=== PATIENT | male | born 1945 | race Caucasian/White ===

== ENCOUNTER → 2017-10-23 15:02 | Outpatient (CLI) | payer MEDICARE, BC, SELFPAY ==
--- NOTE | 2017-10-23 15:30 | MRI_ITS ---
STUDY: MRI BRAIN WITH AND WITHOUT CONTRAST REASON FOR EXAM: Male, 72 years old. Imbalance, falls, unsteady gait, prostate cancer TECHNIQUE: Standardized multiplanar fat and water weighted pulse sequences were obtained. 10 ml of Gadavist contrast material was administered intravenously for the contrast portion of the examination. COMPARISON: 02/22/2016 report only FINDINGS: Mild cortical atrophy. Normal white matter tracts of the supratentorial brain. Normal bilateral basal ganglia. Normal thalami. There is no extra-axial fluid accumulation. Normal flow voids within the major intracranial circulation suggesting patency by spin echo criteria. Normal venous enhancement. There is no enhancing intra-axial or extra-axial abnormality. Normal sella turcica, pituitary gland, infundibular stalk, optic chiasm and hypothalamus. Normal tectal plate and pineal gland. Normal midbrain, shantal and medulla. Normal cerebellum. Sacha cisterna magna is incidentally noted. Normal basal cisterns. Normal bilateral temporal bones. Normal bilateral internal auditory canals. Right lens replacement. Bilateral maxillary sinusitis. Normal calvarium and skull base. Normal visualized soft tissue structures. Normal visualized upper cervical spine. MRI/Brain W/WO Contrast IMPRESSION: No evidence of infarct or hemorrhage. Cortical atrophy. No evidence of metastatic disease. Bilateral maxillary sinusitis. Electronically Signed: Edil Simms MD at 2:11 EST Tel , Service support ,
[2017-10-23 16:01] LABS: CREATININE FINGERSTICK 0.8 mg/dL (0.70-1.30); EGFR FINGERSTICK > 60.0000 mL/min (>60)
== END ==
PROVIDERS: Family Provider Internal Medicine; PCP Internal Medicine; Visit Provider Internal Medicine
DX: R27.0 Ataxia, unspecified (principal)
CPT/HCPCS: 70553; A9585

== ENCOUNTER → 2017-10-26 08:15 | Outpatient (CLI) | payer MEDICARE, BC, SELFPAY ==
--- NOTE | 2017-10-26 08:29 | RAD_ITS ---
STUDY: X-RAY - ESOPHAGUS (BARIUM SWALLOW) WITH FLUOROSCOPY REASON FOR EXAM: Male, 72 years old. Dysphagia for solids. History of melanoma and prostate cancer. TECHNIQUE: 17 view(s) of the esophagus were obtained following swallowing of barium. FLUOROSCOPY TIME (if supplied): (0:33) minutes/seconds COMPARISON: None. FINDINGS: There is no demonstrated esophageal foreign body. There is circumferential narrowing of the distal esophagus at the gastroesophageal junction. The 12 mm tablet of barium is trapped at the gastroesophageal junction. Endoscopic correlation is recommended. There is atherosclerotic tortuosity of the aortic arch and descending thoracic aorta. Normal visualized pulmonary parenchyma. Normal visualized osseous structures of the thorax. RAD/Esophagus Only IMPRESSION: Circumferential narrowing at the gastroesophageal junction as described. The 12 mm tablet of barium is trapped at that site. Endoscopic correlation is recommended. Electronically Signed: Valdo Dwyer MD at 9:18 EST Tel [phone], Service support ,
== END ==
PROVIDERS: Family Provider Internal Medicine; PCP Internal Medicine; Visit Provider Internal Medicine
DX: R13.10 Dysphagia, unspecified (principal)
CPT/HCPCS: 74220

== ENCOUNTER → 2017-12-18 07:26 | Outpatient (CLI) | payer MEDICARE, BC, SELFPAY ==
--- NOTE | 2017-12-18 14:25 | PFTCOMP ---
COMPLETE PULMONARY FUNCTION TEST INTERPRETATION Brief HPI: Patient is a 72 year old male, currently under the care of myself, who presents to [facility] for complete pulmonary function tests secondary to diagnosis of COPD. Respiratory therapist reports good effort and reproducible results. Interpretation: Forced expiration spirometry shows no large airways obstructive ventilatory defect with an FEV1 of 83 % predicted. There is no significant bronchodilator response by ATS criteria. Spirograms are of good quality and plateau slowly, indicating slowly emptying areas of the lungs. The respiratory flow volume loop shows decreased expiratory flow rates at high lung volumes consistent with small airways obstruction. Lung volumes by body plethysmography show a normal total lung capacity at 6.33 L, 98% predicted. All other lung volumes are within normal limits. Diffusion capacity by carbon monoxide is at the lower limit of normal at 67 % predicted. The airway resistance is elevated. Compared to previous pulmonary function tests from 07/25/2016, there has been no significant change. Impression: These pulmonary function tests are grossly within normal limits. Views capacity is at the lower limit of normal and may indicate early pulmonary vascular disease.
--- NOTE | 2017-12-18 14:28 | PFTCOMP_ITS ---
COMPLETE PULMONARY FUNCTION TEST INTERPRETATION Brief HPI: Patient is a 72 year old male, currently under the care of myself, who presents to [facility] for complete pulmonary function tests secondary to diagnosis of COPD. Respiratory therapist reports good effort and reproducible results. Interpretation: Forced expiration spirometry shows no large airways obstructive ventilatory defect with an FEV1 of 83 % predicted. There is no significant bronchodilator response by ATS criteria. Spirograms are of good quality and plateau slowly, indicating slowly emptying areas of the lungs. The respiratory flow volume loop shows decreased expiratory flow rates at high lung volumes consistent with small airways obstruction. Lung volumes by body plethysmography show a normal total lung capacity at 6.33 L , 98% predicted. All other lung volumes are within normal limits. Diffusion capacity by carbon monoxide is at the lower limit of normal at 67 % predicted. The airway resistance is elevated. Compared to previous pulmonary function tests from 07/25/2016, there has been no significant change. Impression: These pulmonary function tests are grossly within normal limits. Views capacity is at the lower limit of normal and may indicate early pulmonary vascular disease.
== END ==
PROVIDERS: Family Provider Internal Medicine; PCP Internal Medicine; Visit Provider Nurse Practitioner Acute Care
DX: J44.9 Chronic obstructive pulmonary disease, unspecified (principal)
CPT/HCPCS: 94060; 94726; 94729

== ENCOUNTER 2018-05-27 08:59 | Day surgery (SDC) | payer MEDICARE, BC, SELFPAY ==
[2018-05-27 09:12] VITALS: BP 140/93; PULSE 66; RESP 18; TEMP 36.4; O2SAT 97
== END 2018-05-27 09:57 | disposition home or self-care (01) ==
LOC: EN 09:01
PROVIDERS: Family Provider Internal Medicine; PCP Internal Medicine; Visit Provider Surgery
PROC: F00ZJWZ Instrumental Swallowing and Oral Function Assessment using Swallowing Equipment (ICD-10-PCS; CPT 43235; principal; 2018-05-27 08:55)
DX: R13.10 Dysphagia, unspecified (principal)
CPT/HCPCS: 91010

== ENCOUNTER → 2018-05-29 10:00 | Outpatient (CLI) | payer MEDICARE, BC, SELFPAY ==
--- NOTE | 2018-05-29 10:00 | LES_PTH ---
PATIENT: NAZARIO MARIE LOC: [facility] U#:[id number] AGE/SX: 80/M ROOM: RE05/29/[address]: Dr. Robert Martinez MD : 1945 BED: DIS: SPEC #: [id number] RECD: 05/29/18 11:27 STATUS: ADRIANA TULIO #: [id number] JOSELUIS: 05/29/18 10:[address]: Robert Martinez DEPT: SURGICAL PATHOLOGY RECD BY: Noble Santizo ENTERED: 05/31/18 10:46 SP TYPE: Lesion OTHR DR: Dr. Kellen Garcia, DO Tissues: Skin of external ear, NOS Procedures: Surgery Specimen Level III HEADER OPERATION: Excision of subcutaneous lesion of left posterior ear PRE-OP DIAGNOSIS: Lesion of subcutaneous tissue TISSUE SUBMITTED: Left posterior ear MICROSCOPIC DIAGNOSIS Subcutaneous lesion of left posterior ear, excision: Mature adipose tissue consistent with lipoma. AM:tiana 06/01/18 MICROSCOPIC DESCRIPTION Slides are reviewed. GROSS DESCRIPTION Received in fixative is one container labeled with the patient's name and designated left posterior ear. The specimen consists of a piece of yellow adipose tissue measuring 4 x 3 x 1 cm. Sections reveal yellow adipose cut surfaces without area of hemorrhage, necrosis or cystic degeneration. Nutrition Technician sections are submitted in one cassette. / SJ:rg 05/31/18 TC:1 CPT: 32711
== END ==
PROVIDERS: Family Provider Internal Medicine; PCP Internal Medicine; Visit Provider Surgery
DX: L98.8 Other specified disorders of the skin and subcutaneous tissue (principal)
CPT/HCPCS: 88304; 88305

== ENCOUNTER → 2018-08-10 20:00 | Outpatient (CLI) | payer MEDICARE, BC, SELFPAY ==
--- OUTSIDE RECORDS SUMMARY | 2018-10-06 10:24 | XMS RPT_ITS | Continuity of Care Document ---
:1945 Author Organization [facility] Address [facility] [address] [place] [address] Phone Care Team Providers Name Role Phone Kellen Garcia DO Unavailable Brijesh LUTZ, Miguel Ángel Askew Unavailable Dr. Taras Yost Unavailable Edil Hernández Unavailable Anton LUTZ, Pravin Zamarripa Unavailable Daniel Bowles MD Unavailable Juan WU MD , Robert Reece Unavailable Dr. Pravin Marques Unavailable Alexandro LUTZ, Trent Brizuela Unavailable Aurelia Russell Unavailable Unavailable Daniela Edwards Unavailable Unavailable Unavailable Unavailable Problems Name Dates Details Abnormal blood sugar (R73.09, 790.29) Status: Active Abnormal TSH (R79.89, 790.6) Status: Active Abnormality of esophagus (K22.9, 530.9) Status: Active Acute bacterial bronchitis (J20.8, 466.0) Status: Active Acute bronchitis due to infection (J20.8, 466.0) Status: Active Acute Sinusitis (J01.90, 461.9) Status: Active Acute sinusitis (J01.90, 461.9) Status: Active Allergic reaction, subsequent encounter (T78.40XD, V58.89) Comments: continue on prednisone benadryl - he is improving Status: Active arthritis,unspecified (716.90) Status: Active Asthma (J45.909, 493.90) Status: Active Ataxia (R27.0, 781.3) Comments: and falling Status: Active BMI 29.0-29.9,adult (Z68.29, V85.25) Status: Active BMI 32.0-32.9,adult (Z68.32, V85.32) Status: Active BMI 32.0-32.9,adult (Z68.32, V85.32) Status: Active Central sleep apnea (G47.31, 780.57) Comments: on bipap and was referred to hernández Status: Active Chronic maxillary sinusitis (J32.0, 473.0) Status: Active Chronic Sinusitis Status: Active Confusion (R41.0, 298.9) Status: Active COPD (chronic obstructive pulmonary disease) (J44.9, 496) Status: Active Coronary Artery Disease (414.00) Comments: doing well sx nair Status: Active Current non-smoker (Z78.9, V49.89) Status: Active Dysphagia (R13.10, 787.20) Comments: doing better Status: Active Dysthymic (F34.1, 300.4) Status: Active Elevated hemoglobin A1c (R73.09, 790.29) Comments: he is on the verge of diabetes we disussed diet and ex in detail and encourage to discuss with psych the remeron(weight gain) Status: Active Elevated hemoglobin A1c (R73.09, 790.29) Comments: better Status: Active Elevated high sensitivity C-reactive protein (R79.82, 790.95) Comments: get lab Status: Active Encounter for hepatitis C virus screening test for high risk patient (Z11.59, V73.89) Status: Active Esophageal spasm (K22.4, 530.5) Status: Active Fall, accidental (W19.XXXA, E888.9) Comments: check mri of brain otherwise may be his sugar he gets hypoglycemia when he is eating too many carbs gave him sugar monitor Status: Active Fatigue (R53.83, 780.79) Status: Active 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, 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) Comments: seeing neuropsychiatrist Status: Active Gastroesophageal reflux disease without esophagitis (K21.9, 530.81) Comments: chronic stable-continue present regimen Status: Active Hearing loss (H91.90, 389.9) Status: Active Heart murmur (R01.1, 785.2) Status: Active Hypothyroid (E03.9, 244.9) Status: Active Lipoma (D17.9, 214.9) Status: Active [facility] WELLNESS EXAM Status: Active [facility] Wellness Physical Status: Active Melanoma (C43.9, 172.9) Comments: skin check up to date Status: Active Memory loss (R41.3, 780.93) Status: Active Mixed hyperlipidemia (E78.2, 272.2) Comments: work on diet and e Status: Active Myocardial infarction (lateral wall) (I21.29, 410.50) Status: Active Need for prophylactic vaccination and inoculation against influenza (Renamed from Need for immunization against influenza) (Z23, V04.81) Status: Active Need for prophylactic vaccination and inoculation against influenza (Renamed from Need for immunization against influenza) (Z23, V04.81) Status: Active Need for prophylactic vaccination and inoculation against influenza (Renamed from Need for immunization against influenza) (Z23, V04.81) Status: Active Other chest pain (R07.89, 786.59) Comments: chest tightness with cough Status: Active Potassium excess (E87.5, 276.7) Status: Active Prostate cancer (C61, 185) Status: Active Pulmonary Embolism (Renamed from PE (pulmonary embolism)) (I26.99, 415.19) Status: Active Secondary pulmonary hypertension (416.8) Comments: on norvascd Status: Active SOB (shortness of breath) on exertion (R06.02, 786.05) Status: Active Syncope (R55, 780.2) Comments: think vagal but will check other possibliitiies Status: Active Vascular dementia (F01.50, 290.40) Status: Active Vitamin D deficiency (E55.9, 268.9) Status: Active Medications Name Dates Details Acebutolol HCl 200 MG Oral Capsule 1 (one) Capsule daily for 90 days Quantity: 90 {Capsule} Refills: 3 Ordered:19-Sep-2016 Jose TARYLOR Kellen HOPElena TRAYLOR Kellen Whiteside Start : 19-Sep-2016 Active Advair HFA 230-21 MCG/ACT Inhalation Aerosol 2 (two) Aerosol Aerosol bid for 0 days Quantity: 1 {Inhaler} Refills: 0 Ordered:09-Dec-2016 Jose TRAYLOR Kellen HOPElena TRAYLOR Kellen A Start : 09-Dec-2016 Active AmLODIPine Besylate 2.5 MG Oral Tablet 1 tab Tablet daily for 90 days Quantity: 90 {Tablet} Refills: 3 Ordered:19-Sep-2016 Jose TRAYLORLoretomiesha HOPElena TRAYLOR Kellen Whiteside Start : 19-Sep-2016 Active Aricept 5 MG Oral Tablet 1 (one) Tablet qhs for 90 days Quantity: 90 {Tablet} Refills: 3 Ordered:20-Oct-2017 Jose TRAYLOR Kellen HOPElena TRAYLOR Kellen Whiteside Start : 20-Oct-2017 Active ASPIR-81, 81MG (Oral Tablet Delayed Release) 1 (one) Tablet DR daily for 30 days Quantity: 30 {Tablet} Refills: 0 Ordered:09-Apr-2015 Jose TRAYLORLoretomiesha HOPElena TRAYLOR Kellen Whiteside Start : 09-Apr-2015 Active BuPROPion HCl ER (XL) 300 MG Oral Tablet Extended Release 24 Hour 1 (one) Tablet qd for 0 days Quantity: 30 {Tablet} Refills: 3 Ordered:15-Jun-2017 Jose TRAYLORLoretomiesha HOPElena TRAYLOR Kellen A Start : 15-Jun-2017 Active BusPIRone HCl 15 MG Oral Tablet 1 tab Tablet tid for 90 days Quantity: 270 {Tablet} Refills: 3 Ordered:29-Jun-2017 Jose TRAYLORLoretomiesha HOPElena TRAYLOR Kellen Whiteside Start : 29-Jun-2017 Active Clopidogrel Bisulfate 75 MG Oral Tablet 1 (one) Tablet daily for 30 days Quantity: 30 {Tablet} Refills: 6 Ordered:18-Jan-2018 Jose TRAYLORKellen DO Kellen Whiteside Start : 18-Jan-2018 Active Levocetirizine Dihydrochloride 5 MG Oral Tablet 1 (one) Tablet daily for 90 days Quantity: 90 {Tablet} Refills: 3 Ordered:19-Sep-2016 Jose TRAYLOR Kellen HOPElena TRAYLOR Kellen A Start : 19-Sep-2016 Active Levothyroxine Sodium 75 MCG Oral Tablet 1 (one) Tablet Tablet qd for 0 days Quantity: 90 {Tablet} Refills: 3 Ordered:18-Feb-2018 Yessica Thomason MD Start : 18-Feb-2018 Active Lipitor 20 MG Oral Tablet 1 (one) Tablet Tablet qd for 0 days Quantity: 90 {QS} Refills: 2 Ordered:27-Nov-2017 DO, Kellen AFast DO, Kellen A Start : 27-Nov-2017 Active Lisinopril 2.5 MG Oral Tablet 1 tab Tablet daily for 90 days Quantity: 90 {Tablet} Refills: 3 Ordered:29-Jun-2017 DO, Kellen AFast DO, Kellen A Start : 29-Jun-2017 Active Nitrostat 0.4 MG Sublingual Tablet Sublingual 1 (one) Tab Sublingual q 5min x3 for chest pain for 0 days Quantity: 30 {Tablet} Refills: 2 Ordered:02-Jun-2018 DO, Kellen AFast DO, Kellen A Start : 02-Jun-2018 Active Pantoprazole Sodium 40 MG Oral Tablet Delayed Release 1 (one) Tablet DR two times daily for 90 days Quantity: 180 {Tablet} Refills: 3 Ordered:13-Jul-2017 Daniela Edwards Start : 13-Jul-2017 Active Pristiq 100 MG Oral Tablet Extended Release 24 Hour 1 (one) Tablet Tablet qd for 0 days Quantity: 30 {Tablet} Refills: 3 Ordered:02-Aug-2018 Aurelia Russell Start : 02-Jun-2018 Active Remeron 30 MG Oral Tablet 1 (one) Tablet q hs for 0 days Quantity: 90 {Tablet} Refills: 3 Ordered:20-May-2018 Yessica Thomason MD Start : 20-May-2018 Active Vitamin D3 5000 UNIT Oral Capsule 1 (one) Capsule 4 days a week for 30 days Quantity: 30 {Capsule} Refills: 0 Ordered:02-Aug-2018 DO, Kellen AFast DO, Kellen A Start : 02-Aug-2018 Active Augmentin 875-125 MG Oral Tablet 1 (one) Tablet bid for 14 days Quantity: 28 {Tablet} Refills: 0 Ordered:27-Apr-2018 DO, Kellen AFast DO, Kellen A Start : 27-Apr-2018 End : 11-May-2018 Inactive BREO ELLIPTA, 200-25MCG/INH (Inhalation Aerosol Powder Breath Activated) 1 puff daily (200-25 MCG/INH) Inactive DOXYCYCLINE HYCLATE, 100MG (Oral Tablet) 1 (one) Tablet bid for 7 days Quantity: 14 {Tablet} Refills: 0 Ordered:06-Aug-[address] CNP Start : 06-Aug-2015 End : 13-Aug-2015 Inactive Pravastatin Sodium 80 MG Oral Tablet 1 (one) Tablet at bedtime for 90 days Quantity: 90 {Tablet} Refills: 3 Ordered:26-Oct-2017 Aurelia Russell Start : 19-Sep-2016 End : 26-Oct-2017 Inactive BuPROPion HCl ER (XL) 300 MG Oral Tablet Extended Release 24 Hour 1/2 Tablet ER 24HR daily for 90 days Quantity: 45 {Tablet} Refills: 3 Ordered:29-Sep-2016 Kellen Garcia DO, DO, Debra A Start : 29-Sep-2016 End : 29-Sep-2016 Discontinued CITALOPRAM HYDROBROMIDE, 20MG (Oral Tablet) 1 1/2 Tablet daily for 30 days Quantity: 45 {Tablet} Refills: 0 Ordered:06-Jul-2015 Daniela Edwards Start : 09-Apr-2015 End : 06-Jul-2015 Discontinued Effexor XR 150 MG Oral Capsule Extended Release 24 Hour 2 caps Capsule daily for 0 days Quantity: 180 {Capsule} Refills: 3 Ordered:02-Jun-2018 Kellen Garcia DO, DO, Debra A Start : 02-Jun-2018 End : 02-Jun-2018 Discontinued Levaquin 500 MG Oral Tablet 1 (one) Tablet qd for 0 days Quantity: 10 {Tablet} Refills: 0 Ordered:13-Mar-2017 Daniela Edwards Start : 07-Jan-2017 End : 13-Mar-2017 Discontinued LevoFLOXacin 500 MG Oral Tablet 1 (one) Tablet Tablet qd for 0 days Quantity: 10 {Tablet} Refills: 0 Ordered:13-Mar-2017 Daniela Edwards Start : 03-Nov-2016 End : 13-Mar-2017 Discontinued Namenda 10 MG Oral Tablet 2 (two) Tablet qd for 0 days Quantity: 180 {Tablet} Refills: 3 Ordered:23-Nov-2017 Kellen Garcia DO, DO, Debra A Start : 23-Nov-2017 End : 23-Nov-2017 Discontinued Comments:called verbal order into [employer] - 10/12/17 PROAIR HFA, 108 (90 Base)MCG/ACT (Inhalation Aerosol Solution) 2 (two) Puff Puff tid prn for 0 days Quantity: 1 {Inhaler} Refills: 0 Ordered:17-Oct-2015 Daniela Edwards Start : 06-Aug-2015 End : 17-Oct-2015 Discontinued Allergies and Adverse Reactions Name Dates Details Cefdinir *CEPHALOSPORINS* Status: Active (Allergy) Codeine/Codeine Derivatives Status: Active (Allergy) Comments: not sure whether was cefdinir or codeine took at same time- near anaphylaxis No Known Drug Allergies (Allergy) Onset: 03-Nov-2016 Status: Inactive Past Medical History Name Dates Details Abnormal blood chemistry (R79.9, 790.6) Status: Inactive as of 27-Apr-2018 Allergic Rhinitis (477.9) Status: Inactive as of 29-Sep-2017 Ankle pain, left (M25.572, 719.47) Status: Inactive as of 29-Sep-2017 BMI 28.0-28.9,adult (Z68.28, V85.24) Status: Inactive as of 29-Sep-2017 BMI 29.0-29.9,adult (Z68.29, V85.25) Status: Inactive as of 29-Sep-2017 BMI 30.0-30.9,adult (Z68.30, V85.30) Status: Inactive as of 02-Aug-2018 Bronchiectasis (J47.9, 494.0) Comments: doing better Status: Inactive as of 18-Jan-2018 Cough (R05, 786.2) Status: Resolved as of 13-Aug-2015 Hypoxia (R09.02, 799.02) Comments: why so hypoxic- check ddimer- he not wheezing and lungs clear Status: Inactive as of 27-Apr-2018 Low back pain (M54.5, 724.2) Status: Inactive as of 29-Sep-2017 Neoplasm of uncertain behavior of skin (D48.5, 238.2) Status: Inactive as of 27-Apr-2018 Sinusitis (J32.9, 473.9) Status: Inactive as of 18-Jan-2018 Procedures Procedure Dates Details CATARACT RIGHT EYE 2017 Completed Endoscopy Completed 26-Nov-2017 Comments: upper endoscopy with balloon dilation - Dr. Marques nasal septoplasty 2016 Completed Penal Implant Completed Prostate Surgery Completed Comments: radical and radiation- 2001 Tonsillectomy Completed Total Knee Replacement - Both Completed Comments: 2011 Date Value Details 21-Jun-2018 Pulmonary Visit Report Result: Comments: See Note; NOTES: [facility] [address] [place] [address] OFFICE VISIT Date of Service: 06/21/18 MR#: [id number] Acct: [id number] Name: EDIL MARIE Rep #: [id number] : 1945 Provider: Lanny Jones Age/Sex: 73/M Location: [facility] Status: Signed Assessment AND Plan 1. STACI (obstructive sleep apnea) G47.33 Plan Deteriorated. T itration study needed. Patient is using PAP therapy,and is benefitting from it but there is room for better symptom management. Not feeling rested, and continues to nap during the day. Follow up in 3 mo nths after titration study. Orders Orders: 2. Pulmonary hypertension, secondary Plan Stable. Continue weight loss and exercise. Refrain from additional sodium intake as it will contribute to problem. Notify the office if exacerbation arises, or periods of increased dyspnea occur. 3. Moderate persistent asthma without complication J45.40 Plan Stable. Continue current maintenance medication. Annual flu vaccination current. Consider repeating PFTs on annual bases. Notify the office if exacerbation, or increased dyspnea arise. 4. Dementia F03.90 Plan Complicates exam, plan, care, and prognosis for this patient. Defer management to PCP. Plan Detail Other Medications New: Follow Up 3 Months ([facility]) HPI 6 M FU: Chief Complaint: none HPI Comments Details: 73-year-old male here today for follow-up v isit for STACI. No compliance report available at this time. He reports poor sleep hygiene: goes to bed late at night, sleeps at least six-hours, at least 2 events of having to urinate at night, difficult y falling asleep, and frequent napping during the day. He does not feel rested upon waking from sleep in the morning. He is feeling well today, denies cough, shortness of breath or dyspnea. He is using his Airduo inhaler, however, he does not feel as though it is working as well as his Advair did before he switched for insurance reasons. He rinses mouth after each use and denies medication side effec ts such as thrush. He states that he seems to be tasting more of the powder with the Airduo compared to the Advair. He does admit to frequent nasal drainage that is clear, he relates this to rhinoplasty he has had in the past. Admits to sinus infection about 5 weeks ago which he had completed treatment of antibiotics. He is feeling fair today. He has not had recent hospitalization, o r treatment with prednisone in recent weeks. Patient states that he has had weight loss over the past 2 months, and is feeling better since he has increased his activity and changed his eating habits a llowing him to eat less. Intake Vital Signs06/21/18 Height 6 ft 06/21/18 Weight: 214 lb Intake Visit Reasons: 6 M FU [facility] Vendor: [employer] Accompanied by: Self Allergies cefdinir Adverse Reac tion (Intermediate, Verified 06/21/18 09:46) SOB codeine Adverse Reaction (Intermediate, Verified 06/21/18 09:46) SOB Medications Acebutolol HCl [Sectral (Beta Andrew)] 200 mg PO DAILY 04/17/15 [His tory Confirmed 06/21/18] Aspirin [Aspirin, Baby] 81 mg PO DAILY@0800 04/17/15 [History Confirmed 06/21/18] Clopidogrel Bisulfate [Plavix] 75 mg PO DAILY 04/17/15 [History Confirmed 06/21/18] Co Q10 200 [Co Q-10] 100 mg PO DAILY 04/17/15 [History Confirmed 06/21/18] Cyanocobalamin [Vitamin B12] 500 mcg PO DAILY 04/17/15 [History Confirmed 06/21/18] Levocetirizine Dihydrochloride [Xyzal] 5 mg PO DAILY 0 04/17/15 [History Confirmed 06/21/18] Mirtazapine [Remeron] 30 mg PO DAILY 04/17/15 [History Confirmed 06/21/18] Oxygen, Home [Home Oxygen] 2 lpm NASAL QHS 04/17/15 [History Confirmed 06/21/18] Pantopraz ole Sodium [Protonix] 40 mg PO BID 04/17/15 [History Confirmed 06/21/18] Amlodipine [Norvasc] 2.5 mg PO DAILY 11/23/15 [History Confirmed 06/21/18] Ascorbic Acid [Vitamin C] 500 mg PO DAILY@0800 5 [History Confirmed 06/21/18] Lisinopril [Zestril] 2.5 mg PO DAILY 08/06/15 [History Confirmed 06/21/18] [place]-3 Fatty Acids [[place]-3] 1,000 mg PO DAILY 08/06/15 [History Confirmed 06/21/18] albuterol sulfate HFA 90 mcg/actuation aerosol inhaler 2 puff INHALATION Q4H g 11/11/17 [History Confirmed 06/21/18] buspirone 10 mg tablet 10 mg PO BID 11/11/17 [History Confirmed 06/21/18] cholecalciferol (kaitlynn min D3) 5,000 unit capsule 5,000 unit PO QDAY 11/11/17 [History Confirmed 06/21/18] donepezil 5 mg tablet 5 mg PO QDAY 11/11/17 [History Confirmed 06/21/18] atorvastatin 20 mg tablet 20 mg PO QDAY 12/24 [History Confirmed 06/21/18] bupropion HCl XL 300 mg 24 hr tablet, extended release 300 mg PO DAILY tab 12/24/17 [History Confirmed 06/21/18] levothyroxine 25 mcg capsule 25 mcg PO QDAY cap 12/24/17 [History Confirmed 06/21/18] venlafaxine ER 150 mg capsule,extended release 24 hr 150 mg PO .COMPLEX cap 12/24/17 [History Confirmed 06/21/18] fluticasone 113 mcg-salmeterol 14 mcg/actuation breath act ivated powdr 1 puff INHALATION BID 06/21/18 [History Confirmed 06/21/18] [facility] Medical History History of esophageal dilatation (Acute) Lung nodu les (Acute) GERD (gastroesophageal reflux disease) (Acute) Bronchiectasis (Acute) Depression (Acute) COPD (chronic obstructive pulmonary disease) (Acute) STACI (obstructive sleep apnea) (Acute) Atheroscle rotic heart disease of [place] coronary artery without angina pectoris (Chronic) Pulmonary hypertension, secondary (Acute) Nonrheumatic mitral (valve) prolapse (Acute) Fatigue (Chronic) Atherosclerotic h eart disease of [place] coronary artery without angina pectoris (Chronic) Murmur (Chronic) Angina pectoris (Chronic) Shortness of breath (Chronic) Chest pain (Acute) HLD (hyperlipidemia) (Chronic) HTN (h ypertension) (Chronic) Body mass index (BMI) of 33.0-33.9 in adult (Inactive) Bronchiectasis (Inactive) CAD (coronary artery disease) (Inactive) COPD (chronic obstructive pulmonary disease) (Inactive) D epression (Inactive) Mitral valve prolapse (Inactive) STACI (obstructive sleep apnea) (Inactive) Pulmonary HTN (Inactive) Surgical History Hx of ca taract surgery (Acute) History of bilateral knee replacement (Resolved) H/O radical prostatectomy (Resolved) History of tonsillectomy (Resolved) History of penile implant (Resolved) History of sinus bal loonplasty (Resolved) H/O radical prostatectomy (Inactive) History of bilateral knee replacement (Inactive) History of penile implant (Inactive) History of tonsillectomy (Inactive) history of sinus ball onplasty (Inactive) Family History Father CVA (cerebral vascular accident) Mother Diabetes CVA (cerebral vascular accident) Social History Smoki ng Status: Never smoker second hand exposure: No alcohol intake: never substance use type: does not use caffeine: No what type of physical activity do you participate in: none Review of Systems Cons t CONSTITUTIONAL: Negative anorexia, body ache, chills, daytime sleepiness, fever(s), night sweats, oral thrush, stops breathing during sleep, weight loss, sleeping in chair, fatigue, weight loss, weigh t gain, frequent colds, seasonal allergies, other, headache(s) or orthopnea EETM Ear Nose Throat Mouth: Positive hearing normal; negative hard of hearing, hoarseness, dry mouth in morning, change in vis ion, itchy eyes, eye pain, swallowing Difficulty, ear pain, nose bleed, headache(s), mouth pain, nasal congestion, nasal discharge, post nasal drip, sinus pain, sinus pressure, sore throat or other Card io Cardiovascular: Negative chest pain, chest pain at rest, chest pain with activity, irregular heart rhythm, edema, shortness of breath when lying down, palpitations, murmur or other Resp Respiratory: Positive as per HPI; negative shortness of breath, pain with cough, wheezing, chest congestion, cough, chest tightness, pain on inspiration, inhalers, increase use of rescue inhalers, snoring, apnea or other Gastro Gastrointestional: Negative bloody stools, change in appetite, difficulty swallowing, reflux, hematemesis, melena stool, loose stool, constipation or other Genitourinary: Negative blood in urine, nocturia, pain with urination or other Musc Musculoskeletal: Negative body pain, back pain, neck pain or other Skin/Breast Skin/Breast: Negative dry skin, itching, rash, unusual bruising, raisa st lump or other Neuro Neurological: Negative restless legs, confusion, weakness or other Psych Psychocological: Negative abnormal sleep pattern, anxiety, thoughts of hurting self/others, hopelessness o r other Lymph Lymphatic: Negative easy bleeding, easy bruising, swollen lymph nodes or other Exam Const Constitutional: Positive conversant, in no acute respiratory distress, healthy appearing and obe se; negative smells of smoke, frail appearing, wearing supplemental oxygen or appears older than stated age Head Head: Positive normocephalic and atraumatic; negative cyanosis of lips/distal nose, front al sinus tenderness or maxillary sinus tenderness Eyes Eye: Positive clear conjunctiva Ears Ear: Positive hearing normal, external ears normal and other (had fatty- tumor removed from the left side behin d ear); negative hard of hearing Nose Nose: Positive external nose normal; negative epistaxis Mouth Mouth: Positive oral mucosae normal and crowded posterior oropharynx; negative post nasal drip or oral thrush present Mallampati Score: III: Mallampati Score Neck Neck: Positive normal visual inspection and trachea midline Chest Wall Chest: Positive normal inspection of the chest and symmetric chest mov ement Resp lung sounds: Positive clear to auscultation, diminished, normal expiratory time and normal respiratory effort; negative wheezes, wheeze present on forced exhalation, rhonchi, increased work o f breathing or use of accessory muscles Cardio Cardiac: Positive regular rate and regular rhythm; negative murmur GI GI: Positive normal to inspection, normal bowel sounds and obese Genitourinary: Po sitive deferred [facility] [place] Musculoskeletal: Positive steady gait and ROM normal; negative using an assistive device for ambulation Skin Pulmonary Skin Exam: Positive intact; negative rash, erythema or lesion Pulses Pulse: Yes pulses normal x4 extremities Extremities Extremities: Yes capillary refill normal, No clubbing, No edema Neuro Neurologic: Yes conversant, Yes no focal neuro deficits, Yes cooperative, Yes normal cognition, Yes normal concentration Lymph Lymphatic: No lymphadenopathy, Yes tenderness, No cervical adenopathy Psych Appearance: Positive grossly normal Mental Status: Positive mental statu s grossly normal Mood: Positive congruent mood Affect: Positive normal affect Coding Level of Care Code Off vis,est,level 4 Diagnoses STACI (obstructive sleep apnea) G47.33 Pulmonary hypertension, seco ndary Moderate persistent asthma without complication J45.40 Asthma complication type: uncomplicated Asthma persistence: persistent Asthma severity: moderate Dementia F03.90 06/21/18 1625 <El ectronically signed by Lanny PALOMO> Date Lanny PALOMO Cosigner Signature: Date (if applicable) CC: Kellen Garcia DO 02-Jun-2018 Surgery Visit Report Result: Comments: See Note; NOTES: [facility] 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: No Is patient in pain?: No (tender to the touch) Allergies cefdinir Adverse Reaction (Intermediate, Verified 06/02/18 13:59) SOB codeine Adverse Reaction (Intermediate, Veri fied 06/02/18 13:59) SOB Medications Acebutolol HCl [Sectral (Beta Andrew)] 200 mg PO DAILY 04/17/15 [History Confirmed 06/02/18] Aspirin [Aspirin, Baby] 81 mg PO DAILY@0800 04/17/15 [History Confir med 06/02/18] Clopidogrel Bisulfate [Plavix] 75 mg PO DAILY 04/17/15 [History Confirmed 06/02/18] Co Q10 200 [Co Q-10] 100 mg PO DAILY 04/17/15 [History Confirmed 06/02/18] Cyanocobalamin [Vitamin B12] 500 mcg PO DAILY 04/17/15 [History Confirmed 06/02/18] Levocetirizine Dihydrochloride [Xyzal] 5 mg PO DAILY 04/17/15 [History Confirmed 06/02/18] Mirtazapine [Remeron] 30 mg PO DAILY 04/17/15 [History C onfirmed 06/02/18] Oxygen, Home [Home Oxygen] 2 lpm NASAL QHS 04/17/15 [History Confirmed 06/02/18] Pantoprazole Sodium [Protonix] 40 mg PO BID 04/17/15 [History Confirmed 06/02/18] Amlodipine [Norvasc] 2.5 mg PO DAILY 08/06/15 [History Confirmed 06/02/18] Ascorbic Acid [Vitamin C] 500 mg PO DAILY@0800 08/06/15 [History Confirmed 06/02/18] Lisinopril [Zestril] 2.5 mg PO DAILY 08/06/15 [History Confirm ed 06/02/18] [place]-3 Fatty Acids [[place]-3] 1,000 mg PO DAILY 08/06/15 [History Confirmed 06/02/18] albuterol sulfate HFA 90 mcg/actuation aerosol inhaler 2 puff INHALATION Q4H g 11/11/17 [History Confir med 06/02/18] buspirone 10 mg tablet 10 mg PO BID 11/11/17 [History Confirmed 06/02/18] cholecalciferol (vitamin D3) 5,000 unit capsule 5,000 unit PO QDAY 11/11/17 [History Confirmed 06/02/18] donepezil 5 mg tablet 5 mg PO QDAY 11/11/17 [History Confirmed 06/02/18] atorvastatin 20 mg tablet 20 mg PO QDAY 12/24/17 [History Confirmed 06/02/18] bupropion HCl XL 300 mg 24 hr tablet, extended release 300 m g PO DAILY tab 12/24/17 [History Confirmed 06/02/18] fluticasone 100 mcg-salmeterol 50 mcg/dose blistr powdr for inhalation 1 puff INHALATION Q12H 12/24/17 [History Confirmed 06/02/18] levothyroxine 25 mcg capsule 25 mcg PO QDAY cap 12/24/17 [History Confirmed 06/02/18] venlafaxine ER 150 mg capsule,extended release 24 hr 150 mg PO .COMPLEX cap 12/24/17 [History Confirmed 06/02/18] Subjective Detai ls: Patient is a 73 y/o male I am following for subcutaneous mass left post-auricular. Dr. Martinez performed an excision of the left post-auricular mass on 05/29/18. Patient tolerated the procedure well. Pathology demonstrated lipoma. Patient notes very minimal amount of pain/discomfort. He notes no drainage was noted out of the drain. Patient's noted the inferior portion of the skin was slightly red. Objective Details: Left post-auricular- drain removed with notable serous fluid draining out. Suture was removed. Slight darker erythema consistent with ecchymosis noted. Incision c/d/i. Steri-st rips intact. Dry gauze dressing was placed over top of the small opening to allow for drainage. Assessment AND Plan Problems 1. 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 [place], [place] [id number] OFFICE VISIT Date of Service: 05/29/18 MR#: [id number] Acct: [id number] Name: Jamilah MARIE Rep #: [id number] : 1945 Provider: Robert Martinez MD Age/Sex: 73/M Location: [facility] Status: Signed Intake Intake Visit Reasons: Excision of Lipoma L Ear Chief Complaint: dysphagia In terpreter Required: No Is patient in pain?: No Allergies cefdinir Adverse Reaction (Intermediate, Verified 05/29/18 11:57) SOB codeine Adverse Reaction (Intermediate, Verified 05/29/18 11:57) SOB Med ications Acebutolol HCl [Sectral (Beta Andrew)] 200 mg PO DAILY 04/17/15 [History Confirmed 05/29/18] Aspirin [Aspirin, Baby] 81 mg PO DAILY@0800 04/17/15 [History Confirmed 05/29/18] Clopidogrel Bisu lfate [Plavix] 75 mg PO DAILY 04/17/15 [History Confirmed 05/29/18] Co Q10 200 [Co Q-10] 100 mg PO DAILY 04/17/15 [History Confirmed 05/29/18] Cyanocobalamin [Vitamin B12] 500 mcg PO DAILY 04/17/15 [His tory Confirmed 05/29/18] Levocetirizine Dihydrochloride [Xyzal] 5 mg PO DAILY 04/17/15 [History Confirmed 05/29/18] Mirtazapine [Remeron] 30 mg PO DAILY 04/17/15 [History Confirmed 05/29/18] Oxygen, Kyle e [Home Oxygen] 2 lpm NASAL QHS 04/17/15 [History Confirmed 05/29/18] Pantoprazole Sodium [Protonix] 40 mg PO BID 04/17/15 [History Confirmed 05/29/18] Amlodipine [Norvasc] 2.5 mg PO DAILY 08/06/15 [His tory Confirmed 05/29/18] Ascorbic Acid [Vitamin C] 500 mg PO DAILY@0800 08/06/15 [History Confirmed 05/29/18] Lisinopril [Zestril] 2.5 mg PO DAILY 08/06/15 [History Confirmed 05/29/18] [place]-3 Fatty Aci ds [[place]-3] 1,000 mg PO DAILY 08/06/15 [History Confirmed 05/29/18] albuterol sulfate HFA 90 mcg/actuation aerosol inhaler 2 puff INHALATION Q4H g 11/11/17 [History Confirmed 05/29/18] buspirone 10 mg tablet 10 mg PO BID 11/11/17 [History Confirmed 05/29/18] cholecalciferol (vitamin D3) 5,000 unit capsule 5,000 unit PO QDAY 11/11/17 [History Confirmed 05/29/18] donepezil 5 mg tablet 5 mg PO QDAY 10/16 05/01 [History Confirmed 05/29/18] atorvastatin 20 mg tablet 20 mg PO QDAY 12/24/17 [History Confirmed 05/29/18] bupropion HCl XL 300 mg 24 hr tablet, extended release 300 mg PO DAILY tab 12/24/17 [Histo ry Confirmed 05/29/18] fluticasone 100 mcg-salmeterol 50 mcg/dose blistr powdr for inhalation 1 puff INHALATION Q12H 12/24/17 [History Confirmed 05/29/18] levothyroxine 25 mcg capsule 25 mcg PO QDAY cap 12/24/17 [History Confirmed 05/29/18] venlafaxine ER 150 mg capsule,extended release 24 hr 150 mg PO .COMPLEX cap 12/24/17 [History Confirmed 05/29/18] PFSH Medical History (Reviewed 05/29/18 @ 11:5 7 by Elisha Beltran) History of esophageal dilatation (Acute) Lung nodules (Acute) GERD (gastroesophageal reflux disease) (Acute) Bronchiectasis (Acute) Depression (Acute) COPD (chronic obstructive p ulmonary disease) (Acute) STACI (obstructive sleep apnea) (Acute) 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, secondary (Acute) Nonrhe umatic mitral (valve) prolapse (Acute) Fatigue (Chronic) Atherosclerotic heart disease of [place] coronary artery without angina pectoris (Chronic) Murmur (Chronic) Angina pectoris (Chronic) Shortness of breath (Chronic) Chest pain (Acute) HLD (hyperlipidemia) (Chronic) HTN (hypertension) (Chronic) Body mass index (BMI) of 33.0-33.9 in adult (Inactive) Bronchiectasis (Inactive) CAD (coronary artery dis ease) (Inactive) COPD (chronic obstructive pulmonary disease) (Inactive) Depression (Inactive) Mitral valve prolapse (Inactive) STACI (obstructive sleep apnea) (Inactive) Pulmonary HTN (Inactive) Surgic al History Hx of cataract surgery (Acute) History of bilateral knee replacement (Resolved) H/O radical prostatectomy (Resolved) History of tonsillectomy (Resolved) History of penile implant (Resolved) History of sinus balloonplasty (Resolved) H/O radical prostatectomy (Inactive) History of bilateral knee replacement (Inactive) History of penile implant (Inactive) History of tonsillectomy (Inactive) history of sinus ballonplasty (Inactive) Family History Father CVA (cerebral vascular accident) Mother Di abetes CVA (cerebral vascular accident) Social History Smoking Status: Never smoker second hand exposure: No alcohol intake: never substance use type: does not use caffeine: No what type of physi adolph activity do you participate in: none HPI HPI HPI: EDIL MARIE, is a 73 M who presents to the office today for Office Procedures Excision of Skin Provider Documentation Provider Documentatio n: Preoperative diagnosis: 4 cm subcutaneous lesion to left posterior neck Postoperative diagnosis: The same Procedure: Excision of 4 cm subcutaneous lesion of the left posterior neck Surgeon: Veronica coffey Procedure: Left posterior neck was sterilely prepped and draped in usual fashion. 1% lidocaine plain was injected along a skin line that was perfectly placed to remove the subcutaneous lesion. Incisi on was made dissection was carried down all the way to the posterior fascia the neck I removed this lesion which was fatty in nature in its entirety and sent to pathology for permanent sectioning. I use electrocautery for good hemostasis. I brought the wound together with deep dermal stitches of 3-0 Vicryl. I left a small sterile rubber on the medial aspect of the wound and sutured it in place with a 3-0 nylon. Sterile dressings were applied and the patient tolerated the procedure well. I will see the patient back on Thursday to remove the sterile rubber band. In the meantime he is to shower keep a dressing on this constant pressure and if needed use a Kotex pad for any fluid that drains out of it. In addition he can restart his anticoagulation this coming Thursday. Alert Agustina Alert Billing: Yes H/F/N/S/G 28805 3.1-4.0cm Procedure Time Out Time Out Informed consent given: Yes Consent signed: Yes Time out checklist: patient, procedure, site marked/identified, positioning of patient, supplies available, allergies confirmed, team agrees on procedure Time out staff in room: Yes Time out verified: Yes Time out date: 05/29/18 Time out time: 09:30 Assessment AND Plan Orders Orders: Coding Lev el of Care Code Attention Agustina Additional Codes H/F/N/S/G - Benign H/F/N/S/ 3.1-4.0cm (66258) 05/30/18 1150 <Electronically signed by Robert Martinez MD> Date ___ Robert Martinez MD Cosigner Signature: Date (if applicable) CC: 21-May-2018 Surgery Visit Report Result: Comments: See Note; NOTES: [facility] [address] [place] [address] OFFICE VISIT Date of Service: 05/21/18 MR#: [id number] Acct: [id number] Name: Jamilah MARIE Rep #: [id number] : 1945 Provider: Robert Martinez MD Age/Sex: 73/M Location: [facility] Status: Signed Intake Vital Signs05/21/18 Height 6 ft 05/21/18 Weight: 213 lb Intake Visit Reasons : Lipoma on back of Neck Chief Complaint: Review of test results Aircraft Design Engineer Required: No Is patient in pain?: No Allergies cefdinir Adverse Reaction (Intermediate, Verified 05/21/18 09:27) SOB codein e Adverse Reaction (Intermediate, Verified 05/21/18 09:27) SOB Medications Acebutolol HCl [Sectral (Beta Andrew)] 200 mg PO DAILY 04/17/15 [History Confirmed 05/21/18] Aspirin [Aspirin, Baby] 81 mg PO DAILY@0800 04/17/15 [History Confirmed 05/21/18] Clopidogrel Bisulfate [Plavix] 75 mg PO DAILY 04/17/15 [History Confirmed 05/21/18] Co Q10 200 [Co Q-10] 100 mg PO DAILY 04/17/15 [History Confirmed 0 05/21/18] Cyanocobalamin [Vitamin B12] 500 mcg PO DAILY 04/17/15 [History Confirmed 05/21/18] Levocetirizine Dihydrochloride [Xyzal] 5 mg PO DAILY 04/17/15 [History Confirmed 05/21/18] Mirtazapine [[place] on] 30 mg PO DAILY 04/17/15 [History Confirmed 05/21/18] Oxygen, Home [Home Oxygen] 2 lpm NASAL QHS 04/17/15 [History Confirmed 05/21/18] Pantoprazole Sodium [Protonix] 40 mg PO BID 04/17/15 [History Co nfirmed 05/21/18] Amlodipine [Norvasc] 2.5 mg PO DAILY 08/06/15 [History Confirmed 05/21/18] Ascorbic Acid [Vitamin C] 500 mg PO DAILY@0800 08/06/15 [History Confirmed 05/21/18] Lisinopril [Zestril] 2.5 mg PO DAILY 08/06/15 [History Confirmed 05/21/18] [place]-3 Fatty Acids [[place]- 3] 1,000 mg PO DAILY 08/06/15 [History Confirmed 05/21/18] albuterol sulfate HFA 90 mcg/actuation aerosol inhaler 2 puff INH ALATION Q4H g 11/11/17 [History Confirmed 05/21/18] buspirone 10 mg tablet 10 mg PO BID 11/11/17 [History Confirmed 05/21/18] cholecalciferol (vitamin D3) 5,000 unit capsule 5,000 unit PO QDAY 11/11/17 [History Confirmed 05/21/18] donepezil 5 mg tablet 5 mg PO QDAY 11/11/17 [History Confirmed 05/21/18] atorvastatin 20 mg tablet 20 mg PO QDAY 12/24/17 [History Confirmed 05/21/18] bupropion HCl XL 300 m g 24 hr tablet, extended release 300 mg PO DAILY tab 12/24/17 [History Confirmed 05/21/18] fluticasone 100 mcg-salmeterol 50 mcg/dose blistr powdr for inhalation 1 puff INHALATION Q12H 12/24/17 [History Confirmed 05/21/18] levothyroxine 25 mcg capsule 25 mcg PO QDAY cap 12/24/17 [History Confirmed 05/21/18] venlafaxine ER 150 mg capsule,extended release 24 hr 150 mg PO .COMPLEX cap 12/24/17 [History C onfirmed 05/21/18] [facility] Medical History History of esophageal dilatation (Acute) Lung nodules (Acute) GERD (gastroesophageal reflux disease) (Acute) Bronchiectasis (Acute) Depression (Acute) COPD (chronic obstructive pulmonary disease) (Acute) STACI (obstructive sleep apnea) (Acute) Atherosclerotic heart disease of [place] coronary artery without maliha na pectoris (Chronic) Pulmonary hypertension, secondary (Acute) Nonrheumatic mitral (valve) prolapse (Acute) Fatigue (Chronic) Atherosclerotic heart disease of [place] coronary artery without angina pect alka (Chronic) Murmur (Chronic) Angina pectoris (Chronic) Shortness of breath (Chronic) Chest pain (Acute) HLD (hyperlipidemia) (Chronic) HTN (hypertension) (Chronic) Body mass index (BMI) of 33.0-33.9 in adult (Inactive) Bronchiectasis (Inactive) CAD (coronary artery disease) (Inactive) COPD (chronic obstructive pulmonary disease) (Inactive) Depression (Inactive) Mitral valve prolapse (Inactive) STACI (obstructive sleep apnea) (Inactive) Pulmonary HTN (Inactive) Surgical History Hx of cataract surgery (Acute) History of bilateral knee replacement ( Resolved) H/O radical prostatectomy (Resolved) History of tonsillectomy (Resolved) History of penile implant (Resolved) History of sinus balloonplasty (Resolved) H/O radical prostatectomy (Inactive) His tory of bilateral knee replacement (Inactive) History of penile implant (Inactive) History of tonsillectomy (Inactive) history of sinus ballonplasty (Inactive) Family History (Reviewed 05/21/18 @ 09:3 9 by Robert Martinez MD) Father CVA (cerebral vascular accident) Mother Diabetes CVA (cerebral vascular accident) Social History Smoking Status: Never smoker second hand exposure: No alcohol intake: never substance use type: does not use caffeine: No what type of physical activity do you participate in: none HPI HPI HPI: EDIL MARIE, is a 73 M who presents to the office today for evaluati on of a painful lump behind his left ear. Patient had a lipoma removed from the posterior ear upper posterior neck area many years ago he has another lump developing superior to this and it comes straig ht across his strap for his CPAP/BiPAP machine. It is been slightly increasing in size over the last year discomfort has also been increasing in nature. Patient is on Plavix and aspirin secondary to salcedo ving an OK he has never had any stents placed ROS General General: Yes fatigue; no weight change, appetite, colon cancer, breast cancer or weakness HEENT HEENT: Yes difficulty swallowing; no eye inju ry, eye surgery, swollen glands or hoarseness Endo Endocrine: Yes thyroid disease; no diabetes mellitus, thyroid cancer, Hair loss, heat intolerance or cold intolerance Skin Skin: No rash or changing mo les Musc Musculoskeletal: Yes arthritis; no back problems, rheumatoid arthritis, gout or joint pain Cardio Cardiovascular: Yes heart disease and heart attack; no murmur, pacemaker, atrial fibrillation, high blood pressure, heart stent, palpitations, shortness of breat with exertion or chest pain Psych Psychiatric: Yes depression and anxiety; no hearing voices Resp Respiratory: Yes shortness of breath, Yes sleep apnea, Yes COPD, Yes asthma, No cough, No emphysema, No wheezing Gastro Gastrointestinal: Yes nausea or vomiting, Yes constipation, Yes acid reflux, No abdominal pain, No diarrhea, No blood i n stool, No hemorrhoids, No ulcers, No gallbladder problem, No black,tarry stools Jesse Hematologic: Yes blood thinners, No blood disorders, No bleeding, No anemia, No blood clots Neuro Neurologic: Yes t ingling, Yes numbness, No system reviewed and no additional complaints, except as docu, No as per HPI, No abnormal walking, No abnormal hearing, No abnormal movements, No abnormal speech, No behavioral changes, No burning sensations, No confusion, No seizure-like activity, No unsteadiness, No dizziness, No localized weakness, No frequent falls, No headache(s), No lack of coordination, No loss of visio n, No memory loss, No other visual disturbances, No radiating pain, No restless legs, No sensory deficit, No fainting, No tremor(s), No weakness, No other Exam Cardio Heart Sounds: no murmurs Skin Oth er: 3 cm soft subcutaneous fatty lesion behind the left ear on the upper neck lower occipital area. It does not appear to be infected there is no signs of cellulitis it is not hard. Assessment AND Kimberley n Problems 1. Lesion of subcutaneous tissue L98.9 Plan My plan is to remove this in the office with him being off his Plavix and aspirin for at least 7 days. I have instructed him that there is a chan e that by removing this we may his discomfort from his CPAP machine worse. I have also instructed him that there is a chance that he could develop some numbness behind the posterior aspect of his ear by removing this. All questions asked were answered and he agrees to proceed. Coding Level of Care Code Off vis,new,level 2 Diagnoses Lesion of subcutaneous tissue L98.9 05/21/18 0946 <Elect ronically signed by Robert Martinez MD> Date Robert Martinez MD Cosign Signature: Date (if applicable) CC: Kellen Garcia DO 24-Dec-2017 Cardiology Visit Report Result: Comments: See Note; NOTES: [facility] [place] [address] OFFICE VISIT Date of Service: 12/24/17 MR#: [id number] Acct: [id number] Name: EDIL MARIE Rep #: [id number] : 1945 Provider: Pravin Walton MD Age/Sex: 72/M [place] [facility] [place]: Signed HPI HPI Details: EDIL MARIE, is a 72 M who presents to the office today for outpatient card iovascular follow-up. Since his last visit of 12/29/2016 he states overall he has been doing well. He has not had any concerning symptoms suspicious for angina pectoris, CHF, or near syncope/syncope. He has not required any additional outpatient or inpatient diagnostic studies or therapeutic intervention. He did have his lipid labs performed in March 2017. They appear to be under reasonably good control . He states he is due to have them performed again by his primary care physician. His last transthoracic echocardiogram was performed on 04/17/2015. The results are as noted below. Interpretation Summar y The study was technically difficult. Contrast injection was performed. Left ventricular systolic function is normal. The estimated ejection fraction is 60 %. Moderate concentric left ventricular hype rtrophy. Equivocal mitral valve prolapse. Mild focal mitral valve thickening. Trivial mitral valve insufficiency. Trivial tricuspid valve insufficiency. Right ventricular systolic pressure estimated to be 40 mmHg. His last exercise tolerance test proves performed on 08/07/2015. The results are as noted below. 1. Normal pharmacologic myocardial perfusion stress test. 2. Previous inferior infarct latrell ot be completely excluded. 3. Preserved ejection fraction. His last diagnostic cardiac catheterization was performed 04/18/2015. The results are as noted below. 1. Relatively normal resting left ventric ular end-diastolic pressure 2. Secondary pulmonary hypertension 3. Oxygen saturations: No obvious evidence of intracardiac shunting phenomena 4. Left ventricle: A. Normal left ventricular size, wall motion, and systolic function B. Estimated LVEF of 65% 5. Left main coronary artery: A. Mild calcification B. Minimal luminal irregularities 6. Left anterior descending coronary artery: A. Proximal to mid moderate diffuse calcification B. Proximal to mid diffuse 10-25% eccentric appearing stenosis C. Mid to distal minimal luminal irregularities 7. Left circumflex coronary artery: A. 1st OM: Proxima l mild calcification B. 1st OM: Proximal diffuse 10-25% eccentric appearing stenosis 8. Right coronary artery: A. Very large dominant vessel B. Proximal to mid mild calcification C. Ostial/proximal 25- 50% eccentric appearing stenosis D. Mid to distal diffuse minimal luminal irregularities Intake Vital Signs12/24/17 Height 6 ft 12/24/17 Weight: 217 lb 12/24/17 Body Mass Index (BMI) 29.4 12/24/17 Bloo d Pressure 108/58 Intake Visit Reasons: 1 Y FU Allergies cefdinir Adverse Reaction (Intermediate, Verified 12/24/17 13:35) SOB codeine Adverse Reaction (Intermediate, Verified 12/24/17 13:35) SOB M edications Acebutolol HCl [Sectral (Beta Andrew)] 200 mg PO DAILY 04/17/15 [History Confirmed 12/24/17] Aspirin [Aspirin, Baby] 81 mg PO DAILY@0800 04/17/15 [History Confirmed 12/24/17] Clopidogrel Bi sulfate [Plavix] 75 mg PO DAILY 04/17/15 [History Confirmed 12/24/17] Co Q10 200 [Co Q-10] 100 mg PO DAILY 04/17/15 [History Confirmed 12/24/17] Cyanocobalamin [Vitamin B12] 500 mcg PO DAILY 04/17/15 [H istory Confirmed 12/24/17] Levocetirizine Dihydrochloride [Xyzal] 5 mg PO DAILY 04/17/15 [History Confirmed 12/24/17] Mirtazapine [Remeron] 30 mg PO DAILY 04/17/15 [History Confirmed 12/24/17] Oxygen, H ome [Home Oxygen] 2 lpm NASAL QHS 04/17/15 [History Confirmed 12/24/17] Pantoprazole Sodium [Protonix] 40 mg PO BID 04/17/15 [History Confirmed 12/24/17] Amlodipine [Norvasc] 2.5 mg PO DAILY 08/06/15 [H istory Confirmed 12/24/17] Ascorbic Acid [Vitamin C] 500 mg PO DAILY@0800 08/06/15 [History Confirmed 12/24/17] Lisinopril [Zestril] 2.5 mg PO DAILY 08/06/15 [History Confirmed 12/24/17] [place]-3 Fatty A cids [[place]-3] 1,000 mg PO DAILY 08/06/15 [History Confirmed 12/24/17] albuterol sulfate HFA 90 mcg/actuation aerosol inhaler 2 puff INHALATION Q4H g 11/11/17 [History Confirmed 12/24/17] buspirone 10 m g tablet 10 mg PO BID 11/11/17 [History Confirmed 12/24/17] cholecalciferol (vitamin D3) 5,000 unit capsule 5,000 unit PO QDAY 11/11/17 [History Confirmed 12/24/17] donepezil 5 mg tablet 5 mg PO QDAY [History Confirmed 12/24/17] atorvastatin 20 mg tablet 20 mg PO QDAY 12/24/17 [History Confirmed 12/24/17] bupropion HCl XL 300 mg 24 hr tablet, extended release 300 mg PO DAILY tab 12/24/17 [His tory Confirmed 12/24/17] fluticasone 100 mcg-salmeterol 50 mcg/dose blistr powdr for inhalation 1 puff INHALATION Q12H 12/24/17 [History Confirmed 12/24/17] levothyroxine 25 mcg capsule 25 mcg PO QDAY c ap 12/24/17 [History Confirmed 12/24/17] venlafaxine ER 150 mg capsule,extended release 24 hr 150 mg PO .COMPLEX cap 12/24/17 [History Confirmed 12/24/17] PFSH Medical History (Reviewed 12/24/17 @ 13 :42 by Lexis Humphrey) 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, secondary (Acute) Nonrheumatic mitral (valve) prolapse (Acute) Fatigue (Chronic) Atherosclerotic heart disease of [place] coronary artery without angina pectoris (Chronic) Murmur (Chronic) Angina pectoris (Chronic) Shortness of breath (Chronic) Chest pain (Acute) H LD (hyperlipidemia) (Chronic) HTN (hypertension) (Chronic) Bronchiectasis (Acute) COPD (chronic obstructive pulmonary disease) (Acute) Depression (Acute) GERD (gastroesophageal reflux disease) (Acute) L jose nodules (Acute) STACI (obstructive sleep apnea) (Acute) Body mass index (BMI) of 33.0-33.9 in adult (Inactive) Bronchiectasis (Inactive) CAD (coronary artery disease) (Inactive) COPD (chronic obstruct avery pulmonary disease) (Inactive) Depression (Inactive) Mitral valve prolapse (Inactive) STACI (obstructive sleep apnea) (Inactive) Pulmonary HTN (Inactive) Surgical History (Reviewed 12/24/17 @ 13:42 Patricia Humphrey) H/O radical prostatectomy (Resolved) History of bilateral knee replacement (Resolved) History of penile implant (Resolved) History of sinus balloonplasty (Resolved) History of tonsi llectomy (Resolved) H/O radical prostatectomy (Inactive) History of bilateral knee replacement (Inactive) History of penile implant (Inactive) History of tonsillectomy (Inactive) history of sinus ballon plasty (Inactive) Family History Father CVA (cerebral vascular accident) Mother Diabetes CVA (cerebral vascular accident) Social History Smoking Statu s: Never smoker second hand exposure: No alcohol intake: never substance use type: does not use caffeine: No what type of physical activity do you participate in: none ROS Const Const: Negativ e for fatigue, weakness, weight gain, weight loss, frequent falls or excessive sweating Eyes Eyes: Negative for change in vision, blurry vision or transient loss of vision ENT ENT: Positive for balance problems (with ambulation); negative for dizziness Cardio Chest Pain: No Edema: None Muscle aches with walking: None Resp Respiratory: Positive for SOB with activity (noted when going upstairs); negativ e for SOB at rest GI GI: Negative vomiting or vomiting blood/hematemesis : Negative for hematuria Musc Musc: Positive for balance problems (with ambulation); negative for muscle aches/ myalgia, mus carroll weakness or joint pain Skin Skin: Negative non-healing lesions or rash Neuro Neuro: Negative for weakness, blurry vision, dizziness, lightheadedness, frequent falls or orthostatic symptoms Jesse Jesse tologic/Lymphatic: Negative for easy bleeding Endo Endo: Negative for fatigue or excessive sweating Psych Psych: Negative for anxiety or depression Allergy Allergy/Immunology: Negative for hives, Negati ve for rash Cardiology Exam Const Appearance: cooperative, healthy appearing, comfortable, no acute distress, well developed and well groomed Nutritional Appearance: average body habitus Orientation: alert, awake and oriented x3 Head Head: normal to inspection, normocephalic and atraumatic Ears: hearing grossly normal bilaterally Nose: external nose normal Face and Sinus: face symmetric Mouth: oral mucosae normal Teeth and gingiva: dentition normal Eyes General: appearance normal, both eyes and all related structures Eyelids: eyelids normal Conjunctivae: conjunctivae normal Pupils: PERRL EOM: EOM intact bilaterally Neck Neck: normal visual inspection Carotids: normal carotid upstroke Chest Chest inspection: normal inspection of the chest and symmetric chest movement Auscultation: Bilateral: Kathy r to Auscultation Cardio Palpation: normal PMI Rate: regular rate Rhythm: regular rhythm Heart sounds: S1 normal and S2 normal Murmur: Grade 1/6, soft and mid systolic GI GI: normal to inspection, soft and no hepatosplenomegaly Neuro General: alert, awake and oriented x3 Skin Skin: no rashes or lesions noted Extremities Pulses: Normal: Right Radial Pulse, Left Radial Pulse Lower Extremity Edema: None: Bilateral Psych Psychological: normal affect Assessment AND Plan 1. Atherosclerosis of [place] coronary artery of [place] heart without angina pectoris I25.10 Plan At the present time he appears to be doing well. He will continue his current medical management and follow-up. It was not felt he required additional diagnostic studies or therapeutic intervention at this time. 2. Murmur, cardiac R01.1 P eulalia He does have a cardiac murmur. There appears to be no significant change based upon his examination. His previous echocardiogram is as noted above. This will be reassessed as deemed appropriate. 3. Hyperlipidemia, unspecified hyperlipidemia type E78.5 Plan His lipid labs were performed in March 2017. He states he is due to have them performed again by his primary care physician. A copy of his lipi d labs would be appreciated for continuity of care. 4. Essential hypertension I10 Plan His blood pressure appears to be under good control. He will continue his current medical management and follow-up . 5. Pulmonary hypertension, secondary Plan He will continue to follow with Dr. Conde pulmonology and critical care medicine for his underlying pulmonary disease process. Plan Detail Other Medication s Discontinued: fluticasone-salmeterol 113-14 mcg/actuation (AirDuo RespiCli1 puff Inhalation Q12H R06.02 ) Discontinued Reason: Pt no longer taking Additional Comments He will be scheduled for an ou tpatient visit approximately 1 year unless needed sooner. Thank you for allowing me to participate in the care of your patient. Please don't hesitate to call if any issues arise. This note was generat ed using a voice recognition system and there may be incorrect words, spelling or punctuation that were not noted when reviewing the office note prior to saving. Follow Up 1 Year (PFM) Coding Level of Care Code Off vis,est,level 3 Diagnoses Atherosclerosis of [place] coronary artery of [place] heart without angina pectoris I25.10 [place] vs. transplanted heart: [place] heart Murmur, cardiac R01.1 Hyper lipidemia, unspecified hyperlipidemia type E78.5 Hyperlipidemia type: unspecified Essential hypertension I10 Hypertension type: essential hypertension Pulmonary hypertension, secondary Coding Level of Care Code Off vis,est,level 3 Diagnoses Atherosclerosis of [place] coronary artery of [place] heart without angina pectoris I25.10 [place] vs. transplanted heart: [place] heart Murmur, cardiac R01.1 Hyper lipidemia, unspecified hyperlipidemia type E78.5 Hyperlipidemia type: unspecified Essential hypertension I10 Hypertension type: essential hypertension Pulmonary hypertension, secondary 12/24/17 1417 <Electronically signed by Pravin Walton MD> Date Pravin Walton MD Cosigner Signature: Date (if applicable) CC: Naeem Conde MD; Kellen Garcia DO 24-Dec-2017 Pulmonary Visit Report Result: Comments: See Note; NOTES: [facility] [address] [place] [address] OFFICE VISIT Date of Service: 12/24/17 MR#: [id number] Acct: [id number] Name: EDIL MARIE Rep #: [id number] : 1945 Provider: Naeem Conde MD Age/Sex: 72/M Location: [facility] [place].PMW Status: Signed Assessment AND Plan 1. Shortness of breath R06.02 Plan Patient's pulmonary function tests are grossly within normal limits, but DLCO is at the lower limit of normal. Patient has been treated as an asthmatic in the past, which I believe is appropriate. Patient is having difficulty with cost associated with Advair therapy. Will attempt to transition to AirDuo (generic Advair) and see if patient will tolerate. If able to tolerate, patient will be transitioned. Signs and symptoms of exac erbation were reviewed in detail. Patient voiced understanding. Continue combination inhaler therapy Medications New: 2. Pulmonary hypertension, secondary Plan Patient does have a history of diastoli c congestive heart failure with probable type II pulmonary hypertension. DLCO is relatively stable at this time, so repeat echocardiogram is likely not indicated. We will continue to monitor closely. Archie wan does not qualify for supplemental oxygen at this time. Did stress to the patient that BiPAP would be necessary to make sure patient is not desaturating overnight, which could lead to progression o f pulmonary hypertension. Patient voiced understanding. Continue BiPAP overnight. 3. STACI (obstructive sleep apnea) G47.33 Plan Patient's DME sent a compliance report from 2015. Patient reports that h teddy is compliant with therapy and doing well. Did discuss with patient about the fact of BiPAP should be used with all sleep. Also talked with patient about strategies to address sleep phase disruption. P yaquelin was also advised to avoid crossword puzzles just before bedtime. Patient voiced understanding. Await results of sleep training. Plan Detail Follow Up 6 Months ([facility]) HPI 3 M FU: Chief Complai nt: Review of test results Details: Patient is a 72-year-old male, currently in the care of Dr. Varela, who presents for evaluation secondary to recent test results. Since last visit, patient d enies any ER visits, hospitalizations or prednisone burst. Patient states he has been compliant with Advair therapy and has not had any complications. However, cost is an issue. Patient denies any thru sh, hoarseness or sore throat. Patient does believe that this helps him on a daily basis. Patient denies any significant need for rescue albuterol. Patient reports he has been wearing his BiPAP every n ight. Patient states he feels that is just as effective as it has been in the past. Patient does report that he tends to go to sleep at 2 to 3:00 in the morning and sleep approximately 6 hours. Patient will then need a nap in the middle of the afternoon. Patient states he typically sleeps for 1-2 hours, but does not use his BiPAP during this time. Testing personally reviewed with the patient Shahana bojorquez PFT (12/18/2017): Grossly normal pulmonary function test with diffusing capacity at the lower limit of normal. (FVC 87%, FEV1 83%, TLC 98%, DLCO 67%) Intake Vital Signs12/24/17 Height 6 ft 12/24/17 Nakul ght: 97.976 kg Intake Visit Reasons: 3 M FU DME Vendor: [facility] Accompanied by: Allergies cefdinir Adverse Reaction (Intermediate, Verified 11/11/17 11:02) SOB codeine Adverse Reaction (I ntermediate, Verified 11/11/17 11:02) SOB Medications Acebutolol HCl [Sectral (Beta Andrew)] 200 mg PO DAILY 04/17/15 [History Confirmed 11/11/17] Aspirin [Aspirin, Baby] 81 mg PO DAILY@0800 5 [History Confirmed 11/11/17] Clopidogrel Bisulfate [Plavix] 75 mg PO DAILY 04/17/15 [History Confirmed 11/11/17] Co Q10 200 [Co Q-10] 100 mg PO DAILY 04/17/15 [History Confirmed 11/11/17] Cyanocobalam in [Vitamin B12] 500 mcg PO DAILY 04/17/15 [History Confirmed 11/11/17] Levocetirizine Dihydrochloride [Xyzal] 5 mg PO DAILY 04/17/15 [History Confirmed 11/11/17] Mirtazapine [Remeron] 30 mg PO DAILY [History Confirmed 11/11/17] Multivitamins,Therapeutic [Multivitamin] 1 tab PO DAILY 04/17/15 [History Confirmed 11/11/17] Oxygen, Home [Home Oxygen] 2 lpm NASAL QHS 04/17/15 [History Confirmed 0 09/17/17] Pantoprazole Sodium [Protonix] 40 mg PO BID 04/17/15 [History Confirmed 11/11/17] Pravastatin [Pravachol] 40 mg PO QHS 04/17/15 [History Confirmed 11/11/17] buPROPion XL [Wellbutrin Xl] 150 mg PO DAILY 04/17/15 [History Confirmed 11/11/17] Amlodipine [Norvasc] 2.5 mg PO DAILY 08/06/15 [History Confirmed 11/11/17] Ascorbic Acid [Vitamin C] 500 mg PO DAILY@0800 08/06/15 [History Confirmed 11/11] Lisinopril [Zestril] 2.5 mg PO DAILY 08/06/15 [History Confirmed 11/11/17] [place]-3 Fatty Acids [[place]-3] 1,000 mg PO DAILY 08/06/15 [History Confirmed 11/11/17] albuterol sulfate HFA 90 mcg/actuati on aerosol inhaler 2 puff INHALATION Q4H g 11/11/17 [History Confirmed 11/11/17] buspirone 10 mg tablet 10 mg PO BID 11/11/17 [History Confirmed 11/11/17] cholecalciferol (vitamin D3) 5,000 unit capsule 5,000 unit PO QDAY 11/11/17 [History Confirmed 11/11/17] donepezil 5 mg tablet 5 mg PO QDAY 11/11/17 [History Confirmed 11/11/17] venlafaxine ER 150 mg capsule,extended release 24 hr 300 mg PO QDAY cap 11/11/17 [History Confirmed 11/11/17] fluticasone 113 mcg-salmeterol 14 mcg/actuation breath activated powdr 1 puff INHALATION Q12H #1 ea 12/24/17 [Rx Confirmed 12/24/17] PFSH Medical History Ather osclerotic heart disease of [place] coronary artery without angina pectoris (Chronic) Pulmonary hypertension, secondary (Acute) Nonrheumatic mitral (valve) prolapse (Acute) Fatigue (Chronic) Atherosclero tic heart disease of [place] coronary artery without angina pectoris (Chronic) Murmur (Chronic) Angina pectoris (Chronic) Shortness of breath (Chronic) Chest pain (Acute) HLD (hyperlipidemia) (Chronic) H TN (hypertension) (Chronic) Bronchiectasis (Acute) COPD (chronic obstructive pulmonary disease) (Acute) Depression (Acute) GERD (gastroesophageal reflux disease) (Acute) Lung nodules (Acute) STACI (obstru ctive sleep apnea) (Acute) Body mass index (BMI) of 33.0-33.9 in adult (Inactive) Bronchiectasis (Inactive) CAD (coronary artery disease) (Inactive) COPD (chronic obstructive pulmonary disease) (Inactiv e) Depression (Inactive) Mitral valve prolapse (Inactive) STACI (obstructive sleep apnea) (Inactive) Pulmonary HTN (Inactive) Surgical History H/O radical prostatectomy (Resolved) History of bilateral knee replacement (Resolved) History of penile implant (Resolved) History of sinus balloonplasty (Resolved) History of tonsillectomy (Resolved) H/O radical prostatectomy (Inactive) History of bilateral k nee replacement (Inactive) History of penile implant (Inactive) History of tonsillectomy (Inactive) history of sinus ballonplasty (Inactive) Family History Father CVA (cerebral vascular accident) Moth er Diabetes CVA (cerebral vascular accident) Social History Smoking Status: Never smoker second hand exposure: No alcohol intake: never substance use type: does not use caffeine: No what type of physical activity do you participate in: none Review of Systems Const CONSTITUTIONAL: Positive fatigue; negative anorexia, body ache, chills, daytime sleepiness, fever(s), night sweats, oral thrush , stops breathing during sleep, weight loss, sleeping in chair, weight loss, weight gain, frequent colds, seasonal allergies, other, headache(s) or orthopnea EETM Ear Nose Throat Mouth: Positive hard of hearing, nasal discharge and post nasal drip; negative hoarseness, dry mouth in morning, change in vision, itchy eyes, eye pain, swallowing Difficulty, ear pain, nose bleed, headache(s), mouth pain, na winter congestion, sinus pain, sinus pressure, sore throat or other Cardio Cardiovascular: Negative chest pain, chest pain at rest, chest pain with activity, irregular heart rhythm, edema, shortness of rhiannon ath when lying down, palpitations, murmur or other Resp Respiratory: Positive as per HPI and shortness of breath shortness of breath: Positive with activity; negative pain with cough, wheezing, chest co ngestion, cough, chest tightness, pain on inspiration, inhalers, increase use of rescue inhalers, snoring, apnea or other Gastro Gastrointestional: Negative bloody stools, change in appetite, difficulty swallowing, reflux, hematemesis, melena stool, loose stool, constipation or other Genitourinary: Negative blood in urine, nocturia, pain with urination or other Musc Musculoskeletal: Negative body p ain, back pain, neck pain or other Skin/Breast Skin/Breast: Negative dry skin, itching, rash, unusual bruising, breast lump or other Neuro Neurological: Negative restless legs, confusion, weakness or ot her Psych Psychocological: Negative abnormal sleep pattern, anxiety, thoughts of hurting self/others, hopelessness or other Lymph Lymphatic: Negative easy bleeding, easy bruising, swollen lymph nodes or other Exam Const Constitutional: Positive conversant, cooperative, in no acute respiratory distress, healthy appearing, well developed, well nourished and good hygiene; negative dyspenic, ill appeari ng or wearing supplemental oxygen Head Head: Positive normocephalic and atraumatic; negative cyanosis of lips/distal nose, frontal sinus tenderness or maxillary sinus tenderness Eyes Eye: Positive clear conjunctiva; negative scleral abnormality or nystagmus Ears Ear: Positive hard of hearing and external ears normal Nose Nose: Positive external nose normal, septum normal and no nasal discharge; negati ve epistaxis or nasal polyp Mouth Mouth: Positive post nasal drip, oral mucosae normal, no lesions, dentures and posterior oropharynx is adequate; negative oral thrush present Mallampati Score: II: Mall ampati Score Neck Neck: Positive normal visual inspection, full ROM and trachea midline; negative lymphadenopathy or JVD Chest Wall Chest: Positive normal inspection of the chest and symmetric chest mov ement; negative crepitus or increased A/P diameter Resp lung sounds: Positive clear to auscultation, good air exchange, normal expiratory time and normal respiratory effort; negative wheezes, wheeze pre sent on forced exhalation, rhonchi, rales or dullness to percussion Cardio Cardiac: Positive regular rate, regular rhythm, S1 normal and S2 normal; negative murmur, rub or gallop GI GI: Positive normal to inspection and normal bowel sounds; negative distended, epigastric tenderness, hepatomegaly or splenomegaly Genitourinary: Positive deferred Musc Musculoskeletal: Positive steady gait and ROM norm al; negative using an assistive device for ambulation, kyphosis, scoliosis or rheumatoid nodules Skin Pulmonary Skin Exam: Positive intact and dermal atrophy; negative rash, lesion, ulcers or scaly Puls es Pulse: Yes radial pulses present Extremities Extremities: Yes capillary refill normal, No clubbing, No cyanosis, No edema, No stasis dermatitis Neuro Neurologic: Yes conversant, Yes no focal neuro de ficits, Yes cooperative, Yes normal cognition, Yes understands questions, Yes normal concentration, Yes normal coordination Lymph Lymphatic: No lymphadenopathy Psych Appearance: Positive grossly normal Mental Status: Positive mental status grossly normal Mood: Positive congruent mood Affect: Positive normal affect Coding Level of Care Code Off vis,est,level 3 Diagnoses Shortness of breath R06.02 Pu lmonary hypertension, secondary STACI (obstructive sleep apnea) G47.33 12/24/17 1051 <Electronically signed by Naeem Conde MD> Date Becky Conde MD Cosigner Signature: Date (if applicable) CC: Kellen Garcia 18-Dec-2017 Pulmonary Function Report Comp Result: Comments: See Note; NOTES: [facility] Pulmonary Services/Neurology [address] [place] [address] MR#: [id number] Acct: [id number] Name: EDIL MARIE Rep #: [id number] : 72 From: Naeem Conde MD Referring Dr: Lanyn Jones HOISTING ENGINE OPERATOR Status: REG CLI Ordering Dr: Date: Location: [facility] Sex: M C COMPLETE PULMONARY FUNCTION TEST INTERPRETATION Brief HPI: Patient is a 72 year old male, currently under the care of myself, who presents to [facility] for complete pulmonary function tests secondary to diagnosis of COPD. Respiratory therapist lew villarrts good effort and reproducible results. Interpretation: Forced expiration spirometry shows no large airways obstructive ventilatory defect with an FEV1 of 83 % predicted. There is no significant bronchodilator response by ATS criteria. Spirograms are of good quality and plateau slowly, indicating slowly emptying areas of the lungs. The respiratory flow volume loop shows decreased expiratory ivory w rates at high lung volumes consistent with small airways obstruction. Lung volumes by body plethysmography show a normal total lung capacity at 6.33 L, 98% predicted. All other lung volumes are withi n normal limits. Diffusion capacity by carbon monoxide is at the lower limit of normal at 67 % predicted. The airway resistance is elevated. Compared to previous pulmonary function tests from 07/25/20 16, there has been no significant change. Impression: These pulmonary function tests are grossly within normal limits. Views capacity is at the lower limit of normal and may indicate early pulmonary v ascular disease. 12/18/17 1428 <Electronically signed by Naeem Conde MD> Date Naeem Conde MD CC: Naeem Conde MD; Lanny Jones; Kellen Garcia DO Date Dictated: 12/18/17 1425 Date Transcribed: 12/18/171424 Air Conditioning Technician: FAMILIA Signed 26-Oct-2017 Esophagus Only Result: Comments: See Note; NOTES: [facility] Imaging Services [address] [place] [address] Esophagus Only MR#: [id number] Acct: [id number] Name: EDIL MARIE Rep #: [id number] : 1945 M 72 From: Valdo Dwyer MD PCP: Kellen Garcia DO Status: REG CLI Study: Esophagus Only Date of Exam: 10/26/17 Exam# [id number] Ordering Dr: Kellen Garcia DO STUDY: X-RAY - ESOPHAGUS (ORLY UM SWALLOW) WITH FLUOROSCOPY REASON FOR EXAM: Male, 72 years old. Dysphagia for solids. History of melanoma and prostate cancer. TECHNIQUE: 17 view(s) of the esophagus were obtained following swallowi ng of barium. FLUOROSCOPY TIME (if supplied): (0:33) minutes/seconds COMPARISON: None. FINDINGS: There is no demonstrated esophageal foreign body. There is circumf erential narrowing of the distal esophagus at the gastroesophageal junction. The 12 mm tablet of barium is trapped at the gastroesophageal junction. Endoscopic correlation is recommended. There is athe rosclerotic tortuosity of the aortic arch and descending thoracic aorta. Normal visualized pulmonary parenchyma. Normal visualized osseous structures of the thorax. RAD/Esophagus Only IMPRESSION: Circumferential narrowing at the gastroesophageal junction as described. The 12 mm tablet of barium is trapped at that site. Endoscopic correlation is recommended. Electronically Signed: Valdo Dwyer MD at 9:18 EST Tel [phone], Service support , CC: Kellen Garcia DO Air Conditioning Technician: Signed 23-Oct-2017 Brain W/WO Contrast Result: Comments: See Note; NOTES: [facility] Imaging Services [address] [place] [address] Brain W/WO Contrast MR#: [id number] Acct: [id number] Name: EDIL MARIE Rep #: [id number] : 1945 M 72 From: Edil Simms MD PCP: Kellen Garcia DO Status: REG CLI Study: Brain W/WO Contrast Date of Exam: 10/23/17 Exam# [id number] Ordering Dr: Kellen Garcia DO STUDY: MRI BRAIN WITH AND WITHOUT CONTRAST REASON FOR EXAM: Male, 72 years old. Imbalance, falls, unsteady gait, prostate cancer TECHNIQUE: Standardized multiplanar fat and water weighted pulse sequences were obtained. 10 ml of Gadavist contrast material was administered intravenously for the contrast portion of the examination. COMPARISON: 02/22/2016 report only FINDINGS: Mild corti adolph atrophy. Normal white matter tracts of the supratentorial brain. Normal bilateral basal ganglia. Normal thalami. There is no extra-axial fluid accumulation. Normal flow voids within the major intr acranial circulation suggesting patency by spin echo criteria. Normal venous enhancement. There is no enhancing intra-axial or extra-axial abnormality. Normal sella turcica, pituitary gland, infundibul ar stalk, optic chiasm and hypothalamus. Normal tectal plate and pineal gland. Normal midbrain, shantal and medulla. Normal cerebellum. Sacha cisterna magna is incidentally noted. Normal basal cisterns. No rmal bilateral temporal bones. Normal bilateral internal auditory canals. Right lens replacement. Bilateral maxillary sinusitis. Normal calvarium and skull base. Normal visualized soft tissue structure s. Normal visualized upper cervical spine. MRI/Brain W/WO Contrast IMPRESSION: No evidence of infarct or hemorrhage. Cortical atrophy. No evidenc e of metastatic disease. Bilateral maxillary sinusitis. Electronically Signed: Edil Simms MD at 2:11 EST Tel , Service support , CC: Kellen Garcia DO Air Conditioning Technician: Signed 17-Sep-2017 Pulmonary Visit Report Result: Comments: See Note; NOTES: [facility] [place] [address] [place] [address] OFFICE VISIT Date of Service: 09/17/17 MR#: [id number] Acct: [id number] Name: EDIL MARIE Rep #: [id number] : 1945 Provider: Lanny Jones Age/Sex: 72/M Location: [facility] [place].PMW Status: Signed Assessment AND Plan Problems 1. Bronchiectasis without complication J47.9; J47.9; J47.9; J47.9 Status Chronic 2. STACI (obstructive sleep apnea) G47.33 Status Chronic 3. Pulmonary hypertension I27.20 Status Chronic 4. Body mass index (BMI) of 33.0-33.9 in adult Z68.33 Status Chronic Plan Bronchiectasis: The patient does not appear to be in exacerbation at this time, however he may be experiencing early onset of a viral upper respiratory infection. He has been encouraged to contact the office Thursday if his symptoms have not improved. No antibiotics or prednisone at this time. He has been encouraged to become compliant with his Advair twice daily. Pulmonary function test in 3 month s with a follow-up afterwards with Dr. Conde. Obstructive sleep apnea: The patient is using and benefiting from current pressure support therapy. No indication for titration study at this time. The pa soco reports that previously he had lost 40 pounds, but unfortunately has put 20 pounds back on. He does appear motivated to continue his weight loss journey. Continue current settings for now. Jonnathan rob to try to adopt more normal sleep habits, suggested that he stay up 1 hour later each night until his bedtime is around 6 or 7 AM, at which point he should try to stay up until a normal bedtime that night. Essentially, staying awake 24 hours to reset his circadian rhythm. Follow- up Dr. Conde in 3 months. Pulmonary hypertension: Shortness of breath on exertion does not appear to be worsening. No additional testing at this time. If patient complains of worsening shortness of breath will obtain a pulmonary stress test or a repeat echocardiogram. Follow- up with Dr. Conde in 3 months. Obesity: En couraged cleaning eating. Encouraged weight loss by avoiding processed foods. Patient is agreeable. Of Dr. Conde in 3 months. Orders Orders: Plan Detail Follow Up 3 Months ([facility]) HPI 6 M FU: Chief Complaint: Shortness of breath HPI Comments Details: Patient presents to the office today for routine follow-up on his bronchiectasis, obstructive sleep apnea and pulmonary hypertension. The patient is ambulatory and currently on room air. He is accompanied today by his . The patient reports he is currently wearing his BiPAP 6 hours per night. He does notice that recently he has had slightly mor e difficulty with air leaks. He believes it is time to replace his portion. He has a 2.5 L oxygen bleed into his BiPAP. He feels rested upon arising in the morning. He does admit to poor sleep hygiene. He stays awake until 230 or 3 AM every morning. Typically arises at 9 AM. He is napping daily without his BiPAP. He does have difficulty with dry mouth. He is not falling asleep watching TV. He is not h aving morning headaches. He is not experiencing nocturia. He has not been seen or treated in the ED or urgent care for any respiratory illnesses since last office visit. He does not require antibiotics or prednisone. Recently he did notice a bit of chest tightness and began using his Advair again. He does admit that he had stopped using his Advair for several weeks. Since beginning to use his Advair again the chest tightness has resolved. He does have a cough that is now productive of pale yellow sputum. He is also noticed an increase in postnasal drip and sinus drainage. He does follow with ENT an d had his sinuses 6 months ago. See complete review of systems. Intake Vital Signs09/17/17 Height 6 ft 09/17/17 Weight: 223 lb 4 oz Intake Visit Reasons: 6 M FU DME Vendor: [facility] Accompanied by: Allergies No Known Allergies Allergy (Verified 09/17/17 09:39) Medications Acebutolol HCl [Sectral (Beta Andrew)] 200 mg PO DAILY 04/17/15 [History Confirmed 09/17/17] A spirin [Aspirin, Baby] 81 mg PO DAILY@0800 04/17/15 [History Confirmed 09/17/17] BuPROPion (XL) [Wellbutrin Xl] 150 mg PO DAILY 04/17/15 [History Confirmed 09/17/17] Clopidogrel Bisulfate [Plavix] 75 mg PO DAILY 04/17/15 [History Confirmed 09/17/17] Co Q10 200 [Co Q-10] 100 mg PO DAILY 04/17/15 [History Confirmed 09/17/17] Cyanocobalamin [Vitamin B12] 500 mcg PO DAILY 04/17/15 [History Confirmed 09/17] Levocetirizine Dihydrochloride [Xyzal] 5 mg PO DAILY 04/17/15 [History Confirmed 09/17/17] Mirtazapine [Remeron] 30 mg PO DAILY 04/17/15 [History Confirmed 09/17/17] Multivitamins,Therapeutic [Mult ivitamin] 1 tab PO DAILY 04/17/15 [History Confirmed 09/17/17] Oxygen, Home [Home Oxygen] 2 lpm NASAL QHS 04/17/15 [History Confirmed 09/17/17] Pantoprazole Sodium [Protonix] 40 mg PO BID 04/17/15 [Hist ory Confirmed 09/17/17] Pravastatin [Pravachol] 40 mg PO QHS 04/17/15 [History Confirmed 09/17/17] Amlodipine [Norvasc] 2.5 mg PO DAILY 08/06/15 [History Confirmed 09/17/17] Ascorbic Acid [Vitamin C] 50 0 mg PO DAILY@0800 08/06/15 [History Confirmed 09/17/17] Lisinopril [Zestril] 2.5 mg PO DAILY 08/06/15 [History Confirmed 09/17/17] [place]-3 Fatty Acids [[place]-3] 1,000 mg PO DAILY 08/06/15 [History Conf irmed 09/17/17] Venlafaxine XR [Effexor Xr] 225 mg PO DAILY 08/06/15 [History Confirmed 09/17/17] fluticasone 100 mcg-salmeterol 50 mcg/dose blistr powdr for inhalation 1 puff INHALATION BID 09/17/17 [H istory Confirmed 09/17/17] Review of Systems Const CONSTITUTIONAL: Positive daytime sleepiness, stops breathing during sleep and sleeping in chair; negative anorexia, body ache, chills, fever(s), nig ht sweats, oral thrush, weight loss, fatigue, weight loss, weight gain, frequent colds, seasonal allergies, other, headache(s) or orthopnea EETM Ear Nose Throat Mouth: Positive dry mouth in morning and itchy eyes; negative hard of hearing, hearing normal, hoarseness, change in vision, eye pain, swallowing Difficulty, ear pain, nose bleed, headache(s), mouth pain, nasal congestion, nasal discharge, pos t nasal drip, sinus pain, sinus pressure, sore throat or other Cardio Cardiovascular: Negative chest pain, chest pain at rest, chest pain with activity, irregular heart rhythm, edema, shortness of breat h when lying down, palpitations, murmur or other Resp Respiratory: Positive inhalers; negative as per HPI, shortness of breath, pain with cough, wheezing, chest congestion, cough, chest tightness, pain on inspiration, increase use of rescue inhalers, snoring, apnea or other Gastro Gastrointestional: Negative bloody stools, change in appetite, difficulty swallowing, reflux, hematemesis, melena stool, l oose stool, constipation or other Genitourinary: Negative blood in urine, nocturia, pain with urination or other Musc Musculoskeletal: Negative body pain, back pain, neck pain or other Skin/Breast Sk in/Breast: Negative dry skin, itching, rash, unusual bruising, breast lump or other Neuro Neurological: Negative restless legs, confusion, weakness or other Psych Psychocological: Positive anxiety and h opelessness; negative abnormal sleep pattern, thoughts of hurting self/others or other Lymph Lymphatic: Negative easy bleeding, easy bruising, swollen lymph nodes or other Exam Const Constitutional: P ositive conversant, cooperative, in no acute respiratory distress, healthy appearing, well developed, well nourished, good hygiene and obese Head Head: Positive normocephalic and atraumatic; negative cy anosis of lips/distal nose Eyes Eye: Positive clear conjunctiva and nystagmus; negative scleral abnormality Ears Ear: Positive external ears normal; negative hard of hearing or hearing normal Nose Nose: Positive external nose normal and no nasal discharge; negative epistaxis Mouth Mouth: Positive dentures, oral mucosae normal, no lesions and posterior oropharynx is adequate; negative post nasal drip, malodorous breath or oral thrush present Mallampati Score: II: Mallampati Score Neck Neck: Positive normal visual inspection, full ROM and trachea midline; negative lymphadenopathy, JVD or tender Chest Wall Chest: Positive normal inspection of the chest and symmetric chest movement; negative increased A/P diameter Resp lung sounds: Positive diminished, clear to auscultation, wheeze present on forced exhalation, normal expiratory time and normal respiratory effort; negative rhonchi, rales, wheezes, dullness to percussion, prolonged expiratory time, increased work of breathing, normal chronic state o f increased work of breathing or use of accessory muscles Cardio Cardiac: Positive regular rate, S1 normal, regular rhythm and S2 normal; negative murmur GI GI: Positive normal to inspection, normal bow el sounds and obese; negative distended Genitourinary: Positive deferred Musc Musculoskeletal: Positive steady gait and ROM normal; negative kyphosis or scoliosis Skin Pulmonary Skin Exam: Positive i ntact; negative rash, lesion, ulcers or erythema Pulses Pulse: Positive pulses normal x4 extremities Extremities Extremities: Positive capillary refill normal; negative clubbing, cyanosis or edema Neuro Neurologic: Positive conversant, no focal neuro deficits, cooperative, normal cognition, normal coordination, normal concentration and understands questions; negative tremor Lymph Lymphatic: Negative l ymphadenopathy, tenderness, cervical adenopathy or axillary adenopathy Psych Appearance: Positive grossly normal, eye contact and well kempt Mental Status: Positive mental status grossly normal Mood: Po sitive congruent mood Affect: Positive normal affect [facility] Medical History Fatigue (Chronic) Atherosclerotic heart disease of [place] coronary [place] ry without angina pectoris (Chronic) Murmur (Chronic) Body mass index (BMI) of 33.0-33.9 in adult (Chronic) Angina pectoris (Chronic) Shortness of breath (Chronic) Mitral valve prolapse (Chronic) STACI (o bstructive sleep apnea) (Chronic) Bronchiectasis (Chronic) Chest pain (Acute) CAD (coronary artery disease) (Chronic) COPD (chronic obstructive pulmonary disease) (Chronic) HLD (hyperlipidemia) (Chronic ) HTN (hypertension) (Chronic) Pulmonary HTN (Chronic) Depression (Chronic) Surgical History history of sinus ballonplasty (Resolved) History of penile implant (Resolved) History of tonsillectomy (Resolved) H/O radical prostatectomy (Resolved) History of bilateral knee replacement (Resolved) Family History Father CVA (cerebral vascular accident) Mother Diabetes CVA (cerebral vascular accident) Social History Smoking Status: Never smoker second hand exposure: No alcohol intake: never substance use type: does not use caffeine: No what type of physical activity do you participate in: none 09/17/17 1643 <Electronically signed by Lanny PALOMO> Date Lanny PALOMO Cosigner Signature: Date (if applicable) CC: Kellen Garcia DO -Jun-2017 Hip 2-3 Views with Pelvis Result: Comments: See Note; NOTES: [facility] Imaging Services [address] [place] [id number] Hip 2-3 Views with Pelvis MR#: [id number] Acct: [id number] Name: EDIL MARIE Rep #: [id number] : 1945 M 72 From: Daniel Hutchinson MD PCP: Kellen Garcia DO Status: REG CLI Study: Hip 2-3 Views with Pelvis Date of Exam: 06/15/17 Exam# [id number] Ordering Dr: Kellen Garcia DO STUDY: X-RAY - PELVIS AND RIGHT HIP REASON FOR EXAM: Male, 72 years old. Fell and injured right hip and low back TECHNIQUE: Radiological exam, hip, unilateral, with pelvis when performed; 2 or 3 views. COMPARISON : None. FINDINGS: There is a non-specific bowel gas pattern. Normal visualized soft tissue structures. Surgical clips are noted in the lower pelvis. There appears to be a penile prosthesis. Normal bilateral iliac wings, sacroiliac joints and visualized sacrum. Normal bilateral superior and inferior pubic rami. Normal pubic symphysis. Normal bilateral ischial tuber osities. Normal visualized femoral head. Normal acetabulum. Normal hip joint. Degenerative changes noted in the lumbar spine. RAD/Hip 2-3 Views with Pelvis IMPRESSION: No acute disease Electronically Signed: Daniel Hutchinson MD at 15:23 EDT , Service support , CC: Kellen Garcia DO Air Conditioning Technician: Signed 15-Jun-2017 L/S Spine Min 4 Views Result: Comments: See Note; NOTES: [facility] Imaging Services [address] [place] [id number] L/S Spine Min 4 Views MR#: [id number] Acct: [id number] Name: EDIL MARIE Rep #: [id number] : 1945 M 72 From: Eliana Pan MD PCP: Kellen Garcia DO Status: REG CLI Study: L/S Spine Min 4 Views Date of Exam: 06/15/17 Exam# [id number] Ordering Dr: Kellen Garcia DO STUDY: X-RAY - LUMBA R SPINE REASON FOR EXAM: Male, 72 years old. Recently twisted back and fell, pain in right pelvis area posteriorly, radiating into right hip and lower back. TECHNIQUE: 5 view(s) of the lumbar spine we re obtained. COMPARISON: None FINDINGS: Normal lumbar lordosis. There is no substantial scoliosis. There is a normal alignment of the vertebrae. There is multileve l endplate spondylosis of the lumbar vertebrae. There is multi-level degenerative disc disease with multi-level disc space narrowing and vacuum disc formation L3-S1. There is facet arthropathy with neur oforaminal narrowing L4-5, 5 S1, less L3-4. There are surgical clips along the pelvic floor midline and bilateral lateral pelvic govea. RAD/L/S Spine Min 4 Views IMPRESSION: Degenerative changes of the spine, as detailed above. There is no acute displaced fracture or dislocation. Electronically Signed: Eliana Pan MD at 0:10 ED T , Service support , CC: Kellen Garcia DO Air Conditioning Technician: Signed 26-Jul-2016 Pulmonary Function Report Comp Result: Comments: See Note; NOTES: [facility] Pulmonary Services/Neurology [address] [place] [address] Pulmonary Function Test (Comp) MR#: [id number] Acct: [id number] Name: CHRISTOPHER MARIE Rep #: [id number] : 1945 71 From: Rc Ascencio DO Referring Dr: Naeem Conde MD Status: REG CLI Ordering Dr: Naeem Conde MD Date: 07/25/16 Location: [facility] Sex: M C DATE OF SERVICE: 07/2016 INTRODUCTION: The patient is a 71-year-old male currently being seen by Dr. Conde that presents for pulmonary function testing secondary to a diagnosis of hypoxia and bronchiectasis. Respiratory therapy reports good patient effort and reports no other concerns. Bronchodilators were used during testing. INTERPRETATION: Forced expiration spirometry demonstrates the presence of a mod erate large airways obstructive ventilatory defect with a significant response to aerosolized bronchodilators, based on overall change in FVC. Spirograms are of good quality and do not plateau indicatin g slow emptying of the lungs. The respiratory flow volume loop reveals decreased expiratory flow rates at all lung volumes consistent with airways obstruction. Body plethysmography was performed and layl ws symmetrically reduced lung volumes. Airway resistance is elevated suggesting an increase in airway restriction. Diffusing capacity by single breath CO is mildly reduced at 67%, indicating possible lo ss of effective alveolar capillary surface area for gas exchange. When compared to previous pulmonary function studies obtained in July 2015, there has been improvement in the patient's diffusing ca pacity by 12%. IMPRESSION: These pulmonary function studies demonstrate the presence of a moderate large airways obstructive ventilatory defect with significant response to aerosolized bronchodilators, based on overall change in FVC. Lung volumes are symmetrically reduced. Diffusing capacity is mildly reduced at 67%. When compared to prior studies obtained in July 2015, there has been stability i n the patient's spirometric values. DO Gelacio Vazquez C: Referring Provider T: NTS JOB: [id number] 07/26/16 1026 <Electronically signed by Rc Ascencio DO> Date Rc Ascencio DO CC: Naeem Conde MD; Kellen Garcia DO; Rc Ascencio D.O. Date Dictated: 07/25/162 Date Transcribed: 07/25/161321 Air Conditioning Technician: Signed 22-Jul-2016 6 Minute Walk Test Result: Comments: See Note; NOTES: [facility] Pulmonary Services/Neurology [address] [place] [address] MR#: [id number] Acct: [id number] Name: EDIL MARIE Rep #: [id number] : 1945 71 From: Rc Ascencio DO Referring Dr: Naeem Conde MD Date: Ordering Dr: Sex: Liat Brizuela Location: PSN PSN 6 Minute Walk Test - 6 Minute Walk Test 6 Minute Walk Test: 6 Minute Walk Test PSN: 6-Minute Walk Test Start: 07/21/16 10:20 Freq: Status: Active Document 07/21/16 10:20 LE (Rec: 07/21/16 10:23 LE [id number]) 6 Minute Walk Test Date Performed 07/21/16 Time Performed 09:30 Height 1.8 m Weight: 95.254 kg Weight in Pounds 210.[address]: Naeem Conde Assistive device used: None Pre-test Oxygen Delivery Method Room Air Pulse Ox 95 Pulse Rate (beats/min) 71 Dyspnea Joseph Scale (0-10) 0 Exertion Joseph Scale (6-20) 6 1st minute Oxygen Delivery Method Room Air Pulse Ox 92 Pulse Rate (beats/min) 93 2nd minute Oxygen Delivery Method Room Air Pulse Ox 90 Pulse Rate (beats/min) 93 3 rd minute Oxygen Delivery Method Room Air Pulse Ox 90 Pulse Rate (beats/min) 97 4th minute Oxygen Delivery Method Room Air Pulse Ox 91 Pulse Rate (beats/min) 100 5th minute Oxygen Delivery Method Room A ir Pulse Ox 90 Pulse Rate (beats/min) 100 6th minute Oxygen Delivery Method Room Air Pulse Ox 91 Pulse Rate (beats/min) 99 Dyspnea Joseph Scale (0-10) 3 Exertion Joseph Scale (6-20) 12 Post-test Oxygen Deli very Method Room Air Pulse Ox 96 Pulse Rate (beats/min) 80 Full Laps Walked 20 Partial Lap, Number of Tiles Walked 10 Total Distance Walked (ft) 1190 - Interpretation Interpretation: The patient ambu lated 1190 feet over the course of 6 minutes on room air without assistive devices or breaks. Pretesting oxygen saturation was noted to be 95%. With ambulation, the jen oxygen saturation was 90%. Alth ough this represents a significant drop in oxygen saturation with exertion, it does not meet the inclusion criteria for the use of supplemental oxygen. - Recommendations Recommendations: There is no i ndication for the use of supplemental oxygen at this time. However, close interval follow-up is warranted given the degree of oxygen desaturation with exertion. 07/22/16 1254 <Electronically s igned by Rc Ascencio DO> Date Rc Ascencio DO CC: Date Dictated: 07/22/16 1252 Date Transcribed: 07/22/16 1252 Air Conditioning Technician: Rc Ascencio DO Signed 22-Feb-2016 Brain without Contrast Result: Comments: See Note; NOTES: [facility] Imaging Services [address] [place] [address] Verdana 4d Brain without Contrast MR#: [id number] Acct: [id number] Name: EDIL MARIE Rep #: [id number] : 1945 M 71 From: Holly Marroquin MD PCP: Kellen Garcia DO Status: REG CLI Study: Brain without Contrast Date of Exam: 02/22/16 Exam# [id number] Ordering Dr: Loreto Garcia DO STUDY: MRI BRAIN WITHOUT CONTRAST REASON FOR EXAM: Male, 71 years old. Confusion for one year. TECHNIQUE: Standardized multiplanar fat and water weighted pulse sequences were obtained. C OMPARISON: None. FINDINGS: There is moderate cerebral atrophy with widening of the extra-axial spaces and ventricular dilatation. There are a limited number of s mall white matter hyperintensities, distributed throughout the deep white matter tracts of the cerebral hemispheres, consistent with mild chronic white matter ischemic changes. There is no evidence for recent intracranial ischemia or other cause of cytotoxic edema on diffusion weighted imaging (DWI). Normal bilateral basal ganglia. Normal thalami. There is no extra-axial fluid accumulation. Normal flow voids within the major intracranial circulation suggesting patency by spin echo criteria. Normal sella turcica, pituitary gland, infundibular stalk, optic chiasm and hypothalamus. Brianne l tectal plate and pineal gland. Normal midbrain, shantal and medulla. There are moderate involutional changes of the cerebellum. There are large basal cisterns. Normal bilateral temporal bones. Normal bilateral internal auditory canals. No demonstrated orbital abnormality, within the constraints of a routine brain study. There is moderate mucoperiosteal thickening within the ethmoid sinuses. The re is deviation of the anterior nasal septum towards the right and deviation of the posterior nasal septum towards the left. There is fluid in right maxillary sinus with moderate mucoperiosteal thick ening. Normal calvarium and skull base. Normal visualized soft tissue structures. Normal visualized upper cervical spine. IMPRESSION: 1. No MR evidence for acu te infarct. 2. Moderately severe involutional changes. 3. Moderate paranasal sinus disease. Electronically Signed: Holly Marroquin MD at 14:23 EDT , Service support , CC: Kellen Garcia DO Air Conditioning Technician: Signed 17-Jan-2016 Sinus/Facial Bone Result: Comments: See Note; NOTES: [facility] Imaging Services [address] [place] [address] Abedana 4d Sinus/Facial Bone MR#: [id number] Acct: [id number] Name: NEGRO MARIE Rep #: [id number] : 1945 M 71 From: Ronaldo Ya PCP: Cooper Lopez Status: REG CLI Study: Sinus/Facial Bone Date of Exam: 01/17/16 Exam# [id number] Ordering Dr: Daniel Bowles MD [facility] DY: CT MAXILLOFACIAL SINUSES REASON FOR EXAM: Male, 71 years old. CHRONIC SINUSITIS, NO PREV SINUS SURG, HX-PROSTATE CA, ASTHMA, COPD, [place] RADIATION DOSAGE (If Supplied By Facility): CTDIvol = ( 42. 97 ) mGy, DLP = ( 714.45 ) mGycm TECHNIQUE: The patient was scanned in a multi detector CT scanner. High resolution axial imaging was performed without the administration of intravenous contrast ma terial. Sagittal and coronal images were reconstructed. Individualized dose optimization techniques were used for this CT. COMPARISON: None. FINDINGS: FRONT AL SINUSES: Normal aeration, without mucosal inflammatory disease. ETHMOIDAL SINUSES: Normal aeration, without mucosal inflammatory disease. MAXILLARY SINUSES: There is moderate mucosal thickening w ith decreased size of the maxillary sinuses and mild bony remodeling. SPHENOIDAL SINUSES: Normal aeration, without mucosal inflammatory disease. There is mucosal thickening and obstruction at the b ilateral maxillary infundibuli with prominent bilateral ethmoidal cells. Normal bilateral hiatus semilunaris. Normal bilateral middle turbinates. Normal bilateral inferior turbinates. There is a le ft sided nasal septal deviation with a left sided nasal septal spur. There is patency of the bilateral nasal airways. The visualized bilateral orbital contents are normal. IMPRESSION: Moderate maxillary chronic sinus disease Electronically Signed: Ronaldo Ya MD at 8:12 EDT Tel , Service support [phone], CC: Daniel Bowles MD; Cooper Lopez Air Conditioning Technician: Signed 28-Nov-2015 6 Minute Walk Test Result: Comments: See Note; NOTES: [facility] Pulmonary Services/Neurology [address] [place] [address] MR#: [id number] Acct: [id number] Name: EDIL MARIE Rep #: [id number] : 1945 70 From: Naeem Conde MD Referring Dr: Naeem Conde MD Date: Ordering Dr: Sex: M C Location: PSN PSN 6 Minute Walk Test - 6 Minute Walk Test 6 Minute Walk Test: 6 Johnna te Walk Test PSN 6 Minute Walk Test Start: 11/28/15 11:38 Freq: Status: Active Document 11/28/15 11:38 LE (Rec: 11/28/15 11:43 [place]ENT[place] [id number]) 6 Minute Walk Test Date Performed 11/28/15 Ti me Performed 11:10 Height 1.83 m Weight: 104.326 kg Weight in Pounds 230.[address]: Naeem Conde Oxygen Delivery Method Room Air Assistive Device Used None Post-test Pulse Ox 93 Pulse Rate (beats/min) 79 6th minute Pulse Ox 91 Pulse Rate (beats/min) 102 Dyspnea Joseph Scale (0-10) 3 Exertion Joseph Scale (6-20) 12 5th minute Pulse Ox 90 Pulse Rate (beats/min) 101 4th minute Pulse Ox 90 Pulse Rate (beats/min) 99 3rd minute Pulse Ox 91 Pulse Rate (beats/min) 98 2nd minute Pulse Ox 93 Pulse Rate (beats/min) 84 1st minute Pulse Ox 87 Pulse Ra te (beats/min) 96 Pre-test Pulse Ox 90 Pulse Rate (beats/min) 77 Dyspnea Joseph Scale (0-10) 1 Exertion Joseph Scale (6-20) 6 Full Laps Walked 14 Partial Lap, Number of Tiles Walked 30 Total Distance Walked (ft) 856 11/28/15 11:40 Cardiopulmonary Services by Mireille Aguilar Pt started test on Room Air SpO2 90%. After the 1st minute and about 225 feet, pt SpO2 87%. Placed pt on 2 lpm O2, S pO2 93%. Patient walked the additional 5 minutes on 2 lpm O2 and an additional 600 feet, SpO2 >90%. Initialized on 11/28/15 11:40 - END OF NOTE - Interpretation Interpretation: Billy nt was noted to be 90% on room air. After ambulating approximately 225 feet, patient did desaturate to 87%. Patient was placed on 2 L nasal cannula and improved to 93%. The patient was then able to wa lk an additional 631 feet for a total distance walked of 856 feet over the course of 6 minutes. No significant tachycardia was noted. These findings are consistent with a pulmonary limitation to exerci se tolerance. - Recommendations Recommendations: Patient requires no omental oxygen at rest, but should be using 2 L nasal cannula with any ambulation. 11/28/15 1637 <Electronically si gned by Naeem Conde MD> Date Naeem Conde MD CC: Date Dictated: 11/28/151635 Date Transcribed: 11/28/151635 Air Conditioning Technician: Naeem Conde Signed 15-Nov-2015 Lung Scan Vent/Perf Result: Comments: See Note; NOTES: [facility] Imaging Services [address] [place] [address] Verdana 4d Lung Scan Vent/Perf MR#: [id number] Acct: [id number] Name: JASPAL MARIE Rep #: [id number] : 1945 M 70 From: Michael Whittington DO PCP: Kellen Garcia DO Status: REG CLI Study: Lung Scan Vent/Perf Date of Exam: 11/15/15 Exam# [id number] Ordering Dr: Naeem Conde MD CLINICAL: 70-year-old female with reported history of pulmonary hypertension. VENTILATION-PERFUSION LUNG SCINTIGRAPHY COMPARISON: None available FINDINGS: The patient was administered 38 .8 mCi Tc DTPA aerosol. The aerosol ventilation study demonstrates mild heterogeneous ventilation identified in the left mid-lower posterior and posterior lateral lung zones. Central clumping of the aerosol is identified in the bilateral hemithorax. Following the intravenous administration of 5.3 mCi of Tc MAA, the pulmonary perfusion study reveals matching minimal nonuniform perfusion defined in the left mid-lower posterior lung correlating with the previously described ventilation pattern, best demonstrated in the posterior and left posterior oblique projections. No moderate subsegmental or large segmental ventilation-perfusion mismatches are noted. IMPRESSION: 1. LOW PROBABILITY FOR PULMONARY EMBOLUS (<19%) 99m Tc DTPA aerosol ventilation / 99m Tc MAA pulmonary perfusion i maging examination, according to PIOPED II interpretive criteria with regard given to the presence of heterogeneous perfusion. (Carlitos et al, Radiology 246: 941, 2008 Sosameer et al, J Nucl Med 49: 1741, 2008). 2. Central clumping of the aerosol may be secondary to obstructive airway mechanics and/or clinical tachypnea. 3. Patients with low or intermediate probability interpretations should have at a minimum, lower extremity venous ultrasonography to exclude the presence of deep venous thrombosis. (Jer, [employer]iaison Med 153: 1415, 1992). Electronically Signed: Michael Whittington DO 201 02/15/04 at 10:00 EST Tel , Service support [phone], CC: Naeem Conde MD; Kellen Garcia DO Air Conditioning Technician: Signed 05-Oct-2015 Sleep Study Report Result: Comments: See Note; NOTES: [facility] [address] [place] [address] Polysomnography with NCPAP MR#: [id number] Acct: [id number] Name: JASPAL MARIE Rep #: [id number] : 1945 70 From: Edil Hernández MD PCP: Kellen Garcia DO Status: REG CLI Ordering Dr.: Kellen Garcia DO Date: 09/29/15 Sex: M C DATE OF SERVICE: 09/29/2015 SCORING RULES: Respiratory events were acquired and scored in accordance with the Recommended Standards and Specifications as outlined in the AASM Manual for the Scoring of Sleep and Associated Events ( most recent version). Please note that a reference to [facility] AHI in this report is consistent with the current Hypopnea definition according to Medicare Criteria and an AAS AHI reference is consistent with th current Hypopnea definition according to the AASM criteria and is recognized by [facility] as the RDI. PROCEDURE: The study was attended continuously by a solid waste landfill technician. Monitored parameters included left and right EOG, frontal, central, and occipital EEG, mental and submental EMG, left and right anterior tibialis EMG, signal ECG waveform, snore, continuous airflow with PAP device flow signal, ch est and abdominal plethysmography efforts, oxygen saturation with heart rate, and body positioning with video monitoring. OVERNIGHT TITRATION SUMMARY REFERRING PHYSICIAN: Dr. Garcia HISTORY OF PRE SENT ILLNESS: The patient is a 70-year-old gentleman with a calculated body mass index of 32.2 and [place] Sleepiness Scale score of 14/24. He has a known history of sleep disordered breathing as ness gnosed by overnight polysomnogram on August 23, 2015, showing the patient to have an overall apnea/hypopnea index of 7.3, but RDI of 57.4. In addition, the supine RDI was 124.6, but there was only o abe 13 minutes of supine positioning. Oxygen saturations also fell as low as 82% during the study. The patient is now undergoing this titration to determine appropriate CPAP setting to normalize the p atient's apnea-hypopnea index. Note the patient has been on positive airway pressure in the past, but appears to be noncompliant with her at this time. Last recommendation made in 2007. ADDITIONAL M EDICAL HISTORY: Note additional medical history is significant for hyperlipidemia, COPD, hypertension, depression, anxiety, central sleep apnea, reflux, pulmonary embolism, coronary artery disease. MEDICATIONS REPORTED AT TIME OF STUDY: Include Remeron, bupropion, albuterol, aspirin, pravastatin, Plavix, pantoprazole, vitamin D, Augmentin, Effexor, lisinopril, amlodipine. MASK USED DURING TIT RATION: Knott FX nasal pillows (medium) with heated humidity. SLEEP STUDY DATA: The overnight titration study began at 1059:16 p.m. and ended 533:59 a.m. for a total recording time of 394.7 minutes of which the patient slept 306.5 minutes for a calculated sleep efficiency of 77%. Sleep latency was 1.4 minutes with a REM latency of 326 minutes. Note prolongation in REM latency is primarily due to fragmentation of sleep associated with respiratory events and titration. However, also note the patient is on Effexor, which can act as a REM suppressant. Sleep stage percentages were as follows, N 1 36.9%, N2 62.5%, N3 0%, REM 0.7% of total sleep. There were a total of 228 arousals during the study resulting in an overall arousal index of 44.6. The respiratory arousal index was 34.1 while spon taneous arousal index was 10.6. Limb movement arousal index was 0. CONTINUOUS POSITIVE AIRWAY PRESSURE DATA: The patient was initially titrated on CPAP settings of 9, 11, 13, 15, and 17 cm of water with humidification. On all of these settings, whether the patient was supine or not, the apnea/hypopnea index and RDI were in the severe range. Much worse than baseline study. In addition, the patien t began to develop central respiratory events on CPAP settings of 11 cm of water with humidification and greater. As a result of the central respiratory events, the patient unable to tolerate higher C PAP settings, the patient was switched to bilevel therapy. The patient was then started on a bilevel setting of 17/13, but central respiratory events still persisted, backup rate of 10, then 12 breath s per minute was initiated. Once 12 breaths per minute backup rate was initiated, central respiratory events resolved and all respiratory events recorded were of obstructive nature. The patient was f urther titrated on settings of 19/15 and 21/17 cm of water with humidification. Unfortunately, at none of these tested settings was the patient's apnea/hypopnea index and RDI definitely normalized, as towards the end supine sleep was not recorded nor was REM sleep. On the highest tested setting of 21/17 cm of water with humidification, the AHI was 3.6 with RDI of 40. Again, supine sleep and REM sl eep was not recorded and thus these are likely underestimated. The arousal index was 36.4. Mean oxygen saturation was 92.4% with a minimum oxygen saturation of 91%. Note bilevel TI controls were as f ollows: Ti Max 1.0, Ti Min 0.3, cycle high, trigger low, Easy-Breathe on. ELECTROCARDIOGRAM DATA: Mean heart rate during sleep was 67 beats per minute with a range of 54- 89 beats per minute. Freque nt PVCs were present during the recording. LIMB MOVEMENT DATA: No periodic limb movements during the study. DIAGNOSES: 1. Obstructive sleep apnea syndrome, G47.33. 2. 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 IMPRESSION: 1. Unfortunately, at none of the tested positive airway pressure settings was the patient's apnea/hypopnea index or RDI brianne lized. Again, the AHI does improve to 3.6 on the highest tested setting of 21/17 with backup rate of 12 breaths per minute, but this with lack of supine sleep and REM sleep. 2. Abnormal sleep archite cture is likely secondary to first night effect, possible medication effect and titration. RECOMMENDATIONS: 1. Initiate bilevel at a setting at 21/17 cm of water with humidification and backup rate of 12 breaths per minute. Allow the patient to acclimate to this setting for approximately 2 weeks at home. Following the acclimation period, the patient should then return for a full night titration study starting at this pressure setting. During that study, I would encourage supine positioning if possible. 2. Recommend the patient be advised to avoid activities or medications that could exacer tomas sleep disordered breathing. 3. Recommend the patient be advised not to drive or operate heavy machine when sleepy. 4. Encouraged weight loss to optimal body mass index. 5. Clinical correlation f or abnormal ECG as above. INTERPRETING PHYSICIAN: Edil Hernández Jr., MMarichuy. Edil Hernández MD T: NTS JOB: [id number] CC: Edil Hernández MD 113 1134 10/05/15 22 02 <Electronically signed by Edil Hernández MD> Date Edil Hernández MD Co-signature (if applicable) Date Signed -Aug-2015 Sleep Study Report Result: Comments: See Note; NOTES: [facility] [address] [place] [address] Polysomnography MR#: [id number] Acct: [id number] Name: EDIL MARIE Miesha Rep #: [id number] : 1945 70 From: Edil Hernández MD PCP: Kellen Garcia DO Status: REG CLI Ordering Dr.: Kellen Garcia DO Date: 08/23/15 Sex: M C DATE OF SERVICE: SCORING RULES: Respiratory ev ents were acquired and scored in accordance with the Recommended Standards and Specifications as outlined in the AASM Manual for the Scoring of Sleep and Associated Events ( most recent version). She bojorquez note that a reference to [facility] AHI in this report is consistent with the current Hypopnea definition according to Medicare Criteria and an [facility] AHI reference is consistent with the current Hypopnea def inition according to the AASM criteria and is recognized by [facility] as the RDI. PROCEDURE: The study was attended continuously by a solid waste landfill technician. Monitored parameters included left and right EOG, f rontal, central, and occipital EEG, mental and submental EMG, left and right anterior tibialis EMG, signal ECG waveform, snore, continuous airflow with thermistor and nasal pressure transducer, chest a nd abdominal plethysmography efforts, oxygen saturation with heart rate, and body positioning with video monitoring. STUDY PERFORMED: August 23, 2015. REFERRING PHYSICIAN: Dr. Garcia. HISTORY: The patient is a 70-year-old gentleman with a calculated body mass index of 32.2 and [place] Sleepiness Scale score of 14/24. The patient has a known history of sleep disordered breathing with last t itration study being performed on May 03, 2008, which by BiPAP autoSV was recommended, although those settings are not known. It appears the patient is not using CPAP or Bilevel at this time. Curre ntly, he has symptoms of snoring, daytime sleepiness, witnessed apneas, recurrent awakenings during the night, and is undergoing overnight polysomnogram to evaluate for persistent presence of sleep di sordered breathing. ADDITIONAL MEDICAL HISTORY: Significant for hyperlipidemia, hypertension, COPD, depression, reflux, obstructive sleep apnea, central sleep apnea, prostate cancer, melanoma (pulm onary embolism), coronary artery disease, myocardial infarct, allergic rhinitis. MEDICATIONS REPORTED AT TIME OF STUDY: Include Remeron, bupropion, albuterol, aspirin, pravastatin, Plavix, pantopraz ole, multivitamin, Nitrostat, Augmentin, Effexor XR, lisinopril, amlodipine. SLEEP STUDY DATA: The overnight polysomnogram began at 1029:52 p.m. and ended 0501:06 a.m. for a total recording time of 391.2 minutes of which the patient slept 131.8 minutes for a calculated sleep efficiency of 33.7%. Sleep latency was 36.5 minutes with a REM latency of 140 minutes. With regards to poor sleep efficie ncy, sleep was fragmented through the night, but many of these sleep-wake transitions were associated with respiratory events. Sleep stage percentages were as follows: N1 45.7%, N2 53.1%, N3 0%, REM 1 .1% of total sleep. There were a total of 132 arousals during the study, resulting in an overall arousal index of ____. The respiratory arousal index was 56.5 while spontaneous arousal index was 3.6. Limb movement arousal index was 0. RESPIRATORY DATA: Snoring was present throughout the recording. The overall apnea/hypopnea index during the study was 7.3 while RDI was 57.4. Note that all respir atory events recorded during this study were of obstructive nature (noted prior diagnosis of central sleep apnea). Note that REM sleep, did not significantly influence the apnea/hypopnea index, but it appears that supine positioning will do so. However, only 13 minutes of supine positioning was recorded. The supine RDI was 124.6 versus non-supine RDI of 50. Mean oxygen saturation during the study was 93% with a minimum oxygen saturation of 82%. The patient spent 11 minutes of this study with an oxygen saturation less than 88%. ELECTROCARDIOGRAM DATA: Mean heart rate during sleep was 65 beat s per minute with a range of 50-87 beats per minute. PVCs and PACs were noted during the recording. LIMB MOVEMENT DATA: There were no periodic limb movements during the study. DIAGNOSIS: Obstruct avery sleep apnea syndrome, G47.33. IMPRESSION: 1. Obstructive sleep apnea syndrome. The patient has mild sleep disordered breathing exacerbated to a severe degree. Based on AHI versus severe sleep di sordered breathing that is worse in the supine position based on RDI. Respiratory events were associated with frequent arousal as oxygen desaturations as noted above. Sleep was clearly fragmented sec ondary to respiratory events as based on RDI. 2. Abnormal sleep architecture likely secondary to first night effect, possible medication effect, and respiratory events. RECOMMENDATIONS: 1. Given salinas bjective complaints, the patient's medical history including cardiac disease and the findings of this study, recommended the patient be treated with positive airway pressure therapy. If this is the ch oice of therapy, the patient should return for a full night titration study during which the patient is encouraged to sleep in the supine position. During that study, attempt will be made to determine appropriate positive airway pressure setting to normalize apnea/hypopnea index and attempt to maintain oxygen saturations greater than 90%. Again, this should be a monitored titration study, given t he history of cardiac disease. 2. Encouraged weight loss to optimal body mass index. 3. Recommend the patient be advised to avoid activities or medications that could exacerbate sleep disordered raisa thing. 4. Recommend the patient be advised not to drive or operate heavy machinery when sleepy. INTERPRETING PHYSICIAN: Edil Hernández Jr., M.D. Edil Hernández MD T: NTS JOB: [id number] C C: Edil Hernández MD 08 0809/03/15 1524 <Electronically signed by Edil Hernández MD> Date Edil guerrero MD Co-signature (if applicable) Date Signed 06-Aug-2015 CTA Chest W/WO Contrast Result: Comments: See Note; NOTES: [facility] [address] [place] [address] Verdana 4d CTA Chest W/WO Contrast MR#: [id number] Acct: [id number] Name: EDIL LEONG Rep #: [id number] : 1945 70 From: Ed Maynard MD PCP: Kellen Garcia DO Status: [facility] ER Study: CTA Chest W/WO Contrast Date of Exam: 08/06/15 Exam# [id number] Ordering Dr: Mike Tolliver MD STUDY: CTA CHEST REASON FOR EXAM: Male, 70 years old. Chest pain and tightness times several days, shortness of breath. RADIATION DOSAGE (If Supplied By Facility): CTDIvol = ( 16.30 ) mGy, DLP = ( 735.66 ) mGycm TECHNIQUE: The examination was performed with the intravenous administration of 100ML ml of Isovue 370 contrast material. Post-processing of the angiographic images w as performed, with multiplanar reformation and 3D reconstruction. COMPARISON: None. FINDINGS: Normal enhancement of the main pulmonary artery and right and le ft pulmonary arteries. Normal enhancement of the bilateral peripheral pulmonary arteries. There is no demonstrated pulmonary embolism. The main pulmonary artery and left and right pulmonary arteries are dilated, with the main pulmonary artery measuring 3.7 CM in diameter. Normal thoracic aorta and visualized great vessels. There is no demonstrated aortic dissection. Normal heart and pericard ium. Normal mediastinum. Normal hilar regions. Normal visualized trachea and bronchi. There are bronchiectatic changes of the lower lobes. There is linear fibrosis of the left lower lobe. There is a partially calcified nodule of the right lower lobe measuring 1.1 CM. There is a 6 mm nodule of the medial right lower lobe. Normal pleura. Normal chest wall structures. There are degenerative changes of thoracic spine. There is a 1.4 CM cyst of the left hepatic lobe. IMPRESSION: 1. Dilatation of the main, left, and right pulmonary arteries which may be associated with pulmonary hypertension. 2. Bronchiectatic changes of the lower lobes. 3. There is no evidence of pulmonary embolism. 4. Linear fibrosis of the left lower lobe. 5. 2 nodules of th e right lower lobe as described above. 6. Degenerative changes of the thoracic spine. 7. 1.4 CM cyst of the left hepatic lobe. Electronically Signed: dE Maynard MD at 19:19 EST , Service support [phone], CC: Kellen Garcia DO; Mike Tolliver MD Air Conditioning Technician: Signed 06-Aug-2015 Chest PA and Lateral Result: Comments: See Note; NOTES: [facility] [address] [place] [address] Verdana 4d Chest PA and Lateral MR#: [id number] Acct: [id number] Name: Jamilah MARIE Rep #: [id number] : 1945 M 70 From: Ed Maynard MD PCP: Kellen Garcia DO Status: REG CLI Study: Chest PA and Lateral Date of Exam: 08/06/15 Exam# [id number] Ordering Dr: Sheryl Street STUDY: X-RAY CHEST REASON FOR EXAM: Male, 70 years old. Cough TECHNIQUE: PA and lateral views of the chest. COMPARISON: Previous study of April 17, 2015. _ FINDINGS: Streaky fibrotic changes are seen at the lung bases. There is a questionable 2.1 CM nodular density of the left upper lobe. This was not previously seen. There is no demonstrated pleur al abnormality. Normal size heart. Normal mediastinum and radha. Normal visualized pulmonary arteries. Normal visualized aortic arch and descending thoracic aorta. There is a mild thoracic levoscol iosis. Normal visualized ribs, clavicles, and shoulders. There is no demonstrated abnormality of the visualized soft tissue structures of the upper abdomen. IM PRESSION: 1. Streaky fibrotic changes are seen at the lung bases. 2. Questionable 2.1 CM nodular density of the left upper lobe, not seen on the previous study. CT is recommended for further evaluati on of this finding. 3. Mild thoracic levoscoliosis. Electronically Signed: Ed Maynard MD at 18:16 EST , Service support [phone], ORDE R #: [id number] RAD/Chest PA and Lateral IMPRESSION: 1. Streaky fibrotic changes are seen at the lung bases. 2. Questionable 2.1 CM nodular density of the left upper lobe, not seen on the previous st udy. CT is recommended for further evaluation of this finding. 3. Mild thoracic levoscoliosis. Electronically Signed: Ed Maynard MD at 18:16 EST , Service supp ort [phone], CC: Loreta Street; Kellen Garcia DO Air Conditioning Technician: Signed 06-Aug-2015 ELECTROCARDIOGRAM, COMPLETE (ECG) ([id number]) Result: [MEASUREMENTS ANALYSIS] Date of Test: 08/06/2015 12:17:42; Heart Rate: 74; KS Interval: 156; QRS: 102; QT Interval: 406; Corrected QT Interval (QTc): 430; P Wave Monona: 21; QRS Wave Monona: 15; T Wave Monona : 20; Blood Pressure: 110/78 [ECG DIAGNOSTIC STATEMENTS] Date of Test: 08/06/2015 12:17:42; Summary: Sinus Rhythm -Prominent R(V1) -nonspecific. -ST depression -Nondiagnostic. ABNORMAL 23-Jul-2015 Pulmonary Function Report Comp Result: Comments: See Note; NOTES: [facility]Neurology [address] [place] [address] Pulmonary Function Test (Comp) MR#: [id number] Acct: [id number] Nam e: EDIL MARIE Rep #: [id number] : 1945 70 From: Naeem Conde MD Referring Dr: Kellen Garcia DO Status: REG CLI Ordering Dr: Kellen Garcia DO Date: 07/20/15 Location: [facility] Sex: M C DATE OF SERVICE: 07/20/2015 BRIEF HISTORY OF PRESENT ILLNESS: The patient is a 70-year-old male, currently under the care of Dr. Garcia, who presents for evaluation secondary to a diagnosis of seco ndary pulmonary hypertension. The respiratory therapist reported good effort, but patient did have a syncopal episode associated with the FVC maneuver. No bronchodilators were tested for this reason. INTERPRETATION: Forced expiration spirometry demonstrates a moderate large airways obstructive ventilatory defect. Spirograms are of good quality and plateau gradually indicating slowing emptying a reas of the lung. The respiratory flow volume loop shows decreased expiratory flow rates at high lung volumes consistent with airways obstruction. Lung volumes by body plethysmography show a reduced total lung capacity of 5.73 liters, 82% of predicted. Remaining lung volumes are reduced symmetrically. Diffusion capacity by single breath carbon monoxide is moderately reduced at 56% of predicted. Airway resistance is elevated. No previous studies are available for comparison. IMPRESSION: Moderate mixed ventilatory defect with a symmetric reduction in diffusion capacity. Consider chest nicholas ging. Empiric trial of bronchodilators may be helpful, somewhat limited secondary to the patient's ability to only given 1 data set. MD Gelacio ANDERSON C: Kellen Garcia DO T: [facility] JOB: [id number] 07/23/15 0639 <Electronically signed by Naeem Conde MD> Date Naeem Conde MD CC: Naeem Conde MD; Kellen Garcia DO Date Dictated: 1 09/20/14808 Date Transcribed: 07/21/15808 Air Conditioning Technician: Signed 20-Jul-2015 EKG ([id number]) Comments: ekg showed normal sinus rhythym, normal axis, no acute st/t wave changes right bundle branch block Result: [MEASUREMENTS ANALYSIS] Date of Test: 07/20/2015 11:17:05; Heart Rate: 69; KS Interval: 162; QRS: 144; QT Interval: 430; Corrected QT Interval (QTc): 445; P Wave Monona: 27; QRS Wave Monona: 26; T Wave Monona : 19; Blood Pressure: 118/68 [ECG DIAGNOSTIC STATEMENTS] Date of Test: 07/20/2015 11:17:05; Summary: Sinus Rhythm -Right bundle branch block. ABNORMAL 06-Jul-2015 Ankle min 3 Views Result: Comments: See Note; NOTES: [facility] [address] [place] [address] Verdana 4d Ankle min 3 Views MR#: [id number] Acct: [id number] Name: NEGRO MARIE Rep #: [id number] : 1945 M 70 From: Franky Cummings MD PCP: Kellen Garcia DO Status: REG CLI Study: Ankle min 3 Views Date of Exam: 07/06/15 Exam# [id number] Ordering Dr: Kellen Garcia DO STUDY: X-RAY - LEFT ANKLE REASON FOR EXAM: Male, 70 years old. Pain TECHNIQUE: 3 view(s) of the ankle. COMPARISON: None. FINDINGS: There is a plantar adolph caneal enthesophyte. There is no fracture. There is no osseous destruction. The ankle mortise is intact. IMPRESSION: Intact left ankle Electronically Signed: Franky Cummings MD at 10:22 EDT Tel , Service support [phone], RAD/Ankle min 3 Views IMPRESSION: Intact left ankle Electron ically Signed: Franky Cummings MD at 10:22 EDT Tel , Service support [phone], CC: Kellen Garcia DO Air Conditioning Technician: Signed 03-May-2015 Spirometry ([id number]) Result: 18-Apr-2015 Cardiac Catheterization Report Result: Comments: See Note; NOTES: [facility] Medical Records Department [address] [place] [address] 04/18/15 0939 MR#: [id number] Acct: [id number] Name: EDIL MARIE Rep #: [id number] : 1945 70 From: Pravin Walton MD Attending Dr: Pravin Walton MD Status: REG CLI Ordering Dr: Date: 04/18/15 Location: [facility] Sex: M C Admitted: Date of Procedure: Procedure: Right heart catheterization, left heart catheterization, left ventriculogram, coronary arteriography Indications: Chest discomfort, shortness of breath/dyspnea, abnormal transthoracic echocardiogram, CAD, pulmonary hypertension Consent: Per patient Premedications: None Procedure: The patient was brought to the cardiac catheterization laboratory and laid supine on the [facility] c catheterization table. The right inguinal area was prepped and draped in the standard sterile fashion. 2% Xylocaine was used for local anesthesia. Using the modified Seldinger technique the right fe moral artery was cannulated and a #4 Scottish arterial sheath was placed. Using the modified Seldinger technique the right femoral vein was cannulated and a #7 Scottish venous sheath was placed. A #7 Fren ch thermodilution balloontipped Damascus-Angel catheter was advanced under fluoroscopic guidance to the level IVC and SVC were subsequent oxygen saturations were obtained. This catheter was then used to ob tain right atrial, right ventricular, pulmonary artery, and pulmonary capillary wedge pressures. Pulmonary arterial and femoral arterial oxygen saturations were obtained. A thermodilution cardiac outpu t procedure was performed. A #4 Scottish pigtail catheter was advanced under fluoroscopic guidance to the level of the central aorta and with the assistance of the J-tipped guidewire prolapsed across the aortic valve into the left ventricle. Simultaneous left ventricular end-diastolic pressure and pulmonary capillary wedge pressures were measured and recorded. A single plane KENDALL left ventriculogr am was performed using 36 mL of Isovue at 12 mL/s. Simultaneous left ventricular end-diastolic pressure and pulmonary capillary wedge pressures were measured and recorded. The left heart pullback proce dure was performed. The right heart pullback procedure was performed. The Damascus- Angel catheter was subsequently removed. The #4 Scottish pigtail catheter was then exchanged over a J-tipped guidewire for a #4 Scottish JL4 Sin left coronary artery catheter. This catheter was then advanced to the level of the central aorta where central aortic pressure was noted. It was then used to engage the left cor onary ostium where selective left coronary arteriography was performed in multiple views. This catheter was then exchanged over a J-tipped guidewire for a #4 Scottish JR 4 Sin right coronary artery catheter. This catheter was then advanced to the level of the central aorta where central aortic pressure was noted. It was then used to engage the right coronary ostium where selective right coronary arteriography was performed in multiple views. All catheters and sheaths were eventually removed. Direct pressure was held for adequate hemostasis was achieved. There was no apparent bleeding, hemat lindne, or complication otherwise prior to leaving the cardiac catheterization laboratory. Findings: Hemodynamics: Pre-angiographic dye load: Right atrial pressure: A wave 8, V-wave 6, mean 4 mm Hg Right ventricular pressure: 42/5 mm Hg Pulmonary artery pressure: 37/13 mm Hg Mean pulmonary artery pressure: 22 mm Hg Pulmonary capillary wedge pressure: A wave 9, V-wave 6, mean 6 mm Hg Left maribell tricular pressure: 123/9 mm Hg Post angiographic dye load: Right atrial pressure: A wave 9, V wave 5, mean 4 mm Hg Right ventricular pressure: 47/10 mm Hg Pulmonary artery pressure: 48/16 mm Hg Me an pulmonary artery pressure: 28 mm Hg Pulmonary capillary wedge pressure: A wave 16, V wave 14, mean 12 mm Hg Left ventricular pressure: 115/20 mm Hg Central aortic pressure: 135/72 mm Hg Mean cent ral aortic pressure: 99 mm Hg Oxygen saturation: Room air: IVC: 69% SVC: 61% PA: 64% Right femoral artery: 89% Cardiac output: Thermodilution: 4.9 L/m Cardiac index: Thermodilution: 2.2 L/m/m Cardiac output: Estimated Radha: 5.4 L/m Cardiac index: Estimated Radha: 2.5 L/m/m Left ventricle: Normal left ventricular size, wall motion, and systolic function. The estimated LVEF is 65%. Left main coronary artery: This is a large vessel giving rise to the left anterior descending and left circumflex coronary arteries. It demonstrates mild calcification and minimal luminal irregularities. Left anterior descending coronary artery: This is a large vessel which tapers to a moderate size vessel then tapers to a small vessel as it courses partially around the LV apex and gives rise to a s mall septal ibm bpm developer system and a small bifurcating diagonal branching system. The LAD demonstrates proximal towards mid moderate diffuse calcification. There is proximal to mid diffuse 10-25% eccen tric appearing stenosis. There is mid to distal diffuse minimal luminal irregularities. Left circumflex coronary artery: This is a large vessel that gives rise to a high large long 1st obtuse domitila nal branch coursing toward the inferior, lateral, apical areas. The LCx then continues on as a small vessel in the AV groove. The 1st OM demonstrates proximal mild calcification as well as proximal diff use 10- 25% eccentric appearing stenosis. Right coronary artery: This is a very large dominant vessel giving rise to a moderate size right PDA, moderate right AV segment, and small right posterior lateral system. The RCA demonstrates proximal to mid mild calcification with ostial/proximal 25-50% eccentric appearing stenosis and mid to distal diffuse minimal luminal irregularities. Aortic valv e annulus: Normal Aortic valve: Normal Aortic root: Normal Mitral valve annulus: Normal Mitral valve: Normal Discussion: The cardiac catheterization reveals relatively normal resting left ventri cular end-diastolic pressure, secondary pulmonary hypertension, and overall preserved left ventricular size, wall motion, and systolic function. Coronary arteriography demonstrates diffuse calcificati on and diffuse mild to moderate appearing coronary artery disease. In comparison to the previous cardiac catheterization performed at [facility] on there appears to be similar t ype findings with respect to the angiographic appearance of the underlying coronary anatomy. At the present time the patient will need to continue cardiovascular risk factor evaluation and medical th erapy as deemed appropriate for his findings of underlying CAD. He should also be considered for further evaluation for the secondary pulmonary hypertension by pulmonology. In the interim it may not b e unreasonable to place the patient back a calcium channel antagonist. Final impression: 1. Relatively normal resting left ventricular end-diastolic pressure 2. Secondary pulmonary hypertension 3. Oxygen saturations: No obvious evidence of intracardiac shunting phenomena 4. Left ventricle: A. Normal left ventricular size, wall motion, and systolic function B. Estimated LVEF of 65% 5. Lef t main coronary artery: A. Mild calcification B. Minimal luminal irregularities 6. Left anterior descending coronary artery: A. Proximal to mid moderate diffuse calcification B. Proximal to mid di ffuse 10-25% eccentric appearing stenosis C. Mid to distal minimal luminal irregularities 7. Left circumflex coronary artery: A. 1st OM: Proximal mild calcification B. 1st OM: Proximal diffuse 10-2 5% eccentric appearing stenosis 8. Right coronary artery: A. Very large dominant vessel B. Proximal to mid mild calcification C. Ostial/proximal 25-50% eccentric appearing stenosis D. Mid to dista l diffuse minimal luminal irregularities Comment: The above was discussed with the patient, his spouse, and his daughter. This note was generated with Nextanceation software. It may contain incor rect words, spelling, and punctuation that were not noted in checking the note before signing. 04/18/15 1006 <Electronically signed by Pravin Walton MD> Date Pravin Walton MD CC: Kellen Garcia DO; Pravin Walton MD Date Dictated: 04/18/1539 Date Transcribed: 08/05/15 0939 Air Conditioning Technician: PM Signed 17-Apr-2015 Echocardiogram Complete Result: Comments: See Note; NOTES: [facility] Cardiovascular Services [address] [place] [address] Echo Complete 04/17/15 1352 MR#: [id number] Acct: [id number] Name: CHRISTOPHER MARIE Rep #: [id number] : 1945 70 From: Pravin Walton MD Attending Dr: Pravin Walton MD Status: PRE CLI Ordering Dr: Pravin Walton MD Date: 04/17/15 Location: [facility] Sex: M C Admitted: Procedure This was a 2D Doppler, Color Flow transthoracic echocardiogram. The exam was of poor technical quality due to body habitus. The study was technically difficult. Contrast injection was p erformed. Exam performed in department. Left Ventricle Normal LV size. Moderate concentric left ventricular hypertrophy. Left ventricular systolic function is normal. The estimated ejection fracti on is 60 %. No regional wall motion abnormalities noted. Right Ventricle Normal RV size. Normal systolic function. Atria Normal left atrium. Normal right atrium. No doppler evidence for ASD. Bubb le contrast study negative for right to left interatrial shunt. Mitral Valve There is no mitral annular calcification. Mild focal mitral valve thickening. Equivocal mitral valve prolapse. Trivial mitral valve insufficiency. Tricuspid Valve Trivial tricuspid valve insufficiency. Right ventricular systolic pressure estimated to be 40 mmHg. Aortic Valve Trisinus/trileaflet aortic valve. Norm al aortic valve. Pulmonic Valve The pulmonic valve is not well visualized. Great Vessels Normal sized aortic root. Pericardium/Pleural No pericardial effusion. Medication 22 gauge I.V. with prn adaptor inserted into right arm. Definity.3ml given slow IV push to enhance endocardial definition. Performed a rapid injection of agitated mix of 9 cc saline and 1cc air to assess for atrial sep kalyn defect. MMode/2D Measurements AND Calculations LVIDd: 4.5 cm IVSd: 1.6 cm Ao root diam: 3.1 cm LAV(MOD-sp4): 53.6 ml LVIDs: 2.4 cm LVPWd: 1.4 cm Ao root area: 7.8 cm2 RVDd: 2.5 cm FS: 47.1 % L A dimension: 3.2 cm LA A4 area: 19.0 cm2 RA A4 area: 16.4 cm2 Doppler Measurements AND Calculations MV E max kamini : Lat Peak E' Kamini: Med Peak E' Kamini: Ao V2 max: 63.4 cm/sec 8.8 cm/sec 5.6 cm/sec 116.9 cm/sec MV A max kamini: Ao max P.5 mmHg 72.0 cm/sec MV E/A: 0.88 LV V1 max: 99.7 cm/sec PA V2 max: 106.5 cm/sec TR max kamini: 296.7 cm/sec E/E' lat: 7.2 LV V1 max P.0 mmHg PA max P.5 mmHg TR max P.2 mmHg E/E' med: 11.4 Interpretation Summary The study was technically difficult. Contrast injection was performed. Left ventri cular systolic function is normal. The estimated ejection fraction is 60 %. Moderate concentric left ventricular hypertrophy. Equivocal mitral valve prolapse. Mild focal mitral valve thickening. Tr ivial mitral valve insufficiency. Trivial tricuspid valve insufficiency. Right ventricular systolic pressure estimated to be 40 mmHg. Ordering Physician: Pravin Walton Referring Physician: Kellen Garcia D.O. Performed By: Mehnaz Noguera RVT 04/17/15 1614 Date Pravin Walton MD CC: Kellen Garcia DO; Pravin Walton MD Date Dictated: 04/17/15 1352 Date Transcr ibed: 04/17/15 1614 Air Conditioning Technician: Signed 17-Apr-2015 Chest PA and Lateral Result: Comments: See Note; NOTES: [facility] Imaging Services [address] [place] [address] Radiology Report MR#: [id number] Acct: [id number] Name: EDIL MARIE Rep #: [id number] : 1945 70 From: Valdo Dwyer MD PCP: Kellen Garcia DO Status: PRE CLI Study: Chest PA and Lateral Date of Exam: 04/17/15 Exam# [id number] Ordering Dr: Pravin Walton MD STUDY : X-RAY CHEST REASON FOR EXAM: Male, 70 years old. Preoperative evaluation. TECHNIQUE: PA and lateral views of the chest. COMPARISON: None. FINDINGS: Hyper inflation. Increased linear markings at the lung bases suggestive of either linear atelectasis and/or scarring. There is blunting of the costophrenic angles posteriorly. Normal size heart. Normal me diastinum and radha. Normal visualized pulmonary arteries. There is atherosclerotic tortuosity of the aortic arch and descending thoracic aorta. Normal visualized thoracic spine. Normal visualized ri bs, clavicles, and shoulders. There is no demonstrated abnormality of the visualized soft tissue structures of the upper abdomen. IMPRESSION: Hyperinflation. Increased linear markings at the lung bases suggestive of linear atelectasis and/or scarring. Electronically Signed: Valdo Dwyer MD at 11:23 EDT Tel [phone], Service support [phone], RAD/Chest PA and Lateral IMPRESSION: Hyperinflation. Increased linear markings at the lung bases suggestive of linear atelectasis and/or scarri ng. Electronically Signed: Valdo Dwyer MD at 11:23 EDT Tel [phone], Service support [phone], CC: Kellen Garcia DO; Pravin Walton MD Air Conditioning Technician: Signed 09-Apr-2015 Spirometry ([id number]) Comments: good effort and curve essentially normal Result: 09-Apr-2015 EKG ([id number]) Comments: ekg showed normal sinus rhythym, normal axis, no acute st/t wave changes nonspecific depression diffuse- Result: [MEASUREMENTS ANALYSIS] Date of Test: 04/09/2015 16:30:50; Heart Rate: 58; KS Interval: 160; QRS: 100; QT Interval: 454; Corrected QT Interval (QTc): 451; P Wave Monona: 27; QRS Wave Monona: 24; T Wave [place] : 22; Blood Pressure: 90/64 [ECG DIAGNOSTIC STATEMENTS] Date of Test: 04/09/2015 16:30:50; Summary: Sinus Bradycardia -Prominent R(V1) -nonspecific. - Nonspecific ST depression -Nondiagnostic. ABNORMAL Immunization Name Dates Details Influenza (3 years and up) on: 2015 Family History Unknown Family Member Name Dates Details Father Comments: stroke Status: Active Maternal Grandfather Comments: dm Status: Active Mother Comments: dm/stroke Status: Active Social History Name Dates Details No Caffeine Use Status: Active No Drug Use Status: Active Non Drinker/No Alcohol Use Status: Active Tobacco use: Never smoker. Status: Active Smoking Status Name Dates Details Never smoker Vital Signs Date Test Result Details :16 Temperature 97.4 f Comments: Method: Temporal Pulse 58 /min Comments: Pattern: Regular Respiration Rate 16 /min Comments: Pattern: Unlabored BP Systolic 115 mm[Hg] Comments: Patient Position: Sitting; Cuff Location: Left Arm; Cuff Size: Standard BP Diastolic 70 mm[Hg] Comments: Patient Position: Sitting; Cuff Location: Left Arm; Cuff Size: Standard Weight 227.5 lb Height 70 in Body Mass Index Calculated 32.64 kg/m2 Body Surface Area Calculated 2.2 m2 :30 Temperature 98.1 f Comments: Method: Temporal Pulse 67 /min Comments: Pattern: Regular Respiration Rate 16 /min Comments: Pattern: Unlabored BP Systolic 104 mm[Hg] Comments: Patient Position: Sitting; Cuff Location: Left Arm; Cuff Size: Standard BP Diastolic 68 mm[Hg] Comments: Patient Position: Sitting; Cuff Location: Left Arm; Cuff Size: Standard Weight 213.5 lb Height 70 in Body Mass Index Calculated 30.63 kg/m2 Body Surface Area Calculated 2.15 m2 :08 Temperature 97.8 f Comments: Method: Temporal Pulse 73 /min Comments: Pattern: Regular Respiration Rate 16 /min Comments: Pattern: Unlabored O2 SAT 93 % Comments: Room air BP Systolic 104 mm[Hg] Comments: Patient Position: Sitting; Cuff Location: Left Arm; Cuff Size: Standard BP Diastolic 60 mm[Hg] Comments: Patient Position: Sitting; Cuff Location: Left Arm; Cuff Size: Standard Weight 213.5 lb Height 70 in Body Mass Index Calculated 30.63 kg/m2 Body Surface Area Calculated 2.15 m2 :04 Temperature 98 f Pulse 64 /min Comments: Pattern: Regular Respiration Rate 18 /min Comments: Pattern: Unlabored O2 SAT 95 % Comments: Room air BP Systolic 124 mm[Hg] Comments: Patient Position: Sitting; Cuff Location: Left Arm; Cuff Size: Standard BP Diastolic 70 mm[Hg] Comments: Patient Position: Sitting; Cuff Location: Left Arm; Cuff Size: Standard Weight 211.5 lb Height 70 in Body Mass Index Calculated 30.35 kg/m2 Body Surface Area Calculated 2.14 m2 :30 Temperature 97 f Comments: Method: Temporal Pulse 78 /min Comments: Pattern: Regular Respiration Rate 18 /min Comments: Pattern: Unlabored O2 SAT 92 % Comments: Room air BP Systolic 122 mm[Hg] Comments: Patient Position: Sitting; Cuff Location: Left Arm; Cuff Size: Standard BP Diastolic 74 mm[Hg] Comments: Patient Position: Sitting; Cuff Location: Left Arm; Cuff Size: Standard Weight 212 lb Height 70 in Body Mass Index Calculated 30.42 kg/m2 Body Surface Area Calculated 2.14 m2 :08 Temperature 97.2 f Comments: Method: Temporal Pulse 70 /min Comments: Pattern: Regular Respiration Rate 16 /min Comments: Pattern: Unlabored BP Systolic 120 mm[Hg] Comments: Patient Position: Sitting; Cuff Location: Left Arm; Cuff Size: Standard BP Diastolic 80 mm[Hg] Comments: Patient Position: Sitting; Cuff Location: Left Arm; Cuff Size: Standard Weight 212 lb Height 70 in Body Mass Index Calculated 30.42 kg/m2 Body Surface Area Calculated 2.14 m2 :47 Temperature 97 f Comments: Method: Temporal Pulse 70 /min Comments: Pattern: Regular Respiration Rate 16 /min Comments: Pattern: Unlabored O2 SAT 96 % Comments: Room air BP Systolic 102 mm[Hg] Comments: Patient Position: Sitting; Cuff Location: Left Arm; Cuff Size: Standard BP Diastolic 84 mm[Hg] Comments: Patient Position: Sitting; Cuff Location: Left Arm; Cuff Size: Standard Weight 204 lb Height 70 in Body Mass Index Calculated 29.27 kg/m2 Body Surface Area Calculated 2.11 m2 :08 Temperature 96.8 f Comments: Method: Temporal Pulse 68 /min Comments: Pattern: Regular Respiration Rate 17 /min Comments: Pattern: Unlabored O2 SAT 93 % Comments: Room air BP Systolic 90 mm[Hg] Comments: Patient Position: Sitting; Cuff Location: Left Arm; Cuff Size: Standard BP Diastolic 60 mm[Hg] Comments: Patient Position: Sitting; Cuff Location: Left Arm; Cuff Size: Standard Weight 198 lb Height 70 in Body Mass Index Calculated 28.41 kg/m2 Body Surface Area Calculated 2.08 m2 :34 Temperature 97 f Comments: Method: Temporal Pulse 62 /min Comments: Pattern: Regular Respiration Rate 16 /min Comments: Pattern: Unlabored O2 SAT 92 % Comments: Room air BP Systolic 116 mm[Hg] Comments: Patient Position: Sitting; Cuff Location: Left Arm; Cuff Size: Standard BP Diastolic 74 mm[Hg] Comments: Patient Position: Sitting; Cuff Location: Left Arm; Cuff Size: Standard Weight 198 lb Height 70 in Body Mass Index Calculated 28.41 kg/m2 Body Surface Area Calculated 2.08 m2 :43 Comments: 96 percent at rest 02- but after exertion 87 Temperature 97.2 f Comments: Method: Temporal Pulse 72 /min Comments: Pattern: Regular Respiration Rate 16 /min Comments: Pattern: Unlabored O2 SAT 87 % Comments: Room air BP Systolic 98 mm[Hg] Comments: Patient Position: Sitting; Cuff Location: Left Arm; Cuff Size: Standard BP Diastolic 62 mm[Hg] Comments: Patient Position: Sitting; Cuff Location: Left Arm; Cuff Size: Standard Weight 196 lb Height 70 in Body Mass Index Calculated 28.12 kg/m2 Body Surface Area Calculated 2.07 m2 :17 Temperature 97.8 f Comments: Method: Temporal Pulse 96 /min Comments: Pattern: Regular Respiration Rate 16 /min Comments: Pattern: Unlabored BP Systolic 108 mm[Hg] Comments: Patient Position: Sitting; Cuff Location: Left Arm; Cuff Size: Standard BP Diastolic 72 mm[Hg] Comments: Patient Position: Sitting; Cuff Location: Left Arm; Cuff Size: Standard Weight 203 lb Height 70 in Body Mass Index Calculated 29.13 kg/m2 Body Surface Area Calculated 2.1 m2 :04 Temperature 96.8 f Comments: Method: Temporal Pulse 64 /min Comments: Pattern: Regular Respiration Rate 16 /min Comments: Pattern: Unlabored O2 SAT 94 % Comments: Room air BP Systolic 98 mm[Hg] Comments: Patient Position: Sitting; Cuff Location: Left Arm; Cuff Size: Standard BP Diastolic 62 mm[Hg] Comments: Patient Position: Sitting; Cuff Location: Left Arm; Cuff Size: Standard Weight 208 lb Height 70 in Body Mass Index Calculated 29.84 kg/m2 Body Surface Area Calculated 2.12 m2 :16 Temperature 97.4 f Comments: Method: Temporal Pulse 66 /min Comments: Pattern: Regular Respiration Rate 15 /min Comments: Pattern: Unlabored BP Systolic 114 mm[Hg] Comments: Patient Position: Sitting; Cuff Location: Left Arm; Cuff Size: Standard BP Diastolic 78 mm[Hg] Comments: Patient Position: Sitting; Cuff Location: Left Arm; Cuff Size: Standard Weight 225 lb Height 70 in Body Mass Index Calculated 32.28 kg/m2 Body Surface Area Calculated 2.19 m2 :46 Temperature 98.7 f Comments: Method: Temporal Pulse 82 /min Comments: Pattern: Regular Respiration Rate 17 /min Comments: Pattern: Unlabored O2 SAT 90 % Comments: Room air BP Systolic 120 mm[Hg] Comments: Patient Position: Sitting; Cuff Location: Left Arm; Cuff Size: Large BP Diastolic 80 mm[Hg] Comments: Patient Position: Sitting; Cuff Location: Left Arm; Cuff Size: Large Weight 230 lb Height 70 in Body Mass Index Calculated 33 kg/m2 Body Surface Area Calculated 2.22 m2 :53 Temperature 98.6 f Comments: Method: Temporal Pulse 82 /min Comments: Pattern: Regular Respiration Rate 16 /min Comments: Pattern: Unlabored O2 SAT 92 % Comments: Room air BP Systolic 118 mm[Hg] Comments: Patient Position: Sitting; Cuff Location: Left Arm; Cuff Size: Large BP Diastolic 68 mm[Hg] Comments: Patient Position: Sitting; Cuff Location: Left Arm; Cuff Size: Large Weight 231 lb Height 70 in Body Mass Index Calculated 33.14 kg/m2 Body Surface Area Calculated 2.22 m2 :15 Temperature 97.6 f Pulse 74 /min Comments: Pattern: Regular Respiration Rate 18 /min Comments: Pattern: Unlabored O2 SAT 95 % Comments: Room air BP Systolic 110 mm[Hg] Comments: Patient Position: Sitting; Cuff Location: Left Arm; Cuff Size: Standard BP Diastolic 78 mm[Hg] Comments: Patient Position: Sitting; Cuff Location: Left Arm; Cuff Size: Standard Weight 230 lb Height 70 in Body Mass Index Calculated 33 kg/m2 Body Surface Area Calculated 2.22 m2 :00 Temperature 97.8 f Comments: Method: Temporal Pulse 76 /min Comments: Pattern: Regular Respiration Rate 18 /min Comments: Pattern: Unlabored O2 SAT 95 % Comments: Room air BP Systolic 118 mm[Hg] Comments: Patient Position: Sitting; Cuff Location: Left Arm; Cuff Size: Standard BP Diastolic 68 mm[Hg] Comments: Patient Position: Sitting; Cuff Location: Left Arm; Cuff Size: Standard Weight 230 lb Height 70 in Body Mass Index Calculated 33 kg/m2 Body Surface Area Calculated 2.22 m2 :20 Temperature 98.2 f Comments: Method: Temporal Pulse 74 /min Comments: Pattern: Regular Respiration Rate 17 /min Comments: Pattern: Unlabored O2 SAT 91 % Comments: Room air BP Systolic 104 mm[Hg] Comments: Patient Position: Sitting; Cuff Location: Left Arm; Cuff Size: Large BP Diastolic 68 mm[Hg] Comments: Patient Position: Sitting; Cuff Location: Left Arm; Cuff Size: Large Weight 231 lb Height 70 in Body Mass Index Calculated 33.14 kg/m2 Body Surface Area Calculated 2.22 m2 [id number] Comments: while ambulating po dropped to 88% without o2 so added 2liters nasal canula and it improved after 5mins with 91% pulse ox. Pulse 72 /min Comments: Pattern: Regular Respiration Rate 20 /min Comments: Pattern: Unlabored O2 SAT 93 % Comments: Room air BP Systolic 102 mm[Hg] Comments: Patient Position: Sitting; Cuff Location: Left Arm; Cuff Size: Standard BP Diastolic 64 mm[Hg] Comments: Patient Position: Sitting; Cuff Location: Left Arm; Cuff Size: Standard Weight 229 lb Height 70 in Body Mass Index Calculated 32.86 kg/m2 Body Surface Area Calculated 2.21 m2 [id number] Pulse 70 /min Comments: Pattern: Regular Respiration Rate 18 /min Comments: Pattern: Unlabored O2 SAT 93 % Comments: Room air BP Systolic 102 mm[Hg] Comments: Patient Position: Sitting; Cuff Location: Left Arm; Cuff Size: Standard BP Diastolic 64 mm[Hg] Comments: Patient Position: Sitting; Cuff Location: Left Arm; Cuff Size: Standard Weight 229 lb Height 70 in Body Mass Index Calculated 32.86 kg/m2 Body Surface Area Calculated 2.21 m2 :31 Temperature 98 f Comments: Method: Temporal Pulse 58 /min Comments: Pattern: Regular Respiration Rate 18 /min Comments: Pattern: Unlabored O2 SAT 91 % Comments: Room air BP Systolic 90 mm[Hg] Comments: Patient Position: Sitting; Cuff Location: Left Arm; Cuff Size: Large BP Diastolic 64 mm[Hg] Comments: Patient Position: Sitting; Cuff Location: Left Arm; Cuff Size: Large Weight 229 lb Height 70 in Body Mass Index Calculated 32.86 kg/m2 Body Surface Area Calculated 2.21 m2 Results Date Description Value Details [id number] Lesion (choose site) See Note (Normal) Comments: [facility] [id number] [place], [address] Comments: Patient: EDIL MARIE : 1945 (73/M) Acct Num: [id number] Phys: Jaun LUTZ,Robert Unit Num: [id number] Loc: [facility] Specimen: [id number] Received: 05/29/18 - 7 Spec Type : Lesion TISSUES TISSUES: Skin of external ear, NOS GROSS DESCRIPTION Received in fixative is one container labeled with the patient's name and designated left posterior ear. The specimen consists of a piece of yellow adipose tissue measuring 4 x 3 x 1 cm. Sections reveal yellow adipose cut surfaces without area of hemorrhage, necrosis or cystic degeneration. Repre sentative sections are submitted in one cassette. / SJ:tiana 05/31/18 TC:1 CPT: 89651 HEADER OPERATION: Excision of subcutaneous lesion of left posterior ear PRE-OP DIAGNOSIS: Lesion of subcuta neous tissue TISSUE SUBMITTED: Left posterior ear MICROSCOPIC DESCRIPTION Slides are reviewed. MICROSCOPIC DIAGNOSIS Subcutaneous lesion of left posterior ear, excision: Mature johanny pose tissue consistent with lipoma. AM:tiana 06/01/18 Signed Rosalio [facility] 06/01/18 <signature on file> [id number] CBC W/AUTO DIFF WBC ([id number]) Comments: PATIENT WAS FASTINGPERFORMED [facility]: [id number] [facility] [id number] Immature Grans (Abs) 0.0 {x10E3/uL} (Normal) Range: 0.0-0.1 Immature Granulocytes 0 % (Normal) Baso (Absolute) 0.0 {x10E3/uL} (Normal) Range: 0.0-0.2 Eos (Absolute) 0.2 {x10E3/uL} (Normal) Range: 0.0-0.4 Monocytes(Absolute) 0.8 {x10E3/uL} (Normal) Range: 0.1-0.9 Lymphs (Absolute) 1.8 {x10E3/uL} (Normal) Range: 0.7-3.1 Neutrophils (Absolute) 4.8 {x10E3/uL} (Normal) Range: 1.4-7.0 Basos 0 % (Normal) Eos 3 % (Normal) Monocytes 11 % (Normal) Lymphs 24 % (Normal) Neutrophils 62 % (Normal) Platelets 168 {x10E3/uL} (Normal) Range: 150-379 RDW 13.2 % (Normal) Range: 12.3-15.4 MCHC 33.2 g/dL (Normal) Range: 31.5-35.7 MCH 31.9 pg (Normal) Range: 26.6-33.0 MCV 96 fL (Normal) Range: 79-97 Hematocrit 50.3 % (Normal) Range: 37.5-51.0 Hemoglobin 16.7 g/dL (Normal) Range: 13.0-17.7 RBC 5.23 {x10E6/uL} (Normal) Range: 4.14-5.80 WBC 7.7 {x10E3/uL} (Normal) Range: 3.4-10.8 82-Sqi-452180:04 VITAMIN B-12 (CYANOCOBALAMIN) Comments: PATIENT WAS FASTINGPERFORMED BY: [facility] [id number] ([id number]) Vitamin B12 918 pg/mL (Normal) Range: 232-1245 77-Qcs-805169:04 TSH (THYROID STIMULATING Comments: PATIENT WAS FASTINGPERFORMED BY: [facility] [id number] HORMONE) (94188) TSH 1.820 {uIU/mL} (Normal) Range: 0.450-4.500 12-Spi-627215:04 LIPID PANEL (47413) Comments: PATIENT WAS FASTINGPERFORMED BY: [facility] [id number] LDL/HDL Ratio 1.3 {ratio} (Normal) Range: 0.0-3.6 Comments: LDL/HDL Ratio Men Women 1/2 Avg.Risk 1.0 1.5 Av g.Risk 3.6 3.2 2X Avg.Risk 6.2 5.0 3X Avg.Risk 8.0 6.1 LDL Cholesterol Calc 67 mg/dL (Normal) Range: 0-99 VLDL Cholesterol Adolph 14 mg/dL (Normal) Range: 5-40 HDL Cholesterol 52 mg/dL (Normal) Triglycerides 72 mg/dL (Normal) Range: 0-149 Cholesterol, Total 133 mg/dL (Normal) Range: 100-199 56-Cfk-995505:04 HGB A1C (54316) Comments: PATIENT WAS FASTINGPERFORMED BY: [facility]URI[facility] SolutionsSaint John'S Saint Francis HospitalAyckue1177 [facility] [id number] Hemoglobin A1c 5.7 % (Abnormal) Range: 4.8-5.6 Comments: . Prediabetes: 5.7 - 6.4 Diabetes: >6.4 Glycemic control for adults with diabetes: <7.0 7-Esm-424392:10 HEPATITIS C ANTIBODY (22824) Comments: PATIENT WAS FASTINGPERFORMED BY: [facility] [facility] [id number] Hep C Virus Ab <0.1 {s/co_ratio} (Normal) Range: 0.0-0.9 Comments: Negative: < 0.8 Indeterminate: 0.8 - 0.9 Positive: > 0.9 . The CDC recommends that a positive HCV antibody result be followed up with a HCV Nucleic Acid Amplification test (987892). 4-Ohh-460841:10 Vitamin D Hydroxy (17527) Comments: PATIENT WAS FASTINGPERFORMED BY: [facility]6[address] [facility] [id number] Vitamin D, 25-Hydroxy 74.0 ng/mL (Normal) Range: 30.0-100.0 Comments: Vitamin D deficiency has been defined by the [place] of[place] and an Endocrine Society practice guideline as alevel of serum 25-OH vitamin D less than 20 ng/mL (1,2).The Endocrine Society went on to further define vitamin Dinsufficiency as a level between 21 and 29 ng/mL (2).1. IOM ([place] of [employer]). 2010. Dietary reference intakes for calcium and D. [place]: The National Academies Press.2. Lopez MF, Anayeli ESPAÑA, Clifford SALCEDO, et al. Evaluation, treatment, and prevention of vitamin D deficiency: an Endocrine Society clinical practice guideline. JCEM. 2010; 96(7):1911-30. 7-Rbh-847122:10 CBC W/AUTO DIFF WBC (42372) Comments: PATIENT WAS FASTINGPERFORMED BY: [facility]CoMem[facility] CenterCvbfdu4222 [facility] [id number] Immature Grans (Abs) 0.0 {x10E3/uL} (Normal) Range: 0.0-0.1 Immature Granulocytes 0 % (Normal) Baso (Absolute) 0.0 {x10E3/uL} (Normal) Range: 0.0-0.2 Eos (Absolute) 0.1 {x10E3/uL} (Normal) Range: 0.0-0.4 Monocytes(Absolute) 0.5 {x10E3/uL} (Normal) Range: 0.1-0.9 Lymphs (Absolute) 1.5 {x10E3/uL} (Normal) Range: 0.7-3.1 Neutrophils (Absolute) 3.4 {x10E3/uL} (Normal) Range: 1.4-7.0 Basos 1 % (Normal) Eos 2 % (Normal) Monocytes 9 % (Normal) Lymphs 27 % (Normal) Neutrophils 61 % (Normal) Platelets 165 {x10E3/uL} (Normal) Range: 150-379 RDW 13.2 % (Normal) Range: 12.3-15.4 MCHC 32.9 g/dL (Normal) Range: 31.5-35.7 MCH 32.0 pg (Normal) Range: 26.6-33.0 MCV 97 fL (Normal) Range: 79-97 Hematocrit 48.9 % (Normal) Range: 37.5-51.0 Hemoglobin 16.1 g/dL (Normal) Range: 13.0-17.7 RBC 5.03 {x10E6/uL} (Normal) Range: 4.14-5.80 WBC 5.7 {x10E3/uL} (Normal) Range: 3.4-10.8 1-Bex-686466:10 LIPID PANEL (56044) Comments: PATIENT WAS FASTINGPERFORMED BY: [facility]CoEssex [facility] HospitalTodgmw9417 [facility] [id number] LDL/HDL Ratio 1.1 {ratio} (Normal) Range: 0.0-3.6 Comments: LDL/HDL Ratio Men Women 1/2 Avg.Risk 1.0 1.5 Av g.Risk 3.6 3.2 2X Avg.Risk 6.2 5.0 3X Avg.Risk 8.0 6.1 LDL Cholesterol Calc 55 mg/dL (Normal) Range: 0-99 VLDL Cholesterol Adolph 16 mg/dL (Normal) Range: 5-40 HDL Cholesterol 52 mg/dL (Normal) Triglycerides 81 mg/dL (Normal) Range: 0-149 Cholesterol, Total 123 mg/dL (Normal) Range: 100-199 5-Otf-182365:10 TSH (THYROID STIMULATING Comments: PATIENT WAS FASTINGPERFORMED BY: [facility] LabsEssex County HospitalJyilzl6925 [facility] [id number] HORMONE) (21295) TSH 0.856 {uIU/mL} (Normal) Range: 0.450-4.500 1-Vgx-485671:10 METABOLIC PANEL, COMPREHENSIVE Comments: PATIENT WAS FASTINGPERFORMED BY: [facility] LabsEssex County HospitalStwllx5976 [facility] [id number] (04958) ALT (SGPT) 10 [iU]/L (Normal) Range: 0-44 AST (SGOT) 27 [iU]/L (Normal) Range: 0-40 Alkaline Phosphatase 75 [iU]/L (Normal) Range: 39-117 Bilirubin, Total 0.6 mg/dL (Normal) Range: 0.0-1.2 A/G Ratio 2.0 (Normal) Range: 1.2-2.2 Globulin, Total 2.2 g/dL (Normal) Range: 1.5-4.5 Albumin 4.4 g/dL (Normal) Range: 3.5-4.8 Protein, Total 6.6 g/dL (Normal) Range: 6.0-8.5 Calcium 9.8 mg/dL (Normal) Range: 8.6-10.2 Carbon Dioxide, Total 26 mmol/L (Normal) Range: 18-29 Chloride 103 mmol/L (Normal) Range: 96-106 Potassium 5.2 mmol/L (Normal) Range: 3.5-5.2 Sodium 145 mmol/L (Abnormal) Range: 134-144 BUN/Creatinine Ratio 12 (Normal) Range: 10-24 eGFR If Africn Am 75 mL/min/1.73 (Normal) eGFR If NonAfricn Am 65 mL/min/1.73 (Normal) Creatinine 1.11 mg/dL (Normal) Range: 0.76-1.27 BUN 13 mg/dL (Normal) Range: 8-27 Glucose 102 mg/dL (Abnormal) Range: 65-99 4-Tgd-221574:10 MICROALBUMIN: CREATININE RATIO Comments: PATIENT WAS FASTINGPERFORMED BY: [address] [id number] (99177) AND (97199) Alb/Creat Ratio 2.7 {mg/g_creat} (Normal) Range: 0.0-30.0 Albumin, Urine 7.1 ug/mL (Normal) Creatinine, Urine 258.5 mg/dL (Normal) 9-Dzg-235145:10 HGB A1C (94557) Comments: PATIENT WAS FASTINGPERFORMED BY: [facility] [place] [address] [id number] Hemoglobin A1c 5.9 % (Abnormal) Range: 4.8-5.6 Comments: . Pre-diabetes: 5.7 - 6.4 Diabetes: >6.4 Glycemic control for adults with diabetes: <7.0 3-Rhd-144727:21 CREATININE FINGERSTICK Comments: [facility] LaboratoryPoint of Olxf[address] [place], [place] [id number] EGFR WB > 60.0000 mL/min (Normal) CREATININE WB 0.8 mg/dL (Normal) Range: 0.70-1.30 3-Nup-696576:07 PROLACTIN (59118) Comments: PATIENT NOT FASTINGPERFORMED BY: [facility] [facility] [id number] Prolactin 9.5 ng/mL (Normal) Range: 4.0-15.2 8-Cqy-658086:07 FSH AND LH (69416) Comments: PATIENT NOT FASTINGPERFORMED BY: [facility] [facility] [id number] FSH 8.6 m[iU]/mL (Normal) Range: 1.5-12.4 LH 6.2 m[iU]/mL (Normal) Range: 1.7-8.6 2-Dor-504969:07 T3, FREE (TRIDOTHYRONINE) (31245) Comments: PATIENT NOT FASTINGPERFORMED BY: [facility] [facility] [id number] Triiodothyronine,Free,Serum 3.3 pg/mL (Normal) Range: 2.0-4.4 :07 T4, FREE (THYROXINE) (58046) Comments: PATIENT NOT FASTINGPERFORMED BY: [facility] [facility] [id number] T4,Free(Direct) 1.03 ng/dL (Normal) Range: 0.82-1.77 0-Bmh-395876:07 Sed Rate Erythrocyte (52236) Comments: PATIENT NOT FASTINGPERFORMED BY: [facility] [facility] [id number] Sedimentation Rate-Westergren 2 mm/h (Normal) Range: 0-30 8-Vjc-216801:07 C-Reactive Protein (51710) Comments: PATIENT NOT FASTINGPERFORMED BY: [facility] [facility] [id number] C-Reactive Protein, Quant <0.3 mg/L (Normal) Range: 0.0-4.9 2-Ysc-307093:07 KURT (ANTINUCLEAR ANTIBODY) Comments: PATIENT NOT FASTINGPERFORMED BY: [facility] [facility] [id number] (61170) KURT Direct Negative (Normal) 6-Iaj-467191:07 RHEUMATOID FACTOR-QUANT (48540) Comments: PATIENT NOT FASTINGPERFORMED BY: [facility] [facility] [id number] RA Latex Turbid. <10.0 {IU/mL} (Normal) Range: 0.0-13.9 7-Bmk-787611:07 PSA (Prostate Specific Comments: PATIENT NOT FASTINGPERFORMED BY: [facility] [facility] [id number] Antigen), Screening (43200) Prostate Specific Ag, <0.1 ng/mL (Normal) Range: 0.0-4.0 Serum Comments: [employer] ECLIA methodology. .According to the [place] U[employer] Association, Serum PSA shoulddecrease and remain at undetectable levels after radicalprostatectomy. The AUA defines biochemical recurrence as an initialPSA value 0.2 ng/mL or greater followed by a subsequent confirmatoryPSA value 0.2 ng/mL or greater.Values obtained with d ifferent assay methods or kits cannot be usedinterchangeably. Results cannot be interpreted as absolute evidenceof the presence or absence of malignant disease. 5-Pyc-168939:07 POTASSIUM SERUM (06989) Comments: PATIENT NOT FASTINGPERFORMED BY: [facility] [id number] Potassium, Serum 5.2 mmol/L (Normal) Range: 3.5-5.2 32-Mli-829857:17 Microscopic Examination Comments: PATIENT WAS FASTINGPERFORMED BY: [facility]mittedly70 [facility]GCritical [facility] hospital [id number] Bacteria Few (Normal) Mucus Threads Present (Normal) Crystal Type Calcium Oxalate (Normal) Crystals Present (Abnormal) Epithelial Cells (non renal) 0-10 {/hpf} (Normal) Range: 0 - 10 RBC 0-2 {/hpf} (Normal) Range: 0 - 2 WBC 0-5 {/hpf} (Normal) Range: 0 - 5 29-Jui-527394:17 URINALYSIS, W/ MICRO (64682) Comments: PATIENT WAS FASTINGPERFORMED BY: [facility]70 [facility] [id number] Microscopic Examination See below: (Normal) Comments: Microscopic was indicated and was performed. Microscopic Examination MICRON (Normal) Comments: Microscopic follows if indicated. Nitrite, Urine Negative (Normal) Urobilinogen,Semi-Qn 0.2 mg/dL (Normal) Range: 0.2-1.0 Bilirubin Negative (Normal) Occult Blood Negative (Normal) Ketones Negative (Normal) Glucose Negative (Normal) Protein Negative (Normal) WBC Esterase Negative (Normal) Appearance Clear (Normal) Urine-Color Yellow (Normal) pH 5.0 (Normal) Range: 5.0-7.5 Specific [place] 1.025 (Normal) Range: 1.005-1.030 79-Uck-853958:17 CBC W/AUTO DIFF WBC (40429) Comments: PATIENT WAS FASTINGPERFORMED BY: [facility] [facility] [id number] Immature Grans (Abs) 0.0 {x10E3/uL} (Normal) Range: 0.0-0.1 Immature Granulocytes 0 % (Normal) Baso (Absolute) 0.0 {x10E3/uL} (Normal) Range: 0.0-0.2 Eos (Absolute) 0.2 {x10E3/uL} (Normal) Range: 0.0-0.4 Monocytes(Absolute) 0.9 {x10E3/uL} (Normal) Range: 0.1-0.9 Lymphs (Absolute) 1.8 {x10E3/uL} (Normal) Range: 0.7-3.1 Neutrophils (Absolute) 5.2 {x10E3/uL} (Normal) Range: 1.4-7.0 Basos 0 % (Normal) Eos 2 % (Normal) Monocytes 11 % (Normal) Lymphs 22 % (Normal) Neutrophils 65 % (Normal) Platelets 172 {x10E3/uL} (Normal) Range: 150-379 RDW 13.7 % (Normal) Range: 12.3-15.4 MCHC 34.2 g/dL (Normal) Range: 31.5-35.7 MCH 32.5 pg (Normal) Range: 26.6-33.0 MCV 95 fL (Normal) Range: 79-97 Hematocrit 48.2 % (Normal) Range: 37.5-51.0 Hemoglobin 16.5 g/dL (Normal) Range: 13.0-17.7 RBC 5.07 {x10E6/uL} (Normal) Range: 4.14-5.80 WBC 8.0 {x10E3/uL} (Normal) Range: 3.4-10.8 93-Xpy-474456:17 METABOLIC PANEL, COMPREHENSIVE Comments: PATIENT WAS FASTINGPERFORMED BY: [facility] [facility] [id number] (91810) ALT (SGPT) 9 [iU]/L (Normal) Range: 0-44 AST (SGOT) 24 [iU]/L (Normal) Range: 0-40 Alkaline Phosphatase, S 66 [iU]/L (Normal) Range: 39-117 Bilirubin, Total 0.4 mg/dL (Normal) Range: 0.0-1.2 A/G Ratio 1.7 (Normal) Range: 1.2-2.2 Globulin, Total 2.6 g/dL (Normal) Range: 1.5-4.5 Albumin, Serum 4.4 g/dL (Normal) Range: 3.5-4.8 Protein, Total, Serum 7.0 g/dL (Normal) Range: 6.0-8.5 Calcium, Serum 9.5 mg/dL (Normal) Range: 8.6-10.2 Carbon Dioxide, Total 24 mmol/L (Normal) Range: 18-29 Chloride, Serum 99 mmol/L (Normal) Range: 96-106 Potassium, Serum 5.3 mmol/L (Abnormal) Range: 3.5-5.2 Sodium, Serum 142 mmol/L (Normal) Range: 134-144 BUN/Creatinine Ratio 15 (Normal) Range: 10-24 eGFR If Africn Am 64 mL/min/1.73 (Normal) eGFR If NonAfricn Am 55 mL/min/1.73 (Abnormal) Creatinine, Serum 1.28 mg/dL (Abnormal) Range: 0.76-1.27 BUN 19 mg/dL (Normal) Range: 8-27 Glucose, Serum 99 mg/dL (Normal) Range: 65-99 :10 HgA1C , Office (46516) HgA1C , Office 5.6 % (Normal) Range: 4.6 - 7.1 9-Mfi-961105:35 TSH (15923) Comments: PATIENT WAS FASTINGPERFORMED BY: [facility] [id number] BY: LabAnthony Ville [id number] [facility] [id number] TSH 4.350 {uIU/mL} (Normal) Range: 0.450-4.500 3-Tna-358679:35 LIPOPROTEIN, BLD, BY NMR Comments: PATIENT WAS FASTINGPERFORMED BY: [facility] [id number] BY: LabClear VascularMichael Ville [id number] [facility] [id number] (67730) LP-IR Score 52 (Abnormal) Comments: INSULIN RESISTANCE MARKER <--Insulin Sensitive Insulin Resistant--> Percentile in Reference PopulationInsulin Resistance ScoreLP-IR Score Low 25th 50th 75th High <27 27 45 63 >63LP-IR Score is inaccurate if patient is non-fasting. .The LP-IR score is a laboratory developed i [facility] that has beenassociated with insulin resistance and diabetes risk and should beused as one component of a physician's clinical assessment. TheLP-IR score listed above has not been cleared by the US Food andDrug Administration. LDL Size 20.6 nm (Normal) Comments: INTERPRETATIVE INFORMATION PARTICLE CONCENTRATION AND SIZE <--Lower CVD Risk Highe r CVD Risk--> LDL AND HDL PARTICLES Percentile in Reference Population HDL-P (total) High 75th 50th 25th Low >34.9 34.9 30.5 26.7 <26.7 . Small LDL-P Low 25th 50th 75th High <117 117 527 839 >839 . LDL Size <-Large (Pattern A)-> <-Small (Pattern B)-> 23.0 20.6 20.5 19.0 Small LDL-P and LDL Size are associated with CVD risk, but not afterLDL-P is taken into account. .These assays were developed and their performance characteristicsdetermined by [employer]. These assays have not been cleared by [place] Food and Drug Administration. The clinical utility of theselaboratory values have not been fully established. Small LDL-P 378 nmol/L (Normal) HDL-P (Total) 40.3 umol/L (Normal) Cholesterol, Total 140 mg/dL (Normal) Range: 100-199 Triglycerides 64 mg/dL (Normal) Range: 0-149 HDL-C 61 mg/dL (Normal) LDL-C 66 mg/dL (Normal) Range: 0-99 Comments: . Optimal < 100 Above optimal 100 - 129 Borderline 1 30 - 159 High 160 - 189 Very high > 189 .LDL-C is inaccurate if patient is non-fasting. LDL-P 966 nmol/L (Normal) Comments: Low < 1000 Moderate 1000 - 1299 Borderline-High 1300 - 1599 High 1600 - 2000 Very High > 2000 2-Hdv-250189:35 METABOLIC PANEL, Comments: PATIENT WAS FASTINGPERFORMED BY: [facility] Favhxptvro8832 [facility] [id number] BY: CB [facility] Kmkgqe9652 [facility] [id number] COMPREHENSIVE (64803) ALT (SGPT) 9 [iU]/L (Normal) Range: 0-44 AST (SGOT) 21 [iU]/L (Normal) Range: 0-40 Alkaline Phosphatase, S 69 [iU]/L (Normal) Range: 39-117 Bilirubin, Total 0.7 mg/dL (Normal) Range: 0.0-1.2 A/G Ratio 1.9 (Normal) Range: 1.2-2.2 Globulin, Total 2.2 g/dL (Normal) Range: 1.5-4.5 Albumin, Serum 4.2 g/dL (Normal) Range: 3.5-4.8 Protein, Total, Serum 6.4 g/dL (Normal) Range: 6.0-8.5 Calcium, Serum 9.6 mg/dL (Normal) Range: 8.6-10.2 Carbon Dioxide, Total 26 mmol/L (Normal) Range: 18-29 Chloride, Serum 101 mmol/L (Normal) Range: 96-106 Potassium, Serum 5.0 mmol/L (Normal) Range: 3.5-5.2 Sodium, Serum 144 mmol/L (Normal) Range: 134-144 BUN/Creatinine Ratio 13 (Normal) Range: 10-24 eGFR If Africn Am 79 mL/min/1.73 (Normal) eGFR If NonAfricn Am 68 mL/min/1.73 (Normal) Creatinine, Serum 1.07 mg/dL (Normal) Range: 0.76-1.27 BUN 14 mg/dL (Normal) Range: 8-27 Glucose, Serum 98 mg/dL (Normal) Range: 65-99 1-Qgy-323015:10 CBC W/Diff, Automated Comments: [facility] [address] [place], [address] Absolute Lymph 1.40 {X10_3/ul} (Normal) Range: 0.83-4.51 Absolute Neut 4.6 {X10_3/uL} (Normal) Range: 2.0-7.7 IM GRAN % 0.400 % (Normal) Range: 0.0-0.9 Comments: IG% - Immature Granulocytes (promyelocytes, myelocytes andmetamyelocytes) > 1% indicates that a LEFT SHIFT is Present. BASO% 0.3 % (Normal) Range: 0-1 EO% 2.0 % (Normal) Range: 0-5 MONO% 12.4 % (Abnormal) Range: 0-10 LY% 20.0 % (Normal) Range: 19-41 NEUT% 64.9 % (Normal) Range: 47-70 MPV 10.4 fL (Normal) Range: 6.2-12.0 PLT 169 K/mm3 (Normal) Range: 150-450 RDW SD 43.7 fL (Normal) Range: 35.1-43.9 RDW CV 12.7 % (Normal) Range: 11.6-14.6 MCHC 34.5 {g/gl} (Normal) Range: 32-36 MCH 33.3 pg (Abnormal) Range: 27.0-32.0 MCV 96.6 fL (Abnormal) Range: 80-94 HCT 46.1 % (Normal) Range: 40-54 HGB 15.9 g/dL (Normal) Range: 13.0-16.5 RBC 4.77 {M/mm3} (Normal) Range: 4.6-6.2 WBC 7.0 K/mm3 (Normal) Range: 4.4-11.0 5-Obp-039400:10 Comprehensive Metabolic Profil Comments: [facility] [address] [place], [place], [id number] GAP 6 (Normal) Range: 5-15 CO2 28.0 mmol/L (Normal) Range: 21.0-32.0 CL 107 mmol/L (Normal) Range: 98-107 K 4.6 mmol/L (Normal) Range: 3.5-5.1 NA 141 mmol/L (Normal) Range: 136-145 T BILI 0.30 mg/dL (Normal) Range: 0.20-1.00 ALT 15 U/L (Normal) Range: 12-78 ALK P 90 U/L (Normal) Range: 45-117 AST 22 U/L (Normal) Range: 15-37 CA 9.1 mg/dL (Normal) Range: 8.5-10.1 A/G 1.2 {RATIO} (Normal) Range: 0.9-2.4 GLOB 3.3 g/dL (Normal) Range: 2.3-3.5 ALB 3.8 g/dL (Normal) Range: 3.4-5.0 T PROT 7.1 g/dL (Normal) Range: 6.4-8.2 BUN/CRE 14.8 {RATIO} (Normal) Range: 10-20 EST GFR - AA 80 mL/min (Normal) Comments: GFR Calc EST GFR 66 mL/min (Normal) Comments: Non- GFR Calc CREAT,SERUM 1.15 mg/dL (Normal) Range: 0.70-1.30 Comments: The validity of the calculated GFR AND GFRAA in patients over70 years has not been determined. Clinical correlation isessential. BUN 17 mg/dL (Normal) Range: 7-18 GLU 86 mg/dL (Normal) Range: 70-110 4-Afd-624964:10 Microalb:Creat Ratio,Random UR Comments: [facility] [address] [place], [place], [id number] MALB:CREAT 32.9 {mg/g_CRE} (Abnormal) MICROALBUMIN,UR 35.9 mg/L (Normal) UR CREAT 109.00 mg/dL (Normal) 0-Fum-970407:10 NMR Lipoprofile Comments: [facility] (refer to report for specific site)refer to report for address and phone number LP-IR SCORE 40 (Normal) Comments: INSULIN RESISTANCE MARKER <--Insulin Sensitive Insulin Resistant--> Percentile in Reference PopulationInsulin Resistance ScoreLP-IR Score Low 25th 50th 75th High <27 27 45 63 >63LP-IR Score is inaccurate if patient is non-fasting.The LP-IR score is a laboratory developed index that hasbeen associated with insulin resistance and diabetes riskand should be used as one component of a physician'sclinical assessment. The LP-IR score listed above has notbeen cleared by the US Food and Drug Administration.Performed at: [facility] [address] [place], [place] [address]Vtt Director: Edil Pradhan MD, Phone: [phone] INS RES/DIAB RK . (Normal) LDL SIZE 20.7 nm (Normal) Comments: INTERPRETATIVE INFORMATION PARTICLE CONCENTRATION AND SIZE <--Lower CVD Risk Highe r CVD Risk--> LDL AND HDL PARTICLES Percentile in Reference Population HDL-P (total) High 75th 50th 25th Low >34.9 34.9 30.5 26.7 <26.7 Small LDL-P Low 25th 50th 75th High <117 117 527 839 >839 LDL Size <-Large (Pattern A)-> <-Small (Pattern B)-> 23.0 20.6 20.5 19.0 Small LDL-P and LDL Size are associated with CVD risk, butnot after LDL-P is taken into account .These assays were developed and their performancecharacteristics determined by [employer]. These assayshave not been cleared by the US Food and DrugAdministration. The clinical utility of these laboratoryvalues have not been fully established. SMALL LDL-P 476 nmol/L (Normal) HDL-P TOTAL 39.6 umol/L (Normal) LD HD PARTICLES . (Normal) LDL-P 1026 nmol/L (Abnormal) Comments: Low < 1000 Moderate 1000 - 1299 Borderline-High 1300 - 1599 High 1600 - 2000 Very High > 2000 TRIGLYCERIDES 76 mg/dL (Normal) Range: 0-149 HDL-C 50 mg/dL (Normal) LDL-C 72 mg/dL (Normal) Range: 0-99 Comments: Optimal < 100 Above optimal 100 - 129 Borderline 130 - 159 High 160 - 189 Very high > 189LDL-C is inaccurate if patient is non-fasting. CHOLESTEROL TOT 137 mg/dL (Normal) Range: 100-199 LIPIDS . (Normal) 0-Iwu-508263:10 PSA,Total- Diagnostic Comments: [facility] [address] [place], [id number] PSA, DIAGNOSTIC < 0.01 ng/mL (Normal) Range: 0.0-4.0 Comments: This test was performed using the TPSA assay method for [employer] chemistry system. Values obtained with differentassay methods cannot be used interchangably.When changing PSA assays in the course of monitoring apatient, additional sequential testing should be carriedout to confirm baseline values. 6-Rfx-108135:10 Thyroid Stim Hormone (TSH) Comments: [facility] [address] [place], [id number] TSH 3.17 {uIU/mL} (Normal) Range: 0.358-3.74 4-Mpk-802910:10 Vitamin D,25 Hydroxy Comments: [facility] [address]qkorf[address] [place], [id number] Vitamin D 25-OH 50.6 ng/mL (Normal) Comments: Vitamin D 25(OH) Status Range Deficiency <20 ng/mL (50nmol/L) Insuffciency 20 - 30 ng/mL (50 - 75 nmol/L) Sufficiency 30 - 100 ng/mL (75 - 250 nmol/L) Toxicity >100 ng/mL (>250 nmol/L) 33-Yxd-199374:22 PSA (PROSTATE SPECIFIC Comments: PATIENT WAS FASTINGPERFORMED BY: BN [facility] Gkifhwsuik7429 [facility] [id number] BY: [facility] Rkulfu2397 [facility] [id number] ANTIGEN) (V76.44) Prostate Specific Ag, <0.1 ng/mL (Normal) Range: 0.0-4.0 Serum Comments: [employer] methodology. .According to the [employer], Serum PSA shoulddecrease and remain at undetectable levels after radicalprostatectomy. The AUA defines biochemical recurrence as an initialPSA value 0.2 ng/mL or greater followed by a subsequent confirmatoryPSA value 0.2 ng/mL or greater.Values obtained with d ifferent assay methods or kits cannot be usedinterchangeably. Results cannot be interpreted as absolute evidenceof the presence or absence of malignant disease. [id number] MICROALBUMIN: CREATININE Comments: PATIENT WAS FASTINGPERFORMED BY: Bel Vino[address] [id number] BY: [email or web address] [facility] [id number] RATIO ([id number]) AND ([id number]) Microalb/Creat Ratio 1.9 {mg/g_creat} (Normal) Range: 0.0-30.0 Microalbumin, Urine 4.3 ug/mL (Normal) Creatinine, Urine 223.8 mg/dL (Normal) [id number] CBC W/AUTO DIFF WBC Comments: PATIENT WAS FASTINGPERFORMED BY: Bel Vino[address] [id number] BY: [email or web address] [facility] [id number] ([id number]) Immature Grans (Abs) 0.0 {x10E3/uL} (Normal) Range: 0.0-0.1 Immature Granulocytes 0 % (Normal) Baso (Absolute) 0.0 {x10E3/uL} (Normal) Range: 0.0-0.2 Eos (Absolute) 0.2 {x10E3/uL} (Normal) Range: 0.0-0.4 Monocytes(Absolute) 0.7 {x10E3/uL} (Normal) Range: 0.1-0.9 Lymphs (Absolute) 1.8 {x10E3/uL} (Normal) Range: 0.7-3.1 Neutrophils (Absolute) 4.5 {x10E3/uL} (Normal) Range: 1.4-7.0 Basos 0 % (Normal) Eos 3 % (Normal) Monocytes 9 % (Normal) Lymphs 25 % (Normal) Neutrophils 63 % (Normal) Platelets 187 {x10E3/uL} (Normal) Range: 150-379 RDW 13.2 % (Normal) Range: 12.3-15.4 MCHC 32.8 g/dL (Normal) Range: 31.5-35.7 MCH 32.4 pg (Normal) Range: 26.6-33.0 MCV 99 fL (Abnormal) Range: 79-97 Hematocrit 50.0 % (Normal) Range: 37.5-51.0 Hemoglobin 16.4 g/dL (Normal) Range: 12.6-17.7 RBC 5.06 {x10E6/uL} (Normal) Range: 4.14-5.80 WBC 7.2 {x10E3/uL} (Normal) Range: 3.4-10.8 19-Nkk-266377:22 TSH (69324) Comments: PATIENT WAS FASTINGPERFORMED BY: [employer] [address] [id number] BY: [facility] VascularEssex County HospitalLuwgel5079 [facility] [id number] TSH 3.710 {uIU/mL} (Normal) Range: 0.450-4.500 25-Zth-501083:22 Vitamin D Hydroxy Comments: PATIENT WAS FASTINGPERFORMED BY: For Your Imagination [facility] Vascularrp Awshy[address] [id number] BY: [employer] Lbxeyx0476 [facility] [id number] (20265) Vitamin D, 25-Hydroxy 71.7 ng/mL (Normal) Range: 30.0-100.0 Comments: Vitamin D deficiency has been defined by the [place] [facility] and an Endocrine Society practice guideline as alevel of serum 25-OH vitamin D less than 20 ng/mL (1,2).The Endocrine Society went on to further define vitamin Dinsufficiency as a level between 21 and 29 ng/mL (2).1. IOM ([place] of Medicine). 2010. Dietary reference intakes for calcium and D. [place]: The National Academies Press.2. Lopez MF, Anayeli ESPAÑA, Clifford SALCEDO, et al. Evaluation, treatment, and prevention of vitamin D deficiency: an Endocrine Society clinical practice guideline. JCEM. 2010; 96(7):1911-30. 21-Rel-[id number]:22 LIPOPROTEIN, BLD, BY NMR Comments: PATIENT WAS FASTINGPERFORMED BY: BN [facility] Plvnydsncf0641 [facility] [id number] BY: CB [facility] Bqzmjy5766 [place] [id number] (39799) LP-IR Score 55 (Abnormal) Comments: INSULIN RESISTANCE MARKER <--Insulin Sensitive Insulin Resistant--> Percentile in Reference PopulationInsulin Resistance ScoreLP-IR Score Low 25th 50th 75th High <27 27 45 63 >63LP-IR Score is inaccurate if patient is non-fasting. .The LP-IR score is a laboratory developed [facility] that has beenassociated with insulin resistance and diabetes risk and should beused as one component of a physician's clinical assessment. TheLP-IR score listed above has not been cleared by the US Food andDrug Administration. LDL Size 20.8 nm (Normal) Comments: INTERPRETATIVE INFORMATION PARTICLE CONCENTRATION AND SIZE <--Lower CVD Risk Highe r CVD Risk--> LDL AND HDL PARTICLES Percentile in Reference Population HDL-P (total) High 75th 50th 25th Low >34.9 34.9 30.5 26.7 <26.7 . Small LDL-P Low 25th 50th 75th High <117 117 527 839 >839 . LDL Size <-Large (Pattern A)-> <-Small (Pattern B)-> 23.0 20.6 20.5 19.0 Small LDL-P and LDL Size are associated with CVD risk, but not afterLDL-P is taken into account. .These assays were developed and their performance characteristicsdetermined by [employer]. These assays have not been cleared by [employer] Food and Drug Administration. The clinical utility of theselaboratory values have not been fully established. Small LDL-P 688 nmol/L (Abnormal) HDL-P (Total) 44.1 umol/L (Normal) Cholesterol, Total 152 mg/dL (Normal) Range: 100-199 Triglycerides 87 mg/dL (Normal) Range: 0-149 HDL-C 58 mg/dL (Normal) LDL-C 77 mg/dL (Normal) Range: 0-99 Comments: . Optimal < 100 Above optimal 100 - 129 Borderline 1 30 - 159 High 160 - 189 Very high > 189 .LDL-C is inaccurate if patient is non-fasting. LDL-P 1201 nmol/L (Abnormal) Comments: Low < 1000 Moderate 1000 - 1299 Borderline-High 1300 - 1599 High 1600 - 2000 Very High > 2000 20-Uge-855054:22 METABOLIC PANEL, Comments: PATIENT WAS FASTINGPERFORMED BY: BN [facility] Mocccdvnqo3291 [facility] [id number] BY: CB [facility] Fpbpgw2185 [facility] [id number] [facility] (48610) ALT (SGPT) 13 [iU]/L (Normal) Range: 0-44 AST (SGOT) 26 [iU]/L (Normal) Range: 0-40 Alkaline Phosphatase, S 84 [iU]/L (Normal) Range: 39-117 Bilirubin, Total 0.6 mg/dL (Normal) Range: 0.0-1.2 A/G Ratio 1.7 (Normal) Range: 1.2-2.2 Globulin, Total 2.6 g/dL (Normal) Range: 1.5-4.5 Albumin, Serum 4.4 g/dL (Normal) Range: 3.5-4.8 Protein, Total, Serum 7.0 g/dL (Normal) Range: 6.0-8.5 Calcium, Serum 9.4 mg/dL (Normal) Range: 8.6-10.2 Carbon Dioxide, Total 26 mmol/L (Normal) Range: 18-29 Chloride, Serum 100 mmol/L (Normal) Range: 96-106 Potassium, Serum 5.5 mmol/L (Abnormal) Range: 3.5-5.2 Sodium, Serum 143 mmol/L (Normal) Range: 134-144 BUN/Creatinine Ratio 13 (Normal) Range: 10-24 eGFR If Africn Am 68 mL/min/1.73 (Normal) eGFR If NonAfricn Am 59 mL/min/1.73 (Abnormal) Creatinine, Serum 1.21 mg/dL (Normal) Range: 0.76-1.27 BUN 16 mg/dL (Normal) Range: 8-27 Glucose, Serum 95 mg/dL (Normal) Range: 65-99 :32 HgA1C , Office (82267) HgA1C , Office 5.4 % (Normal) Range: 4.6 - 7.1 :33 D-Dimer Quantitative (DVT/PE) Comments: [facility] Q[address]jkllkx[address] [place], [place], [id number] D-DIMER QUANT < 0.27 {FEU/ug/m} (Abnormal) Range: 0.27-0.49 Comments: NORMAL D-Dimer level (<0.50) indicates no DVT or PE. :54 CBC W/AUTO DIFF WBC Comments: PATIENT WAS FASTINGPERFORMED BY: BN [facility] [address] [id number] BY: CB [facility] [address] [id number] (26977) Immature Grans (Abs) 0.0 {x10E3/uL} (Normal) Range: 0.0-0.1 Immature Granulocytes 0 % (Normal) Baso (Absolute) 0.0 {x10E3/uL} (Normal) Range: 0.0-0.2 Eos (Absolute) 0.2 {x10E3/uL} (Normal) Range: 0.0-0.4 Monocytes(Absolute) 0.4 {x10E3/uL} (Normal) Range: 0.1-0.9 Lymphs (Absolute) 1.7 {x10E3/uL} (Normal) Range: 0.7-3.1 Neutrophils (Absolute) 3.8 {x10E3/uL} (Normal) Range: 1.4-7.0 Basos 1 % (Normal) Eos 3 % (Normal) Monocytes 7 % (Normal) Lymphs 28 % (Normal) Neutrophils 61 % (Normal) Platelets 163 {x10E3/uL} (Normal) Range: 150-379 RDW 13.6 % (Normal) Range: 12.3-15.4 MCHC 32.9 g/dL (Normal) Range: 31.5-35.7 MCH 32.1 pg (Normal) Range: 26.6-33.0 MCV 97 fL (Normal) Range: 79-97 Hematocrit 48.3 % (Normal) Range: 37.5-51.0 Hemoglobin 15.9 g/dL (Normal) Range: 12.6-17.7 RBC 4.96 {x10E6/uL} (Normal) Range: 4.14-5.80 WBC 6.1 {x10E3/uL} (Normal) Range: 3.4-10.8 :54 C-REACT PROT HIGH Comments: PATIENT WAS FASTINGPERFORMED BY: [employer] [address] [id number] BY: Kahuna Tyavgr9281 [facility] [id number] SENS(hsCRP) (88188) C-Reactive Protein, Cardiac 0.51 mg/L (Normal) Range: 0.00-3.00 Comments: Relative Risk for Future Cardiovascular Event Low <1.00 Average 1.00 - 3.00 High >3.00 :54 LIPOPROTEIN, BLD, BY NMR Comments: PATIENT WAS FASTINGPERFORMED BY: [employer] [address] [id number] BY: Kahuna Kmkxav1910 [facility] [id number] (67300) LP-IR Score 46 (Abnormal) Comments: INSULIN RESISTANCE MARKER <--Insulin Sensitive Insulin Resistant--> Percentile in Reference PopulationInsulin Resistance ScoreLP-IR Score Low 25th 50th 75th High <27 27 45 63 >63LP-IR Score is inaccurate if patient is non-fasting. .The LP-IR score is a laboratory developed [facility] that has beenassociated with insulin resistance and diabetes risk and should beused as one component of a physician's clinical assessment. TheLP-IR score listed above has not been cleared by the US Food andDrug Administration. LDL Size 20.6 nm (Normal) Comments: INTERPRETATIVE INFORMATION PARTICLE CONCENTRATION AND SIZE <--Lower CVD Risk Highe r CVD Risk--> LDL AND HDL PARTICLES Percentile in Reference Population HDL-P (total) High 75th 50th 25th Low >34.9 34.9 30.5 26.7 <26.7 . Small LDL-P Low 25th 50th 75th High <117 117 527 839 >839 . LDL Size <-Large (Pattern A)-> <-Small (Pattern B)-> 23.0 20.6 20.5 19.0 Small LDL-P and LDL Size are associated with CVD risk, but not afterLDL-P is taken into account. .These assays were developed and their performance characteristicsdetermined by [employer]. These assays have not been cleared by [employer] Food and Drug Administration. The clinical utility of theselaboratory values have not been fully established. Small LDL-P 416 nmol/L (Normal) HDL-P (Total) 40.1 umol/L (Normal) Cholesterol, Total 155 mg/dL (Normal) Range: 100-199 Triglycerides 99 mg/dL (Normal) Range: 0-149 HDL-C 61 mg/dL (Normal) LDL-C 74 mg/dL (Normal) Range: 0-99 Comments: . Optimal < 100 Above optimal 100 - 129 Borderline 1 30 - 159 High 160 - 189 Very high > 189 .LDL-C is inaccurate if patient is non-fasting. LDL-P 973 nmol/L (Normal) Comments: Low < 1000 Moderate 1000 - 1299 Borderline-High 1300 - 1599 High 1600 - 2000 Very High > 09-Dec-20169:54 TSH (45288) Comments: PATIENT WAS FASTINGPERFORMED BY: [address] [id number] BY: [facility]6370 [facility] [id number] TSH 5.180 {uIU/mL} (Abnormal) Range: 0.450-4.500 :54 T4, FREE (THYROXINE) Comments: PATIENT WAS FASTINGPERFORMED BY: [address] [id number] BY: [place] [id number] [facility] [id number] (69392) T4,Free(Direct) 0.96 ng/dL (Normal) Range: 0.82-1.77 :54 T3, FREE (TRIDOTHYRONINE) Comments: PATIENT WAS FASTINGPERFORMED BY: [address] [id number] BY: [place] [address]67[address] [facility] [id number] (65732) Triiodothyronine,Free,Serum 3.3 pg/mL (Normal) Range: 2.0-4.4 :54 METABOLIC PANEL, Comments: PATIENT WAS FASTINGPERFORMED BY: [address] [id number] BY: [place] [id number] [facility] [id number] COMPREHENSIVE (62918) ALT (SGPT) 10 [iU]/L (Normal) Range: 0-44 AST (SGOT) 20 [iU]/L (Normal) Range: 0-40 Alkaline Phosphatase, S 75 [iU]/L (Normal) Range: 39-117 Bilirubin, Total 0.7 mg/dL (Normal) Range: 0.0-1.2 A/G Ratio 2.2 (Normal) Range: 1.2-2.2 Comments: Please note reference interval change Globulin, Total 2.1 g/dL (Normal) Range: 1.5-4.5 Albumin, Serum 4.7 g/dL (Normal) Range: 3.5-4.8 Protein, Total, Serum 6.8 g/dL (Normal) Range: 6.0-8.5 Calcium, Serum 9.7 mg/dL (Normal) Range: 8.6-10.2 Carbon Dioxide, Total 25 mmol/L (Normal) Range: 18-29 Chloride, Serum 101 mmol/L (Normal) Range: 96-106 Potassium, Serum 5.4 mmol/L (Abnormal) Range: 3.5-5.2 Sodium, Serum 143 mmol/L (Normal) Range: 134-144 BUN/Creatinine Ratio 17 (Normal) Range: 10-22 Comments: Effective December 15, 2016 BUN/Creatinine Ratio reference interval will be changing to: Age Male Female 0 days - 7 days 9 - 25 9 - 26 8 days - 30 days 8 - 32 10 - 33 1 month - 6 months 11 - 57 11 - 54 7 mo nths - 1 year - 71 - 71 2 years - 5 years 19 - 51 19 - 49 6 years - 12 years 14 - 34 13 - 32 13 years - 17 years 10 - 22 10 - 22 18 years - 59 years 9 - 20 9 - 23 >59 years 10 - 24 12 - 28 eGFR If Africn Am 84 mL/min/1.73 (Normal) eGFR If NonAfricn Am 73 mL/min/1.73 (Normal) Creatinine, Serum 1.02 mg/dL (Normal) Range: 0.76-1.27 BUN 17 mg/dL (Normal) Range: 8-27 Glucose, Serum 90 mg/dL (Normal) Range: 65-99 89-Jcz-00678:54 MICROALBUMIN: CREATININE Comments: PATIENT WAS FASTINGPERFORMED BY: [facility] [id number] BY: [facility] LabsEssex County HospitalDwjceu2052 [facility] [id number] RATIO (43510) AND (65775) Microalb/Creat Ratio 3.1 {mg/g_creat} (Normal) Range: 0.0-30.0 Microalbumin, Urine 5.7 ug/mL (Normal) Creatinine, Urine 183.5 mg/dL (Normal) 25-Teh-851504:55 CBC W/AUTO DIFF WBC Comments: PATIENT WAS FASTINGPERFORMED BY: [facility] LabsEssex County HospitalZhdrxs2795[address] [place] [address] [id number] Information: [id number], [id number] (12199) Immature Grans (Abs) 0.0 {x10E3/uL} (Normal) Range: 0.0-0.1 Immature Granulocytes 0 % (Normal) Baso (Absolute) 0.0 {x10E3/uL} (Normal) Range: 0.0-0.2 Eos (Absolute) 0.2 {x10E3/uL} (Normal) Range: 0.0-0.4 Monocytes(Absolute) 0.9 {x10E3/uL} (Normal) Range: 0.1-0.9 Lymphs (Absolute) 1.6 {x10E3/uL} (Normal) Range: 0.7-3.1 Neutrophils (Absolute) 4.6 {x10E3/uL} (Normal) Range: 1.4-7.0 Basos 0 % (Normal) Eos 2 % (Normal) Monocytes 13 % (Normal) Lymphs 22 % (Normal) Neutrophils 63 % (Normal) Platelets 172 {x10E3/uL} (Normal) Range: 150-379 RDW 13.4 % (Normal) Range: 12.3-15.4 MCHC 32.6 g/dL (Normal) Range: 31.5-35.7 MCH 31.7 pg (Normal) Range: 26.6-33.0 MCV 97 fL (Normal) Range: 79-97 Hematocrit 46.6 % (Normal) Range: 37.5-51.0 Hemoglobin 15.2 g/dL (Normal) Range: 12.6-17.7 RBC 4.79 {x10E6/uL} (Normal) Range: 4.14-5.80 WBC 7.4 {x10E3/uL} (Normal) Range: 3.4-10.8 96-Kpz-114748:55 Vitamin D Hydroxy (58265) Comments: PATIENT WAS FASTINGPERFORMED BY: [facility]6370 [facility] [id number] Vitamin D, 25-Hydroxy 67.8 ng/mL (Normal) Range: 30.0-100.0 Comments: Vitamin D deficiency has been defined by the [place] ofMedicine and an Endocrine Society practice guideline as alevel of serum 25-OH vitamin D less than 20 ng/mL (1,2).The Endocrine Society went on to further define vitamin Dinsufficiency as a level between 21 and 29 ng/mL (2).1. IOM ([place] of Medicine). 2010. Dietary reference intakes for calcium and D. [place]: The National Academies Press.2. Lopez MF, Anayeli ESPAÑA, Clifford SALCEDO, et al. Evaluation, treatment, and prevention of vitamin D deficiency: an Endocrine Society clinical practice guideline. JCEM. 2010; 96(7):1911-30. :55 PSA (PROSTATE SPECIFIC Comments: PATIENT WAS FASTINGPERFORMED BY: Kahuna Lpgbud5580 [address]oto RoadDublin [place] [id number] ANTIGEN) (V76.44) Prostate Specific Ag, <0.1 ng/mL (Normal) Range: 0.0-4.0 Serum Comments: [employer]IA methodology. .According to the [place] Urological Association, Serum PSA shoulddecrease and remain at undetectable levels after radicalprostatectomy. The AUA defines biochemical recurrence as an initialPSA value 0.2 ng/mL or greater followed by a subsequent confirmatoryPSA value 0.2 ng/mL or greater.Values obtained with d ifferent assay methods or kits cannot be usedinterchangeably. Results cannot be interpreted as absolute evidenceof the presence or absence of malignant disease. :55 Anti-TPO Antibody (16135) Comments: PATIENT WAS FASTINGPERFORMED BY: Kahuna Jvshbn85[address] FoursquareDublin [place] [id number] Thyroid Peroxidase (TPO) Ab <6 {IU/mL} (Normal) Range: 0-34 :55 T4, FREE (THYROXINE) (76574) Comments: PATIENT WAS FASTINGPERFORMED BY: Kahuna Oyvqym4480 [address]oto RoadDublin [place] [id number] T4,Free(Direct) 0.88 ng/dL (Normal) Range: 0.82-1.77 :55 T3, FREE (TRIDOTHYRONINE) (38176) Comments: PATIENT WAS FASTINGPERFORMED BY: [employer] Lloszk0129 Soto RoadDublin [place] [id number] Triiodothyronine,Free,Serum 3.3 pg/mL (Normal) Range: 2.0-4.4 :55 TSH (50070) Comments: PATIENT WAS FASTINGPERFORMED BY: CHERRY [employer]6370 [facility] [id number] TSH 4.110 {uIU/mL} (Normal) Range: 0.450-4.500 :55 METABOLIC PANEL, COMPREHENSIVE Comments: PATIENT WAS FASTINGPERFORMED BY: Admittedly70 [facility] [id number] (00106) ALT (SGPT) 9 [iU]/L (Normal) Range: 0-44 AST (SGOT) 24 [iU]/L (Normal) Range: 0-40 Alkaline Phosphatase, S 88 [iU]/L (Normal) Range: 39-117 Bilirubin, Total 0.8 mg/dL (Normal) Range: 0.0-1.2 A/G Ratio 1.6 (Normal) Range: 1.1-2.5 Globulin, Total 2.6 g/dL (Normal) Range: 1.5-4.5 Albumin, Serum 4.2 g/dL (Normal) Range: 3.5-4.8 Protein, Total, Serum 6.8 g/dL (Normal) Range: 6.0-8.5 Calcium, Serum 9.7 mg/dL (Normal) Range: 8.6-10.2 Carbon Dioxide, Total 25 mmol/L (Normal) Range: 18-29 Chloride, Serum 102 mmol/L (Normal) Range: 97-108 Potassium, Serum 4.9 mmol/L (Normal) Range: 3.5-5.2 Sodium, Serum 146 mmol/L (Abnormal) Range: 134-144 BUN/Creatinine Ratio 15 (Normal) Range: 10-22 eGFR If Africn Am 84 mL/min/1.73 (Normal) eGFR If NonAfricn Am 72 mL/min/1.73 (Normal) Creatinine, Serum 1.03 mg/dL (Normal) Range: 0.76-1.27 BUN 15 mg/dL (Normal) Range: 8-27 Glucose, Serum 97 mg/dL (Normal) Range: 65-99 :55 LIPID PANEL (32332) Comments: PATIENT WAS FASTINGPERFORMED BY: Admittedly70 [facility] [id number] LDL/HDL Ratio 1.5 {ratio_units} (Normal) Range: 0.0-3.6 Comments: LDL/HDL Ratio Men Women 1/2 Avg.Risk 1.0 1.5 Av g.Risk 3.6 3.2 2X Avg.Risk 6.2 5.0 3X Avg.Risk 8.0 6.1 LDL Cholesterol Calc 76 mg/dL (Normal) Range: 0-99 VLDL Cholesterol Adolph 20 mg/dL (Normal) Range: 5-40 HDL Cholesterol 50 mg/dL (Normal) Comments: According to ATP-III Guidelines, HDL-C >59 mg/dL is considered anegative risk factor for CHD. Triglycerides 101 mg/dL (Normal) Range: 0-149 Cholesterol, Total 146 mg/dL (Normal) Range: 100-199 68-Efn-76803:42 ANCA Panel Comments: PATIENT NOT FASTINGPERFORMED BY: [facility] [id number] BY: [facility] LabsEssex County HospitalJgvvkp6042 [facility] [id number] Information: [id number] Atypical pANCA <1:20 {titer} Comments: The atypical pANCA pattern has been observed in a significantpercentage of patients with ulcerative colitis, primary sclerosingcholangitis and autoimmune hepatitis. (Normal) Perinuclear (P-ANCA) <1:20 {titer} Comments: The presence of positive fluorescence exhibiting P-ANCA or C-ANCApatterns alone is not specific for the diagnosis of Behzad'sGranulomatosis (WG) or microscopic polyangiitis. Decisions about treatment sh (Normal) ould not be based solely on ANCA IFA results. TheInternational ANCA Group Consensus recommends follow up testing ofpositive sera with both KS-3 and MPO-ANCA enzyme immunoassays. Asmany as 5% serum samp les are positive only by EIA.Ref. AM J Clin Pathol 1999;111:507-513. Cytoplasmic (C-ANCA) <1:20 {titer} (Normal) Antiproteinase 3 (KS-3) Abs <3.5 U/mL (Normal) Range: 0.0-3.5 Antimyeloperoxidase (MPO) Abs <9.0 U/mL (Normal) Range: 0.0-9.0 :42 Vitamin D Hydroxy Comments: PATIENT NOT FASTINGPERFORMED BY: [facility] [id number] BY: [facility] Szzkll3278 Soto RoadDublin [place] [id number] (33193) Vitamin D, 25-Hydroxy 58.5 ng/mL (Normal) Range: 30.0-100.0 Comments: Vitamin D deficiency has been defined by the [place] ofMedicine and an Endocrine Society practice guideline as alevel of serum 25-OH vitamin D less than 20 ng/mL (1,2).The Endocrine Society went on to further define vitamin Dinsufficiency as a level between 21 and 29 ng/mL (2).1. IOM ([place] of Medicine). 2010. Dietary reference intakes for calcium and D. [place]: The National Academies Press.2. Lopez MF, Anayeli ESPAÑA, Clifford SALCEDO, et al. Evaluation, treatment, and prevention of vitamin D deficiency: an Endocrine Society clinical practice guideline. JCEM. 2010; 96(7):1911-30. 79-Ucj-33150:42 VITAMIN B-12 (CYANOCOBALAMIN) Comments: PATIENT NOT FASTINGPERFORMED BY: [facility] [id number] BY: [facility] Vsodhq5357 Soto RoadDublin [place] [id number] (26350) Vitamin B12 707 pg/mL (Normal) Range: 211-946 :42 TSH (15204) Comments: PATIENT NOT FASTINGPERFORMED BY: [facility] [id number] BY: [facility] Iwhyvk7974 Soto RoadDublin [place] [id number] TSH 5.760 {uIU/mL} (Abnormal) Range: 0.450-4.500 :42 CBC W/AUTO DIFF WBC Comments: PATIENT NOT FASTINGPERFORMED BY: [facility] [id number] BY: LabCoEssex County HospitalCwsqph8678 [facility] [id number] (21255) Immature Grans (Abs) 0.0 {x10E3/uL} (Normal) Range: 0.0-0.1 Immature Granulocytes 0 % (Normal) Baso (Absolute) 0.0 {x10E3/uL} (Normal) Range: 0.0-0.2 Eos (Absolute) 0.3 {x10E3/uL} (Normal) Range: 0.0-0.4 Monocytes(Absolute) 1.0 {x10E3/uL} (Abnormal) Range: 0.1-0.9 Lymphs (Absolute) 2.2 {x10E3/uL} (Normal) Range: 0.7-3.1 Neutrophils (Absolute) 4.0 {x10E3/uL} (Normal) Range: 1.4-7.0 Basos 0 % (Normal) Eos 4 % (Normal) Monocytes 13 % (Normal) Lymphs 30 % (Normal) Neutrophils 53 % (Normal) Platelets 184 {x10E3/uL} (Normal) Range: 150-379 RDW 13.5 % (Normal) Range: 12.3-15.4 MCHC 34.2 g/dL (Normal) Range: 31.5-35.7 MCH 32.5 pg (Normal) Range: 26.6-33.0 MCV 95 fL (Normal) Range: 79-97 Hematocrit 47.7 % (Normal) Range: 37.5-51.0 Hemoglobin 16.3 g/dL (Normal) Range: 12.6-17.7 RBC 5.01 {x10E6/uL} (Normal) Range: 4.14-5.80 WBC 7.5 {x10E3/uL} (Normal) Range: 3.4-10.8 :42 METABOLIC PANEL, Comments: PATIENT NOT FASTINGPERFORMED BY: LabCoSpencer Ville 332947 [facility] [id number] BY: LabCoEssex County HospitalPbvvvs2615 [facility] [id number] COMPREHENSIVE (49745) ALT (SGPT) 17 [iU]/L (Normal) Range: 0-44 AST (SGOT) 32 [iU]/L (Normal) Range: 0-40 Alkaline Phosphatase, S 74 [iU]/L (Normal) Range: 39-117 Bilirubin, Total 0.6 mg/dL (Normal) Range: 0.0-1.2 A/G Ratio 1.9 (Normal) Range: 1.1-2.5 Globulin, Total 2.3 g/dL (Normal) Range: 1.5-4.5 Albumin, Serum 4.4 g/dL (Normal) Range: 3.5-4.8 Protein, Total, Serum 6.7 g/dL (Normal) Range: 6.0-8.5 Calcium, Serum 9.7 mg/dL (Normal) Range: 8.6-10.2 Carbon Dioxide, Total 25 mmol/L (Normal) Range: 18-29 Chloride, Serum 100 mmol/L (Normal) Range: 97-108 Potassium, Serum 5.1 mmol/L (Normal) Range: 3.5-5.2 Sodium, Serum 141 mmol/L (Normal) Range: 134-144 BUN/Creatinine Ratio 17 (Normal) Range: 10-22 eGFR If Africn Am 77 mL/min/1.73 (Normal) eGFR If NonAfricn Am 67 mL/min/1.73 (Normal) Creatinine, Serum 1.10 mg/dL (Normal) Range: 0.76-1.27 BUN 19 mg/dL (Normal) Range: 8-27 Glucose, Serum 94 mg/dL (Normal) Range: 65-99 6-Vzo-175355:41 Lipid Profile Comments: [facility] [address]ikqhuzqah[address] [facility] [place], [place], [address] VLDL 16 mg/dL (Normal) Range: 5-40 LDL 70 mg/dL (Normal) Range: 0-130 HDL 49 mg/dL (Normal) Comments: Reference Range HDL <40 mg/dL Low HDL Cholesterol HDL >or= 60 mg/dL High HDL Cholesterol TRIG 78 mg/dL (Normal) Comments: Serum Triglycerides Reference Interval Normal <150 mg/dL Borderline high 150 - 199 mg/dL High 200 - 499 mg/dL Very High > or = 500 mg/dL CHOL 135 mg/dL (Normal) Comments: <200 mg/dL Desirable 200-240 mg/dL Borderline >240 mg/dL High Risk 3-Gtl-160840:41 Liver Profile Comments: [facility] [address] [place], [place], [address] D BILI 0.14 mg/dL (Normal) Range: 0.00-0.30 T BILI 0.50 mg/dL (Normal) Range: 0.20-1.00 ALT 25 U/L (Normal) Range: 12-78 ALK P 73 U/L (Normal) Range: 50-136 AST 29 U/L (Normal) Range: 15-37 GLOB 3.3 g/dL (Normal) Range: 2.3-3.5 ALB 3.7 g/dL (Normal) Range: 3.4-5.0 T PROT 7.0 g/dL (Normal) Range: 6.4-8.2 2-Kin-502275:00 Culture, Nose Comments: [facility] [address]ubqk[address] [facility] [address] [place], [place], [id number] CUN See Note (Normal) Comments: Gram StainGram Stain 1+ Gram positive cocci 2+ White Blood Cells Nasoph. CultAmpicillin can be used for Beta-Lactamase negative isolates. Trimeth/Sulfa, Chloramphenicol, Cefotaxime, Ciprofloxacin, Amoxicillin/Clavulanic Acid,and Oral 2nd/3rd Generation Cephlosporins are effective against both Beta-Lactamase positive and Beta-Lactamase negative isolates. ORGANISM 1: Haemophilus influenzaeAmou nt Growth 2+Beta Lactamase Positive [id number] Culture, Nose Comments: [facility] [id number] [place], [place], [id number] CUN See Note (Normal) Comments: Gram StainGram Stain 3+ White Blood Cells 1+ Gram negative cocco bacillus 1+ Gram positive cocci in chains Nasoph. Cult# 1 Ampicillin can be used for Beta-Lactamase negative isolates. Trimeth/Sulf a, Chloramphenicol, Cefotaxime, Ciprofloxacin, Amoxicillin/Clavulanic Acid,and Oral 2nd/3rd Generation Cephlosporins are effective against both Beta- Lactamase positive and Beta-Lactamase negative iso lates. ORGANISM 1: Haemophilus influenzaeAmount Growth 1+Beta Lactamase Positive [id number] CBC with auto diff Comments: PATIENT NOT FASTINGPERFORMED BY: [facility] [id number] [facility] [id number] Information: [id number] ([id number]) Immature Grans (Abs) 0.0 {x10E3/uL} (Normal) Range: 0.0-0.1 Immature Granulocytes 0 % (Normal) Baso (Absolute) 0.0 {x10E3/uL} (Normal) Range: 0.0-0.2 Eos (Absolute) 0.2 {x10E3/uL} (Normal) Range: 0.0-0.4 Monocytes(Absolute) 1.0 {x10E3/uL} (Abnormal) Range: 0.1-0.9 Lymphs (Absolute) 1.8 {x10E3/uL} (Normal) Range: 0.7-3.1 Neutrophils (Absolute) 6.4 {x10E3/uL} (Normal) Range: 1.4-7.0 Basos 0 % (Normal) Eos 2 % (Normal) Monocytes 11 % (Normal) Lymphs 19 % (Normal) Neutrophils 68 % (Normal) Platelets 177 {x10E3/uL} (Normal) Range: 150-379 RDW 13.5 % (Normal) Range: 12.3-15.4 MCHC 33.6 g/dL (Normal) Range: 31.5-35.7 MCH 32.0 pg (Normal) Range: 26.6-33.0 MCV 95 fL (Normal) Range: 79-97 Hematocrit 47.9 % (Normal) Range: 37.5-51.0 Hemoglobin 16.1 g/dL (Normal) Range: 12.6-17.7 RBC 5.03 {x10E6/uL} (Normal) Range: 4.14-5.80 WBC 9.4 {x10E3/uL} (Normal) Range: 3.4-10.8 1-Cwx-529584:30 LIPID PANEL ([id number]) Comments: PATIENT NOT FASTINGPERFORMED BY: [facility] Bslfdv8284 [facility] [id number] LDL/HDL Ratio 1.8 {ratio_units} (Normal) Range: 0.0-3.6 Comments: LDL/HDL Ratio Men Women 1/2 Avg.Risk 1.0 1.5 Av g.Risk 3.6 3.2 2X Avg.Risk 6.2 5.0 3X Avg.Risk 8.0 6.1 LDL Cholesterol Calc 97 mg/dL (Normal) Range: 0-99 VLDL Cholesterol Adolph 17 mg/dL (Normal) Range: 5-40 HDL Cholesterol 54 mg/dL (Normal) Comments: According to ATP-III Guidelines, HDL-C >59 mg/dL is considered anegative risk factor for CHD. Triglycerides 87 mg/dL (Normal) Range: 0-149 Cholesterol, Total 168 mg/dL (Normal) Range: 100-199 1-Upv-585772:30 METABOLIC PANEL, COMPREHENSIVE Comments: PATIENT NOT FASTINGPERFORMED BY: [facility] Pbzbwv4780 [facility] [id number] ([id number]) ALT (SGPT) 15 [iU]/L (Normal) Range: 0-44 AST (SGOT) 24 [iU]/L (Normal) Range: 0-40 Alkaline Phosphatase, S 74 [iU]/L (Normal) Range: 39-117 Bilirubin, Total 0.8 mg/dL (Normal) Range: 0.0-1.2 A/G Ratio 1.9 (Normal) Range: 1.1-2.5 Globulin, Total 2.3 g/dL (Normal) Range: 1.5-4.5 Albumin, Serum 4.4 g/dL (Normal) Range: 3.5-4.8 Protein, Total, Serum 6.7 g/dL (Normal) Range: 6.0-8.5 Calcium, Serum 9.4 mg/dL (Normal) Range: 8.6-10.2 Carbon Dioxide, Total 24 mmol/L (Normal) Range: 18-29 Chloride, Serum 103 mmol/L (Normal) Range: 97-108 Potassium, Serum 5.0 mmol/L (Normal) Range: 3.5-5.2 Sodium, Serum 144 mmol/L (Normal) Range: 134-144 BUN/Creatinine Ratio 14 (Normal) Range: 10-22 eGFR If Africn Am 89 mL/min/1.73 (Normal) eGFR If NonAfricn Am 77 mL/min/1.73 (Normal) Creatinine, Serum 0.98 mg/dL (Normal) Range: 0.76-1.27 BUN 14 mg/dL (Normal) Range: 8-27 Glucose, Serum 98 mg/dL (Normal) Range: 65-99 84-Vph-826211:10 Basic Metabolic Profile (BMP) Comments: [facility] [address] [place], [place], [id number] GAP 6 (Normal) Range: 5-15 CO2 28.0 mmol/L (Normal) Range: 21.0-32.0 CL 108 mmol/L (Abnormal) Range: 98-107 K 4.2 mmol/L (Normal) Range: 3.5-5.1 NA 142 mmol/L (Normal) Range: 136-145 CA 8.7 mg/dL (Normal) Range: 8.5-10.1 BUN/CRE 14.2 {RATIO} (Normal) Range: 10-20 Estimated CRCL 61.97 ml/min (Normal) EST GFR - AA 77 mL/min (Normal) Comments: GFR Calc EST GFR 63 mL/min (Normal) Comments: Non- GFR Calc CREAT,SERUM 1.20 mg/dL (Normal) Range: 0.70-1.30 Comments: The validity of the calculated GFR AND GFRAA in patients over70 years has not been determined. Clinical correlation isessential. BUN 17 mg/dL (Normal) Range: 7-18 GLU 89 mg/dL (Normal) Range: 70-110 :10 CBC W/Diff, Automated Comments: [facility] [address] [place], [place], [id number] Absolute Lymph 2.23 {X10_3/ul} (Normal) Range: 0.83-4.51 Absolute Neut 6.5 {X10_3/uL} (Normal) Range: 2.0-7.7 IM GRAN % 0.300 % (Normal) Range: 0.0-0.9 Comments: IG% - Immature Granulocytes (promyelocytes, myelocytes andmetamyelocytes) > 1% indicates that a LEFT SHIFT is Present. BASO% 0.3 % (Normal) Range: 0-1 EO% 1.9 % (Normal) Range: 0-5 MONO% 9.1 % (Normal) Range: 0-10 LY% 22.6 % (Normal) Range: 19-41 NEUT% 65.8 % (Normal) Range: 47-70 MPV 11.0 fL (Normal) Range: 6.2-12.0 PLT 152 K/mm3 (Normal) Range: 150-450 RDW SD 45.3 fL (Abnormal) Range: 35.1-43.9 RDW CV 13.0 % (Normal) Range: 11.6-14.6 MCHC 34.0 {g/gl} (Normal) Range: 32-36 MCH 32.7 pg (Abnormal) Range: 27.0-32.0 MCV 96.3 fL (Abnormal) Range: 80-94 HCT 49.4 % (Normal) Range: 40-54 HGB 16.8 g/dL (Abnormal) Range: 13.0-16.5 RBC 5.13 {M/mm3} (Normal) Range: 4.6-6.2 WBC 9.9 K/mm3 (Normal) Range: 4.4-11.0 :19 CK-MB Quantitative and Index Comments: 'TROP' Serial specimen #1, #2, #3, or #4: 1'CKMB' Serial Specimen #1, #2 or #3? [facility] Jtpqjmjryc0195 [facility]. [place], [place], [id number] CKRI 2.0 % (Abnormal) Range: 0.0-1.4 Comments: RELATIVE INDEX >1.5% IS PRESUMPTIVELY POSITIVE CPKMB 1.1 ng/mL (Normal) Range: 0.0-5.0 Comments: CK-MB and RI Interpretation MB Relative Index Non-AMI <or= 5 NA Indeterminate > 5 <or= 4 AMI > 5 > 4 CPK TOTAL 56 U/L (Normal) Range: 39-308 46-Nkh-853082:19 D-Dimer Quantitative (DVT/PE) Comments: [facility] [address] [facility] [place], [address] D-DIMER QUANT 0.38 {FEU/ug/m} (Normal) Range: 0.27-0.49 Comments: NORMAL D-Dimer level (<0.50) indicates no DVT or PE. :19 Myoglobin, Serum Comments: [facility] (refer to report for specific site)refer to report for address and phone number Myoglobin, Ser 43 ng/mL (Normal) Range: 28-72 Comments: Performed at: [address] [id number] Director: Pravin Rogers PhD, Phone: [phone] 79-Qvu-971607:19 Troponin-I Comments: 'TROP' Serial specimen #1, #2, #3, or #4: 1'CKMB' Serial Specimen #1, #2 or #3? 1[facility] [address] [place], [place], [id number] TROPONIN-I < 0.02 ng/mL (Normal) Comments: TROPONIN-I EXPECTED VALUES <0.05 NEGATIVE 0.06 - 0.59 AT RISK OF OK > OR = 0.60 SUGGEST OK 7-Nhu-070256:03 ASSAY, TROPONIN, QUANTITATIVE Comments: stat; PATIENT NOT FASTINGPERFORMED BY: [address] [id number] (aka Troponin I) ([id number]) Troponin I <0.01 ng/mL (Normal) Range: 0.00-0.04 1-Egl-354732:03 TSH (55824) Comments: PATIENT NOT FASTINGPERFORMED BY: [address] [id number] TSH 3.430 {uIU/mL} (Normal) Range: 0.450-4.500 1-Sbf-637324:03 CBC W/AUTO DIFF WBC Comments: PATIENT NOT FASTINGPERFORMED BY: [address] [id number] Information: [id number], [id number] (11987) Immature Grans (Abs) 0.0 {x10E3/uL} (Normal) Range: 0.0-0.1 Immature Granulocytes 0 % (Normal) Baso (Absolute) 0.0 {x10E3/uL} (Normal) Range: 0.0-0.2 Eos (Absolute) 0.1 {x10E3/uL} (Normal) Range: 0.0-0.4 Monocytes(Absolute) 0.6 {x10E3/uL} (Normal) Range: 0.1-0.9 Lymphs (Absolute) 1.7 {x10E3/uL} (Normal) Range: 0.7-3.1 Neutrophils (Absolute) 7.8 {x10E3/uL} (Abnormal) Range: 1.4-7.0 Basos 0 % (Normal) Eos 1 % (Normal) Monocytes 6 % (Normal) Lymphs 16 % (Normal) Neutrophils 77 % (Normal) Platelets 169 {x10E3/uL} (Normal) Range: 150-379 RDW 13.4 % (Normal) Range: 12.3-15.4 MCHC 34.7 g/dL (Normal) Range: 31.5-35.7 MCH 32.4 pg (Normal) Range: 26.6-33.0 MCV 94 fL (Normal) Range: 79-97 Hematocrit 47.9 % (Normal) Range: 37.5-51.0 Hemoglobin 16.6 g/dL (Normal) Range: 12.6-17.7 RBC 5.12 {x10E6/uL} (Normal) Range: 4.14-5.80 WBC 10.2 {x10E3/uL} (Normal) Range: 3.4-10.8 2-Jez-343404:03 METABOLIC PANEL, COMPREHENSIVE Comments: PATIENT NOT FASTINGPERFORMED BY: [facility] [id number] ([id number]) ALT (SGPT) 12 [iU]/L (Normal) Range: 0-44 AST (SGOT) 27 [iU]/L (Normal) Range: 0-40 Alkaline Phosphatase, S 71 [iU]/L (Normal) Range: 39-117 Bilirubin, Total 0.5 mg/dL (Normal) Range: 0.0-1.2 A/G Ratio 1.8 (Normal) Range: 1.1-2.5 Globulin, Total 2.5 g/dL (Normal) Range: 1.5-4.5 Albumin, Serum 4.5 g/dL (Normal) Range: 3.5-4.8 Protein, Total, Serum 7.0 g/dL (Normal) Range: 6.0-8.5 Calcium, Serum 9.6 mg/dL (Normal) Range: 8.6-10.2 Carbon Dioxide, Total 19 mmol/L (Normal) Range: 18-29 Chloride, Serum 103 mmol/L (Normal) Range: 97-108 Potassium, Serum 5.1 mmol/L (Normal) Range: 3.5-5.2 Sodium, Serum 143 mmol/L (Normal) Range: 134-144 BUN/Creatinine Ratio 15 (Normal) Range: 10-22 eGFR If Africn Am 83 mL/min/1.73 (Normal) eGFR If NonAfricn Am 72 mL/min/1.73 (Normal) Creatinine, Serum 1.04 mg/dL (Normal) Range: 0.76-1.27 BUN 16 mg/dL (Normal) Range: 8-27 Glucose, Serum 107 mg/dL (Abnormal) Range: 65-99 :56 Blood Gas Specimen Type Comments: Test performed at:[facility] [address] [place] [address] BLD GAS TYPE MARIBELL (Normal) :56 VBG PO2 I-STAT 32 {mmHg} (Normal) Comments: Test performed at:[facility] [address] [place], [place] [id number] Range: 25-40 :56 VBG SO2 ISTAT 64 % (Normal) Comments: Test performed at:[facility] [address] [place] [address] Range: 50-70 :53 Blood Gas Specimen Type Comments: Test performed at:[facility] [address] [place], [place] [address] ; ordered by Dr. Walton BLD GAS TYPE MARIBELL (Normal) :53 VBG PO2 I-STAT 32 {mmHg} (Normal) Comments: Test performed at:[facility] [address] [place] [address] Range: 25-40 :53 VBG SO2 ISTAT 61 % (Normal) Comments: Test performed at:[facility] [address] [place] [address] Range: 50-70 :50 Blood Gas Specimen Type Comments: Test performed at:[facility] [address] [place], [place] [address] BLD GAS TYPE MARIBELL (Normal) :50 VBG PO2 I-STAT 34 {mmHg} (Normal) Comments: Test performed at:[facility] [address] [place] [address] Range: 25-40 :50 VBG SO2 ISTAT 69 % (Normal) Comments: Test performed at:[facility] [address] [place] [address] Range: 50-70 :47 Blood Gas Specimen Type Comments: Test performed at:[facility] [address] [place] [address] BLD GAS TYPE ART (Normal) :47 PO2 I-STAT 53 {mmHG} (Abnormal) Comments: Test performed at:[facility] [address] [place] [address] Range: 75-100 :47 SO2 ISTAT 89 % (Abnormal) Comments: Test performed at:[facility] [address] [place] [address] Range: 95-99 :05 CBC W/Diff, Comments: DR WALTON ORDERED PT/PTT/CBC/BMPDR FAST ORDERED PSA/LIPID/V12/CMP/FE/CBCD/ENRIQUE/TSH/VITDTest performed at:[facility] [address] [place] [address] Automated Absolute Lymph 1.51 {X10_3/ul} (Normal) Range: 0.83-4.51 Absolute Neut 2.8 {X10_3/uL} (Normal) Range: 2.0-7.7 IM GRAN % 0.400 % (Normal) Range: 0.0-0.9 Comments: IG% - Immature Granulocytes (promyelocytes, myelocytes andmetamyelocytes) > 1% indicates that a LEFT SHIFT is Present. BASO% 0.4 % (Normal) Range: 0-1 EO% 2.1 % (Normal) Range: 0-5 MONO% 13.2 % (Abnormal) Range: 0-10 LY% 29.3 % (Normal) Range: 19-41 NEUT% 54.6 % (Normal) Range: 47-70 MPV 10.6 fL (Normal) Range: 6.2-12.0 PLT 160 K/mm3 (Normal) Range: 150-450 RDW SD 44.3 fL (Abnormal) Range: 35.1-43.9 RDW CV 12.8 % (Normal) Range: 11.6-14.6 MCHC 34.1 {g/gl} (Normal) Range: 32-36 MCH 32.4 pg (Abnormal) Range: 27.0-32.0 MCV 95.3 fL (Abnormal) Range: 80-94 HCT 46.4 % (Normal) Range: 40-54 HGB 15.8 g/dL (Normal) Range: 13.0-16.5 RBC 4.87 {M/mm3} (Normal) Range: 4.6-6.2 WBC 5.2 K/mm3 (Normal) Range: 4.4-11.0 92-Ebb-29508:05 Comprehensive Comments: DR WALTON ORDERED PT/PTT/CBC/BMPDR FAST ORDERED PSA/LIPID/V12/CMP/FE/CBCD/ENRIQUE/TSH/VITDTest performed at:[facility] [address] [place], [place] [address] Metabolic Profil GAP 10 (Normal) Range: 5-15 CO2 24.0 mmol/L (Normal) Range: 21.0-32.0 CL 108 mmol/L (Abnormal) Range: 98-107 K 4.3 mmol/L (Normal) Range: 3.5-5.1 NA 142 mmol/L (Normal) Range: 136-145 T BILI 0.80 mg/dL (Normal) Range: 0.20-1.00 ALT 22 U/L (Normal) Range: 12-78 ALK P 64 U/L (Normal) Range: 50-136 AST 29 U/L (Normal) Range: 15-37 CA 8.6 mg/dL (Normal) Range: 8.5-10.1 A/G 1.1 {RATIO} (Normal) Range: 0.9-2.4 GLOB 3.3 g/dL (Normal) Range: 2.3-3.5 ALB 3.6 g/dL (Normal) Range: 3.4-5.0 T PROT 6.9 g/dL (Normal) Range: 6.4-8.2 BUN/CRE 13.6 {RATIO} (Normal) Range: 10-20 CREAT,SERUM 1.18 mg/dL (Normal) Range: 0.70-1.30 Comments: Please note revised CREATININE reference range /22/2015. BUN 16 mg/dL (Normal) Range: 7-18 GLU 95 mg/dL (Normal) Range: 70-110 :05 Ferritin Comments: DR WALTON ORDERED PT/PTT/CBC/BMPDR FAST ORDERED PSA/LIPID/V12/CMP/FE/CBCD/ENRIQUE/TSH/VITDTest performed at:[facility] [address] [place] [address] FERRITIN 62 ng/mL (Normal) Range: 26-388 :05 Iron Comments: DR WALTON ORDERED PT/PTT/CBC/BMPDR FAST ORDERED PSA/LIPID/V12/CMP/FE/CBCD/ENRIQUE/TSH/VITDTest performed at:[facility] [address] [place], [place] [id number] IRON 115 ug/dL (Normal) Range: 65-175 :05 Lipid Profile Comments: DR WALTON ORDERED PT/PTT/CBC/BMPDR FAST ORDERED PSA/LIPID/V12/CMP/FE/CBCD/ENRIQUE/TSH/VITDTest performed at:[facility] [address] [place], [place] [id number] VLDL 15 mg/dL (Normal) Range: 5-40 LDL 63 mg/dL (Normal) Range: 0-130 HDL 38 mg/dL (Abnormal) Comments: Reference Range HDL <40 mg/dL Low HDL Cholesterol HDL >or= 60 mg/dL High HDL Cholesterol TRIG 75 mg/dL (Normal) Comments: Serum Triglycerides Reference Interval Normal <150 mg/dL Borderline high 150 - 199 mg/dL High 200 - 499 mg/dL Very High > or = 500 mg/dL CHOL 116 mg/dL (Normal) Comments: <200 mg/dL Desirable 200-240 mg/dL Borderline >240 mg/dL High Risk :05 Partial Thromboplast Comments: DR WALTON ORDERED PT/PTT/CBC/BMPDR FAST ORDERED PSA/LIPID/V12/CMP/FE/CBCD/ENRIQUE/TSH/VITDTest performed at:[facility] [address] [place] [address] Time PTT 26.6 s (Normal) Range: 24.1-36.2 :05 Prothrombin Time Comments: DR WALTON ORDERED PT/PTT/CBC/BMPDR FAST ORDERED PSA/LIPID/V12/CMP/FE/CBCD/ENRIQUE/TSH/VITDTest performed at:[facility] [address] [place] [address] w/INR INR 1.0 (Normal) PROTIME 13.6 s (Normal) Range: 11.7-14.9 :05 PSA,Total - Annual Comments: DR WALTON ORDERED PT/PTT/CBC/BMPDR FAST ORDERED PSA/LIPID/V12/CMP/FE/CBCD/ENRIQUE/TSH/VITDTest performed at:[facility] [address] [place] [address] Screen PSA,TOT SCREEN < 0.01 ng/mL (Normal) Range: 0.00-4.00 Comments: This test was performed using the TPSA assay method for the[facility] chemistry system. Values obtained with differentassay methods cannot be used interchangably.When changing PSA assays in the course of monitoring apatient, additional sequential testing should be carriedout to confirm baseline values. :05 Thyroid Stim Comments: DR WALTON ORDERED PT/PTT/CBC/BMPDR FAST ORDERED PSA/LIPID/V12/CMP/FE/CBCD/ENRQIUE/TSH/VITDTest performed at:[facility] [address] [place] [address] Hormone (TSH) TSH 2.56 {uIU/mL} (Normal) Range: 0.358-3.74 :05 Vitamin B12 692 pg/mL (Normal) Comments: DR WALTON ORDERED PT/PTT/CBC/BMPDR FAST ORDERED PSA/LIPID/V12/CMP/FE/CBCD/ENRIQUE/TSH/VITDTest performed at:[facility] [address] [place] [address] Range: 211-911 :05 Vitamin D,25 Comments: DR WALTON ORDERED PT/PTT/CBC/BMPDR FAST ORDERED PSA/LIPID/V12/CMP/FE/CBCD/ENRIQUE/TSH/VITDTest performed at:[facility] [address] [facility] [place] [address] Hydroxy Vitamin D 25-OH 50.0 ng/mL (Normal) Comments: Vitamin D 25(OH) Status Range Deficiency <20 ng/mL (50nmol/L) Insuffciency 20 - 30 ng/mL (50 - 75 nmol/L) Sufficiency 30 - 100 ng/mL (75 - 250 nmol/L) Toxicity >100 ng/mL (>250 nmol/L) Plan of Care Name Dates Details Instructions Melanoma : Eprescribed prescriptions (G8553) Indication: Melanoma Esophageal spasm : Eprescribed prescriptions (G8553) Indication: Esophageal spasm BMI 30.0-30.9,adult : Eprescribed prescriptions (G8553) Indication: BMI 30.0-30.9,adult COPD (chronic obstructive pulmonary disease) : Eprescribed prescriptions (G8553) Indication: COPD (chronic obstructive pulmonary disease) Current non-smoker : Eprescribed prescriptions (G8553) Indication: Current non-smoker Current non-smoker : Eprescribed prescriptions (G8553) Indication: Current non-smoker Abnormal blood sugar : Diet, Exercise, and Wt loss Indication: Abnormal blood sugar BMI 29.0-29.9,adult : Eprescribed prescriptions (G8553) Indication: BMI 29.0-29.9,adult BMI 28.0-28.9,adult : Eprescribed prescriptions (G8553) Indication: BMI 28.0-28.9,adult COPD (chronic obstructive pulmonary disease) : Eprescribed prescriptions (G8553) Indication: COPD (chronic obstructive pulmonary disease) BMI 28.0-28.9,adult : Eprescribed prescriptions (G8553) Indication: BMI 28.0-28.9,adult Abnormal blood sugar : *Diabetes Education Indication: Abnormal blood sugar Abnormal blood sugar : Diet, Exercise, and Wt loss Indication: Abnormal blood sugar [facility] Physical : Eprescribed prescriptions (G8553) Indication: [facility] Mixed hyperlipidemia : Eprescribed prescriptions (G8553) Indication: Mixed hyperlipidemia Mixed hyperlipidemia : Eprescribed prescriptions (G8553) Indication: Mixed hyperlipidemia Mixed hyperlipidemia : Eprescribed prescriptions (G8553) Indication: Mixed hyperlipidemia Secondary pulmonary hypertension : Flu (Influenza) *: flu Indication: Secondary pulmonary hypertension Secondary pulmonary hypertension : Eprescribed prescriptions (G8553) Indication: Secondary pulmonary hypertension SOB (shortness of breath) on exertion : Follow up in 1 week Indication: SOB (shortness of breath) on exertion Syncope : Fainting (Syncope) *: syncope Indication: Syncope Syncope : Eprescribed prescriptions (G8553) Indication: Syncope Mixed hyperlipidemia : Eprescribed prescriptions (G8553) Indication: Mixed hyperlipidemia Dysthymic : Eprescribed prescriptions (G8553) Indication: Dysthymic Planned Observations Vitamin D Hydroxy (01237)Indication: Vitamin D deficiency On: :42 Request LIPID PANEL (79228)Indication: Mixed hyperlipidemia On: :42 Request TSH (35462)Indication: Hypothyroid On: :42 Request MICROALBUMIN: CREATININE RATIO (31363) AND (45837)Indication: Elevated hemoglobin A1c On: :42 Request CBC with auto diff (85757)Indication: Elevated hemoglobin A1c On: :42 Request METABOLIC PANEL, COMPREHENSIVE (14066)Indication: Elevated hemoglobin A1c On: 97-Mhk-851688:42 Request HGB A1C (97872)Indication: Elevated hemoglobin A1c On: :42 Request PSA (PROSTATE SPECIFIC ANTIGEN) (V76.44)Indication: Prostate cancer On: 87-Yec-107831:42 Request METABOLIC PANEL, COMPREHENSIVE (33121)Indication: Fatigue On: 9-Oaj-003555:51 Request LIPID PANEL (68375)Indication: Mixed hyperlipidemia On: :51 Request HGB A1C (23535)Indication: Elevated hemoglobin A1c On: 5-Uzx-377261:50 Request Vitamin D Hydroxy (10338)Indication: Vitamin D deficiency On: 14-Bft-829357:13 Request MICROALBUMIN: CREATININE RATIO (09057) AND (16441)Indication: Elevated hemoglobin A1c On: 04-Kea-039832:12 Request CBC with auto diff (92805)Indication: Elevated hemoglobin A1c On: 88-Juq-278751:12 Request LIPID PANEL (62884)Indication: Elevated hemoglobin A1c On: :12 Request METABOLIC PANEL, COMPREHENSIVE (39838)Indication: Elevated hemoglobin A1c On: :12 Request HGB A1C (55862)Indication: Elevated hemoglobin A1c On: 84-Pce-610585:12 Request HGB A1C (84243)Indication: Elevated hemoglobin A1c On: :23 Request METABOLIC PANEL, COMPREHENSIVE (95814)Indication: Elevated hemoglobin A1c On: :23 Request LIPID PANEL (73652)Indication: Mixed hyperlipidemia On: :22 Request TSH (98120)Indication: Hypothyroid On: 3-Xrr-177306:49 Request HGB A1C (51258)Indication: Elevated hemoglobin A1c On: 1-Zub-590264:46 Request METABOLIC PANEL, COMPREHENSIVE (20216)Indication: Elevated hemoglobin A1c On: 8-Vgp-712953:46 Request MICROALBUMIN: CREATININE RATIO (55158) AND (08952)Indication: Elevated hemoglobin A1c On: 0-Oow-301847:45 Request POTASSIUM SERUM (76899)Indication: Potassium excess On: 3-Uwt-938065:08 Request HgA1C , Office (22773)Indication: Abnormal blood sugar On: 34-Wef-150682:02 Request POTASSIUM SERUM (44979)Indication: Potassium excess On: 24-Uhw-234213:56 Request CBC W/AUTO DIFF WBC (35056)Indication: Elevated hemoglobin A1c On: :20 Request MICROALBUMIN: CREATININE RATIO (63363) AND (95876)Indication: Elevated hemoglobin A1c On: 86-Cse-26062:20 Request METABOLIC PANEL, COMPREHENSIVE (76991)Indication: Elevated hemoglobin A1c On: 73-Hjb-67606:20 Request LIPOPROTEIN, BLD, BY NMR (08607)Indication: Mixed hyperlipidemia On: 32-Wax-25142:20 Request Vitamin D Hydroxy (41040)Indication: Vitamin D deficiency On: 23-Ozm-22139:20 Request TSH (98866)Indication: Abnormal TSH On: :20 Request D-Dimer (09065)Indication: Hypoxia On: 60-Eim-798933:06 Request Comments: stat- call results HGB A1C (46126)Indication: Abnormal blood sugar On: 86-Hfk-84817:43 Request Anti-TPO Antibody (02750)Indication: Abnormal TSH On: : Request T4, FREE (THYROXINE) (55376)Indication: Abnormal TSH On: : Request T3, FREE (TRIDOTHYRONINE) (39083)Indication: Abnormal TSH On: : Request TSH (76433)Indication: Abnormal TSH On: :26 Request P-ANCA & C-ANCA (ANCA PROFILE) 31103 x2 and 92410 g4Vsdjlbqilh: Chronic maxillary sinusitis On: 04-Hnn-51473:55 Request ANCA-C (ANTI NEUTROPHIL CYTOPLASMIC ANTIBODY)Indication: Chronic maxillary sinusitis On: :26 Request METABOLIC PANEL, COMPREHENSIVE (70957)Indication: Secondary pulmonary hypertension On: :28 Request CBC W/AUTO DIFF WBC (03640)Indication: Secondary pulmonary hypertension On: 29-Cvm-931406:28 Request LIPID PANEL (89800)Indication: Mixed hyperlipidemia On: 70-Iba-242112:27 Request D-Dimer (23970)Indication: Other chest pain On: 19-Fwu-263351:04 Request MYOGLOBIN (21119)Indication: Other chest pain On: 86-Ncb-556897:00 Request CPK MB FRACTION (70072)Indication: Other chest pain On: 43-Sys-366970:00 Request ASSAY, TROPONIN, QUANTITATIVE (aka Troponin I) (34199)Indication: Other chest pain On: 28-Tfh-771081:59 Request Vitamin D Hydroxy (94058)Indication: Fatigue On: 73-Cuh-747505:04 Request FERRITIN (53180)Indication: Fatigue On: 75-Lmh-549542:04 Request IRON (66734)Indication: Fatigue On: 70-Ckk-163251:04 Request VITAMIN B-12 (CYANOCOBALAMIN) (36880)Indication: Fatigue On: 79-Olq-726826:04 Request TSH (67669)Indication: Other chest pain On: :04 Request CBC W/AUTO DIFF WBC (17694)Indication: Other chest pain On: :04 Request METABOLIC PANEL, COMPREHENSIVE (09949)Indication: Other chest pain On: :04 Request LIPID PANEL (77086)Indication: Mixed hyperlipidemia On: 93-Epv-206080:03 Request PSA (Prostate Specific Antigen), Screening (12566)Indication: Prostate cancer On: 69-Gqd-584104:59 Request Planned Encounters Medical; [facility] 3 Month FU - On: 05-Nov-2018 10:30 [facility] Fast DO, Kellen A Fast DO, Kellen A Planned Procedures Flu Vaccine (Quadrivalent) 52888Zo: On: 02-Jun-2018 Intent Fast DO, Kellen A Fast DO, Kellen A Comments: Lot: #[id number]: 03/13/19Site: L dltd, IMDose prefilled syringegiven by: Bhargavi reviewed and ABN signed ESOPHAGEAL MANOMETRY ([id number])By: Jose On: 27-Apr-2018 Intent DO, Kellen A Fast DO, Kellen A EsophagramBy: Fast DO, Kellen A Fast On: 20-Oct-2017 Intent DO, Kellen A Comments: with 12 mm tablet MRI OF BRAIN WITH AND WITHOUT On: 20-Oct-2017 Intent CONTRAST ([id number])By: Fast DO, Kellen A Fast DO, Kellen A ELECTROCARDIOGRAM, COMPLETE (ECG) On: 20-Oct-2017 Intent ([id number])By: Fast DO, Kellen A Fast DO, Comments: ekg showed normal sinus rhythym, normal axis, no acute st/t wave changes rbbb Kellen A Radiology - Hip - RightBy: Fast DO, On: 15-Jun-2017 Intent Kellen A Fast DO, Kellen A Comments: weight bearing Radiology - Lumbar SpineBy: Fast DO, On: 15-Jun-2017 Intent Kellen A Fast DO, Kellen A Flu Vaccine (Quadrivalent) 10299Ga: On: 15-Jun-2017 Intent Fast DO, Kellen A Fast DO, Kellen A Comments: lot: [id number]: 03/01/18ite/route: L calista, IMamt: 0.5mlVIS and ABN signed when applicableChelsea, EXTENSION COURSE COUNSELOR Aerosol Treatment ([id number])By: Jose On: 07-Jan-2017 Intent DO, Kellen A Fast DO, Kellen A Comments: with albuterol ELECTROCARDIOGRAM, COMPLETE (ECG) On: 05-Sep-2016 Intent ([id number])By: Jose TRAYLOR, Kellen A Fast DO, Comments: ekg showed normal sinus rhythym, normal axis, no acute st/t wave changes rbbb no change Kellen A MRI OF BRAIN WITHOUT CONTRAST On: 08-Feb-2016 Intent ([id number])By: Jose TRAYLOR Kellen A Fast DO, Kellen A Radiology - ChestBy: Loreta Street CNP On: 06-Aug-2015 Intent E Aerosol Treatment ([id number])By: Jackelin On: 06-Aug-2015 Intent Marilee SPARKS Cartoid DopplerBy: Fast DO, Kellen A On: 20-Jul-2015 Intent Fast DO, Kellen A Overnight Pulse OX ([id number])By: Jose On: 06-Jul-2015 Intent DO, Kellen A Fast DO, Kellen A PFT - CompleteBy: Jose DO, Kellen A On: 06-Jul-2015 Intent Fast DO, Kellen A Radiology - Ankle - LeftBy: Fast , On: 06-Jul-2015 Intent Kellen A Fast DO, Kellen A Flu Vaccine (Quadrivalent) [id number]: On: 06-Jul-2015 Intent Fast DO, Kellen A Fast DO, Kellen A Comments: Lot:[id number]:03/13/16Dose:0.5mLRoute:IMSite:L DltdGiven By:ROBYN signed ADMINISTRATION OF INFLUENZA VIRUS On: 06-Jul-2015 Intent VACCINE ([id number])By: Jose TRAYLOR, Kellen A Fast DO, Kellen A Six Minute Walk Assessment On: 03-May-2015 Intent ([id number])By: Visit, Nurse Six Minute Walk Assessment On: 09-Apr-2015 Intent ([id number])By: Jose TRAYLOR, Kellen A Fast DO, Kellen A Instructions Name Dates Details Melanoma : How to access health information online Indication: Melanoma Melanoma : How to access health information online - Detail Indication: Melanoma Melanoma : Patient Instructions Indication: Melanoma Esophageal spasm : How to access health information online Indication: Esophageal spasm Esophageal spasm : How to access health information online - Detail Indication: Esophageal spasm Esophageal spasm : Patient Instructions Indication: Esophageal spasm BMI 30.0-30.9,adult : How to access health information online Indication: BMI 30.0-30.9,adult BMI 30.0-30.9,adult : How to access health information online - Detail Indication: BMI 30.0-30.9,adult BMI 30.0-30.9,adult : Patient Instructions Indication: BMI 30.0-30.9,adult COPD (chronic obstructive pulmonary disease) : How to access health information online Indication: COPD (chronic obstructive pulmonary disease) COPD (chronic obstructive pulmonary disease) : How to access health information online - Detail Indication: COPD (chronic obstructive pulmonary disease) COPD (chronic obstructive pulmonary disease) : Patient Instructions Indication: COPD (chronic obstructive pulmonary disease) Current non-smoker : How to access health information online Indication: Current non-smoker Current non-smoker : How to access health information online - Detail Indication: Current non-smoker Current non-smoker : Patient Instructions Indication: Current non-smoker Current non-smoker : How to access health information online Indication: Current non-smoker Current non-smoker : How to access health information online - Detail Indication: Current non-smoker Current non-smoker : Patient Instructions Indication: Current non-smoker BMI 29.0-29.9,adult : How to access health information online Indication: BMI 29.0-29.9,adult BMI 29.0-29.9,adult : How to access health information online - Detail Indication: BMI 29.0-29.9,adult BMI 29.0-29.9,adult : Patient Instructions Indication: BMI 29.0-29.9,adult BMI 28.0-28.9,adult : How to access health information online Indication: BMI 28.0-28.9,adult BMI 28.0-28.9,adult : How to access health information online - Detail Indication: BMI 28.0-28.9,adult BMI 28.0-28.9,adult : Patient Instructions Indication: BMI 28.0-28.9,adult COPD (chronic obstructive pulmonary disease) : How to access health information online Indication: COPD (chronic obstructive pulmonary disease) COPD (chronic obstructive pulmonary disease) : How to access health information online - Detail Indication: COPD (chronic obstructive pulmonary disease) Elevated hemoglobin A1c : Patient Instructions Indication: Elevated hemoglobin A1c BMI 28.0-28.9,adult : How to access health information online Indication: BMI 28.0-28.9,adult BMI 28.0-28.9,adult : How to access health information online - Detail Indication: BMI 28.0-28.9,adult BMI 28.0-28.9,adult : Patient Instructions Indication: BMI 28.0-28.9,adult [facility] : How to access health information online Indication: [facility] : How to access health information online - Detail Indication: [facility] : Patient Instructions Indication: [facility] Mixed hyperlipidemia : How to access health information online Indication: Mixed hyperlipidemia Mixed hyperlipidemia : How to access health information online - Detail Indication: Mixed hyperlipidemia Mixed hyperlipidemia : Patient Instructions Indication: Mixed hyperlipidemia Mixed hyperlipidemia : How to access health information online Indication: Mixed hyperlipidemia Mixed hyperlipidemia : How to access health information online - Detail Indication: Mixed hyperlipidemia Mixed hyperlipidemia : Patient Instructions Indication: Mixed hyperlipidemia Mixed hyperlipidemia : How to access health information online Indication: Mixed hyperlipidemia Mixed hyperlipidemia : How to access health information online - Detail Indication: Mixed hyperlipidemia Mixed hyperlipidemia : Patient Instructions Indication: Mixed hyperlipidemia Secondary pulmonary hypertension : How to access health information online Indication: Secondary pulmonary hypertension Secondary pulmonary hypertension : How to access health information online - Detail Indication: Secondary pulmonary hypertension Secondary pulmonary hypertension : Patient Instructions Indication: Secondary pulmonary hypertension Syncope : How to access health information online Indication: Syncope Syncope : How to access health information online - Detail Indication: Syncope Syncope : Patient Instructions Indication: Syncope Mixed hyperlipidemia : Patient Instructions Indication: Mixed hyperlipidemia Dysthymic : How to access health information online Indication: Dysthymic Dysthymic : How to access health information online - Detail Indication: Dysthymic Dysthymic : Patient Instructions Indication: Dysthymic Encounters Office Visit On: 02-Aug-2018 10:10 Encounter Reason: Follow up for chronic medical issues - The patient feels well with no complaints, has decreased energy level and is sleeping well (off and on). Patient has been compliant with instructions. Current medi End: 02-Aug-2018 22:05 cation use: no side effects and compliant with dosing regimen. Patient sleeps 6 (naps) hours per night. Nutrition: inappropriate diet and supplemental vitamins. The medical issues the patient is followi ng up for include All identified problems below. Note for Follow up for chronic medical issues: sleeping ok but getting another sleep study weight up 14 pounds doing toomuch ice cream - bp is good- ge tting skin check for melanoma next week- no gerd and swallowing ?was better than was- noting more emotional than was- not grossly motivated i have asked them to followup with neuro an dpsych, [ADDITIONAL REASON] Follow up tests - Date: (07/16/18 blood work (done at [facility] Encounter Diagnosis: Current non-smoker, BMI 32.0-32.9,adult, Melanoma, Prostate cancer, Dysphagia, Elevated hemoglobin A1c, Vitamin D deficiency, Mixed hyperlipidemia, Hypothyroid, Vascular dementia [facility] Office Visit On: 02-Jun-2018 14:24 Encounter Reason: Follow up tests - Diagnostic tests include other (esophegeal scan). Note for Discuss procedure results: labs from [facility] Diagnosis: Current non-smoker, BMI 30.0-30.9,adult, End: 02-Jun-2018 23:19 Need for prophylactic vaccination and inoculation against influenza (Renamed from Need for immunization against influenza), Dysthymic, Esophageal spasm, Elevated hemoglobin A1c, Vitamin D deficiency [facility] Office Visit On: 27-Apr-2018 9:00 Encounter Reason: Follow up for chronic medical issues - The patient feels well with minor complaints (has felt dizzy, lightheaded and nauseous for the last couple days. Nothing new.), has decreased energy level and is s End: 02-May-2018 20:09 leeping well (off and on). Patient has been compliant with instructions. Current medication use: no side effects and compliant with dosing regimen. Patient sleeps 6 (naps) hours per night. Nutrition: in appropriate diet and supplemental vitamins. The medical issues the patient is following up for include All identified problems below. Note for Follow up for chronic medical issues: actually symptoms h ave been last week- air conditioner flooded so stressed and gave him bentyl and he had bm and helped - he is also worrying about his future with memory/brain issues- also feels like chronic sinus i ssues again drainage maybe causing nausea and dizzy- not having chest pain or sob- not related to exertion- is having dysphagia ??and had some workup- and ed said if continues needs manometry- bp ok but is some lower than was today- he very worried about what his future hold with the temporal dementia- so we discussed- has had yearly skin check for his melanomaEncounter Diagnosis: Current non-smoker, BMI 30.0-30.9,adult, Elevated hemoglobin A1c , Hypothyroid, Mixed hyperlipidemia, Vitamin D deficiency, Fatigue, Acute sinusitis, Dysphagia, Lipoma [facility] Office Visit On: 18-Jan-2018 8:48 Encounter Reason: Follow up for chronic medical issues - The patient feels well with minor complaints, has decreased energy level and is sleeping well (off and on). Patient has been compliant with instructions. Current m End: 18-Jan-2018 10:06 edication use: no side effects and compliant with dosing regimen. Patient sleeps 6 (max, takes naps during the evening) hours per night. Nutrition: inappropriate diet and supplemental vitamins. The medi adolph issues the patient is following up for include All identified problems below. Note for Follow up for chronic medical issues: was diagnosed with fronto temporal dementia and maybe a little vascular dementia as well- neuropsychiatrist- Dr Rinaldi was sent to him by Dr Dean - he is considering daniel Dean start him on ritalin- bp is good weight down 1 pound- saw ed had egd- had balloon dilatio n- but didnt help so I have encouraged him to go back and get more workup- his hip feels better- saw pulm and cardio and doing ok but he wants him to go to sleep earlier- got silver sneakers so going to go [facility]- tolerating the lipitor -Encounter Diagnosis: Current non- smoker, Mixed hyperlipidemia, BMI 30.0-30.9,adult, Hypothyroid, Elevated hemoglobin A1c, Dysphagia, COPD (chronic obstructive pulmonary disease), Vitamin D deficiency, Frontotemporal dementia with behavioral disturbance, Vascular dementia, Encounter for hepatitis C virus screening test for high risk patient [facility] Phone Encounter On: 16-Dec-2017 9:01 [facility] End: 16-Dec-2017 9:03 Office Visit On: 23-Nov-2017 13:13 Encounter Diagnosis: Memory loss End: 23-Nov-2017 13:13 [facility] Office Visit On: 09-Nov-2017 8:24 Encounter Diagnosis: Abnormality of esophagus End: 09-Nov-2017 9:16 [facility] Phone Encounter On: 26-Oct-2017 10:56 Encounter Diagnosis: Mixed hyperlipidemia, Sinusitis End: 26-Oct-2017 13:59 [facility] Office Visit On: 20-Oct-2017 9:17 Encounter Reason: Physical male exam - General health: feels well with minor complaints ( reports patient fell in garage last night. Didn't hit head, fell on hip. When he came in reports was dizzy and almost fell tony End: 08-Nov-2017 20:[address] stairs but daughter caught him. Has been having some low blood sugars, not sure what numbers are but gets dizzy and sweaty. Can eat something and make it better but can sometimes take a long time. ), has decreased energy level and is sleeping well (sometimes has troubles falling asleep). The patient's appetite is decreased. Nutrition: appropriate balanced diet. Exercises 0 days per week. Sleeps o n average 6 hours per night. Normal bowel and bladder habits. Safety measures include appropriate use of safety belts and home smoke detectors. Current emotional problems include anxiety and apprehensio n. The patient's libido is absent. Note for Physical exam: [facility]- weight down signficantly and trying- he has heart followup soon - he sees Alexandro routinely for skin checks- goes rufino q every 3 months because of melanoma- Modo been good he notices when gains weight it affects his breathing- he is choking and appatently had to be stretched in past- britt if dry or big pill, [ADDITIONAL REASON] Falls, Geriatric - Note for Falls: he was in garage picking up something and lost balance he was sweaty after he been having low sugars and was dizzy fell backwards- no double vis ion- no dizzy -- last night lightheaded- tried to sit down but was unbalanced - didnt hit head or pass out- nothing hurts today little sore behind- she thinks he was having low sugar attacks - sweaty wi th attacks and tremor and if eats feels better- he hasnt been eating well Encounter Diagnosis: Current non-smoker, Potassium excess, [facility] EX[facility], Fall, accidental, Prostate cancer, Melanoma, Memory loss, Ataxia, Neoplasm of uncertain behavior of skin, Abnormal blood chemistry, Dysphagia, Elevated hemoglobin A1c, Hypothyroid [facility] Phone Encounter On: 08-Oct-2017 12:16 Encounter Diagnosis: Memory loss End: 08-Oct-2017 12:18 [facility] Office Visit On: 15-Jun-2017 7:59 Encounter Reason: Follow up for chronic medical issues - The patient feels well with minor complaints (constipation and R hip problems. Fell about 2-3 months ago and still giving him issues. Really bad when sitting in th End: 15-Jun-2017 9:10 e car, shooting pains.), has decreased energy level and is sleeping well (off and on). Patient has been compliant with instructions. Current medication use: no side effects and compliant with dosing reg imen. Patient sleeps 6 (max, takes naps during the evening) hours per night. Nutrition: inappropriate diet and supplemental vitamins. The medical issues the patient is following up for include All ident ified problems below. Note for Follow up for chronic medical issues: weight up his mood was not good this summer- and his psych increased his buspar and buproprion- saw Alexandro had skin check- no gerd- he has been doing ok with breathingnoticed little change with increase weight sugar good- has appt with cardio coming upEncounter Diagnosis: Need for prophylactic vaccination and inoculation against influenza (Renamed from Need for immunizati on against influenza), Current non-smoker, BMI 29.0-29.9,adult, Dysthymic, Gastroesophageal reflux disease without esophagitis, Mixed hyperlipidemia, Low back pain, Vitamin D deficiency, COPD (chronic obstructive pulmonary disease), Coronary Artery Disease (414.00), Elevated hemoglobin A1c [facility] Phone Encounter On: 06-May-2017 11:39 Encounter Diagnosis: Memory loss End: 08-May-2017 13:00 [facility] Phone Encounter On: 16-Mar-2017 16:07 Encounter Diagnosis: Potassium excess End: 16-Mar-2017 16:08 [facility] Office Visit On: 13-Mar-2017 9:45 Encounter Reason: Follow up for chronic medical issues - The patient feels well with no complaints, has good energy level and is sleeping well. Patient has been compliant with instructions. Current medication use: no twyla End: 13-Mar-2017 10:15 e effects and compliant with dosing regimen. Patient sleeps 6 hours per night. Nutrition: inappropriate diet and supplemental vitamins. The medical issues the patient is following up for include All josse ntified problems below. Note for Follow up for chronic medical issues: No routine labs for todays apt.- he is doing a lot better his mood is good he has had some exercise but not as much as was- so we ight up a little and he says is candy so will work on- bp is good- hod no chest pain- no gerdEncounter Diagnosis: Current non-smoker, BMI 29.0-29.9,adult, Vitamin D deficiency, Mixed hyperlipidemia, Abnormal blood sugar, Dysthymic, Bronchiectasis, Gastroesophageal reflux disease without esophagitis, Coronary Artery Disease (414.00), Melanoma, Abnormal TSH, Prostate cancer [facility] Office Visit On: 07-Jan-2017 9:04 Encounter Reason: Cough - The onset of the cough has been 1 weeks. The cough is characterized as productive of purulent sputum. The amount of sputum produced is scanty. The cough occurs all the time. The symptoms are ag End: 08-Jan-2017 21:16 gravated by supine posture, but not by meals or exercise. The symptoms have been associated with dyspnea, headache, runny nose and sore throat, while the symptoms have not been associated with fever, ho arseness or wheezing. the color of the sputum is purulent. Note for Cough : fever but tight in chest ??last night feels better this amEncounter Diagnosis: Current non-smoker, BMI 28.0-28.9,adult, Acute bacterial bronchitis [facility] Office Visit On: 11-Dec-2016 13:47 Encounter Diagnosis: Potassium excess End: 11-Dec-2016 13:59 [facility] Office Visit On: 09-Dec-2016 8:24 Encounter Reason: Follow up for chronic medical issues - The patient feels well with minor complaints, has good energy level and is sleeping well. Patient has been compliant with instructions. Current medication use: no End: 09-Dec-2016 9:21 side effects and compliant with dosing regimen. Patient sleeps 6 hours per night. Nutrition: inappropriate diet and supplemental vitamins. The medical issues the patient is following up for include All identified problems below. Note for Follow up for chronic medical issues: Pt is currently on clotrimazole tabs 5 times daily for thrush and its bothering his stomach, giving him nausea. Dentist prescr ibed these. Pt forgot about the apt therefore theres no labs done for todays visit.- had stomach ache last night took tums better this am- will get labs this am - sugar good bp good and weight stable mo od pretty good in general breathing stable- no rotuine gerdEncounter Diagnosis: BMI 28.0-28.9,adult, Current non-smoker, COPD (chronic obstructive pulmonary disease), Elevated hemoglobin A1c, Abnormal TSH, Gastroesophageal reflux disease without esophagitis, Elevated high sensitivity C- reactive protein, Mixed hyperlipidemia, Dysthymic, Memory loss, Vitamin D deficiency [facility] Office Visit On: 03-Nov-2016 16:34 Encounter Reason: Follow up ER - Reason for hospitalization note: (Pt was having breathing issues/ sob/ repeated coughing- sent him home with o2 orders.). Patient has been compliant with instructions. Current medication End: 03-Nov-2016 22:42 use: no side effects and compliant with dosing regimen. The patient feels well with minor complaints, has decreased energy level and is sleeping poorly. Patient sleeps 6 hours per night. Note for Follo w up ER: Pt wore o2 at hs previous to this inncident.- thursday had sore throat and sore throat and started coughing alot and night chest got tight and acute care thursday said gave him codein e and cefdinir and immediately started immediately and coughing - and got more sob- no lip swelling and they said no throat closing off- - - theey did labs and xray- ekg- gave benadryl- and solumedrol - and now he on prednisone 30 mg for 3 days 20mg for 3 days 10 mg for 3 days and zpack - - no sore throat still cough but not as bad- - pulse ox 87-91 some with o2 some not- with wlaking lowers down - no fever- Encounter Diagnosis: Current non-smoker , BMI 28.0-28.9,adult, Allergic reaction, subsequent encounter, Hypoxia, Acute bronchitis due to infection [facility] Phone Encounter On: 29-Sep-2016 15:11 Encounter Diagnosis: Dysthymic End: 29-Sep-2016 15:18 [facility] Office Visit On: 05-Sep-2016 7:08 Encounter Reason: Physical male exam - General health: feels well with minor complaints (scratchy eyes- allergies?issues yet with anger and emotions- gets grumpy quick with grandkids- irritable), has decreased energ End: 18-Sep-2016 23:02 y level and is sleeping well (but troubles falling asleep). The patient's appetite is normal. Nutrition: appropriate balanced diet. Exercises 0 days per week. Sleeps on average 6 hours per night. Normal bowel and bladder habits. Safety measures include appropriate use of safety belts and home smoke detectors. Current emotional problems include anxiety and apprehension. The patient's libido is absent. Note for Physical exam: [facility] Physical- weight down signficantly and trying- he has heart followup soon - he sees Alexandro routinely for skin checks- goes freq every 3 months because of melanoma, [ADDITIONAL REASON] Follow up tests - Diagnostic tests include other (labs). Date: (07/2016). Encounter Diagnosis: [facility] Physical, Current non-smoker, BMI 29.0-29.9,adult, Dysthymic, Gastroesophageal reflux disease without esophagitis, Mixed hyperlipidemia, COPD (chronic obstructive pulmonary disease), Abnormal blood sugar, Abnormal TSH, Elevated high sensitivity C-reactive protein [facility] Office Visit On: 26-May-2016 10:54 Encounter Reason: Follow up for chronic medical issues - The patient feels well with no complaints, has good energy level and is sleeping well. Patient has been compliant with instructions. Current medication use: no twyla End: 26-May-2016 11:51 e effects and compliant with dosing regimen. Patient sleeps 6 hours per night. Nutrition: inappropriate diet and supplemental vitamins. The medical issues the patient is following up for include All josse ntified problems below. Note for Follow up for chronic medical issues: No routine labs done for todays visit.- did have nasal septoplasty and doig better on norvasc for lung pressures and breathing pr jem ??stable- they want his pressures low not dizzy rotuinely unless gets up too quick - we discussed do slow movement to allow time to change apparently getting cataracts - and weight down and trying hard - mood good with taking effexor same time daily- was upset about diagnosis of dementiada- breathing better with weight loss and more energy and doing more socilaization - he much brighter and doing much betterEncounter Diagnosis: Mixed hyperlipidemia, BMI 32.0-32.9,adult, Current non-smoker, Secondary pulmonary hypertension, Gastroesophageal reflux disease without esophagitis, Abnormal TSH, Prostate cancer, Vitamin D deficiency [facility] Phone Encounter On: 23-May-2016 16:01 Encounter Diagnosis: Myocardial infarction (lateral wall) End: 23-May-2016 16:06 [facility] Phone Encounter On: 13-Feb-2016 15:24 Encounter Diagnosis: Abnormal TSH End: 13-Feb-2016 15:26 [facility] Office Visit On: 08-Feb-2016 7:04 Encounter Reason: Follow up for chronic medical issues - The patient feels well with no complaints, has good energy level and is sleeping well. Patient has been compliant with instructions. Current medication use: no twyla End: 10-Feb-2016 18:04 e effects and compliant with dosing regimen. Patient sleeps 6 hours per night. Nutrition: inappropriate diet and supplemental vitamins. The medical issues the patient is following up for include All josse ntified problems below. Note for Follow up for chronic medical issues: Derm informed them by looking at his skin on arms he is pre-diabetic. No routine labs done for todays visit. Pt is having a Ballo on procedure and wonders if can go off the plavix prior too? Or ask cardio?- he having some short term memory loss -like came i to bedroom and cant find bed- was confused that night didnt know where to go- ebs and flows and getting short tempered the person in [place] is increasing his effexor-nomore syncope or chest pain- seeing belia for chronic sinus- has to ask cardio about plavik we discussed- no focal weak numb- stroke sx- Encounter Diagnosis: Mixed hyperlipidemia, COPD (chronic obstructive pulmonary disease), Gastroesophageal reflux disease without esophagitis, Confusion, Memory loss, Chronic maxillary sinusitis, BMI 32.0-32.9,adult, Current non-smoker [facility] Office Visit On: 17-Oct-2015 9:33 Encounter Reason: Follow up for chronic medical issues - The patient feels well with minor complaints (sinus issues- wants referral to ENT- chronic sinus), has good energy level and is sleeping well. Patient has been com End: 18-Oct-2015 21:35 pliant with instructions. Current medication use: no side effects and compliant with dosing regimen. Patient sleeps 6 hours per night. Nutrition: inappropriate diet and supplemental vitamins. The medica l issues the patient is following up for include All identified problems below. Note for Follow up for chronic medical issues: Labs werent done for todays visit, they didnt realize or lost the lab ord er.- his breahting and heart issues are finally getting worked thru and he feeling better- no gerd- diagnosed with bronhiectasis and central sleep apnea- , [ADDITIONAL REASON] Sinus pain - The onset of the pain has been sudden and has been occurring in a persistent pattern for 3 days. The course has been constant. The pain is characterized as mild and a p ressure sensation. The pain is described as being located in the frontal area. The symptoms have been associated with nasal discharge/stuffy nose and sinusitis in the past, while the symptoms have not b een associated with ear pain, fever, nausea or sore throat. Encounter Diagnosis: Mixed hyperlipidemia, Central sleep apnea, COPD (chronic obstructive pulmonary disease), Bronchiectasis, Melanoma, Gastroesophageal reflux disease without esophagitis, Chronic maxillary sinusitis [facility] Office Visit On: 13-Aug-2015 14:47 Encounter Reason: Follow up hospital - Reason for ER visit: note: (chest pain). The patient feels well with minor complaints, has good energy level and is sleeping well. Patient has been compliant with instructions. Curr End: 13-Aug-2015 22:36 ent medication use: no side effects and compliant with dosing regimen. Patient sleeps 7 hours per night. Nutrition: inappropriate diet. Note for Follow up hospital: he was admitted had stress test ok - per gudelia and told his lungs- he has appt with Dr Conde- and has sleep study set up - and we reviewed ct of chest needs lung nodule follwoup - chest pain better now but getting sinus green mucousEncounter Diagnosis: Secondary pulmonary hypertension, COPD (chronic obstructive pulmonary disease), Acute Sinusitis, Hyperlipidemia, unspecified [facility] Office Visit On: 06-Aug-2015 11:07 Encounter Reason: Cough - The last clinic visit was 2 week(s) ago. Symptoms include cough and dyspnea. The cough is described as productive. Cough onset was gradual. There is no known event that preceded symptom onset. T End: 06-Aug-2015 15:01 he cough occurs constantly. Symptoms are described as worsening. Symptoms are not exacerbated by smoke exposure, pollen exposure, animal exposure, going outside, activity, lying down, cold temperature o r inhaled bronchodilator use. Associated symptoms include postnasal drainage.Encounter Diagnosis: Cough, Other chest pain, SOB (shortness of breath) on exertion [facility] Office Visit On: 20-Jul-2015 10:57 Encounter Reason: Syncope - The onset of the syncope has been sudden and has been occurring for minutes. The syncope was precipitated by exertion (Pt was in process of a PFT and was doing the FVC part of it.). The sympto End: 22-Jul-2015 23:00 ms have been associated with headache, sweating and weakness, while the symptoms have not been associated with chest pain, dizziness or nausea. Note for Syncope: Pt was at office doing a PFT when he passed out during the FVC part. Encounter Diagnosis: Syncope, Central sleep apnea [facility] Office Visit On: 06-Jul-2015 11:20 Encounter Reason: Follow up tests - Diagnostic tests include other (heart cath with dr Walton- he said it looks like pulmonary issues). Date: (04/18/15). Note for Discuss procedure results: had heart cath told cardiac End: 08-Jul-2015 20:45 not changed has secondary pulm htn- - has staci and wearing bipap, [ADDITIONAL REASON] Ankle Pain - Symptoms include ankle pain, swelling and decreased range of motion , while symptoms do not include redness or warmth. Symptoms are located in the left ankle. The pain radiates to the left lower leg. The patient describes the pain as burning. Onset was gradual month(s) ago. The symptoms occur constantly. The patient describes symptoms as worsening. Associated symptoms do not include fever or chills. The patient is not currently being treated for this problem. Note for Ankle pain: no trauma left ankle may be partial achilles tendon tear - is bumpy , [ADDITIONAL REASON] Sinusitis/ - Note for Sinusitis/: my chronic sinus issues back again supposed to have surgery but they didnt feel he was good candidate so didnt but now yellow drainage faila pressure and pain Encounter Diagnosis: Need for prophylactic vaccination and inoculation against influenza (Renamed from Need for immunizati on against influenza), Hyperlipidemia, unspecified, Ankle pain, left, Secondary pulmonary hypertension, Chronic Sinusitis [facility] Office Visit On: 03-May-2015 10:17 Encounter Reason: Nurse procedure visit - Reason for visit: six minute walk test. Note for Nurse procedure visit: Being done for sob.Encounter Diagnosis: Asthma (493.11) End: 03-May-2015 21:35 [facility] Office Visit On: 09-Apr-2015 15:07 Encounter Reason: Transition into care - The patient is transitioning into care from another physician (Dr. Norman) and a summary of care was reviewed ., End: 12-Apr-2015 20:48 [ADDITIONAL REASON] new patient female physical - Last seen between 6-12 months ago. General health: feels well with minor complaints (fatigue), has decreased energy level and is sleeping well. The pat ient's appetite is normal. Nutrition: inappropriate diet. Exercises 0 days per week. Sleeps on average 7 hours per night. Normal bowel and bladder habits. Safety measures include appropriate use of safe ty belts and home smoke detectors. Current emotional problems include anxiety and depression. screening, complete skin exam (03/2015) and PSA (yearly). Note for Physical exam: first mI 2001- was a sile nt mi ??- thats when found out had prostate cancer- - due for psa -- he has had no stents - has been meds that opened him up- has chronic sinutisits - takes antiobiotics for this by ent- they have ct of sinuses set up- - sees Dr Espana - cardio - - months of chest tightness with exertion brtit if eats - he has hx of copd- hx of pe with knees done , [ADDITIONAL REASON] Fatigue - The onset of the fatigue has been gradual and has been occurring in a persistent pattern for 1 year. The course has been constant. The fatigue occurs all the time. The sy mptoms have been associated with nasal stuffiness and runny nose, while the symptoms have not been associated with fever or sore throat. Encounter Diagnosis: Depression/Anxiety (300.4), CHEST PAIN (786.59), SOB (786.05), Central sleep apnea, Prostate Cancer (185.), Hyperlipidemia, Unspecified (272.4), COPD (chronic obstructive pulmonary disease), Fatigue, GERD (530.81), Melanoma [facility] Payers MedicareDrakeem/SupplementEDIL MARIE; a guarantor
--- OUTSIDE RECORDS SUMMARY | 2018-10-06 10:25 | XMS RPT_ITS ---
:1945 Author Organization [facility] Support Name Relationship Address Phone GEORGETTE MARIE [address] + [place] [address] R Unknown Unavailable Unavailable GEORGETTE MARIE Spouse Unavailable + CROW SANDERSON Parent Unavailable + GEORGETTE MARIE [address] + [place] [address] R Unknown Unavailable Unavailable GEORGETTE MARIE [address] + [place] [address] R Unknown Unavailable Unavailable GEORGETTE MARIE [address] + [place] [address] R Unknown Unavailable Unavailable GEORGETTE MARIE [address] + [place] [address] R Unknown Unavailable Unavailable GEORGETTE MARIE [address] + [place] [address] R Unknown Unavailable Unavailable GEORGETTE MARIE [address] + [place] [address] R Unknown Unavailable Unavailable GEORGETTE MARIE [address] + [place] [address] R Unknown Unavailable Unavailable GEORGETTE MARIE [address] + [place] [address] R Unknown Unavailable Unavailable GEORGETTE MARIE [address] + [place] [address] R Unknown Unavailable Unavailable GEORGETTE MARIE [address] + [place] [address] R Unknown Unavailable Unavailable GEORGETTE MARIE [address] + [place] [address] R Unknown Unavailable Unavailable GEORGETTE MARIE [address] + [place] [address] R Unknown Unavailable Unavailable GEORGETTE MARIE [address] + [place] [address] R Unknown Unavailable Unavailable GEORGETTE MARIE [address] + [place] [address] R Unknown Unavailable Unavailable GEORGETTE MARIE [address] + [place] [address] R Unknown Unavailable Unavailable GEORGETTE MARIE [address] + [place] [address] R Unknown Unavailable Unavailable GEORGETTE MARIE [address] + [place] [address] R Unknown Unavailable Unavailable GEORGETTE MARIE [address] + [place] [address] R Unknown Unavailable Unavailable SANDERSON, DARRICK NaturalDaughter [address] + [place] [address] GEORGETTE MARIE [address] + [place] [address] R Unknown Unavailable Unavailable SANDERSON, DARRICK NaturalDaughter [address] + [place] [address] Care Team Providers Name Role Phone Alyson Muhammad Attending Unavailable Lanny Jones Attending Unavailable Fast, Kellen Referring Unavailable Fast, Kellen Primary Care Unavailable Fast, Kellen Attending Unavailable Fast, Kellen Primary Care Unavailable Fast, Kellen Referring Unavailable Fast, Kellen Attending Unavailable Fast, Kellen Primary Care Unavailable Lexis Humphrey Attending Unavailable Pravin Walton Attending Unavailable Fast, Kellen Referring Unavailable Lanny Jones Attending Unavailable Jones, Lanny Referring Unavailable Fast, Kellen Primary Care Unavailable Naeem Conde Attending Unavailable Fast, Kellen Referring Unavailable Pravin Walton Attending Unavailable Fast, Kellen Referring Unavailable Fast, Kellen Primary Care Unavailable Naeem Conde Attending Unavailable Lanny Jones Referring Unavailable Robert Martinez Attending Unavailable Fast, Kellen Referring Unavailable Robert Martinez Attending Unavailable Fast, Kellen Referring Unavailable Marcelo Logan Attending Unavailable Marcelo Logan Referring Unavailable Fast, Kellen Primary Care Unavailable Robert Martinez Attending Unavailable Fast, Kellen Referring Unavailable Fast, Kellen Primary Care Unavailable Robert Martinez Attending Unavailable Juan Robert Referring Unavailable Fast, Kellen Primary Care Unavailable Nurse, Surgery Attending Unavailable [place], Robert Referring Unavailable Ashlee MAIN, Sarah Attending Unavailable Jones, Lanny Attending Unavailable Fast, Kellen Referring Unavailable Marcelo Logan Attending Unavailable Jones, Lanny Attending Unavailable Fast, Kellen Primary Care Unavailable Osmin Gusman Admitting Unavailable NewOsmin thompson Attending Unavailable Harlan Miller Primary Care Unavailable Martinez, Damon Admitting Unavailable Yesica Martinezd Attending Unavailable Harlan Miller Primary Care Unavailable Fast, Kellen A Admitting Unavailable Fast, Kellen A Attending Unavailable Fast, Kellen A Primary Care Unavailable UNKNOWN, PCP Primary Care Unavailable Fast DO, Kellen A Attending Unavailable Fast DO, Kellen A Referring Unavailable Fast DO, Kellen A Consulting Unavailable Purpose Purpose PROBLEMS PROBLEMS DATE TYPE CONDITION / CODE ATTENDING STATUS SOURCE 08/10/2018 Unknown G47.33 - Jones, Active [place] Obstructive sleep [facility] apnea (adult) Hospital (pediatric) / Repository G47.33(ICD-10) 06/10/2018 Unknown L98.9 - Disorder Ashlee MAIN, Active [employer] [facility] subcutaneous Hospital tissue, Repository unspecified / L98.9(ICD-10) 06/23/2018 Unknown R13.10 - Doreen, Active [employer] Dysphagia, Marcelo [facility] unspecified / Hospital R13.10(ICD-10) Repository 12/24/2017 Unknown R06.02 - Tysonness Naeem Conde Active [employer] [facility] / Community R06.02(ICD-10) Hospital Repository 12/18/2017 Unknown J44.9 - Chronic Jones, Active [place] obstructive [facility] pulmonary disease, Hospital unspecified / Repository J44.9(ICD-10) PROCEDURES PROCEDURES No Procedure Records FoundVITAL SIGNS VITAL SIGNS No Vital Signs Records FoundRESULTS RESULTS CMP Collected: 07/29/2018 Status: F Source: [place] 11:01 [facility] REPOSITORY TYPE CODE TESTS RESULT OUT OF RANGE REFERENCE UNITS LAB 05603055(L 10-20 mEq/L OINC) AGAP Normal 11 LAB 11672740(L 70-99 mg/dL OINC) Glucose Normal Lvl 99 LAB [id number](L 6-23 mg/dL OINC) BUN Normal 18 LAB [id number](LO 0.5-1.3 mg/dL INC) Normal Creatinine 1.1 LAB 61908964(L 8.6-10.3 mg/dL OINC) Calcium Normal Lvl 9.6 LAB [id number](L 136-145 mEq/L OINC) Sodium Normal Lvl 142 LAB 54787982(L 3.5-5.3 mEq/L OINC) Normal Potassium Lvl 5.1 LAB 97978697(L 98-107 mEq/L OINC) Chloride Normal 107 LAB 81734079(L 21.0-32.0 mEq/L OINC) CO2 Normal 29.0 LAB 62672200(L 33-136 Int._Unit/ OINC) L Alk Phos Normal 67 LAB 82866677(L 0.0-1.2 mg/dL OINC) Bili Normal Total 1.0 LAB 07933990(L 3.4-5.0 gm/dL OINC) Albumin Normal Lvl 4.2 LAB 27463667(L 6.4-8.2 gm/dL OINC) Total Normal Protein 6.7 LAB 65584082(L 10-52 Int._Unit/ OINC) L ALT Normal 10 LAB 01353174(L 9-39 Int._Unit/ OINC) L AST Normal 30 LAB 10963212(L 5.4-30.0 ratio OINC) Normal BUN/Creat Ratio 16.4 LAB [id number](L 2.0-4.0 G/DL OINC) Globulin Normal 3.0 LAB [id number](L 1.1-1.9 ratio OINC) A/G Normal Ratio 1.7 Performed By: #### [id number] #### JULITA [employer] [address] [place] [address] CBC W/ AUTO DIFF Collected: 07/29/2018 Status: F Source: [place] 11:01 AM [facility] REPOSITORY TYPE CODE TESTS RESULT OUT OF RANGE REFERENCE UNITS LAB [id number](L 3.6-11.0 E3/mcL OINC) Normal WBC 6.2 LAB [id number](L 3.90-6.10 E6/mcL OINC) Normal RBC 4.91 LAB 82759647(L 13.5-18.0 G/DL OINC) Normal Hgb 16.0 LAB 32900826(L 42.0-52.0 % OINC) Normal Hct 48.4 LAB 30181229(L 11.5-14.5 % OINC) Normal RDW 13.5 LAB [id number](L 27.0-31.0 pg OINC) High MCH 32.5 LAB [id number](L 33.0-37.0 G/DL OINC) Normal MCHC 33.0 LAB [id number](L 78.0-100.0 fL OINC) Normal MCV 98.5 LAB 61890875(L 7.4-11.0 fL OINC) Normal MPV 9.9 LAB [id number](L 130-400 E3/mcL OINC) Normal Platelet 167 Performed By: #### [id number] #### JULITA [employer] [address] [place] [address] AUTO DIFF Collected: 07/29/2018 Status: F Source: [place] 11:01 AM [facility] REPOSITORY Order Comment: Order Added by Discern Expert. TYPE CODE TESTS RESULT OUT OF RANGE REFERENCE UNITS LAB [id number](L 37.0-75.0 % OINC) Normal Neutro Auto 65.0 LAB [id number](L 20.0-55.0 % OINC) Normal Lymph Auto 20.9 LAB 09344774(L 0.0-10.0 % OINC) High [place] Auto 11.0 LAB [id number](L 0.0-11.0 % OINC) Normal Eos Auto 2.1 LAB [id number](L 0.0-2.0 % OINC) Normal Basophil Auto 1.0 LAB [id number](L 1.4-6.5 E3/mcL OINC) Normal Neutro 4.0 Absolute LAB 79552151(L 1.2-3.4 E3/mcL OINC) Normal Lymph Absolute 1.3 LAB [id number](L 0.0-0.7 E3/mcL OINC) Normal [place] Absolute 0.7 LAB 86636361(L 0.0-0.7 E3/mcL OINC) Normal Eos Absolute 0.1 LAB 38697214(L 0.0-0.2 E3/mcL OINC) Normal Basophil 0.1 Absolute Performed By: #### [id number] #### JULITA [employer]enigHemrashad [facility] [place] [id number] MICROALB/CREAT RATIO Collected: 07/29/2018 Status: F Source: [place] : [facility] REPOSITORY TYPE CODE TESTS RESULT OUT OF REFERENCE UNITS RANGE LAB [id number](L 0.0-1.9 mg/dL OINC) Ur Normal Microalbumin 0.9 LAB [id number](L 20.0-300.0 mg/dL OINC) Ur Creat Normal 290.0 LAB [id number](L 0-30 ug/mg OINC) Microalb/Creat Normal 3 Performed By: #### [id number] #### JULITA [employer] [facility] [place] [id number] EGFR Collected: 07/29/2018 Status: F Source: [place] 11: [facility] REPOSITORY Order Comment: Order added by Discern Expert. TYPE CODE TESTS RESULT OUT OF RANGE REFERENCE UNITS LAB [id number](LO mL/min/1.73 INC) m2 Normal eGFR >60 LAB 25104070(LO mL/min/1.73 INC) m2 Normal eGFR AA >60 Performed By: #### [id number] #### JULITA [employer] [address] [place], [place] [id number] LIPID PROFILE Collected: 07/29/2018 Status: F Source: [place] : [facility] REPOSITORY TYPE CODE TESTS RESULT OUT OF RANGE REFERENCE UNITS LAB [id number](LO 0-199 mg/dL INC) Normal Chol 156 Result Comment: TOTAL CHOLEESTEROL: <200 NORMAL 200 - 239 BORDERLINE HIGH >240 HIGH LAB 11790667(LOINC) 40-60 mg/dL Normal HDL 57 LAB 53488954(LOINC) 0-130 mg/dL Normal LDL 80 Result Comment: <100 OPTIMAL 100-129 NEAR / ABOVE OPTIMAL 130-159 BORDERLINE HIGH 160-189 HIGH >190 VERY HIGH CALC LDL NOT VALID WHEN TRIGLYCERIDE IS >400 MG/DL LAB 83168922(LOINC) 0-149 mg/dL Normal Trig 94 Result Comment: AGE DESIRABLE BORDERLINE HIGH 91 D - 9 Y 0 - 74 75 - 99 > 100 10 - 19 Y 0 - 89 90 - 129 > 130 20 -24 Y 0 - 114 115 - 149 > 150 > 25 0 - 149 150 - 199 200 - 499 LAB 51716070(LOINC) 0-40 mg/dL Normal VLDL 19 Performed By: #### [id number] #### JULITA [employer] [address] [place] [address] VITAMIN D 25 HYDROXY Collected: 07/29/2018 Status: F Source: [place] 11:01 AM [facility] REPOSITORY TYPE CODE TESTS RESULT OUT OF RANGE REFERENCE UNITS LAB [id number](L 30.0-100.0 ng/mL OINC) Normal Vitamin D 25 88.0 Hydroxy Performed By: #### [id number] #### JULITA [employer] [address] [place], [place] [id number] HGBA1C Collected: 07/29/2018 Status: F Source: [place] 11:01 AM [facility] REPOSITORY TYPE CODE TESTS RESULT OUT OF RANGE REFERENCE UNITS LAB [id number]( 4.0-6.3 % LOINC) Normal Hemoglobin A1c 6.1 Performed By: #### [id number] #### JULITA Chemistry Manual Subsection [address] [place] [address] PULMONARY VISIT REPORT Observed: 06/21/2018 Status: F Source: [place] 4:25 PM [facility] REPOSITORY [facility] [address] [place] [address] OFFICE VISIT Date of Service: 06/21/18 MR#: [id number] Acct: [id number] Name: NAZARIO MARIE Rep #: [id number] : 1945 Provider: Lanny Jones Age/Sex: 73/M Location: [facility] Status: Signed Assessment AND Plan 1. STACI (obstructive sleep apnea) G47.33 Plan Deteriorated. Titration study needed. Patient is using PAP therapy,and is benefitting from it but there is room for better symptom management. Not feeling rested, and continues to nap during the day. Follow up in 3 months after titration study. Orders Orders: 2. Pulmonary [...] Other Medications New: Follow Up 3 Months (JONNIE) HPI 6 M FU: Chief Complaint: none HPI Comments Details: 73-year-old male here today for follow-up visit for STACI. No compliance report available at this time. He reports poor sleep hygiene: goes to bed late at night, sleeps at least six-hours, at least 2 events of having to urinate at night, difficulty falling asleep, and frequent napping during the [...] after each use and denies medication side effects such as thrush. He states that he [...] today. He has not had recent hospitalization, or treatment with prednisone in recent weeks. Patient states that he has had weight loss over the past 2 months, and is feeling better since he has increased his activity and changed his eating habits allowing him to eat less. Intake Vital Signs06/21/18 Height 6 ft 06/21/18 Weight: 214 lb Intake Visit Reasons: 6 M FU DME Vendor: [employer] Accompanied by: Self Allergies cefdinir Adverse Reaction (Intermediate, Verified 06/21/18 09:46) SOB codeine Adverse Reaction (Intermediate, Verified 06/21/18 09:46) SOB Medications Acebutolol HCl [Sectral (Beta Andrew)] 200 mg PO DAILY 04/17/15 [History Confirmed 06/21/18] Aspirin [Aspirin, Baby] 81 mg PO DAILY@0800 04/17/15 [History Confirmed 06/21/18] Clopidogrel Bisulfate [Plavix] 75 mg PO DAILY 04/17/15 [History Confirmed 06/21/18] Co Q10 200 [Co Q-10] 100 mg PO DAILY 04/17/15 [History Confirmed 06/21/18] Cyanocobalamin [Vitamin B12] 500 mcg PO DAILY 04/17/15 [History Confirmed 06/21/18] Levocetirizine Dihydrochloride [Xyzal] 5 mg PO DAILY 04/17/15 [History Confirmed 06/21/18] Mirtazapine [Remeron] 30 mg PO DAILY 04/17/15 [History Confirmed 06/21/18] Oxygen, Home [Home Oxygen] 2 lpm NASAL QHS 04/17/15 [History Confirmed 06/21/18] Pantoprazole Sodium [Protonix] 40 mg PO BID 04/17/15 [History Confirmed 06/21/18] Amlodipine [Norvasc] 2.5 mg PO DAILY 08/06/15 [History Confirmed 06/21/18] Ascorbic Acid [Vitamin C] 500 mg PO DAILY@0800 08/06/15 [History Confirmed 06/21/18] Lisinopril [Zestril] 2.5 mg PO DAILY 08/06/15 [History Confirmed 06/21/18] Billings-3 Fatty Acids [Billings-3] 1,000 mg PO DAILY 08/06/15 [History Confirmed 06/21/18] albuterol sulfate HFA 90 mcg/actuation aerosol inhaler 2 puff INHALATION Q4H g 11/11/17 [History Confirmed 06/21/18] buspirone 10 mg tablet 10 mg PO BID 11/11/17 [History Confirmed 06/21/18] cholecalciferol (vitamin D3) 5,000 unit capsule 5,000 unit PO QDAY 11/11/17 [History Confirmed 06/21/18] donepezil 5 mg tablet 5 mg PO QDAY 11/11/17 [History Confirmed 06/21/18] atorvastatin 20 mg tablet 20 mg PO QDAY 12/24/17 [History Confirmed 06/21/18] bupropion HCl XL 300 mg 24 hr tablet, extended release 300 mg PO DAILY tab 12/24/17 [History Confirmed 06/21/18] levothyroxine 25 mcg capsule 25 mcg PO QDAY cap 12/24/17 [History Confirmed 06/21/18] venlafaxine ER 150 mg capsule,extended release 24 hr 150 mg PO .COMPLEX cap 12/24/17 [History Confirmed 06/21/18] fluticasone 113 mcg-salmeterol 14 mcg/actuation breath activated powdr 1 puff INHALATION BID 06/21/18 [History Confirmed 06/21/18] [facility] Medical History History of esophageal dilatation (Acute) Lung nodules (Acute) GERD (gastroesophageal reflux disease) (Acute) Bronchiectasis (Acute) Depression (Acute) COPD (chronic obstructive pulmonary disease) (Acute) STACI (obstructive sleep apnea) (Acute) 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, secondary (Acute) Nonrheumatic mitral (valve) prolapse (Acute) Fatigue (Chronic) 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) Murmur [...] in: none Review of Systems Const CONSTITUTIONAL: Negative anorexia, body ache, chills, daytime sleepiness, fever(s), night sweats, oral thrush, stops breathing during sleep, weight loss, sleeping in chair, fatigue, weight loss, weight gain, frequent colds, [...] no acute respiratory distress, healthy appearing and obese; negative smells of smoke, frail appearing, wearing supplemental oxygen or appears older than stated age Head Head: Positive normocephalic and atraumatic; negative cyanosis of lips/distal nose, frontal sinus tenderness or maxillary sinus tenderness Eyes Eye: Positive clear conjunctiva Ears Ear: Positive hearing normal, external ears normal and other (had fatty-tumor removed from the left side behind ear); negative hard of hearing Nose Nose: Positive external nose normal; negative epistaxis Mouth Mouth: Positive oral mucosae normal and crowded posterior oropharynx; negative post nasal drip or oral thrush present Mallampati Score: III: Mallampati Score Neck Neck: Positive normal visual inspection and trachea midline Chest Wall Chest: Positive normal inspection of the chest and symmetric chest movement Resp lung sounds: Positive clear to auscultation, diminished, normal expiratory time and normal respiratory effort; negative wheezes, wheeze present on forced exhalation, rhonchi, increased work of breathing or use of accessory muscles Cardio Cardiac: Positive regular rate and regular rhythm; negative murmur GI GI: Positive normal to inspection, normal bowel sounds and obese Genitourinary: Positive deferred Musc Musculoskeletal: Positive steady [...] STACI (obstructive sleep apnea) G47.33 Pulmonary hypertension, secondary Moderate persistent asthma without complication J45.40 Asthma complication type: uncomplicated Asthma persistence: persistent Asthma severity: moderate Dementia F03.90 06/21/18 1625 <Electronically signed by Lanny PALOMO> Date Lanny PALOMO Cosigner Signature: Date (if applicable) CC: Kellen Garcia DO SURGERY VISIT REPORT Observed: 06/10/2018 Status: F Source: [place] 3:59 PM [facility] REPOSITORY [facility] [address] [place], [place] [address]ren[address] [place] [address] OFFICE VISIT Date of Service: 06/10/18 MR#: [id number] Acct: [id number] Name: NAZARIO MARIE Rep #: [id number] : 1945 Provider: Sarah Rosado PA-C Age/Sex: 73/M Location: [facility] Status: Signed Intake Intake Visit Reasons: f/u DP 05/29 Excision of Lipoma L Ear Chief Complaint: recheck incision Funeral Location Manager Required: No Is patient in pain?: No Allergies cefdinir Adverse Reaction (Intermediate, Verified 06/10/18 13:06) SOB codeine Adverse Reaction (Intermediate, Verified 06/10/18 13:06) SOB Medications Acebutolol HCl [Sectral (Beta Nadrew)] 200 mg PO DAILY 04/17/15 [History Confirmed 06/02/18] Aspirin [Aspirin, Baby] 81 mg PO DAILY@0800 04/17/15 [History Confirmed 06/02/18] Clopidogrel Bisulfate [Plavix] 75 mg PO DAILY 04/17/15 [History Confirmed 06/02/18] Co Q10 200 [Co Q-10] 100 mg PO DAILY 04/17/15 [History Confirmed 06/02/18] Cyanocobalamin [Vitamin B12] 500 mcg PO DAILY 04/17/15 [History Confirmed 06/02/18] Levocetirizine Dihydrochloride [Xyzal] 5 mg PO DAILY 04/17/15 [History Confirmed 06/02/18] Mirtazapine [Remeron] 30 mg PO DAILY 04/17/15 [History Confirmed 06/02/18] Oxygen, Home [Home Oxygen] 2 lpm NASAL QHS 04/17/15 [History Confirmed 06/02/18] Pantoprazole Sodium [Protonix] 40 mg PO BID 04/17/15 [History Confirmed 06/02/18] Amlodipine [Norvasc] 2.5 mg PO DAILY 08/06/15 [History Confirmed 06/02/18] Ascorbic Acid [Vitamin C] 500 mg PO DAILY@0800 08/06/15 [History Confirmed 06/02/18] Lisinopril [Zestril] 2.5 mg PO DAILY 08/06/15 [History Confirmed 06/02/18] Billings-3 Fatty Acids [Billings-3] 1,000 mg PO DAILY 08/06/15 [History Confirmed 06/02/18] albuterol sulfate HFA 90 mcg/actuation aerosol inhaler 2 puff INHALATION Q4H g 11/11/17 [History Confirmed 06/02/18] buspirone 10 mg tablet 10 mg [...] mg PO DAILY tab 12/24/17 [History Confirmed 06/02/18] fluticasone 100 mcg-salmeterol 50 mcg/dose blistr powdr for inhalation 1 puff INHALATION Q12H 12/24/17 [History Confirmed 06/02/18] levothyroxine 25 mcg capsule 25 mcg PO QDAY cap 12/24/17 [History Confirmed 06/02/18] venlafaxine ER 150 mg capsule,extended release 24 hr 150 mg PO .COMPLEX cap 12/24/17 [History Confirmed 06/02/18] Subjective Details: Patient is a 73 y/o male I am following for subcutaneous mass left post-auricular. Dr. Martinez performed an excision of the left post-auricular mass on 05/29/18. Patient tolerated the procedure well. Pathology demonstrated lipoma. Patient notes very minimal amount of pain/discomfort. He notes no drainage was noted out of the drain. Patient's noted the inferior portion of the skin was slightly red. Patient returns for a follow-up. He denies any pain/discomfort. Objective Details: Left periauricular- incision completely closed. No pain or erythema. Assessment AND Plan Problems 1. 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 [place] [address] OFFICE VISIT Date of Service: 06/02/18 MR#: [id number] Acct: [id number] Name: NAZARIO MARIE Rep #: [id number] : 1945 Provider: Surgery Nurse Age/Sex: 73/M Location: [facility] Status: Signed Intake Intake Visit Reasons: f/u DP 05/29 Excision of Lipoma L Ear Chief Complaint: dysphagia Funeral Location Manager Required: No Is patient in pain?: No (tender to the touch) Allergies cefdinir Adverse Reaction (Intermediate, Verified 06/02/18 13:59) SOB codeine Adverse Reaction (Intermediate, Verified 06/02/18 13:59) SOB Medications Acebutolol HCl [Sectral (Beta Andrew)] 200 mg PO DAILY 04/17/15 [History Confirmed 06/02/18] Aspirin [Aspirin, Baby] 81 mg PO DAILY@0800 04/17/15 [History Confirmed 06/02/18] Clopidogrel Bisulfate [Plavix] 75 mg PO DAILY 04/17/15 [History Confirmed 06/02/18] Co Q10 200 [Co Q-10] 100 mg PO DAILY 04/17/15 [History Confirmed 06/02/18] Cyanocobalamin [Vitamin B12] 500 mcg PO DAILY 04/17/15 [History Confirmed 06/02/18] Levocetirizine Dihydrochloride [Xyzal] 5 mg PO DAILY 04/17/15 [History Confirmed 06/02/18] Mirtazapine [Remeron] 30 mg PO DAILY 04/17/15 [History Confirmed 06/02/18] Oxygen, Home [Home Oxygen] 2 lpm NASAL QHS 04/17/15 [History Confirmed 06/02/18] Pantoprazole Sodium [Protonix] 40 mg PO BID 04/17/15 [History Confirmed 06/02/18] Amlodipine [Norvasc] 2.5 mg PO DAILY 08/06/15 [History Confirmed 06/02/18] Ascorbic Acid [Vitamin C] 500 mg PO DAILY@0800 08/06/15 [History Confirmed 06/02/18] Lisinopril [Zestril] 2.5 mg PO DAILY 08/06/15 [History Confirmed 06/02/18] Billings-3 Fatty Acids [Billings-3] 1,000 mg PO DAILY 08/06/15 [History Confirmed 06/02/18] albuterol sulfate HFA 90 mcg/actuation aerosol inhaler 2 puff INHALATION Q4H g 11/11/17 [History Confirmed 06/02/18] buspirone 10 mg tablet 10 mg [...] mg PO DAILY tab 12/24/17 [History Confirmed 06/02/18] fluticasone 100 mcg-salmeterol 50 mcg/dose blistr powdr for inhalation 1 puff INHALATION Q12H 12/24/17 [History Confirmed 06/02/18] levothyroxine 25 mcg capsule 25 mcg PO QDAY cap 12/24/17 [History Confirmed 06/02/18] venlafaxine ER 150 mg capsule,extended release 24 hr 150 mg PO .COMPLEX cap 12/24/17 [History Confirmed 06/02/18] Subjective Details: Patient is a 73 y/o male I [...] erythema consistent with ecchymosis noted. Incision c/d/i. Steri-strips intact. Dry gauze dressing was placed over top of the small opening to allow for drainage. Assessment AND Plan Problems 1. 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 [address] [place] [address] OFFICE VISIT Date of Service: 05/29/18 MR#: [id number] Acct: [id number] Name: NAZARIO MARIE Rep #: [id number] : 1945 Provider: Robert Martinez MD Age/Sex: 73/M Location: [facility] Status: Signed Intake Intake Visit Reasons: Excision of Lipoma L Ear Chief Complaint: dysphagia Funeral Location Manager Required: No Is patient in pain?: No Allergies cefdinir Adverse Reaction (Intermediate, Verified 05/29/18 11:57) SOB codeine Adverse Reaction (Intermediate, Verified 05/29/18 11:57) SOB Medications Acebutolol HCl [Sectral (Beta Andrew)] 200 mg PO DAILY 04/17/15 [History Confirmed 05/29/18] Aspirin [Aspirin, Baby] 81 mg PO DAILY@0800 04/17/15 [History Confirmed 05/29/18] Clopidogrel Bisulfate [Plavix] 75 mg PO DAILY 04/17/15 [History Confirmed 05/29/18] Co Q10 200 [Co Q-10] 100 mg PO DAILY 04/17/15 [History Confirmed 05/29/18] Cyanocobalamin [Vitamin B12] 500 mcg PO DAILY 04/17/15 [History Confirmed 05/29/18] Levocetirizine Dihydrochloride [Xyzal] 5 mg PO DAILY 04/17/15 [History Confirmed 05/29/18] Mirtazapine [Remeron] 30 mg PO DAILY 04/17/15 [History Confirmed 05/29/18] Oxygen, Home [Home Oxygen] 2 lpm NASAL QHS 04/17/15 [History Confirmed 05/29/18] Pantoprazole Sodium [Protonix] 40 mg PO BID 04/17/15 [History Confirmed 05/29/18] Amlodipine [Norvasc] 2.5 mg PO DAILY 08/06/15 [History Confirmed 05/29/18] Ascorbic Acid [Vitamin C] 500 mg PO DAILY@0800 08/06/15 [History Confirmed 05/29/18] Lisinopril [Zestril] 2.5 mg PO DAILY 08/06/15 [History Confirmed 05/29/18] Billings-3 Fatty Acids [Billings-3] 1,000 mg PO DAILY 08/06/15 [History Confirmed 05/29/18] albuterol sulfate HFA 90 mcg/actuation aerosol inhaler 2 puff INHALATION Q4H g 11/11/17 [History Confirmed 05/29/18] buspirone 10 mg tablet 10 mg PO BID 11/11/17 [History Confirmed 05/29/18] cholecalciferol (vitamin D3) 5,000 unit capsule 5,000 unit PO QDAY 11/11/17 [History Confirmed 05/29/18] donepezil 5 mg tablet 5 mg PO QDAY 11/11/17 [History Confirmed 05/29/18] atorvastatin 20 mg tablet 20 mg PO QDAY 12/24/17 [History Confirmed 05/29/18] bupropion HCl XL 300 mg 24 hr tablet, extended release 300 mg PO DAILY tab 12/24/17 [History Confirmed 05/29/18] fluticasone 100 mcg-salmeterol 50 mcg/dose blistr powdr for inhalation 1 puff INHALATION Q12H 12/24/17 [History Confirmed 05/29/18] levothyroxine 25 mcg capsule 25 mcg PO QDAY cap 12/24/17 [History Confirmed 05/29/18] venlafaxine ER 150 mg capsule,extended release 24 hr 150 mg PO .COMPLEX cap 12/24/17 [History Confirmed 05/29/18] [facility] Medical History History of esophageal dilatation (Acute) Lung nodules (Acute) GERD (gastroesophageal reflux disease) (Acute) Bronchiectasis (Acute) Depression (Acute) COPD (chronic obstructive pulmonary disease) (Acute) STACI (obstructive sleep apnea) (Acute) 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, secondary (Acute) Nonrheumatic mitral (valve) prolapse (Acute) Fatigue (Chronic) 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 1% lidocaine plain was injected along a skin line that was perfectly placed to remove the subcutaneous lesion. Incision was made dissection was carried down all [...] Thursday. Alert Agustina Alert Billing: Yes H/F/N/S/G 14799 3.1-4.0cm Procedure Time Out Time Out Informed consent given: Yes Consent signed: Yes Time out checklist: patient, procedure, site marked/identified, positioning of patient, supplies available, allergies confirmed, team agrees on procedure Time out staff in room: Yes Time out verified: Yes Time out date: 05/29/18 Time out time: 09:30 Assessment AND Plan Orders Orders: Coding Level of Care Code Attention Agustina Additional Codes H/F/N/S/G - Benign H/F/N/S/ 3.1-4.0cm (23565) 05/30/18 1150 <Electronically signed by Robert Martinez MD> Date Robert Martinez MD Cosigner Signature: Date (if applicable) CC: LESION (CHOOSE SITE) Observed: 05/29/2018 Status: F Source: [place] 10:00 AM [facility] REPOSITORY Patient: NAZARIO MARIE : 1945 (73/M) Acct Num: [id number] Phys: Juan LUTZ,Robert Unit Num: [id number] Loc: [facility] Specimen: [id number] Received: 05/29/181126 Spec Type: Lesion TISSUES TISSUES: Skin of external ear, NOS GROSS DESCRIPTION Received in fixative is one container labeled with the patient's name and designated left posterior ear. The specimen consists of a piece of yellow adipose tissue measuring 4 x 3 x 1 cm. Sections reveal yellow adipose cut surfaces without area of hemorrhage, necrosis or cystic degeneration. Gymnastic Teacher sections are submitted in one cassette. / SJ:tiana 05/31/18 TC:1 CPT: 79268 HEADER OPERATION: Excision of subcutaneous lesion of left posterior ear PRE-OP DIAGNOSIS: Lesion of subcutaneous tissue TISSUE SUBMITTED: Left posterior ear MICROSCOPIC DESCRIPTION Slides are reviewed. MICROSCOPIC DIAGNOSIS Subcutaneous lesion of left posterior ear, excision: Mature adipose tissue consistent with lipoma. AM:tiana 06/01/18 Signed [facility] 06/01/18 <signature on file> Performed By: #### PLES #### [facility] [address] [place] [address], [id number] SURGERY VISIT REPORT Observed: 05/21/2018 Status: F Source: [place] 9:46 AM [facility] REPOSITORY [facility] [address] [place] [address]. [address] [place] [address] OFFICE VISIT Date of Service: 05/21/18 MR#: [id number] Acct: [id number] Name: NAZARIO MARIE Rep #: [id number] : 1945 Provider: Robert Martinez MD Age/Sex: 73/M Location: [facility] Status: Signed Intake Vital Signs05/21/18 Height 6 ft 05/21/18 Weight: 213 lb Intake Visit Reasons: Lipoma on back of Neck Chief Complaint: Review of test results Funeral Location Manager Required: No Is patient in pain?: No Allergies cefdinir Adverse Reaction (Intermediate, Verified 05/21/18 09:27) SOB codeine Adverse Reaction (Intermediate, Verified 05/21/18 09:27) SOB Medications Acebutolol HCl [Sectral (Beta Andrew)] 200 mg PO DAILY 04/17/15 [History Confirmed 05/21/18] Aspirin [Aspirin, Baby] 81 mg PO DAILY@0800 04/17/15 [History Confirmed 05/21/18] Clopidogrel Bisulfate [Plavix] 75 mg PO DAILY 04/17/15 [History Confirmed 05/21/18] Co Q10 200 [Co Q-10] 100 mg PO DAILY 04/17/15 [History Confirmed 05/21/18] Cyanocobalamin [Vitamin B12] 500 mcg PO DAILY 04/17/15 [History Confirmed 05/21/18] Levocetirizine Dihydrochloride [Xyzal] 5 mg PO DAILY 04/17/15 [History Confirmed 05/21/18] Mirtazapine [Remeron] 30 mg PO DAILY 04/17/15 [History Confirmed 05/21/18] Oxygen, Home [Home Oxygen] 2 lpm NASAL QHS 04/17/15 [History Confirmed 05/21/18] Pantoprazole Sodium [Protonix] 40 mg PO BID 04/17/15 [History Confirmed 05/21/18] Amlodipine [Norvasc] 2.5 mg PO DAILY 08/06/15 [History Confirmed 05/21/18] Ascorbic Acid [Vitamin C] 500 mg PO DAILY@0800 08/06/15 [History Confirmed 05/21/18] Lisinopril [Zestril] 2.5 mg PO DAILY 08/06/15 [History Confirmed 05/21/18] Billings-3 Fatty Acids [Billings-3] 1,000 mg PO DAILY 08/06/15 [History Confirmed 05/21/18] albuterol sulfate HFA 90 mcg/actuation aerosol inhaler 2 puff INHALATION Q4H g 11/11/17 [History Confirmed 05/21/18] buspirone 10 mg tablet 10 mg PO BID 11/11/17 [History Confirmed 05/21/18] cholecalciferol (vitamin D3) 5,000 unit capsule 5,000 unit PO QDAY 11/11/17 [History Confirmed 05/21/18] donepezil 5 mg tablet 5 mg PO QDAY 11/11/17 [History Confirmed 05/21/18] atorvastatin 20 mg tablet 20 mg PO QDAY 12/24/17 [History Confirmed 05/21/18] bupropion HCl XL 300 mg 24 hr [...] mg PO .COMPLEX cap 12/24/17 [History Confirmed 05/21/18] [facility] Medical History History of esophageal dilatation (Acute) Lung nodules (Acute) GERD (gastroesophageal reflux disease) (Acute) Bronchiectasis (Acute) Depression (Acute) COPD (chronic obstructive pulmonary disease) (Acute) STACI (obstructive sleep apnea) (Acute) 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 Patient had a lipoma removed from the posterior ear upper posterior neck area many years ago he has another lump developing superior to this and it comes straight across his strap for his CPAP/BiPAP machine. It is been slightly increasing in size over the last year discomfort has also been increasing in nature. Patient is on Plavix and aspirin secondary to having an CA he has never had any stents placed ROS General General: Yes fatigue; no weight change, appetite, colon cancer, breast cancer or weakness HEENT HEENT: Yes difficulty swallowing; no eye injury, eye surgery, swollen glands or hoarseness Endo Endocrine: Yes thyroid disease; no diabetes mellitus, thyroid cancer, Hair loss, heat intolerance or cold intolerance Skin Skin: No rash or changing moles Musc Musculoskeletal: Yes arthritis; no back problems, [...] No abdominal pain, No diarrhea, No blood in stool, No hemorrhoids, No ulcers, No gallbladder problem, No black,tarry stools Jesse Hematologic: Yes blood thinners, No blood disorders, No bleeding, No anemia, No blood clots Neuro Neurologic: Yes tingling, Yes numbness, No system reviewed and no additional complaints, except as docu, No as per HPI, No abnormal walking, No abnormal hearing, No abnormal movements, No abnormal speech, No behavioral changes, No burning sensations, No confusion, No seizure-like activity, No unsteadiness, No dizziness, No localized weakness, No frequent falls, No headache(s), No lack of coordination, No loss of vision, No memory loss, No other visual disturbances, No radiating pain, No restless legs, No sensory deficit, No fainting, No tremor(s), No weakness, No other Exam Cardio Heart Sounds: no murmurs Skin Other: 3 cm soft subcutaneous fatty lesion behind the left ear on the upper neck lower occipital area. It does not appear to be infected there is no signs of cellulitis it is not hard. Assessment AND Plan Problems 1. Lesion of subcutaneous tissue L98.9 Plan My plan is to remove this in the office with him being off his Plavix and aspirin for at least 7 days. I have instructed him that there is a chance that by removing this we may his [...] Lesion of subcutaneous tissue L98.9 05/21/18 0946 <Electronically signed by Robert Martinez MD> Date Robert Martinez MD Cosigner Signature: Date (if applicable) CC: Kellen Garcia DO CARDIOLOGY VISIT Observed: 12/24/2017 Status: F Source: [place] REPORT 2:17 PM [facility] REPOSITORY [facility] [address] [place], [place] [address]. [address] [place] [address] OFFICE VISIT Date of Service: 12/24/17 MR#: [id number] Acct: [id number] Name: NAZARIO MARIE Rep #: [id number] : 1945 Provider: Pravin Walton MD Age/Sex: 72/M [facility] Status: Signed HPI [facility] Details: NAZARIO MARIE, is a 72 M who presents to the office today for outpatient cardiovascular follow-up. Since his last visit of 12/29/2016 he states overall he has been doing well. He has not had any concerning symptoms suspicious for angina pectoris, CHF, or near syncope/syncope. He has not required any additional outpatient or inpatient diagnostic studies or therapeutic intervention. He did have his lipid labs performed in March 2017. They appear to be under reasonably good control. He states he is due to have them performed again by his primary care physician. His last transthoracic echocardiogram was performed on 04/17/2015. The results are as noted below. Interpretation Summary The study was technically difficult. [...] perfusion stress test. 2. Previous inferior infarct cannot be completely excluded. 3. Preserved ejection fraction. His last diagnostic cardiac catheterization was performed 04/18/2015. The results are as noted below. 1. Relatively normal resting left ventricular end-diastolic [...] 25-50% eccentric appearing stenosis D. Mid to distal diffuse minimal luminal irregularities Intake Vital Signs12/24/17 Height 6 ft 12/24/17 Weight: 217 lb 12/24/17 Body Mass Index (BMI) 29.4 12/24/17 Blood Pressure 108/58 Intake Visit Reasons: 1 Y FU Allergies cefdinir Adverse Reaction (Intermediate, Verified 12/24/17 13:35) SOB codeine Adverse Reaction (Intermediate, Verified 12/24/17 13:35) SOB Medications Acebutolol HCl [Sectral (Beta Andrew)] 200 mg PO DAILY 04/17/15 [History Confirmed 12/24/17] Aspirin [Aspirin, Baby] 81 mg PO DAILY@0800 04/17/15 [History Confirmed 12/24/17] Clopidogrel Bisulfate [Plavix] 75 mg PO DAILY 04/17/15 [History Confirmed 12/24/17] Co Q10 200 [Co Q-10] 100 mg PO DAILY 04/17/15 [History Confirmed 12/24/17] Cyanocobalamin [Vitamin B12] 500 mcg PO DAILY 04/17/15 [History Confirmed 12/24/17] Levocetirizine Dihydrochloride [Xyzal] 5 mg PO DAILY 04/17/15 [History Confirmed 12/24/17] Mirtazapine [Remeron] 30 mg PO DAILY 04/17/15 [History Confirmed 12/24/17] Oxygen, Home [Home Oxygen] 2 lpm NASAL QHS 04/17/15 [History Confirmed 12/24/17] Pantoprazole Sodium [Protonix] 40 mg PO BID 04/17/15 [History Confirmed 12/24/17] Amlodipine [Norvasc] 2.5 mg PO DAILY 08/06/15 [History Confirmed 12/24/17] Ascorbic Acid [Vitamin C] 500 mg PO DAILY@0800 08/06/15 [History Confirmed 12/24/17] Lisinopril [Zestril] 2.5 mg PO DAILY 08/06/15 [History Confirmed 12/24/17] Billings-3 Fatty Acids [Billings-3] 1,000 mg PO DAILY 08/06/15 [History Confirmed 12/24/17] albuterol sulfate HFA 90 mcg/actuation aerosol inhaler 2 puff INHALATION Q4H g 11/11/17 [History Confirmed 12/24/17] buspirone 10 mg tablet 10 mg PO BID 11/11/17 [History Confirmed 12/24/17] cholecalciferol (vitamin D3) 5,000 unit capsule 5,000 unit PO QDAY 11/11/17 [History Confirmed 12/24/17] donepezil 5 mg tablet 5 mg PO QDAY 11/11/17 [History Confirmed 12/24/17] atorvastatin 20 mg tablet 20 mg PO QDAY 12/24/17 [History Confirmed 12/24/17] bupropion HCl XL 300 mg 24 hr tablet, extended release 300 mg PO DAILY tab 12/24/17 [History Confirmed 12/24/17] fluticasone 100 mcg-salmeterol 50 mcg/dose blistr powdr for inhalation 1 puff INHALATION Q12H 12/24/17 [History Confirmed 12/24/17] levothyroxine 25 mcg capsule 25 mcg PO QDAY cap 12/24/17 [History Confirmed 12/24/17] venlafaxine ER 150 mg capsule,extended release 24 hr 150 mg PO .COMPLEX cap 12/24/17 [History Confirmed 12/24/17] [facility] Medical History 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, secondary (Acute) Nonrheumatic mitral (valve) prolapse (Acute) Fatigue (Chronic) 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) Murmur (Chronic) Angina pectoris (Chronic) Shortness of breath (Chronic) Chest pain (Acute) HLD (hyperlipidemia) (Chronic) HTN (hypertension) (Chronic) Bronchiectasis (Acute) COPD (chronic obstructive pulmonary disease) (Acute) Depression (Acute) GERD (gastroesophageal reflux disease) (Acute) Lung nodules (Acute) STACI (obstructive sleep apnea) (Acute) [...] you participate in: none ROS Const Const: Negative for fatigue, weakness, weight gain, weight loss, frequent falls or excessive sweating Eyes Eyes: Negative for change in vision, blurry vision or transient loss of vision ENT ENT: Positive for balance problems (with ambulation); negative for dizziness Cardio Chest Pain: No Edema: None Muscle aches with walking: None Resp Respiratory: Positive for SOB with activity (noted when going upstairs); negative for SOB at rest GI GI: Negative vomiting or vomiting blood/hematemesis : Negative for hematuria Musc Musc: Positive for balance problems (with ambulation); negative for muscle aches/ myalgia, muscle weakness or joint pain Skin Skin: Negative non-healing lesions or rash Neuro Neuro: Negative for weakness, blurry vision, dizziness, lightheadedness, frequent falls or orthostatic symptoms Jesse Hematologic/Lymphatic: Negative for easy bleeding Endo Endo: Negative for fatigue or excessive sweating Psych Psych: Negative for anxiety or depression Allergy Allergy/Immunology: Negative for hives, Negative for rash Cardiology Exam Const Appearance: cooperative, [...] chest and symmetric chest movement Auscultation: Bilateral: Clear to Auscultation Cardio Palpation: normal PMI Rate: [...] affect Assessment AND Plan 1. Atherosclerosis of hopi coronary artery of hopi heart without angina pectoris I25.10 Plan At the present time he appears to be doing well. He will continue his current medical management and follow-up. It was not felt he required additional diagnostic studies or therapeutic intervention at this time. 2. Murmur, cardiac R01.1 Plan He does have a cardiac murmur. There [...] primary care physician. A copy of his lipid labs would be appreciated for continuity of care. 4. Essential hypertension I10 Plan His blood pressure appears to be under good control. He will continue his current medical management and follow-up. 5. Pulmonary hypertension, secondary Plan He will continue to follow with Dr. Conde pulmonology and critical care medicine for his underlying pulmonary disease process. Plan Detail Other Medications Discontinued: fluticasone-salmeterol 113-14 mcg/actuation (AirDuo RespiCli1 puff Inhalation Q12H R06.02 ck) Discontinued Reason: Pt no longer taking Additional Comments He will be scheduled for an outpatient visit approximately 1 year unless needed sooner. Thank you for allowing me to participate in the care of your patient. Please don't hesitate to call if any issues arise. This note was generated using a voice recognition system and there may be incorrect words, spelling or punctuation that were not noted when reviewing the office note prior to saving. Follow Up 1 Year ([facility]) Coding Level of Care Code Off vis,est,level 3 Diagnoses Atherosclerosis of hopi coronary artery of hopi heart without angina pectoris I25.10 [place] vs. transplanted heart: hopi heart Murmur, cardiac R01.1 Hyperlipidemia, unspecified hyperlipidemia type E78.5 Hyperlipidemia type: unspecified Essential hypertension I10 Hypertension type: essential hypertension Pulmonary hypertension, secondary Coding Level of Care Code Off vis,est,level 3 Diagnoses Atherosclerosis of hopi coronary artery of hopi heart without angina pectoris I25.10 [place] vs. transplanted heart: hopi heart Murmur, cardiac R01.1 Hyperlipidemia, unspecified hyperlipidemia type E78.5 Hyperlipidemia type: unspecified Essential hypertension I10 Hypertension type: essential hypertension Pulmonary hypertension, secondary 12/24/17 1417 <Electronically signed by Pravin Walton MD> Date Pravin Walton MD Cosigner Signature: Date (if applicable) CC: Naeem Conde MD; Kellen Garcia DO PULMONARY VISIT REPORT Observed: 12/24/2017 Status: F Source: [place] 10:51 AM [facility] REPOSITORY [facility] [address] [place] [address] OFFICE VISIT Date of Service: 12/24/17 MR#: [id number] Acct: [id number] Name: NAZARIO MARIE Rep #: [id number] : 1945 Provider: Naeem Conde MD Age/Sex: 72/M Location: [facility] Status: Signed Assessment AND Plan 1. Shortness [...] will be transitioned. Signs and symptoms of exacerbation were reviewed in detail. Patient voiced understanding. Continue combination inhaler therapy Medications New: 2. Pulmonary hypertension, secondary Plan Patient does have a history of diastolic congestive heart failure with probable type II pulmonary hypertension. DLCO is relatively stable at this time, so repeat echocardiogram is likely not indicated. We will continue to monitor closely. Patient does not qualify for supplemental oxygen at this time. Did stress to the patient that BiPAP would be necessary to make sure patient is not desaturating overnight, which could lead to progression of pulmonary hypertension. Patient voiced understanding. Continue BiPAP overnight. 3. STACI (obstructive sleep apnea) G47.33 Plan Patient's DME sent a compliance report from 2015. Patient reports that he is compliant with therapy and doing well. Did discuss with patient about the fact of BiPAP should be used with all sleep. Also talked with patient about strategies to address sleep phase disruption. Patient was also advised to avoid crossword puzzles just before bedtime. Patient voiced understanding. Await results of sleep training. Plan Detail Follow Up 6 Months ([facility]) HPI 3 M FU: Chief Complaint: Review of test results Details: Patient is a 72-year-old male, currently in the care of Dr. Varela, who presents for evaluation secondary to recent test results. Since last visit, patient denies any ER visits, hospitalizations or prednisone burst. Patient states he has been compliant with Advair therapy and has not had any complications. However, cost is an issue. Patient denies any thrush, hoarseness or sore throat. Patient does believe that this helps him on a daily basis. Patient denies any significant need for rescue albuterol. Patient reports he has been wearing his BiPAP every night. Patient states he feels that is just [...] time. Testing personally reviewed with the patient Complete PFT (12/18/2017): Grossly normal pulmonary function test with diffusing capacity at the lower limit of normal. (FVC 87%, FEV1 83%, TLC 98%, DLCO 67%) Intake Vital Signs12/24/17 Height 6 ft 12/24/17 Weight: 97.976 kg Intake Visit Reasons: 3 M FU DME Vendor: [email or web address] Accompanied by: Allergies cefdinir Adverse Reaction (Intermediate, Verified 11/11/17 11:02) SOB codeine Adverse Reaction (Intermediate, Verified 11/11/17 11:02) SOB Medications Acebutolol HCl [Sectral (Beta Andrew)] 200 mg PO DAILY 04/17/15 [History Confirmed 11/11/17] Aspirin [Aspirin, Baby] 81 mg PO DAILY@0800 04/17/15 [History Confirmed 11/11/17] Clopidogrel Bisulfate [Plavix] 75 mg PO DAILY 04/17/15 [History Confirmed 11/11/17] Co Q10 200 [Co Q-10] 100 mg PO DAILY 04/17/15 [History Confirmed 11/11/17] Cyanocobalamin [Vitamin B12] 500 mcg PO DAILY 04/17/15 [History Confirmed 11/11/17] Levocetirizine Dihydrochloride [Xyzal] 5 mg PO DAILY 04/17/15 [History Confirmed 11/11/17] Mirtazapine [Remeron] 30 mg PO DAILY 04/17/15 [History Confirmed 11/11/17] Multivitamins,Therapeutic [Multivitamin] 1 tab [...] 500 mg PO DAILY@0800 08/06/15 [History Confirmed 11/11/17] Lisinopril [Zestril] 2.5 mg PO DAILY 08/06/15 [History Confirmed 11/11/17] Billings-3 Fatty Acids [Billings-3] 1,000 mg PO DAILY 08/06/15 [History Confirmed 11/11/17] albuterol sulfate HFA 90 mcg/actuation aerosol inhaler [...] 12/24/17 [Rx Confirmed 12/24/17] [facility] Medical History 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, secondary (Acute) Nonrheumatic mitral (valve) prolapse (Acute) Fatigue (Chronic) 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) Murmur (Chronic) Angina pectoris (Chronic) Shortness of breath (Chronic) Chest pain (Acute) HLD (hyperlipidemia) (Chronic) HTN (hypertension) (Chronic) Bronchiectasis (Acute) COPD (chronic obstructive pulmonary disease) (Acute) Depression (Acute) GERD (gastroesophageal reflux disease) (Acute) Lung nodules (Acute) STACI (obstructive sleep apnea) (Acute) [...] nose bleed, headache(s), mouth pain, nasal congestion, sinus pain, sinus pressure, sore throat or other Cardio Cardiovascular: Negative chest pain, chest pain at rest, chest pain with activity, irregular heart rhythm, edema, shortness of breath when lying down, palpitations, murmur or other Resp Respiratory: Positive as per HPI and shortness of breath shortness of breath: Positive with activity; negative pain with cough, wheezing, chest congestion, cough, [...] nourished and good hygiene; negative dyspenic, ill appearing or wearing supplemental oxygen Head Head: Positive normocephalic and atraumatic; negative cyanosis of lips/distal nose, frontal sinus tenderness or maxillary sinus tenderness Eyes Eye: Positive clear conjunctiva; negative scleral abnormality or nystagmus Ears Ear: Positive hard of hearing and external ears normal Nose Nose: Positive external nose normal, septum normal and no nasal discharge; negative epistaxis or nasal polyp Mouth Mouth: Positive post nasal drip, oral mucosae normal, no lesions, dentures and posterior oropharynx is adequate; negative oral thrush present Mallampati Score: II: Mallampati Score Neck Neck: Positive normal visual inspection, full ROM and trachea midline; negative lymphadenopathy or JVD Chest Wall Chest: Positive normal inspection of the chest and symmetric chest movement; negative crepitus or increased A/P diameter Resp lung sounds: Positive clear to auscultation, good air exchange, normal expiratory time and normal respiratory effort; negative wheezes, wheeze present on forced exhalation, rhonchi, rales or dullness to percussion Cardio Cardiac: Positive regular rate, regular rhythm, S1 normal and S2 normal; negative murmur, rub or gallop GI GI: Positive normal to inspection and normal bowel sounds; negative distended, epigastric tenderness, hepatomegaly or splenomegaly Genitourinary: Positive deferred Musc Musculoskeletal: Positive steady gait and ROM normal; negative using an assistive device for ambulation, kyphosis, scoliosis or rheumatoid nodules Skin Pulmonary Skin Exam: Positive intact and dermal atrophy; negative rash, lesion, ulcers or scaly Pulses Pulse: Yes radial pulses present Extremities Extremities: Yes capillary refill normal, No clubbing, No cyanosis, No edema, No stasis dermatitis Neuro Neurologic: Yes conversant, Yes no focal neuro deficits, Yes cooperative, Yes normal cognition, Yes understands questions, Yes normal concentration, Yes normal coordination Lymph Lymphatic: No lymphadenopathy Psych Appearance: Positive grossly normal Mental Status: Positive mental status grossly normal Mood: Positive congruent mood Affect: Positive normal affect Coding Level of Care Code Off vis,est,level 3 Diagnoses Shortness of breath R06.02 Pulmonary hypertension, secondary STACI (obstructive sleep apnea) G47.33 12/24/17 1051 <Electronically signed by Naeem Conde MD> Date Naeem Conde MD Cosigner Signature: Date (if applicable) CC: Kellen Garcia DO PULMONARY FUNCTION Observed: 12/18/2017 Status: F Source: [place] REPORT [facility] Pulmonary Services/Neurology [address] [place] [address] MR#: [id number] Acct: [id number] Name: NAZARIO MARIE Rep #: [id number] : 1945 72 From: Naeem Conde MD Referring Dr: Lanny Jones NP Status: REG CLI Ordering Dr: Date: Location: PSN Sex: M C COMPLETE PULMONARY FUNCTION TEST INTERPRETATION Brief HPI: Patient is a 72 year old male, currently under the care of myself, who presents to [facility] for complete pulmonary function tests secondary to diagnosis of COPD. Respiratory therapist reports good effort and reproducible results. Interpretation: Forced [...] 98% predicted. All other lung volumes are within normal limits. Diffusion capacity by carbon monoxide is at the lower limit of normal at 67 % predicted. The airway resistance is elevated. Compared to previous pulmonary function tests from 07/25/2016, there has been no significant change. Impression: These pulmonary function tests are grossly within normal limits. Views capacity is at the lower limit of normal and may indicate early pulmonary vascular disease. 12/18/17 1428 <Electronically signed by Naeem Conde MD> Date Naeem Conde MD CC: Naeem Conde MD; Lanny Garcia DO Date Dictated: 12/18/171424 Date Transcribed: 12/18/171424 Tree Puller: FAMILIA Signed ESOPHAGUS ONLY Observed: 10/26/2017 Status: F Source: [place] 8:18 AM [facility] REPOSITORY [facility] Imaging Services [address] [place] [address] Esophagus Only MR#: [id number] Acct: [id number] Name: NAZARIO MARIE Rep #: [id number] : 1945 M 72 From: Valdo Dwyer MD PCP: Kellen Garcia DO Status: REG CLI Study: Esophagus Only Date of Exam: 10/26/17 Exam# [id number] Ordering Dr: Kellen Garcia DO STUDY: X-RAY - ESOPHAGUS (BARIUM SWALLOW) WITH FLUOROSCOPY REASON FOR EXAM: Male, 72 years old. Dysphagia for solids. History of melanoma and prostate cancer. TECHNIQUE: 17 view(s) of the esophagus were obtained following swallowing of barium. FLUOROSCOPY TIME (if supplied): (0:33) minutes/seconds COMPARISON: None. FINDINGS: There is no demonstrated esophageal foreign body. There is circumferential narrowing of the distal esophagus at the gastroesophageal junction. The 12 mm tablet of barium is trapped at the gastroesophageal junction. Endoscopic correlation is recommended. There is atherosclerotic tortuosity of the aortic arch and descending thoracic aorta. Normal visualized pulmonary parenchyma. Normal visualized osseous structures of the thorax. RAD/Esophagus Only IMPRESSION: Circumferential narrowing at the gastroesophageal junction as described. The 12 mm tablet of barium is trapped at that site. Endoscopic correlation is recommended. Electronically Signed: Valdo Dwyer MD at 9:18 EST Tel [phone], Service support , CC: Kellen Garcia DO Tree Puller: Signed CREATININE FINGERSTICK Collected: 10/23/2017 Status: F Source: [place] 3:21 PM [facility] REPOSITORY TYPE CODE TESTS RESULT OUT OF RANGE REFERENCE UNITS LAB L9100.0210 0.70-1.30 mg/dL Normal CREATININE WB 0.8 LAB L9100.0220 >60 mL/min EGFR WB Normal > 60.0000 Performed By: #### L9100.0200 #### [place] [facility] Point of Care [address] [place] [address] BRAIN W/WO CONTRAST Observed: 10/23/2017 Status: F Source: [place] 3:13 PM [facility] REPOSITORY [facility] Imaging Services [address] [place] [address] Brain W/WO Contrast MR#: [id number] Acct: [id number] Name: NAZARIO MARIE Rep #: [id number] : 1945 M 72 From: Nazario Simms MD PCP: Kellen Garcia DO Status: REG CLI Study: Brain W/WO Contrast Date of Exam: 10/23/17 Exam# [id number] Ordering Dr: Kellen Garcia DO STUDY: MRI BRAIN WITH AND WITHOUT CONTRAST REASON FOR EXAM: Male, 72 years old. Imbalance, falls, unsteady gait, prostate cancer TECHNIQUE: Standardized multiplanar fat and water weighted pulse sequences were obtained. 10 ml of Gadavist contrast material was administered intravenously for the contrast portion of the examination. COMPARISON: 02/22/2016 report only FINDINGS: Mild cortical atrophy. Normal white matter tracts of the supratentorial brain. Normal bilateral basal ganglia. Normal thalami. There is no extra-axial fluid accumulation. Normal flow voids within the major intracranial circulation suggesting patency by spin echo criteria. Normal venous enhancement. There is no enhancing intra-axial or extra-axial abnormality. Normal sella turcica, pituitary gland, infundibular stalk, optic chiasm and hypothalamus. Normal tectal plate and pineal gland. Normal midbrain, shantal and medulla. Normal cerebellum. Sacha cisterna magna is incidentally noted. Normal basal cisterns. Normal bilateral temporal bones. Normal bilateral internal auditory canals. Right lens replacement. Bilateral maxillary sinusitis. Normal calvarium and skull base. Normal visualized soft tissue structures. Normal visualized upper cervical spine. MRI/Brain W/WO Contrast IMPRESSION: No evidence of infarct or hemorrhage. Cortical atrophy. No evidence of metastatic disease. Bilateral maxillary sinusitis. Electronically Signed: Nazario Simms MD at 2:11 EST Tel , Service support , CC: Kellen Garcia DO Tree Puller: Signed OBSOLETE Observed: 10/08/2017 Status: COMPLETED Source: [place] 12:00 AM [facility] REPOSITORY Refill (ARNOLDO) NAZARIO MARIE ([id number]) 1945 M Date Time Provider Department 10/08/17 NAZARIO CARLISLE JR During your visit today, we recorded the following information about you: Dennis Goodwin Ma 10/08/2017 1:39 PM Signed Medication requested by pharmacy is not on patients current medication list. Please review the medication and advise, thanks! Dennis Goodwin Ma Patient has been identified by name and date of : Yes RX INSTRUCTIONS: Pharmacy initiated this request. No need to notify patient. Patient phones requesting refills as follows: Please verify quantity and correct dosage instructions before approval. Pending Prescriptions Disp Refills DONEPEZIL 5 MG TABLET 90 tablet 3 Sig: TAKE 1 TABLET DAILY MIGUEL ANGEL: Yes Please review and advise. Dennis Goodwin Ma 10/09/2017 8:43 AM Signed Pharmacy initiated request encounter closed. Dennis Goodwin Ma Allergies As of Date: 10/08/2017 (No Known Allergies) Date Reviewed: 03/06/2016 Reviewed by: Tim Weaver - Fully Assessed Reason for Visit: Refill Request [94] Prescriptions as of 10/08/2017 Sig: PANTOPRAZOLE 40 MG TABLET,DEL* Take 40 mg by mouth once maty* VENLAFAXINE ER 150 MG CAPSULE* Take 150 mg by mouth once gonzález* NORVASC ORAL Take by mouth. LISINOPRIL ORAL Take by mouth. PRAVASTATIN 40 MG TABLET Take 40 mg by mouth once maty* MIRTAZAPINE 30 MG DISINTEGRAT* Take 30 mg by mouth daily at * BUPROPION HCL SR 150 MG TABLE* Take 150 mg by mouth twice da* PLAVIX ORAL Take by mouth. 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 [place] [address] OFFICE VISIT Date of Service: 09/17/17 MR#: [id number] Acct: [id number] Name: NAZARIO MARIE Rep #: [id number] : 1945 Provider: Lanny Jones Age/Sex: 72/M Location: [facility] Status: Signed Assessment AND Plan Problems 1. [...] twice daily. Pulmonary function test in 3 months with a follow-up afterwards with Dr. Conde. Obstructive sleep apnea: The patient is using and benefiting from current pressure support therapy. No indication for titration study at this time. The patient reports that previously he had lost 40 pounds, but unfortunately has put 20 pounds back on. He does appear motivated to continue his weight loss journey. Continue current settings for now. Encouraged to try to adopt more normal sleep habits, suggested that he stay up 1 hour later each night until his bedtime is around 6 or 7 AM, at which point he should try to stay up until a normal bedtime that night. Essentially, staying awake 24 hours to reset his circadian rhythm. Follow-up Dr. Conde in 3 months. Pulmonary hypertension: Shortness of breath on exertion does not appear to be worsening. No additional testing at this time. If patient complains of worsening shortness of breath will obtain a pulmonary stress test or a repeat echocardiogram. Follow-up with Dr. Conde in 3 months. Obesity: Encouraged cleaning eating. Encouraged weight loss by avoiding processed foods. Patient is agreeable. Of Dr. Conde in 3 months. Orders Orders: Plan Detail Follow Up 3 Months ([facility]) HPI 6 M FU: Chief Complaint: Shortness [...] notice that recently he has had slightly more difficulty with air leaks. He believes it [...] falling asleep watching TV. He is not having morning headaches. He is not experiencing nocturia. [...] sinus drainage. He does follow with ENT and had his sinuses 6 months ago. See complete review of systems. Intake Vital Signs09/17/17 Height 6 ft 09/17/17 Weight: 223 lb 4 oz Intake Visit Reasons: 6 M FU DME Vendor: [facility] Accompanied by: Allergies No Known Allergies Allergy (Verified 09/17/17 09:39) Medications Acebutolol HCl [Sectral (Beta Andrew)] 200 mg PO DAILY 04/17/15 [History Confirmed 09/17/17] Aspirin [Aspirin, Baby] 81 mg PO DAILY@0800 04/17/15 [History Confirmed 09/17/17] BuPROPion (XL) [Wellbutrin Xl] 150 mg PO DAILY 04/17/15 [History Confirmed 09/17/17] Clopidogrel Bisulfate [Plavix] 75 mg PO DAILY 04/17/15 [History Confirmed 09/17/17] Co Q10 200 [Co Q-10] 100 mg PO DAILY 04/17/15 [History Confirmed 09/17/17] Cyanocobalamin [Vitamin B12] 500 mcg PO DAILY 04/17/15 [History Confirmed 09/17/17] Levocetirizine Dihydrochloride [Xyzal] 5 mg PO DAILY 04/17/15 [History Confirmed 09/17/17] Mirtazapine [Remeron] 30 mg PO DAILY 04/17/15 [History Confirmed 09/17/17] Multivitamins,Therapeutic [Multivitamin] 1 tab PO DAILY 04/17/15 [History Confirmed 09/17/17] Oxygen, Home [Home Oxygen] 2 lpm NASAL QHS 04/17/15 [History Confirmed 09/17/17] Pantoprazole Sodium [Protonix] 40 mg PO BID 04/17/15 [History Confirmed 09/17/17] Pravastatin [Pravachol] 40 mg PO QHS 04/17/15 [History Confirmed 09/17/17] Amlodipine [Norvasc] 2.5 mg PO DAILY 08/06/15 [History Confirmed 09/17/17] Ascorbic Acid [Vitamin C] 500 mg PO DAILY@0800 08/06/15 [History Confirmed 09/17/17] Lisinopril [Zestril] 2.5 mg PO DAILY 08/06/15 [History Confirmed 09/17/17] Billings-3 Fatty Acids [Billings-3] 1,000 mg PO DAILY 08/06/15 [History Confirmed 09/17/17] Venlafaxine XR [Effexor Xr] 225 mg PO DAILY 08/06/15 [History Confirmed 09/17/17] fluticasone 100 mcg-salmeterol 50 mcg/dose blistr powdr for inhalation 1 puff INHALATION BID 09/17/17 [History Confirmed 09/17/17] Review of Systems Const CONSTITUTIONAL: Positive daytime sleepiness, stops breathing during sleep and sleeping in chair; negative anorexia, body ache, chills, fever(s), night sweats, oral thrush, weight loss, fatigue, weight [...] or other Psych Psychocological: Positive anxiety and hopelessness; negative abnormal sleep pattern, thoughts of hurting self/others or other Lymph Lymphatic: Negative easy bleeding, easy bruising, swollen lymph nodes or other Exam Const Constitutional: Positive conversant, cooperative, in no acute respiratory distress, healthy appearing, well developed, well nourished, good hygiene and obese Head Head: Positive normocephalic and atraumatic; negative cyanosis of lips/distal nose Eyes Eye: Positive clear [...] increased work of breathing, normal chronic state of increased work of breathing or use of accessory muscles Cardio Cardiac: Positive regular rate, S1 normal, regular rhythm and S2 normal; negative murmur GI GI: Positive normal to inspection, normal bowel sounds and obese; negative distended Genitourinary: Positive deferred Musc Musculoskeletal: Positive steady gait and ROM normal; negative kyphosis or scoliosis Skin Pulmonary Skin Exam: Positive intact; negative rash, lesion, ulcers or erythema Pulses Pulse: Positive pulses normal x4 extremities Extremities Extremities: Positive capillary refill normal; negative clubbing, cyanosis or edema Neuro Neurologic: Positive conversant, no focal neuro deficits, cooperative, normal cognition, normal coordination, normal concentration and understands questions; negative tremor Lymph Lymphatic: Negative lymphadenopathy, tenderness, cervical adenopathy or axillary adenopathy Psych Appearance: Positive grossly normal, eye contact and well kempt Mental Status: Positive mental status grossly normal Mood: Positive congruent mood Affect: Positive normal affect [facility] Medical History Fatigue (Chronic) 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) Murmur (Chronic) Body mass index (BMI) of 33.0-33.9 in adult (Chronic) Angina pectoris (Chronic) Shortness of breath (Chronic) Mitral valve prolapse (Chronic) STACI (obstructive sleep apnea) (Chronic) Bronchiectasis (Chronic) Chest pain (Acute) CAD (coronary artery disease) (Chronic) COPD (chronic obstructive pulmonary disease) (Chronic) HLD (hyperlipidemia) (Chronic) HTN (hypertension) (Chronic) Pulmonary HTN (Chronic) Depression [...] Date (if applicable) CC: Kellen Garcia DO ALLERGIES ALLERGIES DATE TYPE / CODE NAME / CODE REACTION SEVERITY SOURCE 06/21/2018 Drug codeine/D152232 Shortness of [place] Allergy/326452218( 550(RXNORM) breath [facility]OM[facility]) Hospital Repository 06/21/2018 Drug cefdinir/X37760 Shortness of [place] [employer] Allergy/842600386( 7588(RXNORM) breath [facility] SN[facility]) Hospital Repository 09/17/2017 Drug No Known Unknown [employer] Allergy/748676968( Allergies/F0019 Community SNOM[facility]) [address](RXNORM) Hospital Repository Drug/193972256(SNO cefdinir ALLERGY [facility]) [facility] Repository Drug/821744174(SNO codeine Throat [facility]) swelling [facility] Repository Environment/675725 Dust [facility] 006(SNOMED CT) [facility] Repository Miscellaneous Horses Unknown [facility] Allergy/267296209( [facility] Rep[facility] Environment/956597 Pollen [facility] 006(SNOMED CT) [facility] Rep[facility] Drug/494814790(SNO Omnicef 213619 [facility]) [facility] Repository Drug/263887531(SNO No Known [facility] MED [facility]) Medication [facility] Allergies System Repository ENCOUNTERS ENCOUNTERS ADMIT/DISCHARGE ACCOUNT NUMBER ADMITTING ENCOUNTER LOCATION SOURCE CLASS 08/18/2018 [id number] Ambulatory Building:[facility] Repository 08/10/2018 [id number] Ambulatory [facility] Hospital ding:SL Repository 07/29/2018/07/29/20 [id number] Fast, Kellen Amb[facility] Repository 07/29/2018 [id number] Ambulatory [address] [place] [address] Repository 07/10/2018/07/10/20 [id number] Michelle Ambulatory QCareBuildin [facility] 18 Damon g:QCareRoom: [facility] Repository 06/21/2018/06/21/20 [id number] Ambulatory BMSBuilding: [place] 18 BMS.[facility] Repository 06/10/2018/06/10/20 [id number] Ambulatory BMSBuilding: [place] 18 BMS.[facility] Repository 06/02/2018/06/02/20 [id number] Ambulatory BMSBuilding: [place] 18 BMS.[facility] Repository 05/29/2018 [id number] Ambulatory [facility] ding:LABSPEC Repository 05/29/2018/05/29/20 [id number] Ambulatory BMSBuilding: [employer] 18 BMS.[facility] Repository 05/27/2018/05/27/20 [id number] Ambulatory [address] Hospital ding:EN Repository 05/27/2018/05/27/20 [id number] Ambulatory BMSBuilding: [place] 18 BMS.CF.[facility] Repository 05/21/2018/05/21/20 [id number] Ambulatory BMSBuilding: [place] 18 BMS.[facility] Repository 05/18/2018 [id number] Ambulatory BMSBuilding: [place] BMS.[facility] Repository 03/26/2018/03/26/20 [id number] [place], Ambulatory [facility]Buildin [facility] 18 Osmin Keene g:QCareRoom: [address] Repository 12/28/2017 [id number] Ambulatory BMSBuilding: [place] BMS.[facility] Repository 12/24/2017/12/25/19 [id number] Ambulatory BMSBuilding: [employer] 18 BMS.[facility] Repository 12/24/2017/12/25/19 [id number] Ambulatory BMSBuilding: [place] 18 BMS.[facility] Repository 12/18/2017 [id number] Ambulatory [facility] ding:PSN Repository 12/18/2017 [id number] Ambulatory BMSBuilding: [place] [facility] Repository 11/11/2017 [id number] Ambulatory BMSBuilding: [place] BMS.[facility] Repository 10/26/2017 [id number] Ambulatory [facility] ding:RAD Repository 10/23/2017 [id number] Ambulatory [facility] ding:MRI Repository 09/17/2017/09/17/19 [id number] Ambulatory BMSBuilding: [place] 18 BMS.[facility] Repository 09/17/2017 [id number] Ambulatory BMSBuilding: [employer] BMS.[facility] Repository FUNCTIONAL STATUS FUNCTIONAL STATUS No Functional Status Records FoundEQUIPMENT EQUIPMENT No Equipment Records FoundPAYERS PAYERS ENCOUNTER GUARANTOR PAYER SUBSCRIBER SOURCE 08/18/2018 NAZARIO Whiteside Primary NAZARIO Hendricks FAIRDOB: Insurance:MedicarePol FAIRDOB: Repository [id number] icy Number: [id number] [facility] [id number] 7 [place], [place] Date:7428-73-88[place], [place] [address]Xqi: 419) Name:WHEEL WORKER [place] [address]Noh: () [id number], [place] [phone] ( [address]LM: 08/18/2018 Secondary NAZARIO Hendricks Insurance:[place]/Supp FAIRDOB: Repository [facility] Number: [id number] 7 [facility] Date:9758-19-13[place]gfkDw[place], [place] Name:[address] [address]Yfc: [phone], [place] [phone] (HP) [id number]: 08/10/2018 NAZARIO A Primary NAZARIO A [employer] [id number] Insurance:MEDICARE FAIRDOB: [facility] PART A BPolic [id number], [place] Number: Repository [address]Ekf: [phone] [id number] [phone] (HP) Date:2018-06-21 08/10/2018 Secondary NAZARIO A [employer] Insurance:ANTHEMPolic FAIRDOB: Community y Number: [id number] Hospital [id number] Repository Date:3557-24-71[address], [place] [address]IA: 08/10/2018 Tertiary NOT GIVENUNK [employer] Insurance:SELF PAY [facility] [place] Number: Effective Repository Date:2018-06-21 07/29/2018 NAZARIO A Primary NAZARIO A [facility] FAIRDOB: Insurance:MedicarePol FAIRDOB: [facility] icy Number: Effective [id number] System [facility] Date:2018-07-29 [place], [place] 3487-36-01[place], [place] [address]Uzu: Name:CD:[id number] [address]Kbn: [id number], [place] (HP) [phone]: ([phone]) (HP) 000-0000 () 07/29/2018 Secondary NAZARIO A [facility] Insurance:ANTHEMPolic FAIRDOB: [facility] y Number: Effective [id number] System Date:2018-07-29 [facility] Repository [id number], [place] Name:Blue CrossPO [address] [address]Vha: [address]GKCMANKZQM, [place] [id number]: [phone]) (HP) [phone] () 07/29/2018 NAZARIO FAIRDOB: Primary NAZARIO FAIRDOB: [place] Insurance:MedicarePol [id number] [place] [address] icy Number: 7 [place], [place] [id number] [place], [place] [id number]: Date:Plan Name:[place] [id number]: A (HP) (HP) 07/29/2018 Secondary [facility]IO [facility] [place] Insurance:MedicarePol [id number] Hospitals icy Number: 7 [facility] [id number] [place], [place] Date:Plan Name:[place] [id number]: B () 07/29/2018 Tertiary [facility]IO [facility] [place] Insurance:[facility] [id number] Hospitals y Number: 7 [facility] [id number] [place], [place] Date:Plan Name:[place] [id number]: () 07/29/2018 Tertiary [facility] [place] Insurance:[facility] [id number] Hospitals y Number: 7 [facility] [id number] [place], [place] Date:Plan Name:[place] [id number]: () 07/10/2018 NAZARIO A Primary NAZARIO Whiteside [facility] FAIRDOB: Insurance:[facility] FAIRDOB: [facility] MEDICARE [id number] [place] [address] PRIMARYDi[facility]S Medical Centericy Number: 7 [place], [place] [address]Yaa: Date:2018-07-10 [address]Ysw: [id number] (HP) Name:CD:[id number] O (HP)Tel: (000) [id number], 000-0000 () [place] [address]BC: 07/10/2018 Secondary NAZARIO Huerta Insurance:1500 FAIRDOB: [facility] ANTHEMPolicy Number: [id number] System Effective [address] [place] [address] Repository Date:2018-07-10 - [place], [place] 6994-13-14Muhg [address]Qrm: Name:CD:[id number] [address], [place] ()Tel: [phone]: () [phone] 06/21/2018 NAZARIO A Primary NAZARIO [place] [id number] Insurance:MEDICARE FAIRDOB: [facility] [id number] Number: Repository [id number]: [phone] [id number] [phone] () Date:2017-12-24 06/21/2018 Secondary NAZARIO A [place] Insurance:ANTHEMPolic FAIRDOB: Community y Number: [id number] Hospital [id number] Repository Date:0287-77-89PJ [address] [place] [address] 37802IA: 06/21/2018 Tertiary NOT GIVENUNK [employer] Insurance:SELF PAY [facility] Number: Effective Repository Date:2018-06-14 06/10/2018 NAZARIO A Primary NAZARIO A [place] [id number] Insurance:MEDICARE FAIRDOB: [facility] [id number] Number: Repository [id number]: [phone] [id number] [phone] () Date:2018-06-02 06/10/2018 Secondary NAZARIO A [employer] Insurance:ANTHEMPolic FAIRDOB: Community y Number: [id number] [facility] [id number] Repository Date:2780-33-65ZI [address], [place] [address]WP: 06/10/2018 Tertiary NOT GIVENUNK [place] Insurance:SELF PAY [facility] Number: Effective Repository Date:2018-06-10 06/02/2018 NAZARIO A Primary NAZARIO [place] [id number] Insurance:MEDICARE FAIRDOB: Community [facility] PART A [facility] [id number] Number: Repository [id number]: [phone] [id number] [phone] (HP) Date:2018-05-29 06/02/2018 Secondary NAZARIO A [place] Insurance:ANTHEMPolic FAIRDOB: Community y Number: [id number] [id number] Repository Date:3582-75-75ME [address] [place] [address]OE: 06/02/2018 Tertiary NOT GIVENUNK [employer] Insurance:SELF PAY [facility] ([place], [place]) Number: Effective Repository Date:2018-05-29 05/29/2018 NAZARIO A Primary NAZARIO Miesha [employer] [id number] Insurance:MEDICARE FAIRDOB: Community [facility] PART A [address] Number: Repository [id number]: [phone] [id number] [phone] (HP) Date:2018-05-29 05/29/2018 Secondary NAZARIO A [place] Insurance:ANTHEMPolic FAIRDOB: Community y Number: [id number] [place] [address] [id number] Repository Date:5207-35-27HG [address]TXNQAYK [place] [address]QF: 05/29/2018 Tertiary NOT GIVENUNK [place] Insurance:SELF PAY [facility], [place]) Number: Effective Repository Date:2018-05-29 05/29/2018 NAZARIO A Primary NAZARIO A [employer] [id number] Insurance:MEDICARE FAIRDOB: Community [facility] PART A [address] Number: Repository [id number]: [phone] [id number] [phone] (HP) Date:2018-05-21 05/29/2018 Secondary NAZARIO A [place] Insurance:ANTHEMPolic FAIRDOB: Community y Number: [id number] [id number] Repository Date:1279-62-19PQ [address], [place] [address]NP: 05/29/2018 Tertiary NOT GIVENUNK [place] Insurance:SELF PAY [facility] Number: Effective Repository Date:2018-05-21 05/27/2018 ANZARIO A Primary NAZARIO [place] [id number] Insurance:MEDICARE FAIRDOB: Community [facility] PART A [address] Number: Repository [id number]: [phone] [id number] [phone] (HP) Date:2018-05-12 05/27/2018 Secondary NAZARIO A [employer] Insurance:ANTHEMPolic FAIRDOB: Community y Number: [id number] New Mexico Medical [id number] Repository Date:1102-17-73NB [address] [place] [address]DO: 05/27/2018 Tertiary NOT GIVENUNK [employer] Insurance:SELF PAY [facility] ([place], [place]) Number: Effective Repository Date:2018-05-12 05/27/2018 NAZARIO A Primary NAZARIO Miesha [employer] [id number] Insurance:MEDICARE FAIRDOB: Community [facility] PART A [address] Number: Repository [id number]: [phone] [id number] [phone] () Date:2018-05-12 05/27/2018 Secondary NAZARIO A [employer] Insurance:ANTHEMPolic FAIRDOB: Community y Number: [id number] Hospital [id number] Repository Date:4201-24-80GY [address] [place] [address] 636[address]YP: 05/27/2018 Tertiary NOT GIVENUNK [employer] Insurance:SELF PAY [facility] ([place], [place]) Number: Effective Repository Date:2018-05-27 05/21/2018 NAZARIO A Primary NAZARIO A [place] [id number] Insurance:MEDICARE FAIRDOB: Community [facility] PART A [address] Number: Repository [id number]: [phone] [id number] [phone] (HP) Date:2018-05-18 05/21/2018 Secondary NAZARIO A [employer] Insurance:ANTHEMPolic FAIRDOB: Community y Number: [id number] Hospital [id number] Repository Date:3183-80-47KA [address], [place] [address]SY: 05/21/2018 Tertiary NOT GIVENUNK [employer] Insurance:SELF PAY [facility] Number: Effective Repository Date:2018-05-21 05/18/2018 NAZARIO A Primary NAZARIO A [place] [id number] Insurance:MEDICARE FAIRDOB: Community [facility] PART A BPolicy [id number] Number: Repository [address]Eto: [phone] [id number] () Date:2018-05-03 05/18/2018 Secondary NAZARIO A [place] Insurance:ANTHEMPolic FAIRDOB: Community y Number: [id number] Hospital [id number] Repository Date:8700-05-88FJ [address], [place] [address]QD: 05/18/2018 Tertiary NOT GIVENUNK [employer] Insurance:SELF PAY [facility] ([place], [place]) Number: Effective Repository Date:2018-05-03 03/26/2018 NAZARIO A Primary NAZARIO Miesha OnealGnosticism FAIRDOB: Insurance:1500 FAIRDOB: [facility] MEDICARE [id number] [facility] Number: 7 [facility] Repository [place] [address]Ork: Date:2018-03-26 [address]Lat: 7214-61-60Djtw () Name:CD:[id number] O ()Tel: [phone] GJU [phone], [phone] () [place] [address]SC: 03/26/2018 Secondary NAZARIO A [employer] Insurance:1500 FAIRDOB: [facility] Number: [id number] System Effective 7 [facility] Repository Date:2018-03-26 - [place] 4979-59-11Fngy [address]Alg: Name:CD:[id number] [address] [place] [address] [place] ()Tel: [phone]: [phone] 12/28/2017 NAZARIO A Primary NAZARIO [place] [id number] Insurance:MEDICARE FAIRDOB: Community [facility] PART A [address] Number: Repository [id number]: [phone] [id number] () Date:2017-08-31 12/28/2017 Secondary NAZARIO A [place] Insurance:ANTHEMPolic FAIRDOB: Community y Number: [id number] New Mexico Medical [id number] Repository Date:1802-19-80LO [address] [place] [address]XC: 12/28/2017 Tertiary NOT GIVENUNK [employer] Insurance:SELF PAY [facility] ([place], [place]) Number: Effective Repository Date:2017-08-31 12/24/2017 NAZARIO A Primary NAZARIO A [employer] [id number] Insurance:MEDICARE FAIRDOB: Community [facility] PART A [address] Number: Repository [address]Efx: [phone] [id number] () Date:2017-12-10 12/24/2017 Secondary NAZARIO A [place] Insurance:ANTHEMPolic FAIRDOB: Community y Number: [id number] [id number] Repository Date:1024-25-45FF [address] [place] [address]BC: 12/24/2017 Tertiary NOT GIVENUNK [place] Insurance:SELF PAY [facility] ([place], [place]) Number: Effective Repository Date:2017-12-24 12/24/2017 NAZARIO A Primary NAZARIO A [place] [id number] Insurance:MEDICARE FAIRDOB: Community [facility] PART A [address] Number: Repository [id number]: [phone] [id number] () Date:2017-09-17 12/24/2017 Secondary NAZARIO A [employer] Insurance:ANTHEMPolic FAIRDOB: Community y Number: [id number] [id number] Repository Date:6340-76-26WD [address], [place] [address]YB: 12/24/2017 Tertiary NOT GIVENUNK [employer] Insurance:SELF PAY [facility] ([place], [place]) Number: Effective Repository Date:2017-12-21 12/18/2017 NAZARIO A Primary NAZARIO A [employer] [id number] Insurance:MEDICARE FAIRDOB: Community [facility] PART A [facility] [id number] [place] [address] Number: Repository [id number]: [phone] [id number] (HP) Date:2017-09-17 12/18/2017 Secondary NAZARIO A [employer] Insurance:ANTHEMPolic FAIRDOB: Community y Number: [id number] Hospital [id number] Repository Date:0609-23-65OD [address], [place] [address]YN: 12/18/2017 Tertiary NOT GIVENUNK [employer] Insurance:SELF PAY [facility] ([place], [place]) Number: Effective Repository Date:2017-09-17 12/18/2017 NAZARIO A Primary NAZARIO A [employer] [id number] Insurance:MEDICARE FAIRDOB: Community [facility] PART A [address] Number: Repository [id number]: [phone] [id number] (HP) Date:2017-09-17 12/18/2017 Secondary NAZARIO A [employer] Insurance:ANTHEMPolic FAIRDOB: Community y Number: [id number] Hospital [id number] Repository Date:7245-99-16DM [address]UPFRMMO, [place] [address]OH: 12/18/2017 Tertiary NOT GIVENUNK [place] Insurance:SELF PAY [facility] ([place], [place]) Number: Effective Repository Date:2017-12-18 11/11/2017 NAZARIO A Primary NAZARIO A [employer] [id number] Insurance:MEDICARE FAIRDOB: Community [facility] PART A [place] [id number] Number: Repository [id number]: [phone] [id number] (HP) Date:2017-11-11 11/11/2017 Secondary NAZARIO A [place] Insurance:ANTHEMPolic FAIRDOB: Community y Number: [id number] Hospital [id number] Repository Date:6267-73-56OQ [address]VCYJKFA, [place] [address]IZ: 11/11/2017 Tertiary NOT GIVENUNK [employer] Insurance:SELF PAY [facility] Number: Effective Repository Date:2017-11-11 10/26/2017 NAZARIO A Primary NAZARIO Miesha [place] [id number] Insurance:MEDICARE FAIRDOB: Community [facility] PART A [facility] [id number] Number: Repository [id number]: [phone] [id number] [phone] () Date:2017-10-20 10/26/2017 Secondary NAZARIO A [place] Insurance:ANTHEMPolic FAIRDOB: Community y Number: [id number] Hospital [id number] Repository Date:8411-61-58SB [address]IOJYCFN, [place] [address]YP: 10/26/2017 Tertiary NOT GIVENUNK [place] Insurance:SELF PAY [facility] Number: Effective Repository Date:2017-10-20 10/23/2017 NAZARIO A Primary NAZARIO A [place] [id number] Insurance:MEDICARE FAIRDOB: Community [facility] PART A [address] Number: Repository [id number]: [phone] [id number] [phone] () Date:2017-10-20 10/23/2017 Secondary NAZARIO A [employer] Insurance:ANTHEMPolic FAIRDOB: Community y Number: [id number] Hospital [id number] Repository Date:3750-74-28QI [address]JZLRVGZ, [place] [address]JH: 10/23/2017 Tertiary NOT GIVENUNK [employer] Insurance:SELF PAY [facility] Number: Effective Repository Date:2017-10-20 09/17/2017 NAZARIO A Primary NAZARIO A [place] [id number] Insurance:MEDICARE FAIRDOB: Community [facility] PART A [facility] [id number] Number: Repository [address]Zty: [phone] [id number] [phone] (HP) Date:2017-09-17 09/17/2017 Secondary NAZARIO A [employer] Insurance:ANTHEMPolic FAIRDOB: Community y Number: [id number] Hospital [id number] Repository Date:5322-65-80FO [address] [place] [address]SU: 09/17/2017 Tertiary NOT GIVENUNK [place] Insurance:SELF PAY [facility] ([place], [place]) Number: Effective Repository Date:2017-09-17 09/17/2017 Nazario A Primary Nazario A [employer] [id number] Insurance:MEDICARE FairDOB: [facility] PART A [place] [id number] Number: Repository [id number]: [phone] [id number] [phone] (HP) Date:2017-09-17 09/17/2017 Secondary Nazario A [employer] Insurance:ANTHEMPolic FairDOB: Community y Number: [id number] Hospital [id number] Repository Date:4143-48-34LG [address]I [place] [address]ZY: 09/17/2017 Tertiary NOT GIVENUNK [place] Insurance:SELF PAY [facility] [place] Number: Effective Repository Date:2017-09-17 SOCIAL HISTORY SOCIAL HISTORY No Social History Records FoundFAMILY HISTORY FAMILY HISTORY No Family History Records FoundPREGNANCY No Status Records FoundADVANCE DIRECTIVES ADVANCE DIRECTIVES No Advanced Directives Records FoundINFORMATION SOURCE INFORMATION SOURCE DATE CREATED AUTHOR AUTHOR'S ORGANIZATION 08/31/2018 [facility]
== END ==
PROVIDERS: Family Provider Internal Medicine; PCP Internal Medicine; Visit Provider Nurse Practitioner Acute Care
DX: G47.33 Obstructive sleep apnea (adult) (pediatric) (principal)
CPT/HCPCS: 95811

== ENCOUNTER → 2018-12-17 11:42 | Outpatient (CLI) | payer MEDICARE, BC, SELFPAY ==
[2018-12-13 14:11] VITALS: BMI 31.0
--- NOTE | 2018-12-17 11:46 | EKG12_ITS ---
Test Reason : PREOP Blood Pressure : / mmHG Vent. Rate : 058 BPM Atrial Rate : 058 BPM P-R Int : 172 ms QRS Dur : 132 ms QT Int : 452 ms P-R-T Axes : 043 026 007 degrees QTc Int : 443 ms Sinus bradycardia Right bundle branch block Abnormal ECG Confirmed by BRANDON LUTZ, TALISHA ([id number]), technical writer and editor STEVE JORDAN ([id number]) on 12/20/2018 9:25:42 AM Referred By: Nilton Arenas Confirmed By:TALISHA TAYLOR MD
== END ==
PROVIDERS: Family Provider Internal Medicine; PCP Internal Medicine; Referring Provider Physician Assistant Surgical; Visit Provider Physician Assistant Surgical
DX: Z01.818 Encounter for other preprocedural examination (principal)
CPT/HCPCS: 93005

== ENCOUNTER → 2019-03-07 | Outpatient (CLI) | payer MEDICARE, BC, SELFPAY ==
[2018-12-13 14:11] VITALS: BMI 31.0
--- NOTE | 2019-03-07 16:10 | RAD_ITS ---
STUDY: X-RAY CHEST REASON FOR EXAM: Male, 74 years old. SOB TECHNIQUE: Frontal and lateral views of the chest. COMPARISON: 08/06/2015 FINDINGS: The lungs are clear and expanded. There is no demonstrated pleural abnormality. Normal size heart. Normal mediastinum and radha. Normal visualized pulmonary arteries. Normal visualized aortic arch and descending thoracic aorta. Normal visualized thoracic spine. Remote right rib trauma. There is no demonstrated abnormality of the visualized soft tissue structures of the upper abdomen. RAD/Chest PA and Lateral IMPRESSION: No acute pulmonary findings. Electronically Signed: Edil Simms MD at 16:58 EDT Tel , Service support ,
[2019-03-07 17:30] LABS: Absolute Lymphocyte Count 1.76 X10^3/ul (0.83-4.51); Absolute Neutrophil Count 6.7 X10^3/uL (2.0-7.7); Basophil# 0.02 X10^3/uL; Basophil% 0.2 % (0-1); Eosinophil# 0.25 X10^3/uL; Eosinophils% 2.6 % (0-5); Hematocrit 47.2 % (40-54); Lymphocyte # 1.76 X10^3/ul (4.0); Lymphocyte % 18.2 % (19-41); Mean Corp Hgb Conc 33.9 g/gl (32-36); Mean Corpuscular Hgb 32.2 pg (27.0-32.0); Mean Platelet Vol. 11.5 fl (6.2-12.0); Monocyte# 0.89 X10^3/uL; Monocyte% 9.2 % (0-10); Neutrophil # 6.69 X10^3/uL (2.7-7.7); Neutrophil % 69.1 % (47-70); Platelet Count 164 K/mm3 (150-450); RBC Distribution Width CV 13.4 % (11.6-14.6); RBC Distribution Width SD 46.4 fl (35.1-43.9); Red Blood Count 4.97 M/mm3 (4.6-6.2); White Blood Count 9.7 K/mm3 (4.4-11.0)
[2019-03-07 17:31] LABS: POSITIVE COUNT NO; POSITIVE DIFFERENTIAL NO; POSITIVE MORPHOLOGY NO
== END | disposition home or self-care (01) ==
LOC: MTLAB 16:08
PROVIDERS: Family Provider Internal Medicine; PCP Internal Medicine; Referring Provider Internal Medicine; Visit Provider Internal Medicine
DX: R06.02 Shortness of breath (principal); R07.89 Other chest pain
CPT/HCPCS: 36415; 71046; 84484; 85025

== ENCOUNTER 2019-04-10 21:24 | Emergency (ER) | payer MEDICARE, BC, SELFPAY ==
[2019-03-30 09:41] VITALS: BMI 31.0
[2019-04-10 21:24] VITALS: BP 113/67; PULSE 79; RESP 15; TEMP 37.7; O2SAT 94; BMI 29.2
--- NOTE | 2019-04-10 21:34 | EKG12_ITS ---
Test Reason : SOB Blood Pressure : / mmHG Vent. Rate : 076 BPM Atrial Rate : 076 BPM P-R Int : 154 ms QRS Dur : 128 ms QT Int : 420 ms P-R-T Axes : 020 015 -06 degrees QTc Int : 472 ms Normal sinus rhythm Right bundle branch block Abnormal ECG Confirmed by OSCAR LUTZ, THANH ([id number]), video editor STEVE JORDAN ([id number]) on 04/13/2019 10:42:54 AM Referred By: JACINTO Confirmed By:THANH MOORE MD
--- NOTE | 2019-04-10 21:34 | RAD_ITS ---
HISTORY:FEVER, SOB, COUGH FEVER, SOB, COUGH EXAM: XR Chest 2 Views: COMPARISON: March 07, 2019 FINDINGS: # of images incl. paperwork: 2 LINES/DEVICES: None. LUNGS: Radiographically clear. No consolidation, edema or effusion. No pneumothorax. MEDIASTINUM AND CARDIOVASCULAR STRUCTURES: Cardiac silhouette not enlarged. BONES AND SOFT TISSUES: Unremarkable. RAD/Chest PA and Lateral IMPRESSION: Stable chest at 2232 Reported and signed by: Ashley Whitt DO Electronically Signed: Ashley Whitt DO at 22:31 EDT Tel , Service support ,
[2019-04-10] MEDS: Ipratropium/Albuterol Sulfate 3 ML AMPUL.NEB INHALATION (21:44)
[2019-04-10 21:45] VITALS: PULSE 78; RESP 16
--- NOTE | 2019-04-10 21:55 | ED.VIS.GEN ---
History of Present Illness Chief Complaint: Shortness of Breath Informant: Patient Onset: Days Context: Gradual Onset Timing: Continuous Current Severity: Moderate Maximum Severity: Moderate Narrative: The patient presents to the emergency department with cough, shortness of breath, low oxygen saturation, and fever. The patient has a history of COPD. He is on 2 L of oxygen at home. Over the past 3 days, he has had increasing malaise and myalgias. He is had a nonproductive cough. He is also found that his oxygen saturations have been in the low 80s on his 2 L. Normally, he only has to use oxygen at night. Over the past 3 days, he is been on oxygen chronically. Yesterday and today, he had a fever of 102. He does admit to chills and sweats. He denies any chest pain. He denies any history of immunosuppression. The patient has been treated twice, most recently about 2 weeks ago, for bronchitis. He did a first round with antibiotics and prednisone. His second round was just steroids. Prior similar symptoms: No Recent Illness/Hospitalization: No Past Medical History - Allergies and Home Meds Allergies/Adverse Reactions: Allergies cefdinir Adverse Reaction (Intermediate, Verified 04/10/19 21:28) SOB codeine Adverse Reaction (Intermediate, Verified 04/10/19 21:28) SOB Primary Care Physician: Kellen Garcia DO [Primary Care Provider] - Prior records reviewed: Yes Past Medical History: - - COPD, coronary artery disease, others reviewed Surgical History: - - both knees replaced Smoking Status: Never smoker Alcohol: None Drugs: None - Family History Maternal Family History: Family History (Last Reviewed 03/30/19 @ 09:39 by Peggy Pennington) Father CVA (cerebral vascular accident) Mother Diabetes CVA (cerebral vascular accident) Family History: Reports: No pertinent history Paternal Family History: Family History (Last Reviewed 03/30/19 @ 09:39 by Peggy Pennington) Father CVA (cerebral vascular accident) Mother Diabetes CVA (cerebral vascular accident) Family History: Reports: No pertinent history Review of Systems General: Reports: Fever, Malaise Eyes: Denies: Visual changes - bilaterally, Diplopia ENT: Denies: Rhinorrhea, Sore throat Cardiovascular: Denies: Chest pain, Palpitations Respiratory: Reports: Dyspnea, Cough Gastrointestinal: Denies: Abdominal pain, Nausea, Vomiting, Diarrhea, Melena, Hematochezia Genitourinary: Denies: Dysuria, Hematuria, Frequency Musculoskeletal: Reports: Myalgias, Arthralgias Skin: Denies: Rash, Wounds Neurological: Denies: Headache, Weakness, Numbness Physical Exam Vital Signs/Narrative: Vital Signs Temp Pulse Resp BP Pulse Ox 04/10/19 21:45 78 16 04/10/19 21:24 99.9 F H 79 15 113/67 94 Inital Vital Signs reviewed: Yes General: Well nourished, Well developed, No Acute Distress Head: Normocephalic, Atraumatic Eyes: Perrl, EOMI ENT: Moist mucous membranes, No rhinorrhea Neck: Supple, Nontender Cardiovascular: Regular rate, Regular rhythm, No murmurs Respiratory: No distress, Chest nontender, Decreased Air Movement Abdomen: Soft, Nontender, Nondistended, Normal bowel sounds Back: Nontender, Normal Inspection Extremities: Nontender, No edema Skin: Normal color, No rash Neurological: Alert, Oriented x3, Cranial nerves II-XII grossly intact, Normal Strength, Normal Sensation Psychological: Normal affect, Normal Mood Diagnostic/Tx/Re-eval Chest X-Ray - ED: 2 View, Read by ED Physician, Normal, Heart, Mediastinum, Chronic Changes, No Infiltrates - Rhythm Strip Rhythm Strip: Sinus Rhythm Ectopy: None - EKG Initial EKG Interpretation: Sinus Rhythm, No Acute Injury Pattern, RBBB Prior: Unchanged - Medical Decision Making The patient presents with cough and shortness of breath. He did have some diminished lung sounds, but no focal change. IV was established. Metabolic work-up was pursued. Chest x-ray does not show any definitive infiltrative process. CBC and chemistry are unremarkable. Lactic was in the normal range at 2. With treatments and fluids, the patient was feeling improved. He was ambulated on his 2 L. The patient was given IV Levaquin and fluids. With ambulation his pulse ox stayed greater than 90%. He had no tachypnea. He was feeling improved. I did obtain a respiratory viral panel which will be pending. I do feel the most prudent thing would be to cover him for respiratory pathogens given his underlying history of COPD. The patient's work-up is relatively unremarkable and is feeling improved, I do feel it is safe for outpatient treatment. I did senior counsel commercial him however that if his symptoms are worsening in any way to return to the emergency department. He is comfortable with this plan of care. He will be kept on Levaquin and prednisone. He will be discharged home. Impression 1. COPD exacerbation 2. Acute febrile illness ED Disposition - Plan for ED Patient: Instructions: BRONCHITIS, Antiobiotic Treatment (Adult) Prescriptions: Prednisone [Deltasone] 40 mg PO DAILY #10 tab Prescription Printed levoFLOXacin tablet [Levaquin] 500 mg PO DAILY #7 tab Prescription Printed Referrals: Kellen Garcia DO [Primary Care Provider] -
[2019-04-10] MEDS: 0.9% Normal Saline 1,000 ML 150 ML IV (21:57)
[2019-04-10] MEDS: MethylPREDNISolone 125 MG/2 ML Vial IV (21:57)
[2019-04-10 22:26] VITALS: O2SAT 90
[2019-04-10 22:41] LABS: Absolute Lymphocyte Count 0.78 X10^3/uL (0.83-4.51); Absolute Neutrophil Count 3.4 X10^3/uL (2.0-7.7); Basophil# 0.03 X10^3/uL; Basophil% 0.7 % (0-1); Hematocrit 44.2 % (40-54); Hemoglobin 15.2 g/dL (13.0-16.5); Lymphocyte # 0.78 X10^3/ul (4.0); Mean Corp Hgb Conc 34.4 g/dL (32-36); Mean Corpuscular Hgb 32.4 pg (27.0-32.0); Mean Corpuscular Volume 94.2 fL (80-94); Mean Platelet Vol. 11.6 fl (6.2-12.0); Monocyte% 8.7 % (0-10); NRBC Flagged by Analyzer 0 % (0-5); Neutrophil # 3.35 X10^3/uL (2.7-7.7); Neutrophil % 72.9 % (47-70); Platelet Count 100 K/mm3 (150-450); RBC Distribution Width CV 13.2 % (11.6-14.6); RBC Distribution Width SD 45.1 fl (35.1-43.9); Red Blood Count 4.69 M/mm3 (4.6-6.2); White Blood Count 4.6 K/mm3 (4.4-11.0)
[2019-04-10 22:56] LABS: Anion Gap 11 (5-15); BUN 15 mg/dL (7-18); BUN/Creat Ratio 12.4 RATIO (10-20); Calcium,Total 8.7 mg/dL (8.5-10.1); Chloride 104 mmol/L (98-107); Creatinine, Serum 1.21 mg/dL (0.70-1.30); EST Glomerular Filtration Rate 62 mL/min (>60); Est Glom Filt Rate - Afr Amer 75 mL/min (>60); Glucose 98 mg/dL (74-106); Sodium Level 140 mmol/L (136-145)
[2019-04-10] MEDS: levoFLOXacin IV 500 MG/100 ML BAG 100 MG IV (23:16)
[2019-04-10 23:17] VITALS: O2SAT 92
[2019-04-10 23:24] VITALS: BP 110/70; PULSE 71; RESP 21; O2SAT 91
[2019-04-11 00:42] VITALS: PULSE 75; RESP 22; O2SAT 93
[2019-04-11 02:31] LABS: Reflex Lactate? Y
== END 2019-04-11 00:43 | disposition home or self-care (01) ==
LOC: ED 21:39
PROVIDERS: Emergency Provider Emergency Medicine; Family Provider Internal Medicine; PCP Internal Medicine
DX: J44.1 Chronic obstructive pulmonary disease with (acute) exacerbation (principal); R50.9 Fever, unspecified; Z99.81 Dependence on supplemental oxygen; Z79.51 Long term (current) use of inhaled steroids
CPT/HCPCS: 71046; 80048; 83605; 85025; 87040; 87633; 93005; 94640; 96361; 96365; 96366; 96375; 99284; J7030; A4216

== ENCOUNTER 2019-04-23 20:18 | Emergency (ER) | payer MEDICARE, BC, SELFPAY ==
[2019-04-23 20:19] VITALS: BP 130/78; PULSE 65; RESP 16; TEMP 36.8; O2SAT 94; BMI 30.5
--- NOTE | 2019-04-23 21:08 | RAD_ITS ---
HISTORY:FALL OUT OF CHAIR, LROM AND PAIN FALL OUT OF CHAIR, LROM AND PAIN COMPARISON: None FINDINGS: # of images incl. paperwork: 3 XR Elbow Min 3 Views: Left BONE AND JOINTS: No acute fracture or subluxation. SOFT TISSUES: Soft tissue swelling dorsal to the olecranon No radiopaque foreign body. RAD/Elbow min 3 Views IMPRESSION: Soft tissue swelling dorsal to the olecranon If symptoms persist repeat study in 7-10 days or sooner if clinically indicated at 2132 Reported and signed by: Ashley Whitt DO Electronically Signed: Ashley Whitt DO at 21:30 EDT Tel , Service support ,
--- NOTE | 2019-04-23 21:08 | RAD_ITS ---
HISTORY:FALL OUT OF CHAIR, LROM AND PAIN FALL OUT OF CHAIR, LROM AND PAIN COMPARISON: None FINDINGS: # of images incl. paperwork: 2 XR Shoulder Min 2 Views: Left BONE AND JOINTS: No acute fracture or subluxation. Healed fracture through the distal left clavicle SOFT TISSUES: Unremarkable. No radiopaque foreign body. RAD/Shoulder min 2 Views IMPRESSION: No acute pathology If symptoms persist repeat study in 7-10 days or sooner if clinically indicated at 2132 Reported and signed by: Ashley hWitt DO Electronically Signed: Ashley Whitt DO at 21:31 EDT Tel , Service support ,
--- NOTE | 2019-04-23 22:30 | ED.VISSUMM ---
- ER Visit Summary Date of Service: 04/23/19 Chief Complaint: Left elbow and shoulder pain History of Present Illness: The patient is a 74 M who presents with left elbow and shoulder pain that began after a fall today. Patient states he was trying to get out of a lawn chair when it fell over. Patient landed on his left shoulder and left elbow. Patient states his pain is worse with movement. Patient denies any head injury or loss of consciousness. Patient denies any paresthesias or weakness. Patient states his pain is constant and aching. Patient denies any other injuries. Physical Examination: Vital signs are stable. Patient is afebrile. Patient is in no acute distress. Musculoskeletal exam reveals tenderness over the left shoulder and left elbow. There is some mild edema over the olecranon process of the left elbow. There is no deformity noted. There is a superficial skin tear on the posterior aspect of the left elbow. There is no active bleeding noted. Range of motion of the left elbow and left shoulder were limited in all motion secondary to pain. There is no deformity noted. Radial pulses are equal bilaterally. Sensation was intact to light touch in the radial, median, and ulnar areas. Test Results: X-rays of the left shoulder and left elbow were obtained. There is no acute fracture. These were interpreted by the radiologist and myself. Emergency Department Course and Treatment: Patient was instructed to use ice to the left elbow and left shoulder. Patient was instructed to take Tylenol or ibuprofen as needed for pain. Patient was instructed to follow-up with his primary care physician in 5 to 7 days. Patient understood and was agreeable with the plan. All questions were answered. Disposition: Discharge home Impression: 1. Left elbow contusion 2. Left shoulder contusion This note was generated with Kindlingation software. It may contain incorrect words, spelling, and punctuation that were not noted in review of the chart prior to signing ED Disposition - Plan for ED Patient: Disposition: Home or Assisted Living Diagnosis: Left elbow contusion, Contusion of left shoulder, initial encounter Instructions: CONTUSION, Upper Extremity Referrals: Jose,Kellen, DO [Primary Care Provider] - 5-7 Days
[2019-04-23 22:40] VITALS: BP 118/72; PULSE 64; O2SAT 100
[2019-04-23 22:41] VITALS: BP 118/72; PULSE 64; O2SAT 100
== END 2019-04-23 22:42 | disposition home or self-care (01) ==
PROVIDERS: Emergency Provider Emergency Medicine; Family Provider Internal Medicine; PCP Internal Medicine
DX: S40.012A Contusion of left shoulder, initial encounter (principal); S50.02XA Contusion of left elbow, initial encounter; S51.012A Laceration without foreign body of left elbow, initial encounter; W07.XXXA Fall from chair, initial encounter; Y93.9 Activity, unspecified; Y92.9 Unspecified place or not applicable; I25.2 Old myocardial infarction; J44.9 Chronic obstructive pulmonary disease, unspecified; G47.30 Sleep apnea, unspecified; G31.09 Other frontotemporal neurocognitive disorder; F02.80 Dementia in other diseases classified elsewhere, unspecified severity, without behavioral disturbance, psychotic disturbance, mood disturbance, and anxiety; Z85.46 Personal history of malignant neoplasm of prostate; Z85.820 Personal history of malignant melanoma of skin; Z79.82 Long term (current) use of aspirin; Z79.02 Long term (current) use of antithrombotics/antiplatelets; Z79.899 Other long term (current) drug therapy
CPT/HCPCS: 73030; 73080; 99282

== ENCOUNTER → 2019-06-20 | Outpatient (CLI) | payer MEDICARE, BC, SELFPAY ==
--- NOTE | 2019-06-20 12:23 | RAD_ITS ---
STUDY: X-RAY - LEFT SHOULDER REASON FOR EXAM: Male, 74 years old. Injury one month ago TECHNIQUE: 4 view(s) of the shoulder. COMPARISON: Prior study of 04/23/2019 FINDINGS: Normal glenohumeral articulation. Normal acromioclavicular joint. Normal acromion. There is an old healed fracture of the distal left clavicular shaft. Normal humeral head and visualized proximal humerus. The soft tissue structures are unremarkable. Normal visualized pulmonary apex. RAD/Shoulder min 2 Views IMPRESSION: There is no evidence of fracture, dislocation, or significant degenerative disease in the osseous structures of the left shoulder joint. There is an old healed fracture of the distal left clavicular shaft. Findings appear similar to the previous study. Electronically Signed: Ed Maynard MD at 23:46 EDT , Service support ,
--- NOTE | 2019-06-20 12:25 | RAD_ITS ---
STUDY: X-RAY - CERVICAL SPINE REASON FOR EXAM: Male, 74 years old. Injury one month ago, neck and shoulder pain TECHNIQUE: 5 view(s) of the cervical spine were obtained. COMPARISON: None FINDINGS: Normal anterior atlantoaxial articulation. Normal odontoid process. There is reversal of the normal cervical lordosis. There is generalized osteopenia. There is diffuse endplate spondylosis. There is multi-level degenerative disc disease with multilevel disc space narrowing. There is multi-level osseous foraminal stenosis. The soft tissue structures are unremarkable. RAD/Cerv Spine 4 or 5 Views IMPRESSION: Degenerative changes as detailed above. Electronically Signed: Ed Maynard MD at 23:44 EDT , Service support ,
== END | disposition home or self-care (01) ==
LOC: HPRAD 12:22
PROVIDERS: Family Provider Internal Medicine; PCP Internal Medicine; Referring Provider Internal Medicine; Visit Provider Internal Medicine
DX: M25.512 Pain in left shoulder (principal)
CPT/HCPCS: 72050; 73030

== ENCOUNTER → 2020-06-04 | Outpatient (CLI) | payer MEDICARE, OTHER, SELFPAY ==
[2020-04-11 09:30] VITALS: BMI 30.5
[2020-06-04] MEDS: Zolpidem Tartrate 5 MG Tablet PO (21:45)
== END | disposition home or self-care (01) ==
LOC: SL 22:09
PROVIDERS: PCP Internal Medicine; Visit Provider Internal Medicine Critical Care Medicine
DX: G47.33 Obstructive sleep apnea (adult) (pediatric) (principal)
CPT/HCPCS: 95811

== ENCOUNTER 2021-09-17 10:03 | Outpatient (CLI) | payer MEDICARE, OTHER, SELFPAY ==
[2021-09-17 10:15] VITALS: BP 153/82; PULSE 63; RESP 20; TEMP 37; O2SAT 94; BMI 27.8
[2021-09-17] MEDS: 0.9% Saline Lock 10 ML Syringe IV (10:52)
[2021-09-17 11:35] VITALS: BP 112/65; PULSE 55; RESP 16; TEMP 37.1; O2SAT 94
[2021-09-17 12:33] VITALS: BP 121/72; PULSE 54; RESP 16; TEMP 37; O2SAT 92
== END 2021-09-17 23:59 | disposition home or self-care (01) ==
LOC: MS3OUT 10:03 → MS3 10:04
PROVIDERS: PCP Internal Medicine; Referring Provider Nurse Practitioner Adult Health; Visit Provider Nurse Practitioner Adult Health
DX: Z23 Encounter for immunization (principal); U07.1 COVID-19
CPT/HCPCS: J7050; M0243; A4216; Q0240

== ENCOUNTER 2021-10-04 16:33 | Outpatient (CLI) | payer MEDICARE, OTHER, SELFPAY ==
--- NOTE | 2021-10-04 16:36 | RAD_ITS ---
STUDY: X-RAY CHEST REASON FOR EXAM: Male, 76 years old. COUGH TECHNIQUE: PA and lateral views of the chest. COMPARISON: 04/10/2019 FINDINGS: There is hyperinflation of the lungs consistent with chronic obstructive lung disease (COPD). There is no demonstrated pleural abnormality. Normal size heart. Normal mediastinum and radha. Normal visualized pulmonary arteries. Normal visualized aortic arch and descending thoracic aorta. Normal visualized thoracic spine. Normal visualized ribs, clavicles, and shoulders. There is no demonstrated abnormality of the visualized soft tissue structures of the upper abdomen. RAD/Chest PA and Lateral IMPRESSION: Emphysema without pneumonia or atelectasis. Electronically Signed: Michael Loya MD at 16:48 EST Tel , Service support ,
== END 2021-10-04 23:59 | disposition short-term general hospital (02) ==
PROVIDERS: PCP Internal Medicine; Referring Provider Internal Medicine; Visit Provider Internal Medicine
DX: R05.9 Cough, unspecified (principal)
CPT/HCPCS: 71046

== ENCOUNTER → 2022-08-11 | Outpatient (CLI) | payer MEDICARE, OTHER, SELFPAY ==
[2022-08-11 14:01] LABS: Absolute Lymphocyte Count 1.53 X10^3/uL (0.83-4.51); Absolute Neutrophil Count 4.9 X10^3/uL (2.0-7.7); Basophil# 0.06 X10^3/uL; Basophil% 0.8 % (0-1); Eosinophil# 0.17 X10^3/uL; Eosinophils% 2.3 % (0-5); Hematocrit 50.3 % (40-54); Lymphocyte # 1.53 X10^3/ul (0.83-4.51); Lymphocyte % 20.5 % (19-41); Mean Corp Hgb Conc 33.8 g/dL (32-36); Mean Corpuscular Hgb 32.7 pg (27.0-32.0); Mean Corpuscular Volume 96.7 fL (80-94); Mean Platelet Vol. 11.2 fl (6.2-12.0); Monocyte# 0.71 X10^3/uL; Monocyte% 9.5 % (0-10); NRBC Flagged by Analyzer 0 % (0-5); Neutrophil # 4.94 X10^3/uL (2.7-7.7); Neutrophil % 66.4 % (47-70); Platelet Count 178 K/mm3 (150-450); RBC Distribution Width SD 46.5 fl (35.1-43.9); White Blood Count 7.5 K/mm3 (4.4-11.0)
[2022-08-11 14:15] LABS: Microalbumin,Random Urine 31.3 mg/L (NO RANGE EST.); Microalbumin:Creatinine Ratio 15.3 mg/g CRE (<30 mg/g CRE)
[2022-08-11 14:22] LABS: Vitamin D,25 Hydroxy 91.7 ng/mL
[2022-08-11 14:30] LABS: ALB/GLOB Ratio 1.1 RATIO (0.9-2.4); AST(SGOT) 20 U/L (15-37); Alanine Aminotransfer ALT/SGPT 17 U/L (16-61); Albumin, Serum 3.7 g/dL (3.2-5.0); Alkaline Phosphatase 100 U/L (45-117); Anion Gap 4 (5-15); BUN 16 mg/dL (7-18); BUN/Creat Ratio 14.3 RATIO (10-20); Calcium,Total 9.2 mg/dL (8.5-10.1); Chloride 106 mmol/L (98-107); Cholesterol 150 mg/dL (200); Creatinine, Serum 1.12 mg/dL (0.70-1.30); EST Glomerular Filtration Rate 67 mL/min (>60); Est Glom Filt Rate - Afr Amer 81 mL/min (>60); Globulin 3.5 g/dL (2.2-4.2); Glucose 104 mg/dL (74-106); High Density Lipoprotein 58 mg/dL; PSA,Total - Annual Screen < 0.01 ng/mL (0.00-4.00); Potassium 4.5 mmol/L (3.5-5.1); Protein, Total 7.2 g/dL (6.4-8.2); Sodium Level 140 mmol/L (136-145); Thyroid Stim Hormone (TSH) 3.53 uIU/mL (0.358-3.74); Triglycerides 89 mg/dL; Very Low Density Lipoprotein 18 mg/dL (5-40)
== END | disposition home or self-care (01) ==
PROVIDERS: PCP Internal Medicine; Referring Provider Internal Medicine; Visit Provider Internal Medicine
DX: E03.9 Hypothyroidism, unspecified (principal); E78.2 Mixed hyperlipidemia; R73.09 Other abnormal glucose; E55.9 Vitamin D deficiency, unspecified; Z12.5 Encounter for screening for malignant neoplasm of prostate
CPT/HCPCS: 36415; 80053; 80061; 82043; 82306; 82570; 84153; 84443; 85025; G0103

== ENCOUNTER → 2023-01-13 | Outpatient (CLI) | payer MEDICARE, SELFPAY | END | disposition home or self-care (01) | LOC: LABSPEC 12:38 | PROVIDERS: PCP Internal Medicine; Referring Provider Dermatology; Visit Provider Dermatology | DX: T81.40XA Infection following a procedure, unspecified, initial encounter (principal) | CPT/HCPCS: 87070; 87077; 87186; 87205 ==

== ENCOUNTER → 2023-08-12 | Outpatient (CLI) | payer MEDICARE, SELFPAY ==
[2023-08-12 11:15] LABS: Potassium 5.3 mmol/L (3.5-5.1)
== END | disposition home or self-care (01) ==
LOC: LABSPEC 10:57
PROVIDERS: PCP Internal Medicine; Visit Provider Internal Medicine
DX: E87.5 Hyperkalemia (principal)
CPT/HCPCS: 84132

== ENCOUNTER → 2023-10-07 | Outpatient (CLI) | payer MEDICARE, SELFPAY ==
[2023-10-07 17:57] LABS: CRP 3.48 mg/L (0.0-3.0)
[2023-10-09 16:10] LABS: Endomysial Antibody IgA Negative (Negative); Immunoglobulin A 367 mg/dL (61-437); t-Transglutaminase IgA <2 U/mL (0-3)
== END | disposition home or self-care (01) ==
PROVIDERS: PCP Internal Medicine; Referring Provider Internal Medicine Gastroenterology; Visit Provider Internal Medicine Gastroenterology
DX: R19.7 Diarrhea, unspecified (principal)
CPT/HCPCS: 36415; 82784; 83516; 86140; 86255

== ENCOUNTER → 2023-10-15 | Outpatient (CLI) | payer MEDICARE, SELFPAY ==
--- NOTE | 2023-10-15 10:10 | RAD_ITS ---
STUDY: X-RAY - ESOPHAGUS (BARIUM SWALLOW) WITH FLUOROSCOPY REASON FOR EXAM: Male, 78 years old. DYSPHAGIA TECHNIQUE: 21 view(s) of the esophagus were obtained following swallowing of barium. FLUOROSCOPY TIME (if supplied): (23) minutes/seconds. 10.78 mGy. COMPARISON: None. FINDINGS: There is dilatation of the esophagus with narrowing of its distal portion at the GE junction suggestive of achalasia. The patient ingested a 12 mm tablet of barium. A tablet is trapped at the GE junction. There is atherosclerotic calcification of the aortic arch with tortuosity of the descending aorta. Normal visualized pulmonary parenchyma. Normal visualized osseous structures of the thorax. RAD/Esophagus Dual Contrast IMPRESSION: Dilatation of the esophagus with evidence of a narrowing of its distal portion suggestive of achalasia. Endoscopic correlation recommended. Electronically Signed: Valdo Dwyer MD at 14:05 EST ,
== END | disposition home or self-care (01) ==
LOC: RAD 10:04
PROVIDERS: PCP Internal Medicine; Referring Provider Internal Medicine Gastroenterology; Visit Provider Internal Medicine Gastroenterology
DX: R13.10 Dysphagia, unspecified (principal)
CPT/HCPCS: 74221

== ENCOUNTER → 2024-02-16 | Outpatient (CLI) | payer MEDICARE, SELFPAY ==
[2024-02-16 11:58] VITALS: PULSE 64; PULSE 72; PULSE 81; PULSE 87; PULSE 89; PULSE 90; PULSE 91; O2SAT 87; O2SAT 88; O2SAT 89; O2SAT 90; O2SAT 91
--- NOTE | 2024-02-16 12:02 | CPS ---
PATIENT WALK TEST STARTED WITH PATIENT ON ROOM AIR. HIS SPO2 FELL TO 87% AT 2 MIN OF TESTING THEREFORE OXYGEN VIA NC APPLIED AT 1LPM AND WALK CONTINUED. AT 5 MIN, SPO2 WAS 88% THEREFORE OXYGEN INCREASED TO 2LPM. HE REMAINED ON 2LPM FOR DURATION OF TESTING. 1 REST TAKEN TO APPLY INITIAL OXYGEN. PATIENT DID EXPERIENCE INCREASED WOB BUT DECLINED NEED FOR REST BREAKS DUE TO THIS. OXYGEN PRESCRIPTION TO BE SUBMITTED TO [facility] PER PT REQUEST.
--- NOTE | 2024-02-18 10:17 | PCM.PSN.6M ---
PSN 6 Minute Walk Test 6 Minute Walk Test 6 Minute Walk Test: 6 Minute Walk Test PSN:6-Minute Walk Test Start: 02/16/24 11:56 Freq: Status: Active Protocol: [id number].6MINW Document 02/16/24 11:58 [facility] (Rec: 02/16/24 12:10 [facility] [id number]) 6 Minute Walk Test Date Performed 02/16/24 Time Performed 11:15 Height 6 ft Weight: 195 lb Weight in Pounds 195.[address]: Rc Ascencio Assistive device used: None Pre-test Oxygen Delivery Method Room Air Pulse Ox (%) 89 Pulse Rate (60-100 beats/min) 64 Dyspnea Joseph Scale (0-10) 2 1st minute Oxygen Delivery Method Room Air Pulse Ox (%) 90 Pulse Rate (60-100 beats/min) 72 Dyspnea Joseph Scale (0-10) 3 Number of Rests Taken 0 Reported Symptoms Increased Work of Breathing 2nd minute Oxygen Delivery Method Room Air Pulse Ox (%) 87 Pulse Rate (60-100 beats/min) 81 Dyspnea Joseph Scale (0-10) 4 Number of Rests Taken 1 Reported Symptoms Increased Work of Breathing 3rd minute Oxygen Flow Rate (L/min) (L/min) 1 Oxygen Delivery Method Nasal Cannula Pulse Ox (%) 91 Pulse Rate (60-100 beats/min) 87 Dyspnea Joseph Scale (0-10) 3 Number of Rests Taken 0 Reported Symptoms Increased Work of Breathing 4th minute Oxygen Flow Rate (L/min) (L/min) 1 Oxygen Delivery Method Nasal Cannula Pulse Ox (%) 90 Pulse Rate (60-100 beats/min) 90 Dyspnea Joseph Scale (0-10) 3 Number of Rests Taken 0 5th minute Oxygen Flow Rate (L/min) (L/min) 1 Oxygen Delivery Method Nasal Cannula Pulse Ox (%) 88 Pulse Rate (60-100 beats/min) 91 Dyspnea Joseph Scale (0-10) 4 Number of Rests Taken 0 Reported Symptoms Increased Work of Breathing 6th minute Oxygen Flow Rate (L/min) (L/min) 2 Oxygen Delivery Method Nasal Cannula Pulse Ox (%) 90 Pulse Rate (60-100 beats/min) 89 Dyspnea Joseph Scale (0-10) 4 Number of Rests Taken 0 Reported Symptoms Increased Work of Breathing Post-test Oxygen Delivery Method Room Air Pulse Ox (%) 91 Pulse Rate (60-100 beats/min) 72 Dyspnea Joseph Scale (0-10) 2 Full Laps Walked 17 Partial Lap, Number of Tiles Walked 17 Total Distance Walked (ft) 1020 02/16/24 12:02 Cardiopulmonary Services by Elizabeth Nowak PATIENT WALK TEST STARTED WITH PATIENT ON ROOM AIR. HIS SPO2 FELL TO 87% AT 2 MIN OF TESTING THEREFORE OXYGEN VIA NC APPLIED AT 1LPM AND WALK CONTINUED. AT 5 MIN, SPO2 WAS 88% THEREFORE OXYGEN INCREASED TO 2LPM. HE REMAINED ON 2LPM FOR DURATION OF TESTING. 1 REST TAKEN TO APPLY INITIAL OXYGEN. PATIENT DID EXPERIENCE INCREASED WOB BUT DECLINED NEED FOR REST BREAKS DUE TO THIS. OXYGEN PRESCRIPTION TO BE SUBMITTED TO [facility] PER PT REQUEST. Initialized on 02/16/24 12:02 - END OF NOTE Interpretation Interpretation: The patient ambulated 1020 feet over the course of 6 minutes beginning on room air without assistive devices. Pretesting oxygen saturation was noted to be 89% on room air. With ambulation, the patient desaturated on several occasions requiring 2 L/min of supplemental oxygen to maintain appropriate saturations. Recommendations Recommendations: 2 L/min of supplemental oxygen should be less with exertion.
== END | disposition home or self-care (01) ==
LOC: SL 11:37
PROVIDERS: PCP Internal Medicine; Referring Provider Nurse Practitioner Acute Care; Visit Provider Nurse Practitioner Acute Care
DX: J45.40 Moderate persistent asthma, uncomplicated (principal)
CPT/HCPCS: 94618

== ENCOUNTER 2024-05-24 11:27 | Day surgery (SDC) | payer MEDICARE, SELFPAY ==
[2024-05-24] VITALS (8 sets, daily range): BP systolic 116–135; BP diastolic 74–79; PULSE 63–72; RESP 16–18; TEMP 36.2–36.9; O2SAT 91–95; BMI 30.3
[2024-05-24] MEDS: Lactated Ringers 1,000 ML 15 ML IV (12:03)
--- NOTE | 2024-05-24 12:31 | PRE.ANES_ITS ---
ASA Classification* ASA Classification ASA Classification: 3 Assessment & Plan Anesthesia* Anesthesia Assessment Anesthesia Assessment: Discussed sedation and/or anesthesia options, risks, benefits, and alternatives with patient/parents/legal guardian/POA. Questions invited. The patient/parents/legal guardian/POA seems to understand and agrees to proceed with anesthesia plan. Reviewed the physical assessment, medical history, allergy history and patient home medications list prior to surgery/procedure/anesthetic and documented any changes. Performed airway and anesthesia risk assessments. Anesthesia Type Anesthesia Type: MAC History Source History Obtained from:: Patient and Chart Anesthesia Focused Assessment* Temperature: 97.9 F Pulse Rate: 63 Blood Pressure: 135/79 Respiratory Rate: 16 Pulse Ox: 95 Oxygen Delivery Method: Room Air Airway Assessment Mouth opens: >3 cm Mallampati Score: II Teeth Condition: Full (Patient has a full upper plate.) and Partial (Patient has a partial lower plate.) Neck Range of motion (ROM): Limited ROM (decreased extension) Focused Labs Anesthesia Preop lab: CBC WBC 7.5 K/mm3 (4.4-11.0) 08/11/22 13:12 RBC 5.20 M/mm3 (4.6-6.2) 08/11/22 13:12 Hgb 17.0 g/dL (13.0-16.5) H 08/11/22 13:12 Hct 50.3 % (40-54) 08/11/22 13:12 Plt Count 178 K/mm3 (150-450) 08/11/22 13:12 CHEMISTRY Potassium 5.3 mmol/L (3.5-5.1) H 08/12/23 09:55 Sodium 140 mmol/L (136-145) 08/11/22 13:12 BUN 16 mg/dL (7-18) 08/11/22 13:12 Creatinine 1.12 mg/dL (0.70-1.30) 08/11/22 13:12 Glucose 104 mg/dL (74-106) 08/11/22 13:12 TSH 3.53 uIU/mL (0.358-3.74) 08/11/22 13:12 COAG PT 13.6 SECONDS (11.7-14.9) 04/13/15 09:05 Pre-Assessment Diagnosis/Proposed Procedure Planned Operative Procedure(s): EGD with Botox injection Anesthesia History Anesthesia History - fitting room attendant: Anesthesia History - fitting room attendant Hx Hospitalization No 05/20/24 11:15 Any Problems With Anesthesia No 05/20/24 11:15 Cholinesterase deficiency No 05/20/24 11:15 You/Your Family Experience No 05/20/24 11:15 fever (hyperthermia) with Relationship Recent Exposure to Contagious No 05/24/24 12:03 Disease Does patient have nerve No 05/20/24 11:15 stimulator Patient instructed to have device shut off --Does patient have Pacemaker No 05/24/24 12:03 or ICD? When Was Last Pacemaker Check QUESTION #4 FULL TEXT: You/Your Family Experience fever (hyperthermia) with Anesthesia Last Oral Intake Last Oral intake: Last Oral Intake NPO since 21:00 05/24/24 12:03 Meds taken in AM with sips of No 05/24/24 12:03 water? 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 - fitting room attendant: PONV - fitting room attendant Female No 05/20/24 11:15 HX of Motion Sickness No 05/20/24 11:15 HX of N/V After Surgery No 05/20/24 11:15 Non-Smoker Yes 05/20/24 11:15 Duration of Surgery greater No 05/20/24 11:15 than 60 minutes Number of Risk Factors 1 05/20/24 11:15 PONV Score Low Risk 05/20/24 11:15 Height & Weight Height & Weight: Anesthesia: Height & Weight Height 5 ft 10 in 05/24/24 12:03 Weight: 96 kg 05/24/24 12:03 Body Mass Index (BMI) 30.3 05/24/24 12:03 Respiratory Assessment Respiratory Assessment - fitting room attendant: Respiratory Tract Infection Hx - fitting room attendant Hx Respiratory Tract Infection No 05/20/24 11:15 STOP Sleep Apnea STOP Sleep Apnea - fitting room attendant: STOP Sleep Apnea - fitting room attendant Hx Hypertension Yes 05/20/24 11:15 Hx Sleep Apnea Yes 05/20/24 11:15 CPAP No 05/20/24 11:15 BIPAP Yes 05/20/24 11:15 Do you snore loudly (louder than talking or can be heard Do you often feel tired/ fatigued/ sleepy during daytime? Has anyone observed you stop breathing during sleep? STOP Results Positive 05/20/24 11:15 QUESTION #5 FULL TEXT : Do you snore loudly (louder than talking or can be heard through closed doors)? Tobacco Use History Tobacco Use History - fitting room attendant: Tobacco Use History - fitting room attendant Tobacco Use Smoking Status Former smoker 05/20/24 11:15 Hx Tobacco Use No 05/20/24 11:15 Years Smoking Packs Smoked per Day Smoking Cessation Date was No - quit smoking greater 05/20/24 11:15 within the last 15 years than 15 years ago Hx Smoking Cessation Date Hx Smoking Cessation No: less than a year, when 05/20/24 11:15 Counseling young Hematologic Medial History Hematologic Hx - fitting room attendant: Hematologic Medical Hx - watershed tender Hx of Blood Transfusion No 05/20/24 11:15 Hx of Transfusion in last 3 No 05/20/24 11:15 Months Date of Last Transfusion (if within last 3 months) Ever experience any problems No 05/20/24 11:15 with transfusion(s)? Specify any problems Hx of Preganancy in last 3 N/A 05/20/24 11:15 Months Nurse Filling Out Transfusion [id number] 05/20/24 11:15 & Questions: Date: 05/20/24 05/20/24 11:15 Time: 11:22 05/20/24 11:15 Patient unable to answer at this time (ie. 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 History - fitting room attendant: /Reproductive Hx- fitting room attendant Hx Now Gestational Age (in weeks): EDC: Hx Hx Para Hx Section SAB Active Medications Active Medications: Current Medications Generic Name Dose Route Start Last Admin Trade Name Freq PRN Reason Stop Dose Admin Lactated Ringer's 1,000 mls @ 15 mls/hr 05/24/24 11:45 05/24/24 12:03 IV 15 mls/hr .Q48H CARLOS EDUAROD Administration PFSH Medical History Wears dentures Thyroid disease BiPAP (biphasic positive airway pressure) dependence History of echocardiogram Cardiology follow-up encounter Dementia History of sinus balloonplasty Essential hypertension History of esophageal dilatation History of esophageal dilatation Lung nodules GERD (gastroesophageal reflux disease) Depression COPD (chronic obstructive pulmonary disease) STACI (obstructive sleep apnea) Atherosclerotic heart disease of [place] coronary artery without angina pectoris Pulmonary hypertension, secondary Nonrheumatic mitral (valve) prolapse Body mass index (BMI) of 33.0-33.9 in adult Mitral valve prolapse Bronchiectasis HLD (hyperlipidemia) COPD (chronic obstructive pulmonary disease) CAD (coronary artery disease) Home Medications ?Medication ?Instructions ?Recorded ?Last Taken ?Type Oxygen, Home [Home Oxygen] 2 lpm QHS 04/17/15 Unknown History acebutolol 200 mg capsule 200 mg PO DAILY 04/17/15 05/23/24 History aspirin 81 mg chewable tablet 81 mg PO DAILY@0800 04/17/15 05/19/24 History clopidogrel 75 mg tablet 75 mg PO DAILY 04/17/15 05/18/24 History coenzyme Q10 100 mg capsule 100 mg PO DAILY 04/17/15 08/05/15 History cyanocobalamin (vitamin B-12) 500 500 mcg PO DAILY 04/17/15 08/05/15 History mcg tablet mirtazapine 30 mg tablet 30 mg PO DAILY 04/17/15 08/05/15 History pantoprazole 40 mg tablet,delayed 40 mg PO BID 04/17/15 08/05/15 History release amlodipine 2.5 mg tablet 2.5 mg PO DAILY 08/06/15 08/05/15 History cholecalciferol (vitamin D3) 125 5,000 unit PO QDAY 11/11/17 Unknown History mcg (5,000 unit) capsule bupropion HCl 300 mg 24 hr tablet, 300 mg PO DAILY 12/24/17 Unknown History extended release latanoprost 0.005 % eye drops 1 drp ophthalmic (eye) DAILY 06/05/21 Unknown History levocetirizine 5 mg tablet 5 mg PO DAILY 06/05/21 Unknown History levothyroxine 75 mcg tablet 75 mcg PO DAILY 06/05/21 Unknown History buspirone 15 mg tablet 15 mg PO BID 02/17/22 Unknown History fluticasone 113 mcg-salmeterol 14 1 inh inhalation BID #3 device 03/06/23 Unknown Rx mcg/actuation breath activated powdr (AirDuo RespiClick) atorvastatin 40 mg tablet 20 mg PO QHS 09/23/23 Unknown History methylphenidate HCl 5 mg tablet 5 mg PO DAILY 09/23/23 Unknown History (Ritalin) rivastigmine 4.6 mg/24 hour 1 patch transdermal DAILY 09/23/23 Unknown History transdermal patch desvenlafaxine succinate 50 mg 50 mg PO DAILY 05/20/24 Unknown History tablet,extended release 24 hr memantine 10 mg tablet 10 mg PO BID 05/20/24 Unknown History albuterol sulfate 90 mcg/actuation 2 puff inhalation Q4H PRN 05/24/24 Unknown Rx aerosol inhaler (Ventolin HFA) shortness of breath or wheezing #18 grams Allergy/AdvReac Type Severity Reaction Status Date / Time cefdinir AdvReac Intermediate SOB Verified 05/24/24 11:59 codeine AdvReac Intermediate SOB Verified 05/24/24 11:59 Family History Father CVA (cerebral vascular accident) Mother Diabetes CVA (cerebral vascular accident) Surgical History History of cataract surgery (~11/2018) History of penile implant History of tonsillectomy History of radical prostatectomy History of bilateral knee replacement History of cataract surgery history of sinus ballonplasty History of penile implant History of tonsillectomy H/O radical prostatectomy History of bilateral knee replacement Social History Smoking Status: Former smoker second hand exposure: No alcohol intake: never substance use type: does not use caffeine: No what type of physical activity do you participate in: none Review of Systems (Anesthesia) ROS Narrative System reviewed and no additional complaints, except as documented.
--- NOTE | 2024-05-24 12:46 | HP.PCM_ITS ---
History and Physical Date of Admission: 05/24/24 Chief Complaint: Dysphagia Details: NAZARIO MARIE, is a 79 M who presents to the office today for establishment with [facility]. He has had worsening dysphagia to solid foods over the past couple of months. He does not have trouble with liquids. He will have nausea and vomiting when the food gets stuck. He was seeing Dr. Ward but decided to switch care to [facility]. He is also having diarrhea alternating with constipation. He takes Imodium for diarrhea and Metamucil for constipation. He is currently having more constipation with large and hard stools. EGD .06.07; Tertiary contractions throughout the esophagus. No evidence of stricture. Some cobblestoning throughout the gastric mucosa Colonoscopy 01.21.24; Colonic mucosa with no significants histopathology changes. Negative for colitis, adenoma and malignancy Esophagram .10.07; There is dilatation of the esophagus with narrowing of its di stal portion at the GE junction suggestive of achalasia. The patient ingested a 12 mm tablet of barium. A tablet is trapped at the GE junction Stool tests; fecal elastase 538, calprotectin 40, fecal fat normal Blood tests; CRP 3.48, IgA 367, tTg IgA negative ROS Const Constitutional: Positive for frequent falls; No fatigue, fever(s) or weight change ENT ENT: Positive for difficulty swallowing Gastro GI: Positive for change in bowel habits, constipation, diarrhea, difficulty swallowing, nausea/dyspepsia and vomiting; No abdominal pain, belching, bloating, change in stool character, coffee ground emesis, cramping, heartburn, feeling full early, excessive flatus, incontinent of stools, Vomiting blood/hematemesis, Blood in stool, loose stools, Black,tarry stools, pain with swallowing or other Musc Musculoskeletal: Positive for abnormal gait, stiffness and Arthritis; No joint pain Skin Skin: Positive for dry skin, lesions and rash; No yellowing of the eye or itchy eyes Neuro Neurology: Positive for abnormal gait and frequent falls Psych Psychiatric: Positive for anxiety and Positive for depression Endo Endocrine: No fatigue or weight change Aller/Imm Allergy/Immunologic: No itchy eyes Jesse/Lymp Hematologic/Lymphatic: Positive for easy bruising; No easy bleeding Exam Const General: cooperative and comfortable Nutritional Appearance: average body habitus and well nourished [facility] Head: normal to inspection Ears: hearing grossly normal bilaterally Nose: external nose normal Face and sinus: normal facial exam Mouth: oral mucosae normal Throat: posterior oropharynx normal Eyes General: appearance normal, both eyes and all related structures Neck Neck: normal visual inspection Chest Chest palpation & inspection: normal inspection of the chest and abnormal palpation of chest wall Resp Effort & Inspection: normal respiratory effort and able to speak in complete sentences Cardio Palpation: normal PMI GI Inspection: normal to inspection Palpation: no hepatosplenomegaly Skin General: no rashes or lesions noted Neuro General: patient alert Extrem General: normal to inspection Psych Affect: normal affect Assessment and Plan Assessment and Plan (1) Dysphagia: Status: Acute Plan: Patient is here today for establishment with [facility]. He has been seeing Dr. ward for dysphagia. EGD, esophagram and manometry indicated achalasia. -Requested records for manometry as we do not have the results. -Will order EGD with botox if insurance will cover -Will consider other medical treatments if needed. -Recommended taking miralax and fiber daily for constipation -Will call patient with updates I have examined the patient and the H&P has been reviewed. There are no clinical changes since date of exam.
[2024-05-24] MEDS: Botulinum Toxin A 100 Units Vial IJ (12:59)
[2024-05-24] MEDS: 0.9% Normal Saline (Pres. free 10 ML Vial (13:00)
[2024-05-24] MEDS: 0.9% Saline Lock 10 ML Syringe IV (13:01)
--- NOTE | 2024-05-24 13:16 | OP.CCLET_ITS ---
05/24/2024 Kellen Garcia Re : Upper GI endoscopy procedure for Edil Garcia This procedure was performed on Friday, May 24, 2024. My impressions and recommendations are as follows: Impressions : - Tortuous esophagus. - Abnormal esophageal motility, established achalasia. Injected with botulinum toxin. - No gross lesions in the entire stomach. - No gross lesions in the first portion of the duodenum. - No specimens collected. Recommendations : - Discharge patient to home. - Resume previous diet. - Continue present medications. My findings are described in the full procedure note, which is enclosed. If I can be of further assistance, please feel free to contact me at . Sincerely, Gerson Stewart, 05/24/2024 1:16:23 PM This report has been signed electronically.
--- NOTE | 2024-05-24 13:16 | OP.EGD_ITS ---
Patient Name: Edil Muñoz Procedure Date: 05/24/2024 12:47 PM Date of : 1945 Age: 79 Procedure: Upper GI endoscopy Indications: Dysphagia Providers: Gerson Stewart DO Referring MD: Kellen Garcia Medicines: Monitored Anesthesia Care Patient Profile: This is an 79 year old male. Refer to note in patient chart for documentation of history and physical. Patient has symptoms of dysphagia with both liquids and solids. Complications: No immediate complications. Procedure: Pre-Anesthesia Assessment: - Prior to the procedure, a History and Physical was performed, and patient medications and allergies were reviewed. The patient is competent. The risks and benefits of the procedure and the sedation options and risks were discussed with the patient. All questions were answered and informed consent was obtained. Patient identification and proposed procedure were verified by the physician in the pre-procedure area. Mental Status Examination: alert and oriented. Airway Examination: normal oropharyngeal airway and neck mobility. Respiratory Examination: clear to auscultation. CV Examination: normal. Prophylactic Antibiotics: The patient does not require prophylactic antibiotics. Prior Anticoagulants: The patient has taken no anticoagulant or antiplatelet agents except for NSAID medication. ASA Grade Assessment: III - A patient with severe systemic disease. After reviewing the risks and benefits, the patient was deemed in satisfactory condition to undergo the procedure. The anesthesia plan was to use monitored anesthesia care (MAC). Immediately prior to administration of medications, the patient was re-assessed for adequacy to receive sedatives. The heart rate, respiratory rate, oxygen saturations, blood pressure, adequacy of pulmonary ventilation, and response to care were monitored throughout the procedure. The physical status of the patient was re-assessed after the procedure. After obtaining informed consent, the endoscope was passed under direct vision. Throughout the procedure, the patient's blood pressure, pulse, and oxygen saturations were monitored continuously. The gastroscope was introduced through the mouth, and advanced to the second part of duodenum. The upper GI endoscopy was accomplished without difficulty. The patient tolerated the procedure well. Scope In: 12:59:18 PM Scope Out: 1:09:19 PM Total Procedure Duration Time 0 hours 10 minutes 1 second Findings: The examined esophagus was grossly tortuous. Abnormal motility was noted at the lower esophageal sphincter. The cricopharyngeus was normal. There are extra peristaltic waves in the esophageal body. The distal esophagus/lower esophageal sphincter is spastic, but gives up passage to the endoscope. Tertiary peristaltic waves are noted. Area was successfully injected with 100 units botulinum toxin. No gross lesions were noted in the entire examined stomach. No gross lesions were noted in the first portion of the duodenum. Impression: - Tortuous esophagus. - Abnormal esophageal motility, established achalasia. Injected with botulinum toxin. - No gross lesions in the entire stomach. - No gross lesions in the first portion of the duodenum. - No specimens collected. Recommendation: - Discharge patient to home. - Resume previous diet. - Continue present medications. Procedure Code(s): --- Professional --- 45530, Esophagogastroduodenoscopy, flexible, transoral; with directed submucosal injection(s), any substance CPT copyright 2021 [employer]. All rights reserved. The codes documented in this report are preliminary and upon principal ios developer review may be revised to meet current compliance requirements. Gerson Stewart DO 05/24/2024 1:16:23 PM This report has been signed electronically. Number of Addenda: 0 Note Initiated On: 05/24/2024 12:47 PM
--- NOTE | 2024-05-24 13:16 | PCM.POST.ANE ---
Anesthesia: Postop Eval I Current Vital Signs Temperature: 97.2 F Pulse Rate: 70 Blood Pressure: 125/78 Respiratory Rate: 16 Pulse Ox: 93 Oxygen Delivery Method: Room Air Assessment Airway patent: Yes Spontaneous unlabored respirations: Yes Mental status: Asleep nausea: No Vomiting: No Anesthesia Complication: No Fluid Hydration Crystalloid volume administer (ml): 900 Total IV fluid infused: 900 Progress Note Anesthesia document: Postop Eval 1 completed: Yes
--- NOTE | 2024-05-24 16:30 | PCM.POSTANE2 ---
Anesthesia Postop Eval I Sum Postop Eval Completion status Anesthesia document: Postop Eval 1 completed: Yes Anesthesia Postop Eval I Summary Anesthesia Postop Eval I Summary: Anesthesia Postop Eval I: Assessment Summary Airway patent Yes 05/24/24 13:17 [email or web address] Spontaneous unlabored Yes 05/24/24 13:17 [email or web address] respirations Mental status Asleep 05/24/24 13:17 [email or web address] nausea No 05/24/24 13:17 [email or web address] Vomiting No 05/24/24 13:17 [email or web address] Anesthesia Postop Eval I: Fluid Summary Crystalloid volume administer 900 05/24/24 13:17 [email or web address] (ml) Colloids volume administered ( ml) Blood Product volume administered (ml) Total IV fluid infused 900 05/24/24 13:17 [email or web address] Anesthesia Postop Eval I: Summary Notes Anesthesia Complication No 05/24/24 13:17 [email or web address] Anesthesia Complication Comment: Post-operative progress note Anesthesia: Postop Eval II Evaluation Mental status: Awake and Calm Pain Level: 0 nausea: No Vomiting: No Complications Anesthesia Complication: No
== END 2024-05-24 13:48 | disposition home or self-care (01) ==
LOC: EN 11:31 → AC 11:33
PROVIDERS: PCP Internal Medicine; Referring Provider Internal Medicine; Visit Provider Internal Medicine Gastroenterology
PROC: 0DJ08ZZ Inspection of Upper Intestinal Tract, Via Natural or Artificial Opening Endoscopic (ICD-10-PCS; CPT 43235; principal; 2024-05-24 12:25)
DX: K22.0 Achalasia of cardia (principal); J44.9 Chronic obstructive pulmonary disease, unspecified; R19.7 Diarrhea, unspecified; Z79.82 Long term (current) use of aspirin; Z79.899 Other long term (current) drug therapy; Z79.890 Hormone replacement therapy; I25.10 Atherosclerotic heart disease of native coronary artery without angina pectoris; I10 Essential (primary) hypertension; K21.9 Gastro-esophageal reflux disease without esophagitis; E78.5 Hyperlipidemia, unspecified; E07.9 Disorder of thyroid, unspecified
CPT/HCPCS: 43236; J7120; A4216; J0585; J2405; J3490

== ENCOUNTER 2025-03-31 08:10 | Day surgery (SDC) | payer MEDICARE, SELFPAY ==
--- NOTE | 2025-03-29 17:55 | PAT.ANESEVAL ---
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 When Was Last Pacemaker Check QUESTION #4 FULL TEXT: You/Your Family Experience fever (hyperthermia) with Anesthesia Last Oral Intake Last Oral intake: Last Oral Intake NPO since Meds taken in AM with sips of water? 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 Has anyone observed you stop breathing during sleep? STOP Results Positive 03/29/25 14:31 QUESTION #5 FULL TEXT : Do you snore loudly (louder than talking or can be heard through closed doors)? 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 Specify any problems Hx of Preganancy in last 3 N/A 03/29/25 14:31 Months Nurse Filling Out Transfusion DSCHRIBER 03/29/25 14:31 & Questions: Date: 03/29/25 03/29/25 14:31 Time: 14:32 03/29/25 14:31 Patient unable to answer at this time (ie. 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 Hx Now No 03/29/25 14:31 Gestational Age (in weeks): EDC: Hx Hx Para Hx Section SAB No 03/29/25 14:31 PFSH Medical History (Updated 03/29/25 @ 14:36 by Paulette Yanez) On home oxygen therapy Cancer Wears dentures Thyroid disease BiPAP (biphasic positive airway pressure) dependence History of echocardiogram Cardiology follow-up encounter Dementia History of sinus balloonplasty Essential hypertension History of esophageal dilatation History of esophageal dilatation Lung nodules GERD (gastroesophageal reflux disease) Depression COPD (chronic obstructive pulmonary disease) Atherosclerotic heart disease of [place] coronary artery without angina pectoris Pulmonary hypertension, secondary Nonrheumatic mitral (valve) prolapse Body mass index (BMI) of 33.0-33.9 in adult Mitral valve prolapse Bronchiectasis HLD (hyperlipidemia) CAD (coronary artery disease) Home Medications ?Medication ?Instructions ?Recorded ?Last Taken ?Type Oxygen, Home [Home Oxygen] 2 lpm QHS 04/17/15 Unknown History aspirin 81 mg chewable tablet 81 mg PO DAILY@0800 04/17/15 03/27/25 History clopidogrel 75 mg tablet 75 mg PO DAILY 04/17/15 03/24/25 History cyanocobalamin (vitamin B-12) 500 500 mcg PO DAILY 04/17/15 08/05/15 History mcg tablet mirtazapine 30 mg tablet 30 mg PO QHS 04/17/15 08/05/15 History pantoprazole 40 mg tablet,delayed 40 mg PO BID 04/17/15 08/05/15 History release amlodipine 2.5 mg tablet 2.5 mg PO DAILY 08/06/15 08/05/15 History cholecalciferol (vitamin D3) 125 5,000 unit PO QDAY 11/11/17 Unknown History mcg (5,000 unit) capsule bupropion HCl 300 mg 24 hr tablet, 300 mg PO DAILY 12/24/17 Unknown History extended release latanoprost 0.005 % eye drops 1 drp ophthalmic (eye) DAILY 06/05/21 Unknown History levocetirizine 5 mg tablet 5 mg PO DAILY 06/05/21 Unknown History levothyroxine 75 mcg tablet 75 mcg PO DAILY 06/05/21 Unknown History buspirone 15 mg tablet 15 mg PO BID 02/17/22 Unknown History fluticasone 113 mcg-salmeterol 14 1 inh inhalation BID #3 device 03/06/23 Unknown Rx mcg/actuation breath activated powdr (AirDuo RespiClick) rivastigmine 4.6 mg/24 hour 1 patch transdermal DAILY 09/23/23 Unknown History transdermal patch desvenlafaxine succinate 50 mg 50 mg PO DAILY 05/20/24 Unknown History tablet,extended release 24 hr memantine 10 mg tablet 10 mg PO BID 05/20/24 Unknown History albuterol sulfate 90 mcg/actuation 2 puff inhalation Q4H PRN 05/24/24 Unknown Rx aerosol inhaler (Ventolin HFA) shortness of breath or wheezing #18 grams acebutolol 200 mg capsule 200 mg PO DAILY 06/17/24 Unknown History atorvastatin 20 mg tablet 20 mg PO QDAY 06/17/24 Unknown History methylphenidate HCl 10 mg tablet 10 mg PO DAILY 06/17/24 Unknown History Allergy/AdvReac Type Severity Reaction Status Date / Time cefdinir AdvReac Intermediate SOB Verified 03/29/25 14:27 codeine AdvReac Intermediate SOB Verified 03/29/25 14:27 Family History Father CVA (cerebral vascular accident) Mother Diabetes CVA (cerebral vascular accident) Surgical History (Updated 03/29/25 @ 14:36 by Paulette Yanez) History of esophagogastroduodenoscopy (EGD) History of cataract surgery (~11/2018) History of penile implant History of tonsillectomy History of radical prostatectomy History of bilateral knee replacement History of cataract surgery history of sinus ballonplasty History of penile implant History of tonsillectomy H/O radical prostatectomy History of bilateral knee replacement Social History (Updated 06/17/24 @ 11:43 by Mary Jane Rogers) Smoking Status: Never smoker second hand exposure: No alcohol intake: never substance use type: does not use caffeine: No what type of physical activity do you participate in: none Audit: Pertinent Findings HISTORY of Pertinent Findings History of Pertinent Findings: Patient has a history of CAD, mitral valve prolapse, hypertension, Alzheimer's disease, dysphagia. His last follow-up with cardiology was on 06/17/2024 with Chaka Garcia NP. During this visit. That patient was stable from a cardiac standpoint and they recommended just continued outpatient follow-up. Pertinent Findings EKG Perinent findings: EKG done on 06/17/2024: ECG Report Interpretation Sinus Rhythm -Right bundle branch block. ABNORMAL Electronically signed on 06/21/2024 at 10:01 by Baljinder Diaz [employer] Version [id number] Stress test pertinent findings: Stress test done on 01/30/2021: Negative stress test EKG for ischemia. EKG shows sinus bradycardia with right bundle branch block. With a Dinaelys scan infusion no chest pain and no further ST changes, no arrhythmias. Normal myocardial perfusion study without evidence of ischemia or prior infarction. Left ventricle is normal in size with normal LV motion. LVEF is estimated greater than 65%. Echo (EF%) pertinent findings: Echocardiogram done on 01/30/2021: Left ventricular EF is estimated around 55 to 60%. Spectral Doppler shows an impaired relaxation pattern of the left ventricular diastolic filling. Recommendation Anesthesia Recommendation Anesthesia recommendation: OPTIMIZED for anesthesia
[2025-03-31] VITALS (8 sets, daily range): BP systolic 96–122; BP diastolic 61–71; PULSE 63–67; RESP 14–16; TEMP 36.4–36.6; O2SAT 92–94; BMI 27.7
[2025-03-31] MEDS: Lactated Ringers 1,000 ML 15 ML IV (08:45)
--- NOTE | 2025-03-31 09:12 | PCM.PRE.AN2 ---
ASA Classification* ASA Classification ASA Classification: 3 Assessment & Plan Anesthesia* Anesthesia Assessment Anesthesia Assessment: Discussed sedation and/or anesthesia options, risks, benefits, and alternatives with patient/parents/legal guardian/POA. Questions invited. The patient/parents/legal guardian/POA seems to understand and agrees to proceed with anesthesia plan. Reviewed the physical assessment, medical history, allergy history and patient home medications list prior to surgery/procedure/anesthetic and documented any changes. Performed airway and anesthesia risk assessments. Anesthesia Type Anesthesia Type: MAC History Source History Obtained from:: Patient and Chart Anesthesia Focused Assessment* Temperature: 97.8 F Pulse Rate: 65 Blood Pressure: 110/66 Respiratory Rate: 16 Pulse Ox: 94 Oxygen Delivery Method: Room Air Airway Assessment Mouth opens: >3 cm Mallampati Score: II Teeth Condition: Dentures (Patient is full upper and lower dentures. They are out.) Neck Range of motion (ROM): Limited ROM (Somewhat Decreased) Labs Anesthesia Preop lab: CBC WBC 7.5 K/mm3 (4.4-11.0) 08/11/22 13:12 08/11/22 RBC 5.20 M/mm3 (4.6-6.2) 08/11/22 13:12 08/11/22 Hgb 17.0 g/dL (13.0-16.5) H 08/11/22 13:12 08/11/22 Hct 50.3 % (40-54) 08/11/22 13:12 08/11/22 Plt Count 178 K/mm3 (150-450) 08/11/22 13:12 08/11/22 CHEMISTRY Potassium 5.3 mmol/L (3.5-5.1) H 08/12/23 09:55 08/12/23 Sodium 140 mmol/L (136-145) 08/11/22 13:12 08/11/22 BUN 16 mg/dL (7-18) 08/11/22 13:12 08/11/22 Creatinine 1.12 mg/dL (0.70-1.30) 08/11/22 13:12 08/11/22 Glucose 104 mg/dL (74-106) 08/11/22 13:12 08/11/22 TSH 3.53 uIU/mL (0.358-3.74) 08/11/22 13:12 08/11/22 COAG PT 13.6 SECONDS (11.7-14.9) 04/13/15 09:05 04/13/15 Pre-Assessment Diagnosis/Proposed Procedure Planned Operative Procedure(s): EGD BOTOX INJECTION Anesthesia History 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 When Was Last Pacemaker Check QUESTION #4 FULL TEXT: You/Your Family Experience fever (hyperthermia) with Anesthesia Last Oral Intake Last Oral intake: Last Oral Intake NPO since 18:30 03/31/25 08:42 Meds taken in AM with sips of No 03/31/25 08:42 water? 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 Female No 03/29/25 14:31 HX of Motion Sickness No 03/29/25 14:31 HX of N/V After Surgery No 03/29/25 14:31 Non-Smoker Yes 03/29/25 14:31 Duration of Surgery greater No 03/29/25 14:31 than 60 minutes Number of Risk Factors 1 03/29/25 14:31 PONV Score Low Risk 03/29/25 14:31 Height & Weight Height & Weight: Anesthesia: Height & Weight Height 5 ft 10 in 03/31/25 08:42 Weight: 87.7 kg 03/31/25 08:42 Body Mass Index (BMI) 27.7 03/31/25 08:42 Respiratory Assessment Respiratory Assessment - accounting machine operator: Respiratory Tract Infection Hx - accounting machine operator Hx Respiratory Tract Infection No 03/29/25 14:31 STOP Sleep Apnea STOP Sleep Apnea - accounting machine operator: STOP Sleep Apnea - accounting machine operator Hx Hypertension Yes: CONTROLLED WITH MED 03/29/25 14:31 Hx Sleep Apnea Yes 03/29/25 14:31 CPAP No 03/29/25 14:31 BIPAP Yes: O2 2L 03/29/25 14:31 Do you snore loudly (louder than talking or can be heard Do you often feel tired/ fatigued/ sleepy during daytime? Has anyone observed you stop breathing during sleep? STOP Results Positive 03/29/25 14:31 QUESTION #5 FULL TEXT : Do you snore loudly (louder than talking or can be heard through closed doors)? 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 Specify any problems Hx of Preganancy in last 3 N/A 03/29/25 14:31 Months Nurse Filling Out Transfusion DSCHRIBER 03/29/25 14:31 & Questions: Date: 03/29/25 03/29/25 14:31 Time: 14:32 03/29/25 14:31 Patient unable to answer at this time (ie. 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: /Reproductive Hx- accounting machine operator Hx Now No 03/29/25 14:31 Gestational Age (in weeks): EDC: Hx Hx Para Hx Section SAB No 03/29/25 14:31 Active Medications Active Medications: Current Medications Generic Name Dose Route Start Last Admin Trade Name Freq PRN Reason Stop Dose Admin Lactated Ringer's 1,000 mls @ 15 mls/hr 03/31/25 08:30 03/31/25 08:45 IV 15 mls/hr .Q48H CARLOS EDUARDO Administration PFSH Medical History On home oxygen therapy Cancer Wears dentures Thyroid disease BiPAP (biphasic positive airway pressure) dependence History of echocardiogram Cardiology follow-up encounter Dementia History of sinus balloonplasty Essential hypertension History of esophageal dilatation History of esophageal dilatation Lung nodules GERD (gastroesophageal reflux disease) Depression COPD (chronic obstructive pulmonary disease) Atherosclerotic heart disease of [place] coronary artery without angina pectoris Pulmonary hypertension, secondary Nonrheumatic mitral (valve) prolapse Body mass index (BMI) of 33.0-33.9 in adult Mitral valve prolapse Bronchiectasis HLD (hyperlipidemia) CAD (coronary artery disease) Home Medications ?Medication ?Instructions ?Recorded ?Last Taken ?Type Oxygen, Home [Home Oxygen] 2 lpm QHS 04/17/15 Unknown History aspirin 81 mg chewable tablet 81 mg PO DAILY@0800 04/17/15 03/27/25 History clopidogrel 75 mg tablet 75 mg PO DAILY 04/17/15 03/24/25 History cyanocobalamin (vitamin B-12) 500 500 mcg PO DAILY 04/17/15 08/05/15 History mcg tablet mirtazapine 30 mg tablet 30 mg PO QHS 04/17/15 08/05/15 History pantoprazole 40 mg tablet,delayed 40 mg PO BID 04/17/15 08/05/15 History release amlodipine 2.5 mg tablet 2.5 mg PO DAILY 08/06/15 08/05/15 History cholecalciferol (vitamin D3) 125 5,000 unit PO QDAY 11/11/17 Unknown History mcg (5,000 unit) capsule bupropion HCl 300 mg 24 hr tablet, 300 mg PO DAILY 12/24/17 Unknown History extended release latanoprost 0.005 % eye drops 1 drp ophthalmic (eye) DAILY 06/05/21 Unknown History levocetirizine 5 mg tablet 5 mg PO DAILY 06/05/21 Unknown History levothyroxine 75 mcg tablet 75 mcg PO DAILY 06/05/21 Unknown History buspirone 15 mg tablet 15 mg PO BID 02/17/22 Unknown History fluticasone 113 mcg-salmeterol 14 1 inh inhalation BID #3 device 03/06/23 Unknown Rx mcg/actuation breath activated powdr (AirDuo RespiClick) rivastigmine 4.6 mg/24 hour 1 patch transdermal DAILY 09/23/23 Unknown History transdermal patch desvenlafaxine succinate 50 mg 50 mg PO DAILY 05/20/24 Unknown History tablet,extended release 24 hr memantine 10 mg tablet 10 mg PO BID 05/20/24 Unknown History albuterol sulfate 90 mcg/actuation 2 puff inhalation Q4H PRN 05/24/24 Unknown Rx aerosol inhaler (Ventolin HFA) shortness of breath or wheezing #18 grams acebutolol 200 mg capsule 200 mg PO DAILY 06/17/24 Unknown History atorvastatin 20 mg tablet 20 mg PO QDAY 06/17/24 Unknown History methylphenidate HCl 10 mg tablet 10 mg PO DAILY 06/17/24 Unknown History Allergy/AdvReac Type Severity Reaction Status Date / Time cefdinir AdvReac Intermediate SOB Verified 03/31/25 08:41 codeine AdvReac Intermediate SOB Verified 03/31/25 08:41 Family History Father CVA (cerebral vascular accident) Mother Diabetes CVA (cerebral vascular accident) Surgical History History of esophagogastroduodenoscopy (EGD) History of cataract surgery (~11/2018) History of penile implant History of tonsillectomy History of radical prostatectomy History of bilateral knee replacement History of cataract surgery history of sinus ballonplasty History of penile implant History of tonsillectomy H/O radical prostatectomy History of bilateral knee replacement Social History Smoking Status: Never smoker second hand exposure: No alcohol intake: never substance use type: does not use caffeine: No what type of physical activity do you participate in: none Review of Systems (Anesthesia) ROS Narrative System reviewed and no additional complaints, except as documented.
[2025-03-31] MEDS: 0.9% Normal Saline (Pres. free 10 ML Vial (09:41)
--- NOTE | 2025-03-31 09:41 | PCM.HP.STD ---
HPI - General General Date of Admission: 03/31/25 Date of Service: 03/31/25 Chief Complaint: dysphagia HPI Narrative NAZARIO MARIE, is a 80 M who presents with Chief Complaint: Dysphagia BGI established in April 2024 with dysphagia and alternating bm EGD 01.21.24; Tertiary contractions throughout the esophagus. No evidence of stricture. Some cobblestoning throughout the gastric mucosa Colonoscopy 01.21.24; Colonic mucosa with no significants histopathology changes. Negative for colitis, adenoma and malignancy Esophagram 10.15.23; There is dilatation of the esophagus with narrowing of its distal portion at the GE junction suggestive of achalasia. The patient ingested a 12 mm tablet of barium. A tablet is trapped at the GE junction Stool tests; fecal elastase 538, calprotectin 40, fecal fat normal Blood tests; CRP 3.48, IgA 367, tTg IgA negative EGD 05.24.24; - Tortuous esophagus. - Abnormal esophageal motility, established achalasia. Injected with botulinum toxin. - No gross lesions in the entire stomach. - No gross lesions in the first portion of the duodenum. Last OV 08.04.24; Pt doing well since EGD with botox. He has had no further issues with swallowing. He is having daily bm and denies constipation or diarrhea. OV 01.31.25 Pt has been having issues with swallowing his pills recently. He feels them stuck in his esophagus and will have to drink water to get them to pass. He has had to regurgitate them on a few occasions. He denies any issues with foods or drinks however he has been eating a soft food diet with his new dentures. He is having some constipation as he cannot take his fiber supplement right now. [facility] Medical History On home oxygen therapy Cancer Wears dentures Thyroid disease BiPAP (biphasic positive airway pressure) dependence History of echocardiogram Cardiology follow-up encounter Dementia History of sinus balloonplasty Essential hypertension History of esophageal dilatation History of esophageal dilatation Lung nodules GERD (gastroesophageal reflux disease) Depression COPD (chronic obstructive pulmonary disease) Atherosclerotic heart disease of [place] coronary artery without angina pectoris Pulmonary hypertension, secondary Nonrheumatic mitral (valve) prolapse Body mass index (BMI) of 33.0-33.9 in adult Mitral valve prolapse Bronchiectasis HLD (hyperlipidemia) CAD (coronary artery disease) Home Medications ?Medication ?Instructions ?Recorded ?Last Taken ?Type Oxygen, Home [Home Oxygen] 2 lpm QHS 04/17/15 Unknown History aspirin 81 mg chewable tablet 81 mg PO DAILY@0800 04/17/15 03/27/25 History clopidogrel 75 mg tablet 75 mg PO DAILY 04/17/15 03/24/25 History cyanocobalamin (vitamin B-12) 500 500 mcg PO DAILY 04/17/15 08/05/15 History mcg tablet mirtazapine 30 mg tablet 30 mg PO QHS 04/17/15 08/05/15 History pantoprazole 40 mg tablet,delayed 40 mg PO BID 04/17/15 08/05/15 History release amlodipine 2.5 mg tablet 2.5 mg PO DAILY 08/06/15 08/05/15 History cholecalciferol (vitamin D3) 125 5,000 unit PO QDAY 11/11/17 Unknown History mcg (5,000 unit) capsule bupropion HCl 300 mg 24 hr tablet, 300 mg PO DAILY 12/24/17 Unknown History extended release latanoprost 0.005 % eye drops 1 drp ophthalmic (eye) DAILY 06/05/21 Unknown History levocetirizine 5 mg tablet 5 mg PO DAILY 06/05/21 Unknown History levothyroxine 75 mcg tablet 75 mcg PO DAILY 06/05/21 Unknown History buspirone 15 mg tablet 15 mg PO BID 02/17/22 Unknown History fluticasone 113 mcg-salmeterol 14 1 inh inhalation BID #3 device 03/06/23 Unknown Rx mcg/actuation breath activated powdr (AirDuo RespiClick) rivastigmine 4.6 mg/24 hour 1 patch transdermal DAILY 09/23/23 Unknown History transdermal patch desvenlafaxine succinate 50 mg 50 mg PO DAILY 05/20/24 Unknown History tablet,extended release 24 hr memantine 10 mg tablet 10 mg PO BID 05/20/24 Unknown History albuterol sulfate 90 mcg/actuation 2 puff inhalation Q4H PRN 05/24/24 Unknown Rx aerosol inhaler (Ventolin HFA) shortness of breath or wheezing #18 grams acebutolol 200 mg capsule 200 mg PO DAILY 06/17/24 Unknown History atorvastatin 20 mg tablet 20 mg PO QDAY 06/17/24 Unknown History methylphenidate HCl 10 mg tablet 10 mg PO DAILY 06/17/24 Unknown History Allergy/AdvReac Type Severity Reaction Status Date / Time cefdinir AdvReac Intermediate SOB Verified 03/31/25 08:41 codeine AdvReac Intermediate SOB Verified 03/31/25 08:41 Family History Father CVA (cerebral vascular accident) Mother Diabetes CVA (cerebral vascular accident) Surgical History History of esophagogastroduodenoscopy (EGD) History of cataract surgery (~11/2018) History of penile implant History of tonsillectomy History of radical prostatectomy History of bilateral knee replacement History of cataract surgery history of sinus ballonplasty History of penile implant History of tonsillectomy H/O radical prostatectomy History of bilateral knee replacement Social History Smoking Status: Never smoker second hand exposure: No alcohol intake: never substance use type: does not use caffeine: No what type of physical activity do you participate in: none ROS Constitutional Constitutional: Denies fatigue, fever(s), poor appetite, weight gain or weight loss Gastrointestinal Gastrointestinal: Denies belching, bloating, change in bowel habits, change in stool character, chewing difficulty, coffee ground emesis, constipation, cramping, diarrhea, dyspepsia, dysphagia, early satiety, excessive flatus, fecal incontinence, heartburn, hematemesis, hematochezia, hemorrhoids, loose stools, melena, nausea, odynophagia, rectal bleeding, tenesmus, vomiting or weight changes Vital Signs Vital Signs Vital Signs: 03/31/25 08:42 03/31/25 08:42 03/31/25 09:19 Temperature 97.8 F 97.8 F Temperature Source Temporal Pulse Rate 65 65 Respiratory Rate 16 16 Respiratory Pattern Normal Blood Pressure 110/66 110/66 Blood Pressure Mean 80 Blood Pressure Source Monitor Blood Pressure Position Semi-Fowlers Blood Pressure Location Left Arm Pulse Ox 94 94 Oxygen Delivery Method Room Air Room Air Weight Weight: 193 lb 5.526 oz Body Mass Index (BMI) 27.7 Physical Exam Const alert, oriented x3, no apparent distress and healthy appearing General Appearance: cooperative GI normal to inspection, nondistended, normoactive bowel sounds, soft to palpation, non-tender and non-distended Percussion: normal to percussion Rectal Exam: deferred Assessment & Plan Assessment/Plan (1) Dysphagia: PLAN: Assessment and Plan Assessment and Plan (1) Dysphagia: Status: Acute Plan: This is an 80 yo male pt here today for follow up regarding his dysphagia. Pt underwent EGD with botox in May 2024 which helped with his swallowing. Since then he has been doing well up until recently when he started having a heard time swallowing pills. He does not notice when he is eating or drinking. he has been on a soft diet due to adjusting to his new dentures which may masking some dysphagia. He will undergo repeat EGD with botox. He will continue PPI in the mean time. -EGD with botox -Continue PPI -f/u after procdure
--- NOTE | 2025-03-31 10:07 | OP.CCLET_ITS ---
03/31/2025 Merced Bland [address] [place] [address] Re : Upper GI endoscopy procedure for Edil Muñoz Dear Dr. Bland This procedure was performed on Monday, March 31, 2025. My impressions and recommendations are as follows: Impressions : - Abnormal esophageal motility. Dilated. - A few gastric polyps. - Normal examined duodenum. - No specimens collected. Recommendations : - Await pathology results. - Continue present medications. My findings are described in the full procedure note, which is enclosed. If I can be of further assistance, please feel free to contact me at . Sincerely, Gerson Stewart, 03/31/2025 10:07:05 AM This report has been signed electronically.
--- NOTE | 2025-03-31 10:07 | OP.EGD_ITS ---
Patient Name: Edil Muñoz Procedure Date: 03/31/2025 9:44 AM Date of : 1945 Age: 80 Procedure: Upper GI endoscopy Indications: Dysphagia Providers: Gerson Stewart DO Medicines: Monitored Anesthesia Care Patient Profile: This is an 80 year old male. Refer to note in patient chart for documentation of history and physical. Patient has symptoms of dysphagia with solids. His most recent EGD for dilation. Complications: No immediate complications. Procedure: Pre-Anesthesia Assessment: - Prior to the procedure, a History and Physical was performed, and patient medications and allergies were reviewed. The patient is competent. The risks and benefits of the procedure and the sedation options and risks were discussed with the patient. All questions were answered and informed consent was obtained. Patient identification and proposed procedure were verified by the physician in the pre-procedure area. Mental Status Examination: alert and oriented. Airway Examination: normal oropharyngeal airway and neck mobility. Respiratory Examination: clear to auscultation. CV Examination: normal. Prophylactic Antibiotics: The patient does not require prophylactic antibiotics. Prior Anticoagulants: The patient has taken no anticoagulant or antiplatelet agents. ASA Grade Assessment: II - A patient with mild systemic disease. After reviewing the risks and benefits, the patient was deemed in satisfactory condition to undergo the procedure. The anesthesia plan was to use monitored anesthesia care (MAC). Immediately prior to administration of medications, the patient was re-assessed for adequacy to receive sedatives. The heart rate, respiratory rate, oxygen saturations, blood pressure, adequacy of pulmonary ventilation, and response to care were monitored throughout the procedure. The physical status of the patient was re-assessed after the procedure. After obtaining informed consent, the endoscope was passed under direct vision. Throughout the procedure, the patient's blood pressure, pulse, and oxygen saturations were monitored continuously. The Endoscope was introduced through the mouth, and advanced to the third part of duodenum. The upper GI endoscopy was accomplished without difficulty. The patient tolerated the procedure well. Scope In: 9:53:05 AM Scope Out: 10:00:11 AM Total Procedure Duration Time 0 hours 7 minutes 6 seconds Findings: Abnormal motility was noted in the esophagus. The cricopharyngeus was abnormal. There are extra peristaltic waves in the esophageal body. The distal esophagus/lower esophageal sphincter is spastic, but gives up passage to the endoscope. Tertiary peristaltic waves are noted. Area was successfully injected with 100 units botulinum toxin. A guidewire was placed and the scope was withdrawn. Dilation was performed with a Savary dilator with no resistance at 60 Fr. The dilation site was examined and showed complete resolution of luminal narrowing. Estimated blood loss was minimal. A few hyperplastic polyps with no bleeding and no stigmata of recent bleeding were found in the gastric fundus. The examined duodenum was normal. Impression: - Abnormal esophageal motility. Dilated. - A few gastric polyps. - Normal examined duodenum. - No specimens collected. Recommendation: - Await pathology results. - Continue present medications. Procedure Code(s): --- Professional --- 95763, Esophagogastroduodenoscopy, flexible, transoral; with insertion of guide wire followed by passage of dilator(s) through esophagus over guide wire 91525, 59,51, Esophagogastroduodenoscopy, flexible, transoral; with directed submucosal injection(s), any substance CPT copyright 2021 [employer]. All rights reserved. The codes documented in this report are preliminary and upon shellfish farming supervisor review may be revised to meet current compliance requirements. Gerson Stewart DO 03/31/2025 10:07:05 AM This report has been signed electronically. Number of Addenda: 0 Note Initiated On: 03/31/2025 9:44 AM
--- NOTE | 2025-03-31 10:10 | PCM.POST.ANE ---
Anesthesia: Postop Eval I Current Vital Signs Temperature: 97.7 F Pulse Rate: 64 Blood Pressure: 122/66 Respiratory Rate: 14 Pulse Ox: 93 Oxygen Delivery Method: Room Air Assessment Airway patent: Yes Spontaneous unlabored respirations: Yes Mental status: Asleep nausea: No Vomiting: No Anesthesia Complication: No Fluid Hydration Crystalloid volume administer (ml): 400 Total IV fluid infused: 400 Progress Note Anesthesia document: Postop Eval 1 completed: Yes
--- NOTE | 2025-03-31 12:17 | PCM.POSTANE2 ---
Anesthesia Postop Eval I Sum Postop Eval Completion status Anesthesia document: Postop Eval 1 completed: Yes Anesthesia Postop Eval I Summary Anesthesia Postop Eval I Summary: Anesthesia Postop Eval I: Assessment Summary Airway patent Yes 03/31/25 10:11 [email or web address] Spontaneous unlabored Yes 03/31/25 10:11 [email or web address] respirations Mental status Asleep 03/31/25 10:11 [email or web address] nausea No 03/31/25 10:11 [email or web address] Vomiting No 03/31/25 10:11 [email or web address] Anesthesia Postop Eval I: Fluid Summary Crystalloid volume administer 400 03/31/25 10:11 [email or web address] (ml) Colloids volume administered ( ml) Blood Product volume administered (ml) Total IV fluid infused 400 03/31/25 10:11 [email or web address] Anesthesia Postop Eval I: Summary Notes Anesthesia Complication No 03/31/25 10:11 [email or web address] Anesthesia Complication Comment: Post-operative progress note Anesthesia: Postop Eval II Evaluation Mental status: Awake and Calm Pain Level: 0 nausea: No Vomiting: No Complications Anesthesia Complication: No
--- NOTE | 2025-03-31 14:18 | PCM.POSTANE2 ---
Anesthesia Postop Eval I Sum Postop Eval Completion status Anesthesia document: Postop Eval 1 completed: Yes Anesthesia Postop Eval I Summary Anesthesia Postop Eval I Summary: Anesthesia Postop Eval I: Assessment Summary Airway patent Yes 03/31/25 10:11 [email or web address] Spontaneous unlabored Yes 03/31/25 10:11 [email or web address] respirations Mental status Awake,Calm 03/31/25 12:18 nausea No 03/31/25 12:18 Vomiting No 03/31/25 12:18 Anesthesia Postop Eval I: Fluid Summary Crystalloid volume administer 400 03/31/25 10:11 [email or web address] (ml) Colloids volume administered ( ml) Blood Product volume administered (ml) Total IV fluid infused 400 03/31/25 10:11 [email or web address] Anesthesia Postop Eval I: Summary Notes Anesthesia Complication No 03/31/25 12:18 Anesthesia Complication Comment: Post-operative progress note Anesthesia: Postop Eval II Evaluation Mental status: Awake Pain Level: 0 nausea: No Vomiting: No
== END 2025-03-31 10:42 | disposition home or self-care (01) ==
LOC: EN 08:10 → AC 08:12
PROVIDERS: PCP Internal Medicine; Referring Provider Internal Medicine; Visit Provider Internal Medicine Gastroenterology
PROC: 0DJ08ZZ Inspection of Upper Intestinal Tract, Via Natural or Artificial Opening Endoscopic (ICD-10-PCS; CPT 43235; principal; 2025-03-31 08:55)
DX: K22.2 Esophageal obstruction (principal); J44.9 Chronic obstructive pulmonary disease, unspecified; Z79.02 Long term (current) use of antithrombotics/antiplatelets; I25.10 Atherosclerotic heart disease of native coronary artery without angina pectoris; I10 Essential (primary) hypertension; K21.9 Gastro-esophageal reflux disease without esophagitis; K31.7 Polyp of stomach and duodenum; E78.5 Hyperlipidemia, unspecified; Z79.899 Other long term (current) drug therapy; K22.4 Dyskinesia of esophagus; Z79.82 Long term (current) use of aspirin; K22.0 Achalasia of cardia
CPT/HCPCS: 43248; 43236; C1769; J0585; J2405

== ENCOUNTER → 2025-09-11 | Outpatient (CLI) | payer MEDICARE, SELFPAY ==
[2025-09-11 15:34] LABS: Mucous, Urine 0 SEEN /hpf (<or=2+); Red Blood Cells-Urine 0 SEEN /hpf (0-5); Squamous Epithelial Cells - UA 0 SEEN /hpf (0-5)
[2025-09-11 17:40] LABS: Hematocrit 46.7 % (40-54); Hemoglobin 15.7 g/dL (13.0-16.5); Immature Granulocytes Count 0.070 X10^3/uL (0.0-0.0); Mean Corp Hgb Conc 33.6 g/dL (32-36); Mean Corpuscular Volume 93.8 fL (80-94); Mean Platelet Vol. 11.3 fl (6.2-12.0); NRBC Flagged by Analyzer 0 % (0-5); Platelet Count 169 K/mm3 (150-450); RBC Distribution Width CV 13.4 % (11.6-14.6); RBC Distribution Width SD 45.8 fl (35.1-43.9); Red Blood Count 4.98 M/mm3 (4.6-6.2); White Blood Count 9.1 K/mm3 (4.4-11.0)
[2025-09-11 17:45] LABS: Color, Urine Straw (Yellow); Glucose, Dipstick Normal (Normal); Ketone-Dipstick Negative (Negative); Leukocyte Esterase-Dipstick Negative /ul (Negative); Nitrite-Dipstick Negative (Negative); Occult Blood-Urine Negative /ul (Negative); Protein-Dipstick 15 mg/dl (Negative); Specific Gravity, Urine 1.020 (1.002-1.030); Urine Bilirubin Dipstick Negative (Negative)
[2025-09-11 18:08] LABS: Creatinine, Urine (random) 182.00 mg/dL (39.00-259.00); Microalbumin,Random Urine < 12.0 mg/L (<20 mg/L)
[2025-09-11 18:29] LABS: Cholesterol 152 mg/dL (<=200); Low Density Lipoprotein Calc. 71 mg/dL; Triglycerides 119 mg/dL; Very Low Density Lipoprotein 24 mg/dL (5-40); Vitamin D,25 Hydroxy 39.1 ng/mL (30-100); cholesterol:hdl ratio screen 2.54
[2025-09-11 19:12] LABS: AST(SGOT) 26 U/L (<=37); Alanine Aminotransfer ALT/SGPT 7 U/L (<=46); Albumin, Serum 4.2 g/dL (3.4-4.8); Alkaline Phosphatase 95 U/L (40-129); BUN 18 mg/dL (4-19); BUN/Creat Ratio 15.8 RATIO (10-20); Calcium,Total 9.6 mg/dL (7.6-11.0); Carbon Dioxide 27.6 mmol/L (20.0-29.0); Globulin 2.7 g/dL (2.2-4.2); Glucose 95 mg/dL (70-99)
[2025-09-11 19:23] LABS: Anion Gap 9 (7-18); Chloride 106 mmol/L (96-106); Potassium 5.5 mmol/L (3.5-5.1)
== END | disposition home or self-care (01) ==
LOC: CIMLAB 15:20
PROVIDERS: PCP Internal Medicine; Referring Provider Internal Medicine; Visit Provider Internal Medicine
DX: R73.09 Other abnormal glucose (principal); I25.10 Atherosclerotic heart disease of native coronary artery without angina pectoris; R53.83 Other fatigue; E55.9 Vitamin D deficiency, unspecified
CPT/HCPCS: 36415; 80053; 80061; 81001; 82043; 82306; 82570; 83036; 84443; 85025

== ENCOUNTER → 2025-09-13 | Outpatient (CLI) | payer MEDICARE, SELFPAY ==
[2025-09-13 16:19] LABS: Potassium 5.3 mmol/L (3.5-5.1)
== END | disposition home or self-care (01) ==
LOC: LAB 15:47
PROVIDERS: PCP Internal Medicine; Referring Provider Internal Medicine; Visit Provider Internal Medicine
DX: E87.5 Hyperkalemia (principal)
CPT/HCPCS: 36415; 84132